=== PATIENT | female | born 1945 | race Caucasian/White ===

== ENCOUNTER 2016-05-11 09:51 | Inpatient (IN) | payer MEDICARE ==
[~2016-05-11] VITALS: Ht 152.4 cm; Wt 50.7 kg
[2016-05-11] MEDS: TIOTROPIUM INHALER/CAPSULE (SPIRIVA) INH SCH (08:00)
[~2016-05-11 09:51] MED LIST: /ADVA50050; /TIOT18INH; ACET-654 PO; ACET65TA; ADVAIR; ALBU17IN INH; ALBU17IN2 INFIL; ALTA5CAP; AMLO10TA; ASPI1TAB PO; ASPI81TA83; ASPI81TAEC PO; AZIT250T3 PO; BUDE0.5S6 INH; CARV3.12 PO; CARV6.25 PO; CLAR1TAB2 PO; CLAR5CHW; CORE6.25; CRES20TA PO; DARBEPOETIN ALFA IV; DEMA20TA6 PO; DIPH25CA PO; DUONSOL INH; Docusate Sod/Senna PO; EPOGEN; FAMO1TAB11 PO; FEBU40TA PO; FLEXERIL; FLON0.054; FLUC10TA PO; FLUT1SPR2; FOLI1TAB; FOLI1TAB2 PO; FURO1TAB15 PO; GABA300C3 PO; GLIP2.5T6 PO; GLYB2.5T6; HYDR25T PO; HYDR50TA7; INSULANT; INSULIN LANTUS; IPRASOL4 IN; KION15SU PO; LEVA250T PO; LEVAMIR SQ; LEVEINJ SC; LORATADINE; LOVA20TA2; METO25TA74 PO; MIDO5TA PO; MIDORINE PO; NASONEX NASAL SPRAY; NEPHTAB PO; NICO21DI4; NYST100024 TOP; NYST10PW TOP; NYST50SS PO; NYST50SS SS; OMEP20CA3 PO; PEPC10TA PO; PEPC1TAB4 PO; PEPC20TA2; PRED10TA PO; PRED20TAB PO; PRED25TA PO; PREDPOW10; PROAMATINE PO; PROTPAK PO; PROV90AE; RENA800T; RENATAB5 PO; RENV2TAB PO; ROCA0.25 PO; SENN8.6T8 PO; SPIR1CAP INH; TAB-TAB PO; THERGRAN; TIOT18INH INH; VICO5TAB; VITA50003 PO; VITAMIN B COMPLE1; XANA0.25; XOPE1.252; XOPENEX; [UNRECOGNIZED DRUG - CODE]; [UNRECOGNIZED DRUG - OTHER]
[2016-05-11] MEDS ORDERED: IPRATROPIUM 0.5MG/ALBUTEROL 2.5MG INH SOL UD 3ML (DUONEB)(J7620) As Ordered ONE ×2 (10:15→16:35)
[2016-05-11 10:27] LABS: ABG BASE EXCESS 4.2 (-2.0-2.0); ABG DEVICE NASAL CANN; ABG HCO3 29.3 MEQ/L (22.0-26.0); ABG PARTIAL PRESSURE CO2 45.5 mmHg (35.0-45.0); ABG PARTIAL PRESSURE O2 82.5 mmHg (75.0-100.0); ABG STANDARD HCO3 28.2 MEQ/L (22.0-26.0); ABG TOTAL CO2 30.6 MEQ/L (23.0-31.0); ABG pH (ARTERIAL) 7.426 UNITS (7.350-7.450)
[2016-05-11] MEDS ORDERED: ALBUTEROL SULFATE 2.5 MG/0.5 ML INH NEB SOLN As Ordered ONE (10:34)
[2016-05-11 10:42] LABS: BASO % 0.7 % (0.0-1.0); EOS % 0.5 % (0.0-3.0); LARGE UNSTAINED CELL # 0.2 K/mm3 (0.0-0.4); LARGE UNSTAINED CELL % 3.7 % (0.0-4.0); LYMPH # 0.6 K/mm3 (1.5-4.5); LYMPH % 13.3 % (24.0-44.0); MEAN CORPUSCULAR HEMOGLOBIN 29.9 pg (27.0-33.0); MEAN CORPUSCULAR HGB CONC 31.5 g/dl (32.0-36.5); MEAN CORPUSCULAR VOLUME 95.1 fl (80.0-96.0); MONO # 0.4 K/mm3 (0.0-0.8); NEUTROPHILS # 3.3 K/mm3 (1.8-7.7); NEUTROPHILS % 72.8 % (36.0-66.0); PLATELET COUNT, AUTOMATED 188 k/mm3 (150-450); RED CELL DISTRIBUTION WIDTH 14.6 % (11.5-14.5); WHITE BLOOD COUNT 4.5 K/mm3 (4.0-10.0)
[2016-05-11 10:50] LABS: CALCIUM LEVEL 9.2 MG/DL (8.8-10.2); CREATININE FOR GFR 1.8 MG/DL (0.55-1.02); GLOMERULAR FILTRATION RATE 29.6 (>39); POTASSIUM SERUM 3.2 MEQ/L (3.5-5.1)
--- NOTE | 2016-05-11 10:55 | REP ---
PORTABLE CHEST: Single AP portable view of the chest is performed and compared to a prior study of 01/23/2016. There is cardiomegaly unchanged. There is calcification and tortuosity of the thoracic aorta with the mediastinal silhouette unchanged. Left single lead pacemaker is again noted unchanged. There is chronic right basilar, parenchymal, and pleural opacity, which is stable. IMPRESSION: Stable cardiomegaly and right basilar opacities. No new infiltrates. Signed by Jesus Johnson MD 05/11/2016 01:13 P
[2016-05-11] MEDS ORDERED: POTASSIUM CHL PWD 20 MEQ PACKET As Ordered ONE (13:57)
[2016-05-11] MEDS ORDERED: DOXY100C PO (14:00)
[2016-05-11] MEDS ORDERED: TORS20TA2 PO (14:00)
--- NOTE | 2016-05-11 14:03 | HPEPDOC ---
Medical History and Physical Date of Admission 05/11/16 History and Physical ATTENDING: Dr. Arzola PCP: Dr Ribeiro Morning Nanny: Dr. Gonzales Kai [place]: Dr. Carter Tick Eradicator: Dr. Gottlieb CC: Shortness of breath HPI: 70 yoF with a past medical history significant for ESRD/HD, COPD, NIDDM, CHF, chronic low blood pressure, who states she has been having shortness of breath for the past [address] Gonzales yesterday who requests that she have a chest x-ray completed. She was subsequently started on doxycycline. She states her shortness of breath persisted and she tried turning up her oxygen at home from 2 L to 3 L with slight improvement in her symptoms. She states last evening her symptoms worsened and she felt persistently short of breath and was sitting in a chair throughout the night. She reports wheezing , coughing productive of yellowish-green sputum, chills. She reports a fever at dialysis on Saturday of 101.4 and today of 100.4. Related to persistent symptoms at dialysis today she was referred to the emergency department for evaluation. She states she has not had any lower extremity edema. Denies any ROSALES, CP, palpitations, abdominal pain, N/V/D or changes in bowel or bladder habits. Upon presentation to the hospital the patient was found to have shortness of breath, thus the hospitalist team was consulted. PMHx: ESRD- hemodialysis via right arm AVF- every Saturday-Dr. Gonzales COPD-O2 dependent 2 L nasal cannula-Dr. Gottlieb NIDDM CHF AICD placement Hyperlipidemia TIA Hypotension TTE DD/EF 60%, moderately severe pulmonary hypertension, mild aortic stenosis, moderately severe to severe mitral insufficiency. 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 One brother [place]. Children: Alive, well Unexpected deaths due to medical reasons: None. ROS: As noted in HPI, otherwise 11pt ROS of systems reviewed and unremarkable. PE: GEN: 70yoF, appears stated age. thin appearing. No acute distress. Alert and oriented x 3. Pleasant, interactive. HEENT: Normocephalic, atraumatic. Pupils are equal, round, and reactive to light. Extraocular movements are intact. No nystagmus appreciated. Sclera are nonicteric. Conjunctiva without injection. Nose midline. Nasal turbinates without bogginess. EACs both patent BL. TMs both visualized and esteban with good cone of light, no bulging or erythema. No facial asymmetry. Dry mucous membranes. Dentures. Pharynx dry. Neck supple, trachea midline. No lymphadenopathy or thyromegaly appreciated. CHEST: Regular rate and rhythm, +S1, +S2 LUNGS: Decreased BS bilaterally. scattered insp/exp wheezes, rales noted at bases B/L, No rhonchi. No accessory muscle use. ABD: Round, soft, non-tender, non-distended. +Bowel sounds throughout. No rebound or guarding. No costovertebral angle tenderness. EXT: Pulses 2+ bilaterally dorsalis pedis and radial. No lower extremity edema appreciated. SKIN: No rashes. NEURO: Alert and oriented x 3. Cranial nerves III-XII are intact. No focal deficits appreciated. CXR: Stable cardiomegaly and right basilar opacities. No new infiltrates. BLOOD CULTURES: pending. A&P: 70 yoF with a past medical history significant for ESRD/HD, COPD, NIDDM, CHF, chronic low blood pressure, who states she has been having shortness of breath for the past [address] Gonzales yesterday who requests that she have a chest x-ray completed. She was subsequently started on doxycycline. She states her shortness of breath persisted and she tried turning up her oxygen at home from 2 L to 3 L with slight improvement in her symptoms. She states last evening her symptoms worsened and she felt persistently short of breath and was sitting in a chair throughout the night. The patient will be admitted to PCU for at least [address] Arzola's service. Patient is discussed with Dr. Triana. 1. Acute respiratory failure/COPD exacerbation. O2, Nebs, IV Vanco- 1 gm IV x 1 now-Pharmacy dosing/IV Solumedrol 60 mg IV Q6. BC/SC/rapid flu pending. 2. ESRD/hemodialysis. Management as per Dr. Gonzales. BNP 3530. Spoke with Dr Gonzales, he will follow Pt, re -attempt HD tomorrow. Hold po diuretic as d/w Dr Gonzales. 3. hypokalemia. S/P po supplement in ED. 4. COPD/O2 dependent. Cont supplemental O2/Nebulizer treatments. Cont outpt meds. 5. CHF-diastolic dysfunction/EF 60%. Cont outpt meds. CIP/Trop x 3. 6. Hypotension. Cont outpt midodrine. 7. VHD- mild aortic stenosis, moderately severe to severe mitral insufficiency TTE 12/29. 8. IDDM. SSI. Hold glipizide. 9. HLD. Cont statin. DVT prophylaxis. The patient is a Full code. Vital Signs 115/53 88 22 93% on 3 L nasal cannula Laboratory Data Labs 24H Laboratory Tests 2 05/11/16 10:08: Anion Gap 10, B-Type Natriuretic Peptide 3530H, White Blood Count 4.5, Red Blood Count 4.11, Hemoglobin 12.3, Hematocrit 39.1, Mean Corpuscular Volume 95.1 , Mean Corpuscular Hemoglobin 29.9, Mean Corpuscular Hemoglobin Concent 31.5L, Red Cell Distribution Width 14.6H, Platelet Count 188, Neutrophils (%) (Auto) 72.8H, Lymphocytes (%) (Auto) 13.3L, Monocytes (%) (Auto) 9.0H, Eosinophils (%) (Auto) 0.5, Basophils (%) (Auto) 0.7, Neutrophils # (Auto) 3.3, Lymphocytes # ( Auto) 0.6L, Monocytes # (Auto) 0.4, Eosinophils # (Auto) 0.0, Basophils # (Auto ) 0.0, Blood Urea Nitrogen 16, Creatinine 1.80H, Sodium Level 135L, Potassium Level 3.2L, Chloride Level 91L, Carbon Dioxide Level 34H, Calcium Level 9.2, Glomerular Filtration Rate 29.6L, Large Unclassified Cells # 0.2, Large Unclassified Cells % 3.7 05/11/16 10:23: Arterial Blood pH 7.426, Arterial Blood Partial Pressure CO2 45.5H, Arterial Blood Partial Pressure O2 82.5, Arterial Blood Total CO2 30.6, Arterial Blood HCO3 29.3H, Arterial Blood Base Excess 4.2H, Arterial Blood Oxygen Saturation 95.5, Blood Gas Bicarbonate Standard 28.2H, Oxygen Delivery Device NASAL ETTA CBC/BMP Laboratory Tests 05/11/16 10:08 Calcium Level 9.2, Red Blood Count 4.11, Mean Corpuscular Volume 95.1, Mean Corpuscular Hemoglobin 29.9, Mean Corpuscular Hemoglobin Concent 31.5 L, Red Cell Distribution Width 14.6 H, Neutrophils (%) (Auto) 72.8 H, Lymphocytes (%) ( Auto) 13.3 L, Monocytes (%) (Auto) 9.0 H, Eosinophils (%) (Auto) 0.5, Basophils (%) (Auto) 0.7, Neutrophils # (Auto) 3.3, Lymphocytes # (Auto) 0.6 L, Monocytes # (Auto) 0.4, Eosinophils # (Auto) 0.0, Basophils # (Auto) 0.0 Home Medications Scheduled (Tiera-Nallely) 1 Tab Tab 1 TAB PO QHS Aspirin (Aspirin EC) 81 Mg Tabec 81 MG PO DAILY Budesonide (Budesonide) 0.5 Mg/2 Ml Neb 0.5 MG INH BID Diphenhydramine HCl (Diphenhydramine HCl) 25 Mg Cap 25 MG PO DAILY Doxycycline Hyclate (Doxycycline Hyclate) 100 Mg Cap 100 MG PO Q12H STARTED 05/10 X 6 DAYS Ergocalciferol (Vitamin D) 50,000 Unit Cap 50,000 UNIT PO MTHLY 1st OF EACH MONTH IN MORNING Febuxostat (Uloric) 40 Mg Tab 40 MG PO DAILY Gabapentin (Gabapentin) 300 Mg Cap 300 MG PO BID Glipizide (Glipizide ER) 2.5 Mg Tab 2.5 MG PO DAILY Loratadine (Claritin) 10 Mg Tab 10 MG PO DAILY Midodrine HCl (Midodrine HCl) 5 Mg Tab 5 MG PO BID Rosuvastatin Calcium (Crestor) 20 Mg Tab 20 MG PO QPM Tiotropium [place] Monohydrate (Spiriva Handihaler) 18 Mcg Cap 18 MCG INH DAILY Torsemide (Torsemide) 20 Mg Tab 40 MG PO Q2D Scheduled PRN Albuterol Sulfate (Ventolin Hfa) 200 Puff/8 Gm Aers 2 PUFF INH Q4H PRN PRN SHORTNESS OF BREATH Albuterol/Ipratropium (Ipratropium [place]/Albut 0.5-2.5 (3) mg/3Ml) 1 Jason Jason 1 JASON IN QIDP PRN PRN RESPIRATORY DISTRESS Hydroxyzine HCl (Hydroxyzine HCl) 25 Mg Tab 25 MG PO BID PRN PRN ANXIETY/ ITCHING Allergies Coded Allergies: Penicillins (Verified Allergy, Intermediate, RASH, 05/11/16) Penicillins Cross Reactors (Verified Allergy, Intermediate, RASH, 05/11/16) Sulfa Drugs (Verified Allergy, Intermediate, RASH, 05/11/16) Sulfa Drugs Cross Reactors (Verified Allergy, Intermediate, RASH, 05/11/16) Ramipril (Verified Allergy, Mild, SWELLING, 07/17/12) Contrast Media (Unverified Allergy, Unknown, 04/16/14) Trina Huerta May 11, 2016 14:03 Contrast Media (Unverified Allergy, Unknown, 04/16/14) Penicillins (Verified Allergy, Unknown, 07/17/12) Penicillins Cross Reactors (Verified Allergy, Unknown, 07/17/12) Sulfa Drugs (Verified Allergy, Unknown, 07/17/12) Sulfa Drugs Cross Reactors (Verified Allergy, Unknown, 07/17/12) Trina Huerta May 11, 2016 14:03
[2016-05-11] MEDS ORDERED: GLUCAGON FOR INJ 1 MG VIAL (J1610) SC PRN (14:15)
[2016-05-11] MEDS ORDERED: GLUCOSE 4 GM CHEW TABLET PO PRN (14:15)
[2016-05-11] MEDS ORDERED: DEXTROSE 50% 50 ML SYRINGE IV PRN (14:15)
[2016-05-11] MEDS ORDERED: hydrOXYzine 25 MG TAB PO PRN (14:45)
[2016-05-11] MEDS ORDERED: VANCOMYCIN HCL 1,000 MG, VIAL MATE ADAPTER 1 EACH in D5W 250 ML IV SCH (15:15)
[2016-05-11] MEDS: MIDODRINE 5 MG TAB PO SCH (16:00)
[2016-05-11] MEDS: IPRATROPIUM 0.5MG/ALBUTEROL 2.5MG INH SOL UD 3ML (DUONEB)(J7620) NEB PRN ×2 (16:39→23:34)
[2016-05-11] MEDS: HumaLOG INSULIN (NovoLOG) PER UNIT SC SCH ×2 (17:30→21:37)
--- NOTE | 2016-05-11 17:42 | EDDOCDS ---
Nurse's Notes [facility] Name: Temitope Shabazz Age: 70 yrs Sex: Female : 1945 Arrival Date: 05/11/2016 Time: 09:51 Bed 14 Private MD: Eduar Gonzales Diagnosis: Fluid overload Presentation: 05/11 09:59 Presenting complaint: Patient states: difficulty breathing for a few days. had cxr srm yesterday and was told it was neg. pt very uncomfortable and restless. tuned her home oxygen up from 2-3 LNC. Adult Sepsis Screening: The patient does not have new or worsening altered mentation. Patient has a respiratory rate of greater than or equal to 22 (1 point). Systolic blood pressure is less than or equal to 100 (1 point). Patient has a qSOFA score of 2. Suicide/Homicide risk assessment- the patient denies having any suicidal and/or homicidal ideations and does not present with any other emotional, behavioral or mental health complaints. Status: Patient is not a business services clerk or dependent. Transition of care: patient was received from dialysis. 09:59 Acuity: CRISTEL Level 2 [facility] 09:59 Method Of Arrival: Wheelchair [facility] Triage Assessment: 10:02 General: Appears distressed, ill, uncomfortable, Behavior is appropriate for age, srm cooperative. Respiratory: Onset: The symptoms/episode began/occurred gradually. Historical: - Allergies: IV Dye; PENICILLINS; Ramipril; Sulfa (Sulfonamide Antibiotics); - Home Meds: 1. budesonide 0.5 mg/2 mL inhalation nbsp 2 mL 2 times per day 2. Claritin 10 mg Oral tab 1 tab once daily 3. Crestor 20 mg Oral tab 1 tab once daily 4. Demadex 20 mg Oral tab 2 tabs every other day LAST DOSE 05/10/16 5. DuoNeb 0.5 mg-3 mg(2.5 mg base)/3 mL Inhl nebu 3 mL 4 times per day 6. gabapentin 300 mg Oral cap twice a day 7. midodrine 5 mg oral tab 3 times per day 8. renavite daily 9. doxycycline hyclate 100 mg Oral cap 1 cap every 12 hours 10. glipizide 2.5 mg Oral tr24 once daily 11. Spiriva with HandiHaler 18 mcg Inhl CpDv 1 cap once daily 12. Vitamin D Oral 52859 unit monthly 13. Uloric 40 mg oral tab 1 tab once daily 14. Atarax Oral 25 mg as needed 15. Oxygen 2 L NC daily - PMHx: CHF; COPD; Diabetes - IDDM: controlled; Heart Murmur; Hypercholesterolemia; Irregular heart rate; Renal Failure with Dialysis; - PSHx: AICD; dailysis fistula right arm; Cholecystectomy; Tubal ligation; Cardiac cath; - Social history: Smoking status: Patient states former smoker of tobacco. No barriers to communication noted, The patient speaks fluent Thai, Speaks appropriately for age. - Family history: Not pertinent. - : The pt / caregiver states he / she is not on anticoagulants. Home medication list is obtained from the patient. - Exposure Risk Screening:: None identified. Screenin:14 Screening information is obtained from the patient. Fall risk: At risk due to age. js13 Assistance ADL's: requires no assistance with activities of daily living. Abuse/DV Screen: The patient / caregiver reports he/she is: not in a situation that causes fear, pain or injury. Nutritional screening: No deficits noted. Advance Directives: There is no active DNR order. home support is adequate. Assessment: 10:14 General: Appears ill, Behavior is appropriate for age, cooperative. Pain: Denies pain. js13 Neurological: Level of Consciousness is awake, alert. Cardiovascular: Rhythm is sinus rhythm Chest pain is denied. Respiratory: Airway is patent Respiratory effort is even, unlabored, Respiratory pattern is tachypnea Breath sounds with rhonchi Breath sounds are diminished Breath sounds with wheezes. Derm: Skin is pink, warm & dry. 10:42 General: DIALYSIS M, W, F. js13 11:24 General: Appears ill, Behavior is appropriate for age, cooperative. Pain: Denies pain. js13 Neurological: Level of Consciousness is awake, alert. Cardiovascular: Rhythm is sinus rhythm Chest pain is denied. Respiratory: Airway is patent Respiratory effort is even, pursed lip, Respiratory pattern is tachypnea Breath sounds with rhonchi Breath sounds are diminished Breath sounds with wheezes. Derm: Skin is pink, warm & dry. 12:19 General: Appears ill, Behavior is appropriate for age, cooperative. Pain: Denies pain. js13 Neurological: Level of Consciousness is awake, alert. Cardiovascular: Rhythm is sinus rhythm Chest pain is denied. Respiratory: Airway is patent Respiratory effort is even, pursed lip, Respiratory pattern is tachypnea. Derm: Skin is pink, warm & dry. 12:22 Adult Sepsis Screening: The patient does not have new or worsening altered mentation. js13 Patient has a respiratory rate of greater than or equal to 22 (1 point). Systolic blood pressure is greater than 100. Patient has a qSOFA score of 0- Negative Sepsis Screen. 13:16 General: Appears ill, Behavior is appropriate for age, cooperative. Pain: Denies pain. js13 Neurological: Level of Consciousness is awake, alert. Cardiovascular: Rhythm is sinus rhythm Chest pain is denied. Respiratory: Airway is patent Respiratory effort is even, pursed lip, Respiratory pattern is tachypnea. Derm: Skin is pink, warm & dry. 14:30 Adult Sepsis Screening: The patient does not have new or worsening altered mentation. js13 Patient has a respiratory rate of greater than or equal to 22 (1 point). Systolic blood pressure is greater than 100. Patient has a qSOFA score of 1- Negative Sepsis Screen. General: Appears ill, Behavior is appropriate for age, cooperative. Pain: Denies pain. Neurological: Level of Consciousness is awake, alert. Respiratory: Airway is patent Respiratory effort is even, pursed lip, Respiratory pattern is tachypnea Breath sounds with rhonchi Breath sounds are diminished. Respiratory: Sputum is thick, brown. Derm: Skin is pink, warm & dry. 15:15 General: Appears ill, Behavior is appropriate for age, cooperative. Pain: Denies pain. js13 Neurological: Level of Consciousness is awake, alert. Cardiovascular: Rhythm is sinus rhythm Chest pain is denied. Respiratory: Airway is patent Respiratory effort is even, Respiratory pattern is tachypnea Breath sounds with rhonchi Breath sounds are diminished. Derm: No deficits noted. Skin is pink, warm & dry. 16:20 Adult Sepsis Screening: The patient does not have new or worsening altered mentation. js13 Patient has a respiratory rate of greater than or equal to 22 (1 point). Systolic blood pressure is greater than 100. Patient has a qSOFA score of 1- Negative Sepsis Screen. General: Appears ill, Behavior is appropriate for age, cooperative. Pain: Denies pain. Neurological: Level of Consciousness is awake, alert. Cardiovascular: Rhythm is sinus rhythm Chest pain is denied. Respiratory: Airway is patent Respiratory effort is even, Respiratory pattern is tachypnea Breath sounds are diminished Breath sounds with wheezes. Derm: No deficits noted. Skin is pink, warm & dry. 17:08 General: Appears comfortable, Behavior is appropriate for age, cooperative. Pain: js13 Denies pain. Neurological: Level of Consciousness is awake, alert. Cardiovascular: Rhythm is sinus rhythm Chest pain is denied. Respiratory: Airway is patent Respiratory effort is even, Respiratory pattern is tachypnea. Derm: Skin is pink, warm & dry. 17:39 General: Appears comfortable, Behavior is appropriate for age, cooperative. Pain: js13 Denies pain. Neurological: Level of Consciousness is awake, alert. Cardiovascular: Rhythm is sinus rhythm Chest pain is denied. Respiratory: Airway is patent Respiratory effort is even, pursed lip, Respiratory pattern is tachypnea. Derm: Skin is pink, warm & dry. Vital Signs: 09:53 Pulse 88; Resp 26 S; Temp 97.8(O); Pulse Ox 97% ; Weight 51.71 kg (R); Height 5 ft. 0 js13 in. (152.40 cm) (R); 10:02 BP 91 / 61; srm 10:16 BP 90 / 60 (auto/); js13 10:16 Pulse 96 MON; Resp 22; Pulse Ox 97% on 3 lpm NC; js13 10:31 BP 91 / 57 (auto/); js13 10:31 Pulse 92 MON; Resp 22; Pulse Ox 98% on 3 lpm NC; js13 10:46 BP 80 / 48 (auto/); js13 10:46 Pulse 88 MON; Resp 24; Pulse Ox 100% on 3 lpm NC; js13 11:33 BP 115 / 53 (auto/); js13 11:33 Pulse 88 MON; Resp 22; Pulse Ox 93% on 3 lpm NC; 13 15:13 BP 94 / 56; Pulse 89; Resp 24; Temp 97.7(O); Pulse Ox 94% on 3 lpm NC; js13 17:38 Pulse 84 MON; Resp 24; Temp 97.8(O); Pulse Ox 96% on 3 lpm NC; 13 09:53 Body Mass Index 22.26 (51.71 kg, 152.40 cm) [facility] Vitals: 09:53 Log In Time: May 11, 2016 at 09:51. RN notified that patient meets Red Flag dd6 criteria. ED Course: 09:52 Patient visited by Juan Irwin PCA. dd6 09:52 Eduar Gonzales is Private Physician. dd6 09:52 Patient moved to Waiting dd6 09:53 [facility]mitt [facility] jo4 09:53 Nela Wen MD is Attending Physician. jo4 09:53 Patient moved to 14 [facility] 10:00 Triage Initiated [facility] 10:02 Patient visited by Cristy Zambrano. nb2 10:02 Placed in gown. Bed in low position. Call light in reach. Side rails up X2. Cardiac nb2 monitor on. Pulse ox on. NIBP on. 10:14 The patient / caregiver is instructed regarding the plan of care and ED course. js13 10:14 Inserted saline lock: 18 gauge in left antecubital area and blood collected. The js13 patient tolerated the procedure well. No procedures done that require assistance. O2 via nasal cannula \T\ 3L/min. 10:17 Patient visited by Elyssa Rubin RN. js13 10:24 Patient visited by Dorie Schmitt DO. jo4 10:24 Patient visited by Dorie Schmitt DO. jo4 10:26 -Arterial Blood Gas Sent. js 10:42 Patient visited by Elyssa Rubin RN. js13 11:05 [facility] Payment Agreement was scanned into [employer] and attached to record. lg 11:25 Patient visited by Elyssa Rubin RN. js13 11:30 Chest, 1 View Returned. EDMS 12:20 Patient visited by Elyssa Rubin RN. js13 12:24 Elyssa Rubin,BATSHEVA is Primary Nurse. js13 13:17 Patient visited by Elyssa Rubin RN. js13 13:20 Ron Triana is Hospitalizing Provider. jo4 13:48 Chest, 1 View Returned. EDMS 16:58 SPUTUM CULTURE AND GRAM STAIN Sent. js13 16:58 INFLUENZA A&B RAPID ANTIGEN Sent. js13 17:09 Patient visited by Elyssa Rubin RN. js13 Administered Medications: 10:26 Drug: Albuterol-Ipratropium 3 ml [ipratropium-albuterol 0.5 mg-3 mg(2.5 mg base)/3 mL js nebulization soln (3 mL)] Route: Inhalation; 10:37 Drug: Albuterol 2.5 mg [albuterol sulfate 2.5 mg/0.5 mL solution for nebulization (0.5 js mL)] Route: Nebulizer; 13:59 Drug: Potassium Chloride 40 mEq [potassium chloride 20 mEq oral packet (2 packets)] js13 Route: PO; RT: 10:26 ABG's drawn from left radial artery allens test done and positive pressure held for 5 js minutes no bleeding noted pressure bandage applied specimen sent pt. tolerated well. Initial Med Neb Given as ordered Patient was instructed and evaluated on procedure. O2 via nasal cannula \T\ 3L/min. Respiratory: Breath sounds are coarse bilaterally. 10:37 Subsequent Med Neb Given as ordered. Respiratory: Breath sounds are coarse bilaterally. js Order Results: Lab Order: -Arterial Blood Gas; SPEC'M 05/11/16 10:23 Test: ABG pH (ARTERIAL); Value: 7.426; Range: 7.350-7.450; Units: UNITS; Status: F Test: ABG PARTIAL PRESSURE CO2; Value: 45.5; Range: 35.0-45.0; Abnormal: Above high normal; Units: mmHg; Status: F Test: ABG PARTIAL PRESSURE O2; Value: 82.5; Range: 75.0-100.0; Units: mmHg; Status: F Test: ABG TOTAL CO2; Value: 30.6; Range: 23.0-31.0; Units: MEQ/L; Status: F Test: ABG HCO3; Value: 29.3; Range: 22.0-26.0; Abnormal: Above high normal; Units: MEQ/L; Status: F Test: ABG BASE EXCESS; Value: 4.2; Range: -2.0-2.0; Abnormal: Above high normal; Status: F Test: ABG STANDARD HCO3; Value: 28.2; Range: 22.0-26.0; Abnormal: Above high normal; Units: MEQ/L; Status: F Test: ABG O2 SATURATION; Value: 95.5; Range: 95.0-99.0; Units: %; Status: F Test: ABG DEVICE; Value: NASAL ETTA; Status: F Lab Order: BNP; SPEC'M 05/11/16 10:08 Test: BRAIN NATRIURETIC PEPTIDE; Value: 3530; Range: <100; Abnormal: Above high normal; Units: PG/ML; Status: F Lab Order: BMP; SPEC'M 05/11/16 10:08 Test: GLUCOSE, FASTING; Value: 115; Range: 83-110; Abnormal: Above high normal; Units: MG/DL; Status: F Test: BLOOD UREA NITROGEN; Value: 16; Range: 7-18; Units: MG/DL; Status: F Test: CREATININE FOR GFR; Value: 1.80; Range: 0.55-1.02; Abnormal: Above high normal; Units: MG/DL; Status: F Test: GLOMERULAR FILTRATION RATE; Value: 29.6; Range: >39; Abnormal: Below low normal; Status: F Test: SODIUM LEVEL; Value: 135; Range: 136-145; Abnormal: Below low normal; Units: MEQ/L; Status: F Test: POTASSIUM SERUM; Value: 3.2; Range: 3.5-5.1; Abnormal: Below low normal; Units: MEQ/L; Status: F Test: CHLORIDE LEVEL; Value: 91; Range: 98-107; Abnormal: Below low normal; Units: MEQ/L; Status: F Test: CARBON DIOXIDE LEVEL; Value: 34; Range: 21-32; Abnormal: Above high normal; Units: MEQ/L; Status: F Test: ANION GAP; Value: 10; Range: 8-16; Units: MEQ/L; Status: F Test: CALCIUM LEVEL; Value: 9.2; Range: 8.8-10.2; Units: MG/DL; Status: F Test Note: ; Units are mL/min/1.73 m2 Chronic Kidney Disease Staging per NKF: Stage I & II GFR >=60 Normal to Mildly Decreased Stage III GFR 30-59 Moderately Decreased Stage IV GFR 15-29 Severely Decreased Stage V GFR <15 Very Little GFR Left ESRD GFR <15 on [facility] Lab Order: CBC with Diff; SPEC'M 05/11/16 10:08 Test: WHITE BLOOD COUNT; Value: 4.5; Range: 4.0-10.0; Units: K/mm3; Status: F Test: RED BLOOD COUNT; Value: 4.11; Range: 4.00-5.40; Units: M/mm3; Status: F Test: HEMOGLOBIN; Value: 12.3; Range: 12.0-16.0; Units: g/dl; Status: F Test: HEMATOCRIT; Value: 39.1; Range: 36.0-47.0; Units: %; Status: F Test: MEAN CORPUSCULAR VOLUME; Value: 95.1; Range: 80.0-96.0; Units: fl; Status: F Test: MEAN CORPUSCULAR HEMOGLOBIN; Value: 29.9; Range: 27.0-33.0; Units: pg; Status: F Test: MEAN CORPUSCULAR HGB CONC; Value: 31.5; Range: 32.0-36.5; Abnormal: Below low normal; Units: g/dl; Status: F Test: RED CELL DISTRIBUTION WIDTH; Value: 14.6; Range: 11.5-14.5; Abnormal: Above high normal; Units: %; Status: F Test: PLATELET COUNT, AUTOMATED; Value: 188; Range: 150-450; Units: k/mm3; Status: F Test: NEUTROPHILS %; Value: 72.8; Range: 36.0-66.0; Abnormal: Above high normal; Units: %; Status: F Test: LYMPH %; Value: 13.3; Range: 24.0-44.0; Abnormal: Below low normal; Units: %; Status: F Test: MONO %; Value: 9.0; Range: 0.0-5.0; Abnormal: Above high normal; Units: %; Status: F Test: EOS %; Value: 0.5; Range: 0.0-3.0; Units: %; Status: F Test: BASO %; Value: 0.7; Range: 0.0-1.0; Units: %; Status: F Test: LARGE UNSTAINED CELL %; Value: 3.7; Range: 0.0-4.0; Units: %; Status: F Test: NEUTROPHILS #; Value: 3.3; Range: 1.8-7.7; Units: K/mm3; Status: F Test: LYMPH #; Value: 0.6; Range: 1.5-4.5; Abnormal: Below low normal; Units: K/mm3; Status: F Test: MONO #; Value: 0.4; Range: 0.0-0.8; Units: K/mm3; Status: F Test: EOS #; Value: 0.0; Range: 0.0-0.50; Units: K/mm3; Status: F Test: BASO #; Value: 0.0; Range: 0.0-0.2; Units: K/mm3; Status: F Test: LARGE UNSTAINED CELL #; Value: 0.2; Range: 0.0-0.4; Units: K/mm3; Status: F Lab Order: CARDIAC MARKER PANEL; SPEC'M 05/11/16 16:25 Test: CPK CREATINE PHOSPHOKINASE; Value: 152; Range: 26-192; Units: U/L; Status: F Test: CK-MB VALUE MASS; Value: 4.2; Range: 0.0-3.6; Abnormal: Above high normal; Units: NG/ML; Status: F Test: MB/CK RELATIVE INDEX; Value: 2.76; Range: < OR =4; Status: F Test: TROPONIN I; Value: 0.06; Range: < 0.10; Abnormal: Delta; Units: NG/ML; Status: F Test Note: ; DIAGNOSIS CRITERIA MMB ng/ml Relative Index (RI) NON-AMI < or = 5 N/A JOH[place]ON [place]ONE > 5 < or = 4 AMI > 5 > 4 Lab Order: INFLUENZA A&B RAPID ANTIGEN; SPEC'M 05/11/16 16:56 Test: INFLUENZA A RAPID SCR by ICA; Value: INFLUENZA A RESULTS NEGATIVE; Status: F Test: INFLUENZA A RAPID SCR by ICA; Value: Comments:; Status: F Test: INFLUENZA B RAPID SCR by ICA; Value: INFLUENZA B RESULTS NEGATIVE; Status: F Test Note: ; The Influenza test is a direct rapid immunoassay for the qualitative detection of Influenza viral antigen. Cell culture (Viral Culture) testing should be considered to confirm NEGATIVE results and to assist in detecting other viruses that can provide similar clinical symptoms. Please contact the lab within 24 hours [phone] if confirmatory testing is desired. Lab Order: CARDIAC MARKER PANEL; SPEC'M 05/11/16 10:08 Test: CPK CREATINE PHOSPHOKINASE; Value: 137; Range: 26-192; Units: U/L; Status: F Test: CK-MB VALUE MASS; Value: 5.0; Range: 0.0-3.6; Abnormal: Above high normal; Units: NG/ML; Status: F Test: MB/CK RELATIVE INDEX; Value: 3.64; Range: < OR =4; Status: F Test: TROPONIN I; Value: 0.08; Range: < 0.10; Units: NG/ML; Status: F Test Note: ; DIAGNOSIS CRITERIA MMB ng/ml Relative Index (RI) NON-AMI < or = 5 N/A JOH[place]ON ZONE > 5 < or = 4 AMI > 5 > 4 Radiology Order: Chest, 1 View Test: Chest, 1 View REASON FOR EXAMINATION: Shortness of Breath; PORTABLE CHEST:; ; Single AP portable view of the chest is performed and compared to a prior study; of 01/23/2016.; ; There is cardiomegaly unchanged. There is calcification and tortuosity of the; thoracic aorta with the mediastinal silhouette unchanged. Left single lead; pacemaker is again noted unchanged. There is chronic right basilar,; parenchymal, and pleural opacity, which is stable.; ; IMPRESSION:; ; Stable cardiomegaly and right basilar opacities. No new infiltrates.; ; ; Signed by; Jesus Johnson MD 05/11/2016 01:13 P; Outcome: 13:30 Decision to Hospitalize by Provider. jo4 15:16 Discharge Assessment: Patient awake, alert and oriented x 3. No cognitive and/or js13 functional deficits noted. Patient verbalized understanding of disposition instructions. patient administered narcotics - no. Condition: stable. No special radiology studies were completed. Admission hand-off: Report Faxed. Property :Personal belongings accompany Pt. 15:45 Admission hand-off: Report Faxed Fax receipt verified by dock clerk. js13 17:41 The following High Risk Discharge criteria are identified: None. Admitted to PCU js13 accompanied by nurse, accompanied by tech, via stretcher, with oxygen, on monitor, with chart. 17:41 Patient left the ED. js13 Signatures: Dispatcher [employer] EDMS Cheryl Cain, BATSHEVA RN Xin Victoria, Camden Braswell lg, Daniell, BARREL CLEANER BARREL CLEANER dd6 Elyssa Rubin,RN RN js13 Dorie Schmitt DO DO jo4 Cristy Zambrano nb2 Corrections: (The following items were deleted from the chart) 14:45 09:53 Pulse 88bpm; Resp 26bpm; Spontaneous; Pulse Ox 97%; 51.71 kg Reported; Height 5 js13 ft. 0 in. Reported; BMI: 22.2; dd6 MTDD
--- NOTE | 2016-05-11 17:42 | EDDOCDS ---
Physician Documentation [facility] Name: Temitope Shabazz Age: 70 yrs Sex: Female : 1945 Arrival Date: 05/11/2016 Time: 09:51 Bed 14 Private MD: Eduar Gonzales Disposition: 05/11 14:21 I have independently interviewed and examined the patient, and I agree with the sd1 investigation, diagnosis and treatment plan as documented by the Resident. Disposition: 05/11/16 13:30 Hospitalization ordered by Ron Triana for Inpatient Admission. Preliminary diagnosis is Fluid overload. - Bed requested for PCU. - Status is Inpatient Admission. js13 - Condition is Stable. - Problem is new. - Symptoms are unchanged. Historical: - Allergies: IV Dye; PENICILLINS; Ramipril; Sulfa (Sulfonamide Antibiotics); - Home Meds: 1. budesonide 0.5 mg/2 mL inhalation nbsp 2 mL 2 times per day 2. Claritin 10 mg Oral tab 1 tab once daily 3. Crestor 20 mg Oral tab 1 tab once daily 4. Demadex 20 mg Oral tab 2 tabs every other day LAST DOSE 05/10/16 5. DuoNeb 0.5 mg-3 mg(2.5 mg base)/3 mL Inhl nebu 3 mL 4 times per day 6. gabapentin 300 mg Oral cap twice a day 7. midodrine 5 mg oral tab 3 times per day 8. renavite daily 9. doxycycline hyclate 100 mg Oral cap 1 cap every 12 hours 10. glipizide 2.5 mg Oral tr24 once daily 11. Spiriva with HandiHaler 18 mcg Inhl CpDv 1 cap once daily 12. Vitamin D Oral 26748 unit monthly 13. Uloric 40 mg oral tab 1 tab once daily 14. Atarax Oral 25 mg as needed 15. Oxygen 2 L NC daily - PMHx: CHF; COPD; Diabetes - IDDM: controlled; Heart Murmur; Hypercholesterolemia; Irregular heart rate; Renal Failure with Dialysis; - PSHx: AICD; dailysis fistula right arm; Cholecystectomy; Tubal ligation; Cardiac cath; - Social history: Smoking status: Patient states former smoker of tobacco. No barriers to communication noted, The patient speaks fluent Greenlandic, Speaks appropriately for age. - Family history: Not pertinent. - : The pt / caregiver states he / she is not on anticoagulants. Home medication list is obtained from the patient. - Exposure Risk Screening:: None identified. Vital Signs: 09:53 Pulse 88; Resp 26 S; Temp 97.8(O); Pulse Ox 97% ; Weight 51.71 kg / 114 lbs (R); Height js13 5 ft. 0 in. (152.40 cm) (R); 10:02 BP 91 / 61; srm 10:16 BP 90 / 60 (auto/); js13 10:16 Pulse 96 MON; Resp 22; Pulse Ox 97% on 3 lpm NC; js13 10:31 BP 91 / 57 (auto/); js13 10:31 Pulse 92 MON; Resp 22; Pulse Ox 98% on 3 lpm NC; js13 10:46 BP 80 / 48 (auto/); js13 10:46 Pulse 88 MON; Resp 24; Pulse Ox 100% on 3 lpm NC; js13 11:33 BP 115 / 53 (auto/); js13 11:33 Pulse 88 MON; Resp 22; Pulse Ox 93% on 3 lpm NC; js13 15:13 BP 94 / 56; Pulse 89; Resp 24; Temp 97.7(O); Pulse Ox 94% on 3 lpm NC; js13 17:38 Pulse 84 MON; Resp 24; Temp 97.8(O); Pulse Ox 96% on 3 lpm NC; js13 09:53 Body Mass Index 22.26 (51.71 kg, 152.40 cm) js13 MDM: 10:12 Albuterol-Ipratropium 3 ml Inhalation once ordered. jo4 10:12 Call Respiratory ordered. jo4 10:12 Call Respiratory complete. jrd 10:14 Chest, 1 View Ordered. EDMS 10:15 -Arterial Blood Gas Ordered. EDMS 10:15 BNP Ordered. EDMS 10:31 -Arterial Blood Gas Reviewed. jo4 10:33 Albuterol 2.5 mg Nebulizer once ordered. jo4 10:33 BMP Ordered. EDMS 10:33 CBC with Diff Ordered. EDMS 10:49 Financial registration complete. lg 10:59 CBC with Diff Reviewed. jo4 10:59 BMP Reviewed. jo4 10:59 BNP Reviewed. jo4 11:05 [facility] Payment Agreement was scanned into [employer] and attached to record. lg 13:36 Potassium Chloride Packet 40 mEq PO once ordered. jo4 13:40 Chest, 1 View Reviewed. jo4 14:04 CONSISTENT CARBOHYDRATES ordered. EDMS 14:09 CARDIAC MARKER PANEL Ordered. EDMS 14:09 CARDIAC MARKER PANEL Ordered. EDMS 14:09 URINALYSIS Ordered. EDMS 14:09 URINE CULTURE Ordered. EDMS 14:09 BLOOD CULTURES Ordered. EDMS 14:09 INFLUENZA A&B RAPID ANTIGEN Ordered. EDMS 14:53 Admission / Observation Status ordered. EDMS 15:14 SPUTUM CULTURE AND GRAM STAIN Ordered. EDMS Administered Medications: 10:26 Drug: Albuterol-Ipratropium 3 ml [ipratropium-albuterol 0.5 mg-3 mg(2.5 mg base)/3 mL js nebulization soln (3 mL)] Route: Inhalation; 10:37 Drug: Albuterol 2.5 mg [albuterol sulfate 2.5 mg/0.5 mL solution for nebulization (0.5 js mL)] Route: Nebulizer; 13:59 Drug: Potassium Chloride 40 mEq [potassium chloride 20 mEq oral packet (2 packets)] js13 Route: PO; Signatures: Dispatcher [employer] EDAK Nela Wen MD MD sd1 Sara Tran, Coordinator Of Placement Unit lbd Cheryl Cain, RN BATSHEVA srm Xin Hussein, Vinny Reg lg Sanju Strickland RN BATSHEVA ml6 Elyssa Rubin RN RN js13 Everette Rivera, LC COUNTY COURT JUDGE d Dorie Schmitt DO DO jo4 Waldemar Martínez, Camden Núñez RN, sa The chart was reviewed and I authenticate all verbal orders and agree with the evaluation and treatment provided.Attachments: 11:05 [facility] Payment Agreement lg MTDD
[2016-05-11 17:53] VITALS: BP 136/52
--- NOTE | 2016-05-11 18:02 | EDDOCDS ---
Nurse's Notes [facility] Name: Temitope Shabazz Age: 70 yrs Sex: Female : 1945 Arrival Date: 05/11/2016 Time: 09:51 Bed 14 Private MD: Eduar Gonzales Diagnosis: Fluid overload Presentation: 05/11 09:59 Presenting complaint: Patient states: difficulty breathing for a few days. had cxr srm yesterday and was told it was neg. pt very uncomfortable and restless. tuned her home oxygen up from 2-3 LNC. Adult Sepsis Screening: The patient does not have new or worsening altered mentation. Patient has a respiratory rate of greater than or equal to 22 (1 point). Systolic blood pressure is less than or equal to 100 (1 point). Patient has a qSOFA score of 2. Suicide/Homicide risk assessment- the patient denies having any suicidal and/or homicidal ideations and does not present with any other emotional, behavioral or mental health complaints. 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 Transition of care: patient was received from dialysis. 09:59 Acuity: CRISTEL Level 2 [facility] 09:59 Method Of Arrival: Wheelchair [facility] Triage Assessment: 10:02 General: Appears distressed, ill, uncomfortable, Behavior is appropriate for age, srm cooperative. Respiratory: Onset: The symptoms/episode began/occurred gradually. Historical: - Allergies: IV Dye; PENICILLINS; Ramipril; Sulfa (Sulfonamide Antibiotics); - Home Meds: 1. budesonide 0.5 mg/2 mL inhalation nbsp 2 mL 2 times per day 2. Claritin 10 mg Oral tab 1 tab once daily 3. Crestor 20 mg Oral tab 1 tab once daily 4. Demadex 20 mg Oral tab 2 tabs every other day LAST DOSE 05/10/16 5. DuoNeb 0.5 mg-3 mg(2.5 mg base)/3 mL Inhl nebu 3 mL 4 times per day 6. gabapentin 300 mg Oral cap twice a day 7. midodrine 5 mg oral tab 3 times per day 8. renavite daily 9. doxycycline hyclate 100 mg Oral cap 1 cap every 12 hours 10. glipizide 2.5 mg Oral tr24 once daily 11. Spiriva with HandiHaler 18 mcg Inhl CpDv 1 cap once daily 12. Vitamin D Oral 76768 unit monthly 13. Uloric 40 mg oral tab 1 tab once daily 14. Atarax Oral 25 mg as needed 15. Oxygen 2 L NC daily - PMHx: CHF; COPD; Diabetes - IDDM: controlled; Heart Murmur; Hypercholesterolemia; Irregular heart rate; Renal Failure with Dialysis; - PSHx: AICD; dailysis fistula right arm; Cholecystectomy; Tubal ligation; Cardiac cath; - Social history: Smoking status: Patient states former smoker of tobacco. No barriers to communication noted, The patient speaks fluent Malay, Speaks appropriately for age. - Family history: Not pertinent. - : The pt / caregiver states he / she is not on anticoagulants. Home medication list is obtained from the patient. - Exposure Risk Screening:: None identified. Screenin:14 Screening information is obtained from the patient. Fall risk: At risk due to age. js13 Assistance ADL's: requires no assistance with activities of daily living. Abuse/DV Screen: The patient / caregiver reports he/she is: not in a situation that causes fear, pain or injury. Nutritional screening: No deficits noted. Advance Directives: There is no active DNR order. home support is adequate. Assessment: 10:14 General: Appears ill, Behavior is appropriate for age, cooperative. Pain: Denies pain. js13 Neurological: Level of Consciousness is awake, alert. Cardiovascular: Rhythm is sinus rhythm Chest pain is denied. Respiratory: Airway is patent Respiratory effort is even, unlabored, Respiratory pattern is tachypnea Breath sounds with rhonchi Breath sounds are diminished Breath sounds with wheezes. Derm: Skin is pink, warm & dry. 10:42 General: DIALYSIS M, W, F. js13 11:24 General: Appears ill, Behavior is appropriate for age, cooperative. Pain: Denies pain. js13 Neurological: Level of Consciousness is awake, alert. Cardiovascular: Rhythm is sinus rhythm Chest pain is denied. Respiratory: Airway is patent Respiratory effort is even, pursed lip, Respiratory pattern is tachypnea Breath sounds with rhonchi Breath sounds are diminished Breath sounds with wheezes. Derm: Skin is pink, warm & dry. 12:19 General: Appears ill, Behavior is appropriate for age, cooperative. Pain: Denies pain. js13 Neurological: Level of Consciousness is awake, alert. Cardiovascular: Rhythm is sinus rhythm Chest pain is denied. Respiratory: Airway is patent Respiratory effort is even, pursed lip, Respiratory pattern is tachypnea. Derm: Skin is pink, warm & dry. 12:22 Adult Sepsis Screening: The patient does not have new or worsening altered mentation. js13 Patient has a respiratory rate of greater than or equal to 22 (1 point). Systolic blood pressure is greater than 100. Patient has a qSOFA score of 0- Negative Sepsis Screen. 13:16 General: Appears ill, Behavior is appropriate for age, cooperative. Pain: Denies pain. js13 Neurological: Level of Consciousness is awake, alert. Cardiovascular: Rhythm is sinus rhythm Chest pain is denied. Respiratory: Airway is patent Respiratory effort is even, pursed lip, Respiratory pattern is tachypnea. Derm: Skin is pink, warm & dry. 14:30 Adult Sepsis Screening: The patient does not have new or worsening altered mentation. js13 Patient has a respiratory rate of greater than or equal to 22 (1 point). Systolic blood pressure is greater than 100. Patient has a qSOFA score of 1- Negative Sepsis Screen. General: Appears ill, Behavior is appropriate for age, cooperative. Pain: Denies pain. Neurological: Level of Consciousness is awake, alert. Respiratory: Airway is patent Respiratory effort is even, pursed lip, Respiratory pattern is tachypnea Breath sounds with rhonchi Breath sounds are diminished. Respiratory: Sputum is thick, brown. Derm: Skin is pink, warm & dry. 15:15 General: Appears ill, Behavior is appropriate for age, cooperative. Pain: Denies pain. js13 Neurological: Level of Consciousness is awake, alert. Cardiovascular: Rhythm is sinus rhythm Chest pain is denied. Respiratory: Airway is patent Respiratory effort is even, Respiratory pattern is tachypnea Breath sounds with rhonchi Breath sounds are diminished. Derm: No deficits noted. Skin is pink, warm & dry. 16:20 Adult Sepsis Screening: The patient does not have new or worsening altered mentation. js13 Patient has a respiratory rate of greater than or equal to 22 (1 point). Systolic blood pressure is greater than 100. Patient has a qSOFA score of 1- Negative Sepsis Screen. General: Appears ill, Behavior is appropriate for age, cooperative. Pain: Denies pain. Neurological: Level of Consciousness is awake, alert. Cardiovascular: Rhythm is sinus rhythm Chest pain is denied. Respiratory: Airway is patent Respiratory effort is even, Respiratory pattern is tachypnea Breath sounds are diminished Breath sounds with wheezes. Derm: No deficits noted. Skin is pink, warm & dry. 17:08 General: Appears comfortable, Behavior is appropriate for age, cooperative. Pain: js13 Denies pain. Neurological: Level of Consciousness is awake, alert. Cardiovascular: Rhythm is sinus rhythm Chest pain is denied. Respiratory: Airway is patent Respiratory effort is even, Respiratory pattern is tachypnea. Derm: Skin is pink, warm & dry. 17:39 General: Appears comfortable, Behavior is appropriate for age, cooperative. Pain: js13 Denies pain. Neurological: Level of Consciousness is awake, alert. Cardiovascular: Rhythm is sinus rhythm Chest pain is denied. Respiratory: Airway is patent Respiratory effort is even, pursed lip, Respiratory pattern is tachypnea. Derm: Skin is pink, warm & dry. Vital Signs: 09:53 Pulse 88; Resp 26 S; Temp 97.8(O); Pulse Ox 97% ; Weight 51.71 kg (R); Height 5 ft. 0 js13 in. (152.40 cm) (R); 10:02 BP 91 / 61; srm 10:16 BP 90 / 60 (auto/); js13 10:16 Pulse 96 MON; Resp 22; Pulse Ox 97% on 3 lpm NC; js13 10:31 BP 91 / 57 (auto/); js13 10:31 Pulse 92 MON; Resp 22; Pulse Ox 98% on 3 lpm NC; js13 10:46 BP 80 / 48 (auto/); js13 10:46 Pulse 88 MON; Resp 24; Pulse Ox 100% on 3 lpm NC; js13 11:33 BP 115 / 53 (auto/); js13 11:33 Pulse 88 MON; Resp 22; Pulse Ox 93% on 3 lpm NC; 13 15:13 BP 94 / 56; Pulse 89; Resp 24; Temp 97.7(O); Pulse Ox 94% on 3 lpm NC; js13 17:38 Pulse 84 MON; Resp 24; Temp 97.8(O); Pulse Ox 96% on 3 lpm NC; 13 09:53 Body Mass Index 22.26 (51.71 kg, 152.40 cm) [facility] Vitals: 09:53 Log In Time: May 11, 2016 at 09:51. RN notified that patient meets Red Flag dd6 criteria. ED Course: 09:52 Patient visited by Juan Irwin PCA. dd6 09:52 Eduar Gonzales is Private Physician. dd6 09:52 Patient moved to Waiting dd6 09:53 [facility] jo4 09:53 Nela Wen MD is Attending Physician. jo4 09:53 Patient moved to 14 [facility] 10:00 Triage Initiated [facility] 10:02 Patient visited by Cristy Zambrano. nb2 10:02 Placed in gown. Bed in low position. Call light in reach. Side rails up X2. Cardiac nb2 monitor on. Pulse ox on. NIBP on. 10:14 The patient / caregiver is instructed regarding the plan of care and ED course. js13 10:14 Inserted saline lock: 18 gauge in left antecubital area and blood collected. The js13 patient tolerated the procedure well. No procedures done that require assistance. O2 via nasal cannula \T\ 3L/min. 10:17 Patient visited by Elyssa Rubin RN. js13 10:24 Patient visited by Dorie Schmitt DO. jo4 10:24 Patient visited by Dorie Schmitt DO. jo4 10:26 -Arterial Blood Gas Sent. js 10:42 Patient visited by Elyssa Rubin RN. js13 11:05 [facility] Payment Agreement was scanned into [facility] and attached to record. lg 11:25 Patient visited by Elyssa Rubin RN. js13 11:30 Chest, 1 View Returned. EDMS 12:20 Patient visited by Elyssa Rubin RN. js13 12:24 Elyssa Rubin,BATSHEVA is Primary Nurse. js13 13:17 Patient visited by Elyssa Rubin RN. js13 13:20 Ron Triana is Hospitalizing Provider. jo4 13:48 Chest, 1 View Returned. EDMS 16:58 SPUTUM CULTURE AND GRAM STAIN Sent. js13 16:58 INFLUENZA A&B RAPID ANTIGEN Sent. js13 17:09 Patient visited by Elyssa Rubin RN. js13 Administered Medications: 10:26 Drug: Albuterol-Ipratropium 3 ml [ipratropium-albuterol 0.5 mg-3 mg(2.5 mg base)/3 mL js nebulization soln (3 mL)] Route: Inhalation; 10:37 Drug: Albuterol 2.5 mg [albuterol sulfate 2.5 mg/0.5 mL solution for nebulization (0.5 js mL)] Route: Nebulizer; 13:59 Drug: Potassium Chloride 40 mEq [potassium chloride 20 mEq oral packet (2 packets)] js13 Route: PO; RT: 10:26 ABG's drawn from left radial artery allens test done and positive pressure held for 5 js minutes no bleeding noted pressure bandage applied specimen sent pt. tolerated well. Initial Med Neb Given as ordered Patient was instructed and evaluated on procedure. O2 via nasal cannula \T\ 3L/min. Respiratory: Breath sounds are coarse bilaterally. 10:37 Subsequent Med Neb Given as ordered. Respiratory: Breath sounds are coarse bilaterally. js Order Results: Lab Order: -Arterial Blood Gas; SPEC'M 05/11/16 10:23 Test: ABG pH (ARTERIAL); Value: 7.426; Range: 7.350-7.450; Units: UNITS; Status: F Test: ABG PARTIAL PRESSURE CO2; Value: 45.5; Range: 35.0-45.0; Abnormal: Above high normal; Units: mmHg; Status: F Test: ABG PARTIAL PRESSURE O2; Value: 82.5; Range: 75.0-100.0; Units: mmHg; Status: F Test: ABG TOTAL CO2; Value: 30.6; Range: 23.0-31.0; Units: MEQ/L; Status: F Test: ABG HCO3; Value: 29.3; Range: 22.0-26.0; Abnormal: Above high normal; Units: MEQ/L; Status: F Test: ABG BASE EXCESS; Value: 4.2; Range: -2.0-2.0; Abnormal: Above high normal; Status: F Test: ABG STANDARD HCO3; Value: 28.2; Range: 22.0-26.0; Abnormal: Above high normal; Units: MEQ/L; Status: F Test: ABG O2 SATURATION; Value: 95.5; Range: 95.0-99.0; Units: %; Status: F Test: ABG DEVICE; Value: NASAL ETTA; Status: F Lab Order: BNP; SPEC'M 05/11/16 10:08 Test: BRAIN NATRIURETIC PEPTIDE; Value: 3530; Range: <100; Abnormal: Above high normal; Units: PG/ML; Status: F Lab Order: BMP; SPEC'M 05/11/16 10:08 Test: GLUCOSE, FASTING; Value: 115; Range: 83-110; Abnormal: Above high normal; Units: MG/DL; Status: F Test: BLOOD UREA NITROGEN; Value: 16; Range: 7-18; Units: MG/DL; Status: F Test: CREATININE FOR GFR; Value: 1.80; Range: 0.55-1.02; Abnormal: Above high normal; Units: MG/DL; Status: F Test: GLOMERULAR FILTRATION RATE; Value: 29.6; Range: >39; Abnormal: Below low normal; Status: F Test: SODIUM LEVEL; Value: 135; Range: 136-145; Abnormal: Below low normal; Units: MEQ/L; Status: F Test: POTASSIUM SERUM; Value: 3.2; Range: 3.5-5.1; Abnormal: Below low normal; Units: MEQ/L; Status: F Test: CHLORIDE LEVEL; Value: 91; Range: 98-107; Abnormal: Below low normal; Units: MEQ/L; Status: F Test: CARBON DIOXIDE LEVEL; Value: 34; Range: 21-32; Abnormal: Above high normal; Units: MEQ/L; Status: F Test: ANION GAP; Value: 10; Range: 8-16; Units: MEQ/L; Status: F Test: CALCIUM LEVEL; Value: 9.2; Range: 8.8-10.2; Units: MG/DL; Status: F Test Note: ; Units are mL/min/1.73 m2 Chronic Kidney Disease Staging per NKF: Stage I & II GFR >=60 Normal to Mildly Decreased Stage III GFR 30-59 Moderately Decreased Stage IV GFR 15-29 Severely Decreased Stage V GFR <15 Very Little GFR Left ESRD GFR <15 on MACHINE PROGRAMMER Lab Order: CBC with Diff; SPEC'M 05/11/16 10:08 Test: WHITE BLOOD COUNT; Value: 4.5; Range: 4.0-10.0; Units: K/mm3; Status: F Test: RED BLOOD COUNT; Value: 4.11; Range: 4.00-5.40; Units: M/mm3; Status: F Test: HEMOGLOBIN; Value: 12.3; Range: 12.0-16.0; Units: g/dl; Status: F Test: HEMATOCRIT; Value: 39.1; Range: 36.0-47.0; Units: %; Status: F Test: MEAN CORPUSCULAR VOLUME; Value: 95.1; Range: 80.0-96.0; Units: fl; Status: F Test: MEAN CORPUSCULAR HEMOGLOBIN; Value: 29.9; Range: 27.0-33.0; Units: pg; Status: F Test: MEAN CORPUSCULAR HGB CONC; Value: 31.5; Range: 32.0-36.5; Abnormal: Below low normal; Units: g/dl; Status: F Test: RED CELL DISTRIBUTION WIDTH; Value: 14.6; Range: 11.5-14.5; Abnormal: Above high normal; Units: %; Status: F Test: PLATELET COUNT, AUTOMATED; Value: 188; Range: 150-450; Units: k/mm3; Status: F Test: NEUTROPHILS %; Value: 72.8; Range: 36.0-66.0; Abnormal: Above high normal; Units: %; Status: F Test: LYMPH %; Value: 13.3; Range: 24.0-44.0; Abnormal: Below low normal; Units: %; Status: F Test: MONO %; Value: 9.0; Range: 0.0-5.0; Abnormal: Above high normal; Units: %; Status: F Test: EOS %; Value: 0.5; Range: 0.0-3.0; Units: %; Status: F Test: BASO %; Value: 0.7; Range: 0.0-1.0; Units: %; Status: F Test: LARGE UNSTAINED CELL %; Value: 3.7; Range: 0.0-4.0; Units: %; Status: F Test: NEUTROPHILS #; Value: 3.3; Range: 1.8-7.7; Units: K/mm3; Status: F Test: LYMPH #; Value: 0.6; Range: 1.5-4.5; Abnormal: Below low normal; Units: K/mm3; Status: F Test: MONO #; Value: 0.4; Range: 0.0-0.8; Units: K/mm3; Status: F Test: EOS #; Value: 0.0; Range: 0.0-0.50; Units: K/mm3; Status: F Test: BASO #; Value: 0.0; Range: 0.0-0.2; Units: K/mm3; Status: F Test: LARGE UNSTAINED CELL #; Value: 0.2; Range: 0.0-0.4; Units: K/mm3; Status: F Lab Order: CARDIAC MARKER PANEL; SPEC'M 05/11/16 16:25 Test: CPK CREATINE PHOSPHOKINASE; Value: 152; Range: 26-192; Units: U/L; Status: F Test: CK-MB VALUE MASS; Value: 4.2; Range: 0.0-3.6; Abnormal: Above high normal; Units: NG/ML; Status: F Test: MB/CK RELATIVE INDEX; Value: 2.76; Range: < OR =4; Status: F Test: TROPONIN I; Value: 0.06; Range: < 0.10; Abnormal: Delta; Units: NG/ML; Status: F Test Note: ; DIAGNOSIS CRITERIA MMB ng/ml Relative Index (RI) NON-AMI < or = 5 N/A JOH[place]ON ZONE > 5 < or = 4 AMI > 5 > 4 Lab Order: INFLUENZA A&B RAPID ANTIGEN; SPEC'M 05/11/16 16:56 Test: INFLUENZA A RAPID SCR by ICA; Value: INFLUENZA A RESULTS NEGATIVE; Status: F Test: INFLUENZA A RAPID SCR by ICA; Value: Comments:; Status: F Test: INFLUENZA B RAPID SCR by ICA; Value: INFLUENZA B RESULTS NEGATIVE; Status: F Test Note: ; The Influenza test is a direct rapid immunoassay for the qualitative detection of Influenza viral antigen. Cell culture (Viral Culture) testing should be considered to confirm NEGATIVE results and to assist in detecting other viruses that can provide similar clinical symptoms. Please contact the lab within 24 hours ([phone] if confirmatory testing is desired. Lab Order: CARDIAC MARKER PANEL; SPEC'M 05/11/16 10:08 Test: CPK CREATINE PHOSPHOKINASE; Value: 137; Range: 26-192; Units: U/L; Status: F Test: CK-MB VALUE MASS; Value: 5.0; Range: 0.0-3.6; Abnormal: Above high normal; Units: NG/ML; Status: F Test: MB/CK RELATIVE INDEX; Value: 3.64; Range: < OR =4; Status: F Test: TROPONIN I; Value: 0.08; Range: < 0.10; Units: NG/ML; Status: F Test Note: ; DIAGNOSIS CRITERIA MMB ng/ml Relative Index (RI) NON-AMI < or = 5 N/A JOH[place]ON ZONE > 5 < or = 4 AMI > 5 > 4 Radiology Order: Chest, 1 View Test: Chest, 1 View REASON FOR EXAMINATION: Shortness of Breath; PORTABLE CHEST:; ; Single AP portable view of the chest is performed and compared to a prior study; of 01/23/2016.; ; There is cardiomegaly unchanged. There is calcification and tortuosity of the; thoracic aorta with the mediastinal silhouette unchanged. Left single lead; pacemaker is again noted unchanged. There is chronic right basilar,; parenchymal, and pleural opacity, which is stable.; ; IMPRESSION:; ; Stable cardiomegaly and right basilar opacities. No new infiltrates.; ; ; Signed by; Jesus Johnson MD 05/11/2016 01:13 P; Outcome: 13:30 Decision to Hospitalize by Provider. jo4 15:16 Discharge Assessment: Patient awake, alert and oriented x 3. No cognitive and/or js13 functional deficits noted. Patient verbalized understanding of disposition instructions. patient administered narcotics - no. Condition: stable. No special radiology studies were completed. Admission hand-off: Report Faxed. Property :Personal belongings accompany Pt. 15:45 Admission hand-off: Report Faxed Fax receipt verified by accounts payable clerk. js13 17:41 The following High Risk Discharge criteria are identified: None. Admitted to PCU js13 accompanied by nurse, accompanied by tech, via stretcher, with oxygen, on monitor, with chart. 17:41 Patient left the ED. 13 18:01 Patient left the ED. kamala Signatures: Dispatcher [employer] Jem Andrews RN RN bcj Michelson, Staci, RN RN srm Ganter, LoriLee, Reg Reg lg Camden Brower Daniell, BEAD WRAPPER BEAD WRAPPER dd6 Elyssa Rubin,RN RN js13 Dorie Schmitt DO DO jo4 Cristy Zambrano nb2 Corrections: (The following items were deleted from the chart) 14:45 09:53 Pulse 88bpm; Resp 26bpm; Spontaneous; Pulse Ox 97%; 51.71 kg Reported; Height 5 js13 ft. 0 in. Reported; BMI: 22.2; dd6 MTDD
--- NOTE | 2016-05-11 18:02 | EDDOCDS ---
Physician Documentation [facility] Name: Temitope Shabazz Age: 70 yrs Sex: Female : 1945 Arrival Date: 05/11/2016 Time: 09:51 Bed 14 Private MD: Eduar Gonzales Disposition: 05/11 14:21 I have independently interviewed and examined the patient, and I agree with the sd1 investigation, diagnosis and treatment plan as documented by the Resident. Disposition: 05/11/16 13:30 Hospitalization ordered by Ron Triana for Inpatient Admission. Preliminary diagnosis is Fluid overload. - Bed requested for PCU. - Status is Inpatient Admission. bcj - Condition is Stable. - Problem is new. - Symptoms are unchanged. Historical: - Allergies: IV Dye; PENICILLINS; Ramipril; Sulfa (Sulfonamide Antibiotics); - Home Meds: 1. budesonide 0.5 mg/2 mL inhalation nbsp 2 mL 2 times per day 2. Claritin 10 mg Oral tab 1 tab once daily 3. Crestor 20 mg Oral tab 1 tab once daily 4. Demadex 20 mg Oral tab 2 tabs every other day LAST DOSE 05/10/16 5. DuoNeb 0.5 mg-3 mg(2.5 mg base)/3 mL Inhl nebu 3 mL 4 times per day 6. gabapentin 300 mg Oral cap twice a day 7. midodrine 5 mg oral tab 3 times per day 8. renavite daily 9. doxycycline hyclate 100 mg Oral cap 1 cap every 12 hours 10. glipizide 2.5 mg Oral tr24 once daily 11. Spiriva with HandiHaler 18 mcg Inhl CpDv 1 cap once daily 12. Vitamin D Oral 37379 unit monthly 13. Uloric 40 mg oral tab 1 tab once daily 14. Atarax Oral 25 mg as needed 15. Oxygen 2 L NC daily - PMHx: CHF; COPD; Diabetes - IDDM: controlled; Heart Murmur; Hypercholesterolemia; Irregular heart rate; Renal Failure with Dialysis; - PSHx: AICD; dailysis fistula right arm; Cholecystectomy; Tubal ligation; Cardiac cath; - Social history: Smoking status: Patient states former smoker of tobacco. No barriers to communication noted, The patient speaks fluent Occitan, Speaks appropriately for age. - Family history: Not pertinent. - : The pt / caregiver states he / she is not on anticoagulants. Home medication list is obtained from the patient. - Exposure Risk Screening:: None identified. Vital Signs: 09:53 Pulse 88; Resp 26 S; Temp 97.8(O); Pulse Ox 97% ; Weight 51.71 kg / 114 lbs (R); Height js13 5 ft. 0 in. (152.40 cm) (R); 10:02 BP 91 / 61; srm 10:16 BP 90 / 60 (auto/); js13 10:16 Pulse 96 MON; Resp 22; Pulse Ox 97% on 3 lpm NC; js13 10:31 BP 91 / 57 (auto/); js13 10:31 Pulse 92 MON; Resp 22; Pulse Ox 98% on 3 lpm NC; js13 10:46 BP 80 / 48 (auto/); js13 10:46 Pulse 88 MON; Resp 24; Pulse Ox 100% on 3 lpm NC; js13 11:33 BP 115 / 53 (auto/); js13 11:33 Pulse 88 MON; Resp 22; Pulse Ox 93% on 3 lpm NC; js13 15:13 BP 94 / 56; Pulse 89; Resp 24; Temp 97.7(O); Pulse Ox 94% on 3 lpm NC; js13 17:38 Pulse 84 MON; Resp 24; Temp 97.8(O); Pulse Ox 96% on 3 lpm NC; js13 09:53 Body Mass Index 22.26 (51.71 kg, 152.40 cm) js13 MDM: 10:12 Albuterol-Ipratropium 3 ml Inhalation once ordered. jo4 10:12 Call Respiratory ordered. jo4 10:12 Call Respiratory complete. jrd 10:14 Chest, 1 View Ordered. EDMS 10:15 -Arterial Blood Gas Ordered. EDMS 10:15 BNP Ordered. EDMS 10:31 -Arterial Blood Gas Reviewed. jo4 10:33 Albuterol 2.5 mg Nebulizer once ordered. jo4 10:33 BMP Ordered. EDMS 10:33 CBC with Diff Ordered. EDMS 10:49 Financial registration complete. lg 10:59 CBC with Diff Reviewed. jo4 10:59 BMP Reviewed. jo4 10:59 BNP Reviewed. jo4 11:05 [facility] Payment Agreement was scanned into [employer] and attached to record. lg 13:36 Potassium Chloride Packet 40 mEq PO once ordered. jo4 13:40 Chest, 1 View Reviewed. jo4 14:04 CONSISTENT CARBOHYDRATES ordered. EDMS 14:09 CARDIAC MARKER PANEL Ordered. EDMS 14:09 CARDIAC MARKER PANEL Ordered. EDMS 14:09 URINALYSIS Ordered. EDMS 14:09 URINE CULTURE Ordered. EDMS 14:09 BLOOD CULTURES Ordered. EDMS 14:09 INFLUENZA A&B RAPID ANTIGEN Ordered. EDMS 14:53 Admission / Observation Status ordered. EDMS 15:14 SPUTUM CULTURE AND GRAM STAIN Ordered. EDMS Administered Medications: 10:26 Drug: Albuterol-Ipratropium 3 ml [ipratropium-albuterol 0.5 mg-3 mg(2.5 mg base)/3 mL js nebulization soln (3 mL)] Route: Inhalation; 10:37 Drug: Albuterol 2.5 mg [albuterol sulfate 2.5 mg/0.5 mL solution for nebulization (0.5 js mL)] Route: Nebulizer; 13:59 Drug: Potassium Chloride 40 mEq [potassium chloride 20 mEq oral packet (2 packets)] js13 Route: PO; Signatures: Dispatcher [employer] EDUT Nela Wen MD MD sd1 Sara Tran, Cardiac Specialist Unit lbd Jem Pollard RN Cheryl Jiang, RN RN Xin Victoria, Reg Reg lg Sanju Strickland, RN BATSHEVA ml6 Elyssa RubinRN BATSHEVA js13 Everette Rivera, LC EARLY CHILDHOOD SPECIALIST jrd Dorie Schmitt DO DO jo4 Waldemar Martínez, RN Camden Núñez sa The chart was reviewed and I authenticate all verbal orders and agree with the evaluation and treatment provided.Attachments: 11:05 [facility] Payment Agreement lg MTDD
[2016-05-11] MEDS: methylPREDNISolone INJ 125 MG/2 ML VIAL (J2930) IV SCH (18:33)
[2016-05-11] MEDS: ASPIRIN 81 MG ENTERIC TAB PO SCH (18:33)
[2016-05-11] MEDS: diphenhydrAMINE 25 MG CAP PO SCH (18:33)
[2016-05-11] MEDS ORDERED: VANCOMYCIN HCL 750 MG, VIAL MATE ADAPTER 1 EACH in D5W 250 ML IV ONE (19:00)
--- NOTE | 2016-05-11 19:34 | PHACANCOPD ---
PHARMACY VANCOMYCIN DOSING Pt Demographics Demographics Patient Age:70 , Weight:70.500 , Gender: female Adjusted Body Weight Date: 05/11/16, Adjusted Body Weight: Kg Events Past 24 Hours Events Past 24 Hours: YES: Pending Diagnostics Vancomycin Vancomycin indication: pneumonia Vancomycin Target Ranges: 15-20 mcg/ml Vancomycin Load Y/N: No Load Dose Date Time Vancomycin Load Dose: Date: Time: Vancomycin Dose Date: 05/11/16. Current Vancomycin Dose: [750 mg IV HD] Intermittent Dosing?: Yes Labs Labs Item Value Date Time White Blood Count 4.5 K/mm3 05/11/16 1008 Creatinine 1.80 MG/DL H 05/11/16 1008 Micro Microbiology 05/11/16 Blood Culture, Received Pending 05/11/16 Influenza Virus Type A Antigen - Final, Complete 05/11/16 Influenza Virus Type B Antigen - Final, Complete 05/11/16 Gram Stain, Received Pending 05/11/16 Sputum Culture, Received Pending Creatinine Clearance Date:05/11/16. Estimated Creatinine Clearance: ~[22.7 ml/min]. Pending Labs Vancomycin random level scheduled 05/12/16 @0600 Assessment and Plan Maintaining Current Dose?: Yes Reason for dose change: No Dose Change Pharmacist Note Pharmacist Note Date: 05/11/16. Pharmacist note: Day #1 on IV vancomycin initiated with a one time 750mg dose, followed by intermittent dosing based on random levels for the treatment of pneumonia - aiming for a goal trough of 15-20 mcg/ml. The patient has ESRD and undergoes HD every Saturday, Saturday, and Saturday. She was previously on doxycycline as an outpatient. WBC is currently WNL, and patient is afebrile. Blood and sputum cultures are pending. Recent CXR showed right basilar opacities with no new infiltrates. PMH is negative for MRSA, but positive for vanco use her at [facility]. A random schedule has been scheduled for 05/12 @ 0600. We will monitor and make dose adjustments as needed. [facility] May 11, 2016 19:34
[2016-05-11] MEDS ORDERED: VANCOMYCIN HCL 500 MG in D5W MINI-BAG PLUS 100 ML IV ONE (20:00)
[2016-05-11] MEDS: IPRATROPIUM 0.5MG/ALBUTEROL 2.5MG INH SOL UD 3ML (DUONEB)(J7620) NEB SCH (20:23)
[2016-05-11 21:28] VITALS: BP 120/58
[2016-05-11] MEDS: ROSUVASTATIN 10 MG TAB (CRESTOR) PO SCH (21:35)
[2016-05-11] MEDS: LORATADINE 10 MG TAB PO SCH (21:36)
[2016-05-11] MEDS: GABAPENTIN 300 MG CAP PO SCH (21:36)
[2016-05-11] MEDS: FEBUXOSTAT 40 MG TABLET (ULORIC) PO SCH (21:36)
[2016-05-11 23:59] VITALS: BP 84/44
[2016-05-12] MEDS ORDERED: NYSTATIN 500,000 U/5 ML SUSP UDC SS SCH (00:30)
[2016-05-12] MEDS: methylPREDNISolone INJ 125 MG/2 ML VIAL (J2930) IV SCH ×4 (00:54→18:22)
[2016-05-12 03:57] VITALS: BP 90/48
[2016-05-12] MEDS: IPRATROPIUM 0.5MG/ALBUTEROL 2.5MG INH SOL UD 3ML (DUONEB)(J7620) NEB SCH ×4 (04:24→20:01)
[2016-05-12 05:53] LABS: BASO % 0.9 % (0.0-1.0); EOS % 0.5 % (0.0-3.0); LARGE UNSTAINED CELL % 1.2 % (0.0-4.0); LYMPH # 0.3 K/mm3 (1.5-4.5); MEAN CORPUSCULAR HEMOGLOBIN 29.6 pg (27.0-33.0); MEAN CORPUSCULAR VOLUME 95.5 fl (80.0-96.0); MONO # 0.1 K/mm3 (0.0-0.8); MONO % 2.8 % (0.0-5.0); NEUTROPHILS # 3.1 K/mm3 (1.8-7.7); NEUTROPHILS % 87.6 % (36.0-66.0); PLATELET COUNT, AUTOMATED 163 k/mm3 (150-450); RED CELL DISTRIBUTION WIDTH 15.7 % (11.5-14.5); WHITE BLOOD COUNT 3.6 K/mm3 (4.0-10.0)
[2016-05-12 06:11] LABS: ALBUMIN 3.6 GM/DL (3.2-5.2); ALBUMIN/GLOBULIN RATIO 0.86 (1.00-1.93); BILIRUBIN,TOTAL 0.6 MG/DL (0.2-1.0); CALCIUM LEVEL 9.1 MG/DL (8.8-10.2); CREATININE FOR GFR 2.9 MG/DL (0.55-1.02); GLOMERULAR FILTRATION RATE 17.1 (>39); POTASSIUM SERUM 4.2 MEQ/L (3.5-5.1); TOTAL PROTEIN 7.8 GM/DL (6.4-8.2); VANCOMYCIN RANDOM 11.8 UG/ML
[2016-05-12 08:00] VITALS: BP 136/57
[2016-05-12] MEDS: NYSTATIN 500,000 U/5 ML SUSP UDC SS SCH ×3 (08:21→20:47)
[2016-05-12] MEDS: FEBUXOSTAT 40 MG TABLET (ULORIC) PO SCH (08:21)
[2016-05-12] MEDS: LORATADINE 10 MG TAB PO SCH (08:21)
[2016-05-12] MEDS: GABAPENTIN 300 MG CAP PO SCH ×2 (08:21→20:47)
[2016-05-12] MEDS: MIDODRINE 5 MG TAB PO SCH ×2 (08:21→16:49)
[2016-05-12] MEDS: diphenhydrAMINE 25 MG CAP PO SCH (08:21)
[2016-05-12] MEDS: ASPIRIN 81 MG ENTERIC TAB PO SCH (08:21)
[2016-05-12] MEDS: HumaLOG INSULIN (NovoLOG) PER UNIT SC SCH ×4 (08:21→21:00)
[2016-05-12] MEDS ORDERED: HEPARIN 1,000 UNITS/ML 10ML VIAL (FOR RADIOLOGY& DIALYSIS ONLY) XX ONE (09:00)
[2016-05-12] MEDS: TIOTROPIUM INHALER/CAPSULE (SPIRIVA) INH SCH (09:06)
[2016-05-12] MEDS ORDERED: FUROSEMIDE 100 MG/10 ML VIAL (J1940) IV ONE (10:45)
[2016-05-12 12:00] VITALS: BP 80/52
--- NOTE | 2016-05-12 12:20 | PHACANCOPD ---
PHARMACY VANCOMYCIN DOSING Pt Demographics Demographics Patient Age:70 , Weight:70.500 , Gender: female Adjusted Body Weight Date: 05/11/16, Adjusted Body Weight: Kg Vancomycin Vancomycin indication: pneumonia Vancomycin Target Ranges: 15-20 mcg/ml Vancomycin Load Y/N: No Load Dose Date Time Vancomycin Load Dose: Date: Time: Vancomycin Dose Date: 05/11/16. Current Vancomycin Dose: [750 mg IV HD] Intermittent Dosing?: Yes Labs Micro Microbiology 05/11/16 Blood Culture, Received Pending 05/11/16 Influenza Virus Type A Antigen - Final, Complete 05/11/16 Influenza Virus Type B Antigen - Final, Complete 05/11/16 Gram Stain - Final, Complete 05/11/16 Sputum Culture - Final, Complete 05/12/16 Urine Culture, Received Pending Creatinine Clearance Date:05/11/16. Estimated Creatinine Clearance: ~[22.7 ml/min]. Pending Labs Vancomycin random level scheduled 05/12/16 @0600 Assessment and Plan Maintaining Current Dose?: No Reason for dose change: Other (RANDOM LEVEL LOW) Pharmacist Note Pharmacist Note 05/12/16: Day #2 IV Vancomycin - 0600 Random level today resulted at 11.8. I will increase vanco from 750mg IV HD to 1g IV HD. Another random level has been scheduled Saturday morning, 05/14/16 @0600. We will continue to monitor and make further dose adjustments/draw random levels as needed. Date: 05/11/16. Pharmacist note: Day #1 on IV vancomycin initiated with a one time 750mg dose, followed by intermittent dosing based on random levels for the treatment of pneumonia - aiming for a goal trough of 15-20 mcg/ml. The patient has ESRD and undergoes HD every Saturday, Saturday, and Saturday. She was previously on doxycycline as an outpatient. WBC is currently WNL, and patient is afebrile. Blood and sputum cultures are pending. Recent CXR showed right basilar opacities with no new infiltrates. PMH is negative for MRSA, but positive for vanco use her at [facility]. A random schedule has been scheduled for 05/12 @ 0600. We will monitor and make dose adjustments as needed. [facility] May 12, 2016 12:20
[2016-05-12] MEDS: ACETAMINOPHEN TAB 650MG DOSE (2X325MG) PO PRN ×2 (12:22→18:56)
--- NOTE | 2016-05-12 14:35 | CR.PDOC ---
[facility] Consultation Consultation DATE OF ADMISSION: 05/11/2016 DATE OF CONSULTATION: 05/12/2016 ATTENDING PHYSICIAN: Dr. Tiera Arzola CONSULTING PHYSICIAN: Dr. Eduar Gonzales REASON FOR CONSULTATION: Management of end-stage renal disease HISTORY OF PRESENT ILLNESS: Ms. Shabazz is a 70 year old female with past medical history significant for end-stage renal disease on hemodialysis, chronic obstructive pulmonary disease, chronic hypoxic respiratory failure, congestive heart failure, zuj-ktiumke-lwenjrdch diabetes, hyperlipidemia, history of TIA and chronic hypotension who presented to the emergency department complaining of progressive shortness of breath for the last 3 days. She reportedly had productive cough with dark yellow sputum, chills and wheezing. She was told to have a chest x-ray done and subsequently started on doxycycline. She had a reported fever during dialysis on Saturday and again yesterday and instructed to come to the emergency department for evaluation given that her symptoms had not significantly improved. She also reported some lightheadedness yesterday, generalized weakness with decreased appetite. She had a chest x-ray done yesterday which revealed stable cardiomegaly and basilar opacities, no new infiltrates. She was admitted into the hospital for COPD exacerbation initiated on Solu-Medrol, DuoNeb breathing treatments and antibiotics. Nephrology consult was requested to assist with management of end- stage renal disease. PAST MEDICAL HISTORY: 1. End-stage renal disease on hemodialysis Saturday, Saturday and Saturday 2. Chronic obstructive pulmonary disease 3. Chronic hypoxic respiratory failure, on 2L O2 4. Congestive heart failure, EF 60% 5. Ymf-pxzurbc-zbolccwbw diabetes 6. Hyperlipidemia 7. History of TIA 8. Chronic hypotension PAST SURGICAL HISTORY: 1. Cholecystectomy 2. Tubal ligation 3. AICD placement 4. Right arm AV fistula HOME MEDICATIONS: Please see below. ALLERGIES: Penicillin, sulfa drugs, ramipril, contrast dye SOCIAL HISTORY: Patient is a former smoker, quit about 4 years ago. Used to smoke less than half a pack per day since she was 23. Occasional alcohol. No illicit drug use. 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 FAMILY HISTORY: No family history of anyone with end-stage renal disease on hemodialysis. Father had history of colon cancer. One brother has history of coronary artery disease. REVIEW OF SYSTEMS: GENERAL: Positive for fever and chills. Positive for generalized weakness and decreased appetite. HEENT: Positive for lightheadedness with ambulation yesterday. No headache or dizziness. No acute changes to vision or hearing. CARDIOVASCULAR: No chest pain or pressure. Positive for shortness of breath with exertion. No orthopnea, paroxysmal nocturnal dyspnea or chronic lower extremity edema. RESPIRATORY: Positive for productive cough with yellow sputum. Positive for shortness of breath. No hemoptysis. GASTROINTESTINAL: No nausea, vomiting, diarrhea or abdominal pain. No hematochezia or melena. GENITOURINARY: No changes in urinary frequency. No dysuria or hematuria. ENDOCRINE: Positive history of diabetes. No thyroid disorder. MUSCULOSKELETAL: No unusual muscle or joint pains. HEMATOLOGIC: No excessive bruising or bleeding. NEUROLOGIC: No syncope. No new paresthesias. History of TIA. PHYSICAL EXAMINATION: Vital Signs Date Time Temp Pulse Resp B/P Pulse Ox O2 Delivery O2 Flow Rate FiO2 05/12/16 12:00 97.8 96 20 80/52 95 Nasal Cannula 3.0 I&O- Last 24 Hours up to 6 AM 05/12/16 06:00 Intake Total 300 ml Output Total 40 ml Balance 260 ml GENERAL: Alert and oriented, in no acute distress. HEENT: Normocephalic, atraumatic. Pupils are round, and reactive to light. Extraocular movements are intact. No scleral icterus. Moist mucosa. NECK: Supple. Jugular veins are elevated. Trachea is midline. No cervical lymphadenopathy. No thyromegaly. HEART: Normal S1, S2. Regular rate and rhythm. Systolic ejection murmur heard along lower left sternal border and apex. LUNGS: Decreased breath sounds bilaterally. She had occasional scattered expiratory wheezing. ABDOMEN: Soft, nontender, nondistended. Bowel sounds are present. No rebound, guarding or rigidity. EXTREMITIES: No cyanosis or lower extremity edema. Positive pedal pulses bilaterally. SKIN: Warm and dry. Good skin turgor. No rashes noted. NEURO: Alert and oriented x 3. Cranial nerves II-XII are grossly intact. No focal deficits. LABORATORY DATA: 05/12/16 05:17 Red Blood Count 3.75 L, Mean Corpuscular Volume 95.5, Mean Corpuscular Hemoglobin 29.6, Mean Corpuscular Hemoglobin Concent 31.0 L, Red Cell Distribution Width 15.7 H, Calcium Level 9.1, Aspartate Amino Transf (AST/SGOT) 34, Alanine Aminotransferase (ALT/SGPT) 35, Total Creatine Kinase 121, Alkaline Phosphatase 200H, Total Bilirubin 0.6, Total Protein 7.8, Albumin 3.6, Albumin/ Globulin Ratio 0.86L, Anion Gap 12, Creatine Kinase MB 5.9H, Creatine Kinase MB Relative Index 4.87H, Glomerular Filtration Rate 17.1L, Random Vancomycin Level 11.8, Troponin I 0.06 MICROBIOLOGY: Influenza negative. Blood cultures and urine culture pending. IMAGING: Chest x-ray done on 05/11 revealed stable cardiomegaly and right basilar opacities. No new infiltrates. ASSESSMENT AND PLAN: 1. Progressive dyspnea, secondary to COPD exacerbation and fluid overload. Patient was dialyzed yesterday but clinically, she still appears to be overloaded. She will receive dialysis again today. She was also given 200mg of Lasix one time to help with urinary output. Monitor input and output. COPD is being managed by primary team and she appears to be on steroids, breathing treatments and antibiotics. 2. End-stage renal disease on hemodialysis Saturday, Saturday and Saturday. Volume status will continue to be corrected with hemodialysis. 3. History of diastolic heart failure, EF 60%. Brain natriuretic peptide was elevated at 3530. Volume status will be reassessed after dialysis. Home dose of torsemide held on admission. 4. Mild hyponatremia, likely secondary to volume overload. 5. Hypokalemia, resolved. Continue to monitor electrolytes. 6. History of chronic hypotension. Patient in on midodrine. Blood pressure stable and will be monitored during dialysis. 7. Diabetes. Glipizide on hold. Insulin sliding scale per protocol. 8. History of gout. Patient takes Uloric at home. 9. Hyperlipidemia. Patient is on Crestor. Thank you for the consultation and allowing us to participate in the care of Ms Shabazz. We will continue to follow along with you. Allergies Coded Allergies: Penicillins (Verified Allergy, Intermediate, RASH, 05/11/16) Penicillins Cross Reactors (Verified Allergy, Intermediate, RASH, 05/11/16) Sulfa Drugs (Verified Allergy, Intermediate, RASH, 05/11/16) Sulfa Drugs Cross Reactors (Verified Allergy, Intermediate, RASH, 05/11/16) Ramipril (Verified Allergy, Mild, SWELLING, 07/17/12) Contrast Media (Unverified Allergy, Unknown, 04/16/14) Home Medications Scheduled (Tiera-Nallely) 1 Tab Tab 1 TAB PO QHS (Reported) Aspirin (Aspirin EC) 81 Mg Tabec 81 MG PO DAILY (Reported) Budesonide (Budesonide) 0.5 Mg/2 Ml Neb 0.5 MG INH BID (Reported) Diphenhydramine HCl (Diphenhydramine HCl) 25 Mg Cap 25 MG PO DAILY (Reported) Doxycycline Hyclate (Doxycycline Hyclate) 100 Mg Cap 100 MG PO Q12H (Reported) STARTED 05/10 X 6 DAYS Ergocalciferol (Vitamin D) 50,000 Unit Cap 50,000 UNIT PO MTHLY (Reported) 1st OF EACH MONTH IN MORNING Febuxostat (Uloric) 40 Mg Tab 40 MG PO DAILY (Reported) Gabapentin (Gabapentin) 300 Mg Cap 300 MG PO BID (Reported) Glipizide (Glipizide ER) 2.5 Mg Tab 2.5 MG PO DAILY (Reported) Loratadine (Claritin) 10 Mg Tab 10 MG PO DAILY (Reported) Midodrine HCl (Midodrine HCl) 5 Mg Tab 5 MG PO BID (Reported) Rosuvastatin Calcium (Crestor) 20 Mg Tab 20 MG PO QPM (Reported) Tiotropium Cicero Monohydrate (Spiriva Handihaler) 18 Mcg Cap 18 MCG INH DAILY (Reported) Torsemide (Torsemide) 20 Mg Tab 40 MG PO Q2D (Reported) Scheduled PRN Albuterol Sulfate (Ventolin Hfa) 200 Puff/8 Gm Aers 2 PUFF INH Q4H PRN PRN SHORTNESS OF BREATH (Reported) Albuterol/Ipratropium (Ipratropium Cicero/Albut 0.5-2.5 (3) mg/3Ml) 1 Jason Jason 1 JASON IN QIDP PRN PRN RESPIRATORY DISTRESS (Reported) Hydroxyzine HCl (Hydroxyzine HCl) 25 Mg Tab 25 MG PO BID PRN PRN ANXIETY/ ITCHING (Reported) GME ATTESTATION GME ATTESTATION My preceptor for this patient encounter was physically present in the building during the encounter and was fully available. As needed, all aspects of the patient interview, examination, medical decision making process, and medical care plan development were reviewed and approved by the preceptor. Preceptor is aware and concurs with the plan as stated in the body of this note and will attest to such by his/her cosignature. FATOUMATA MARIEE DO May 12, 2016 14:35
[2016-05-12 16:00] VITALS: BP 87/52
[2016-05-12] MEDS: CHECK TO SEE IF PATIENT IS RECEIVING DIALYSIS TODAY AND REFER TO THE VANCOMYCIN ORDER XX SCH (16:00)
[2016-05-12] MEDS: VANCOMYCIN HCL 1,000 MG, VIAL MATE ADAPTER 1 EACH in D5W 250 ML IV SCH (16:49)
[2016-05-12 20:00] VITALS: BP 82/70
[2016-05-12] MEDS: ROSUVASTATIN 10 MG TAB (CRESTOR) PO SCH (20:47)
[2016-05-12 23:59] VITALS: BP 92/60
[2016-05-13] MEDS: IPRATROPIUM 0.5MG/ALBUTEROL 2.5MG INH SOL UD 3ML (DUONEB)(J7620) NEB SCH ×4 (01:27→19:54)
[2016-05-13] MEDS: methylPREDNISolone INJ 125 MG/2 ML VIAL (J2930) IV SCH ×4 (01:29→18:24)
[2016-05-13 04:00] VITALS: BP 82/58
[2016-05-13 05:44] LABS: BASO # 0.1 K/mm3 (0.0-0.2); EOS % 0.2 % (0.0-3.0); LARGE UNSTAINED CELL # 0.1 K/mm3 (0.0-0.4); LARGE UNSTAINED CELL % 0.7 % (0.0-4.0); LYMPH # 0.3 K/mm3 (1.5-4.5); LYMPH % 1.8 % (24.0-44.0); MEAN CORPUSCULAR HEMOGLOBIN 29.7 pg (27.0-33.0); MEAN CORPUSCULAR HGB CONC 31.3 g/dl (32.0-36.5); MEAN CORPUSCULAR VOLUME 94.9 fl (80.0-96.0); MONO # 0.3 K/mm3 (0.0-0.8); MONO % 2.4 % (0.0-5.0); NEUTROPHILS # 10.4 K/mm3 (1.8-7.7); PLATELET COUNT, AUTOMATED 182 k/mm3 (150-450); RED CELL DISTRIBUTION WIDTH 15.8 % (11.5-14.5); WHITE BLOOD COUNT 11.1 K/mm3 (4.0-10.0)
[2016-05-13 05:58] LABS: ALBUMIN 3.6 GM/DL (3.2-5.2); ALBUMIN/GLOBULIN RATIO 0.95 (1.00-1.93); BILIRUBIN,TOTAL 0.5 MG/DL (0.2-1.0); CALCIUM LEVEL 8.8 MG/DL (8.8-10.2); CREATININE FOR GFR 4.15 MG/DL (0.55-1.02); GLOMERULAR FILTRATION RATE 11.3 (>39); POTASSIUM SERUM 4.6 MEQ/L (3.5-5.1); TOTAL PROTEIN 7.4 GM/DL (6.4-8.2)
[2016-05-13] MEDS: TIOTROPIUM INHALER/CAPSULE (SPIRIVA) INH SCH (07:19)
[2016-05-13 08:00] VITALS: BP 82/56
[2016-05-13] MEDS: HumaLOG INSULIN (NovoLOG) PER UNIT SC SCH ×4 (08:05→20:34)
[2016-05-13] MEDS: ASPIRIN 81 MG ENTERIC TAB PO SCH (08:05)
[2016-05-13] MEDS: NYSTATIN 500,000 U/5 ML SUSP UDC SS SCH ×3 (08:05→20:33)
[2016-05-13] MEDS: diphenhydrAMINE 25 MG CAP PO SCH (08:05)
[2016-05-13] MEDS: MIDODRINE 5 MG TAB PO SCH ×2 (08:05→16:31)
[2016-05-13] MEDS: LORATADINE 10 MG TAB PO SCH (08:05)
[2016-05-13] MEDS: GABAPENTIN 300 MG CAP PO SCH ×2 (08:05→20:34)
[2016-05-13] MEDS: FEBUXOSTAT 40 MG TABLET (ULORIC) PO SCH (08:05)
[2016-05-13] MEDS ORDERED: guaiFENesin DM *SUGAR FREE* 5ML**DIABETIC TUSSIN DM PO PRN (10:00)
[2016-05-13 12:35] VITALS: BP 80/64
[2016-05-13] MEDS: ONDANSETRON 4MG/2ML VIAL (J2405) IV PRN (15:38)
[2016-05-13 16:00] VITALS: BP 88/62
[2016-05-13] MEDS: CHECK TO SEE IF PATIENT IS RECEIVING DIALYSIS TODAY AND REFER TO THE VANCOMYCIN ORDER XX SCH (16:00)
--- NOTE | 2016-05-13 19:02 | EDDOCDS ---
Physician Documentation [facility] Name: Temitope Shabazz Age: 70 yrs Sex: Female : 1945 Arrival Date: 05/11/2016 Time: 09:51 Bed 14 Private MD: Eduar Gonzales Disposition: 05/11 14:21 I have independently interviewed and examined the patient, and I agree with the sd1 investigation, diagnosis and treatment plan as documented by the Resident. Disposition: 05/11/16 13:30 Hospitalization ordered by Ron Triana for Inpatient Admission. Preliminary diagnosis is Fluid overload. - Bed requested for PCU. - Status is Inpatient Admission. bcj - Condition is Stable. - Problem is new. - Symptoms are unchanged. Historical: - Allergies: IV Dye; PENICILLINS; Ramipril; Sulfa (Sulfonamide Antibiotics); - Home Meds: 1. budesonide 0.5 mg/2 mL inhalation nbsp 2 mL 2 times per day 2. Claritin 10 mg Oral tab 1 tab once daily 3. Crestor 20 mg Oral tab 1 tab once daily 4. Demadex 20 mg Oral tab 2 tabs every other day LAST DOSE 05/10/16 5. DuoNeb 0.5 mg-3 mg(2.5 mg base)/3 mL Inhl nebu 3 mL 4 times per day 6. gabapentin 300 mg Oral cap twice a day 7. midodrine 5 mg oral tab 3 times per day 8. renavite daily 9. doxycycline hyclate 100 mg Oral cap 1 cap every 12 hours 10. glipizide 2.5 mg Oral tr24 once daily 11. Spiriva with HandiHaler 18 mcg Inhl CpDv 1 cap once daily 12. Vitamin D Oral 87700 unit monthly 13. Uloric 40 mg oral tab 1 tab once daily 14. Atarax Oral 25 mg as needed 15. Oxygen 2 L NC daily - PMHx: CHF; COPD; Diabetes - IDDM: controlled; Heart Murmur; Hypercholesterolemia; Irregular heart rate; Renal Failure with Dialysis; - PSHx: AICD; dailysis fistula right arm; Cholecystectomy; Tubal ligation; Cardiac cath; - Social history: Smoking status: Patient states former smoker of tobacco. No barriers to communication noted, The patient speaks fluent Albanian, Speaks appropriately for age. - Family history: Not pertinent. - : The pt / caregiver states he / she is not on anticoagulants. Home medication list is obtained from the patient. - Exposure Risk Screening:: None identified. Vital Signs: 09:53 Pulse 88; Resp 26 S; Temp 97.8(O); Pulse Ox 97% ; Weight 51.71 kg / 114 lbs (R); Height js13 5 ft. 0 in. (152.40 cm) (R); 10:02 BP 91 / 61; srm 10:16 BP 90 / 60 (auto/); js13 10:16 Pulse 96 MON; Resp 22; Pulse Ox 97% on 3 lpm NC; js13 10:31 BP 91 / 57 (auto/); js13 10:31 Pulse 92 MON; Resp 22; Pulse Ox 98% on 3 lpm NC; js13 10:46 BP 80 / 48 (auto/); js13 10:46 Pulse 88 MON; Resp 24; Pulse Ox 100% on 3 lpm NC; js13 11:33 BP 115 / 53 (auto/); js13 11:33 Pulse 88 MON; Resp 22; Pulse Ox 93% on 3 lpm NC; js13 15:13 BP 94 / 56; Pulse 89; Resp 24; Temp 97.7(O); Pulse Ox 94% on 3 lpm NC; js13 17:38 Pulse 84 MON; Resp 24; Temp 97.8(O); Pulse Ox 96% on 3 lpm NC; js13 09:53 Body Mass Index 22.26 (51.71 kg, 152.40 cm) js13 MDM: 10:12 Albuterol-Ipratropium 3 ml Inhalation once ordered. jo4 10:12 Call Respiratory ordered. jo4 10:12 Call Respiratory complete. jrd 10:14 Chest, 1 View Ordered. EDMS 10:15 -Arterial Blood Gas Ordered. EDMS 10:15 BNP Ordered. EDMS 10:31 -Arterial Blood Gas Reviewed. jo4 10:33 Albuterol 2.5 mg Nebulizer once ordered. jo4 10:33 BMP Ordered. EDMS 10:33 CBC with Diff Ordered. EDMS 10:49 Financial registration complete. lg 10:59 CBC with Diff Reviewed. jo4 10:59 BMP Reviewed. jo4 10:59 BNP Reviewed. jo4 11:05 [facility] Payment Agreement was scanned into MED[employer] and attached to record. lg 13:36 Potassium Chloride Packet 40 mEq PO once ordered. jo4 13:40 Chest, 1 View Reviewed. jo4 14:04 CONSISTENT CARBOHYDRATES ordered. EDMS 14:09 CARDIAC MARKER PANEL Ordered. EDMS 14:09 CARDIAC MARKER PANEL Ordered. EDMS 14:09 URINALYSIS Ordered. EDMS 14:09 URINE CULTURE Ordered. EDMS 14:09 BLOOD CULTURES Ordered. EDMS 14:09 INFLUENZA A&B RAPID ANTIGEN Ordered. EDMS 14:53 Admission / Observation Status ordered. EDMS 15:14 SPUTUM CULTURE AND GRAM STAIN Ordered. EDMS 05/12 08:41 T-Sheet-- Draft Copy was scanned into [employer] and attached to record. se Administered Medications: 05/11 10:26 Drug: Albuterol-Ipratropium 3 ml [ipratropium-albuterol 0.5 mg-3 mg(2.5 mg base)/3 mL js nebulization soln (3 mL)] Route: Inhalation; 10:37 Drug: Albuterol 2.5 mg [albuterol sulfate 2.5 mg/0.5 mL solution for nebulization (0.5 js mL)] Route: Nebulizer; 13:59 Drug: Potassium Chloride 40 mEq [potassium chloride 20 mEq oral packet (2 packets)] js13 Route: PO; Signatures: Dispatcher [employer] [facility] Nela Wen MD MD sd1 Sara Tran, Construction Recruiter Unit lbd Jem Pollard RN Cheryl Jiang, RN RN [facility] Xin Hussein, Reg Reg lg Sanju Strickland RN RN ml6 Elyssa RubinRN RN js13 Everette Rivera, LC LD TEACHER Dorie Demarco DO DO Nela Ochoa Waldemar Hastings, RN Camden Núñez sa The chart was reviewed and I authenticate all verbal orders and agree with the evaluation and treatment provided.Attachments: 11:05 [facility] Payment Agreement lg 05/12 08:41 T-Sheet-- Draft Copy [facility] Chart Complete MTDD
--- NOTE | 2016-05-13 19:02 | EDDOCDS ---
Physician Documentation [facility] Name: Temitope Shabazz Age: 70 yrs Sex: Female : 1945 Arrival Date: 05/11/2016 Time: 09:51 Bed 14 Private MD: Eduar Gonzales Disposition: 05/11 14:21 I have independently interviewed and examined the patient, and I agree with the sd1 investigation, diagnosis and treatment plan as documented by the Resident. Disposition: 05/11/16 13:30 Hospitalization ordered by Ron Triana for Inpatient Admission. Preliminary diagnosis is Fluid overload. - Bed requested for PCU. - Status is Inpatient Admission. bcj - Condition is Stable. - Problem is new. - Symptoms are unchanged. Historical: - Allergies: IV Dye; PENICILLINS; Ramipril; Sulfa (Sulfonamide Antibiotics); - Home Meds: 1. budesonide 0.5 mg/2 mL inhalation nbsp 2 mL 2 times per day 2. Claritin 10 mg Oral tab 1 tab once daily 3. Crestor 20 mg Oral tab 1 tab once daily 4. Demadex 20 mg Oral tab 2 tabs every other day LAST DOSE 05/10/16 5. DuoNeb 0.5 mg-3 mg(2.5 mg base)/3 mL Inhl nebu 3 mL 4 times per day 6. gabapentin 300 mg Oral cap twice a day 7. midodrine 5 mg oral tab 3 times per day 8. renavite daily 9. doxycycline hyclate 100 mg Oral cap 1 cap every 12 hours 10. glipizide 2.5 mg Oral tr24 once daily 11. Spiriva with HandiHaler 18 mcg Inhl CpDv 1 cap once daily 12. Vitamin D Oral 83307 unit monthly 13. Uloric 40 mg oral tab 1 tab once daily 14. Atarax Oral 25 mg as needed 15. Oxygen 2 L NC daily - PMHx: CHF; COPD; Diabetes - IDDM: controlled; Heart Murmur; Hypercholesterolemia; Irregular heart rate; Renal Failure with Dialysis; - PSHx: AICD; dailysis fistula right arm; Cholecystectomy; Tubal ligation; Cardiac cath; - Social history: Smoking status: Patient states former smoker of tobacco. No barriers to communication noted, The patient speaks fluent Yi, Speaks appropriately for age. - Family history: Not pertinent. - : The pt / caregiver states he / she is not on anticoagulants. Home medication list is obtained from the patient. - Exposure Risk Screening:: None identified. Vital Signs: 09:53 Pulse 88; Resp 26 S; Temp 97.8(O); Pulse Ox 97% ; Weight 51.71 kg / 114 lbs (R); Height js13 5 ft. 0 in. (152.40 cm) (R); 10:02 BP 91 / 61; srm 10:16 BP 90 / 60 (auto/); js13 10:16 Pulse 96 MON; Resp 22; Pulse Ox 97% on 3 lpm NC; js13 10:31 BP 91 / 57 (auto/); js13 10:31 Pulse 92 MON; Resp 22; Pulse Ox 98% on 3 lpm NC; js13 10:46 BP 80 / 48 (auto/); js13 10:46 Pulse 88 MON; Resp 24; Pulse Ox 100% on 3 lpm NC; js13 11:33 BP 115 / 53 (auto/); js13 11:33 Pulse 88 MON; Resp 22; Pulse Ox 93% on 3 lpm NC; js13 15:13 BP 94 / 56; Pulse 89; Resp 24; Temp 97.7(O); Pulse Ox 94% on 3 lpm NC; js13 17:38 Pulse 84 MON; Resp 24; Temp 97.8(O); Pulse Ox 96% on 3 lpm NC; js13 09:53 Body Mass Index 22.26 (51.71 kg, 152.40 cm) js13 MDM: 10:12 Albuterol-Ipratropium 3 ml Inhalation once ordered. jo4 10:12 Call Respiratory ordered. jo4 10:12 Call Respiratory complete. jrd 10:14 Chest, 1 View Ordered. EDMS 10:15 -Arterial Blood Gas Ordered. EDMS 10:15 BNP Ordered. EDMS 10:31 -Arterial Blood Gas Reviewed. jo4 10:33 Albuterol 2.5 mg Nebulizer once ordered. jo4 10:33 BMP Ordered. EDMS 10:33 CBC with Diff Ordered. EDMS 10:49 Financial registration complete. lg 10:59 CBC with Diff Reviewed. jo4 10:59 BMP Reviewed. jo4 10:59 BNP Reviewed. jo4 11:05 [facility] Payment Agreement was scanned into MED[employer] and attached to record. lg 13:36 Potassium Chloride Packet 40 mEq PO once ordered. jo4 13:40 Chest, 1 View Reviewed. jo4 14:04 CONSISTENT CARBOHYDRATES ordered. EDMS 14:09 CARDIAC MARKER PANEL Ordered. EDMS 14:09 CARDIAC MARKER PANEL Ordered. EDMS 14:09 URINALYSIS Ordered. EDMS 14:09 URINE CULTURE Ordered. EDMS 14:09 BLOOD CULTURES Ordered. EDMS 14:09 INFLUENZA A&B RAPID ANTIGEN Ordered. EDMS 14:53 Admission / Observation Status ordered. EDMS 15:14 SPUTUM CULTURE AND GRAM STAIN Ordered. EDMS 05/12 08:41 T-Sheet-- Draft Copy was scanned into Easy[employer] and attached to record. se Administered Medications: 05/11 10:26 Drug: Albuterol-Ipratropium 3 ml [ipratropium-albuterol 0.5 mg-3 mg(2.5 mg base)/3 mL js nebulization soln (3 mL)] Route: Inhalation; 10:37 Drug: Albuterol 2.5 mg [albuterol sulfate 2.5 mg/0.5 mL solution for nebulization (0.5 js mL)] Route: Nebulizer; 13:59 Drug: Potassium Chloride 40 mEq [potassium chloride 20 mEq oral packet (2 packets)] js13 Route: PO; Signatures: Dispatcher [employer] [facility] Nela Wen MD MD sd1 Sara Tran, Moss Bleacher Unit lbd Jem Pollard RN Cheryl Jiang, RN RN [facility] Xin Hussein, Reg Reg lg Sanju Strickland RN RN ml6 Elyssa RubinRN RN js13 Everette Rivera, LC RD PROJECT MANAGER Dorie Demarco DO DO Nela Ochoa Waldemar Hastings, RN Camden Núñez sa The chart was reviewed and I authenticate all verbal orders and agree with the evaluation and treatment provided.Attachments: 11:05 [facility] Payment Agreement lg 05/12 08:41 T-Sheet-- Draft Copy [facility] Chart Complete MTDD
--- NOTE | 2016-05-13 19:02 | EDDOCDS ---
Nurse's Notes [facility] Name: Temitope Shabazz Age: 70 yrs Sex: Female : 1945 Arrival Date: 05/11/2016 Time: 09:51 Bed 14 Private MD: Eduar Gonzales Diagnosis: Fluid overload Presentation: 05/11 09:59 Presenting complaint: Patient states: difficulty breathing for a few days. had cxr srm yesterday and was told it was neg. pt very uncomfortable and restless. tuned her home oxygen up from 2-3 LNC. Adult Sepsis Screening: The patient does not have new or worsening altered mentation. Patient has a respiratory rate of greater than or equal to 22 (1 point). Systolic blood pressure is less than or equal to 100 (1 point). Patient has a qSOFA score of 2. Suicide/Homicide risk assessment- the patient denies having any suicidal and/or homicidal ideations and does not present with any other emotional, behavioral or mental health complaints. Status: Patient is not a auto service representative or dependent. Transition of care: patient was received from dialysis. 09:59 Acuity: CRISTEL Level 2 [facility] 09:59 Method Of Arrival: Wheelchair [facility] Triage Assessment: 10:02 General: Appears distressed, ill, uncomfortable, Behavior is appropriate for age, srm cooperative. Respiratory: Onset: The symptoms/episode began/occurred gradually. Historical: - Allergies: IV Dye; PENICILLINS; Ramipril; Sulfa (Sulfonamide Antibiotics); - Home Meds: 1. budesonide 0.5 mg/2 mL inhalation nbsp 2 mL 2 times per day 2. Claritin 10 mg Oral tab 1 tab once daily 3. Crestor 20 mg Oral tab 1 tab once daily 4. Demadex 20 mg Oral tab 2 tabs every other day LAST DOSE 05/10/16 5. DuoNeb 0.5 mg-3 mg(2.5 mg base)/3 mL Inhl nebu 3 mL 4 times per day 6. gabapentin 300 mg Oral cap twice a day 7. midodrine 5 mg oral tab 3 times per day 8. renavite daily 9. doxycycline hyclate 100 mg Oral cap 1 cap every 12 hours 10. glipizide 2.5 mg Oral tr24 once daily 11. Spiriva with HandiHaler 18 mcg Inhl CpDv 1 cap once daily 12. Vitamin D Oral 07478 unit monthly 13. Uloric 40 mg oral tab 1 tab once daily 14. Atarax Oral 25 mg as needed 15. Oxygen 2 L NC daily - PMHx: CHF; COPD; Diabetes - IDDM: controlled; Heart Murmur; Hypercholesterolemia; Irregular heart rate; Renal Failure with Dialysis; - PSHx: AICD; dailysis fistula right arm; Cholecystectomy; Tubal ligation; Cardiac cath; - Social history: Smoking status: Patient states former smoker of tobacco. No barriers to communication noted, The patient speaks fluent Spanish, Speaks appropriately for age. - Family history: Not pertinent. - : The pt / caregiver states he / she is not on anticoagulants. Home medication list is obtained from the patient. - Exposure Risk Screening:: None identified. Screenin:14 Screening information is obtained from the patient. Fall risk: At risk due to age. js13 Assistance ADL's: requires no assistance with activities of daily living. Abuse/DV Screen: The patient / caregiver reports he/she is: not in a situation that causes fear, pain or injury. Nutritional screening: No deficits noted. Advance Directives: There is no active DNR order. home support is adequate. Assessment: 10:14 General: Appears ill, Behavior is appropriate for age, cooperative. Pain: Denies pain. js13 Neurological: Level of Consciousness is awake, alert. Cardiovascular: Rhythm is sinus rhythm Chest pain is denied. Respiratory: Airway is patent Respiratory effort is even, unlabored, Respiratory pattern is tachypnea Breath sounds with rhonchi Breath sounds are diminished Breath sounds with wheezes. Derm: Skin is pink, warm & dry. 10:42 General: DIALYSIS M, W, F. js13 11:24 General: Appears ill, Behavior is appropriate for age, cooperative. Pain: Denies pain. js13 Neurological: Level of Consciousness is awake, alert. Cardiovascular: Rhythm is sinus rhythm Chest pain is denied. Respiratory: Airway is patent Respiratory effort is even, pursed lip, Respiratory pattern is tachypnea Breath sounds with rhonchi Breath sounds are diminished Breath sounds with wheezes. Derm: Skin is pink, warm & dry. 12:19 General: Appears ill, Behavior is appropriate for age, cooperative. Pain: Denies pain. js13 Neurological: Level of Consciousness is awake, alert. Cardiovascular: Rhythm is sinus rhythm Chest pain is denied. Respiratory: Airway is patent Respiratory effort is even, pursed lip, Respiratory pattern is tachypnea. Derm: Skin is pink, warm & dry. 12:22 Adult Sepsis Screening: The patient does not have new or worsening altered mentation. js13 Patient has a respiratory rate of greater than or equal to 22 (1 point). Systolic blood pressure is greater than 100. Patient has a qSOFA score of 0- Negative Sepsis Screen. 13:16 General: Appears ill, Behavior is appropriate for age, cooperative. Pain: Denies pain. js13 Neurological: Level of Consciousness is awake, alert. Cardiovascular: Rhythm is sinus rhythm Chest pain is denied. Respiratory: Airway is patent Respiratory effort is even, pursed lip, Respiratory pattern is tachypnea. Derm: Skin is pink, warm & dry. 14:30 Adult Sepsis Screening: The patient does not have new or worsening altered mentation. js13 Patient has a respiratory rate of greater than or equal to 22 (1 point). Systolic blood pressure is greater than 100. Patient has a qSOFA score of 1- Negative Sepsis Screen. General: Appears ill, Behavior is appropriate for age, cooperative. Pain: Denies pain. Neurological: Level of Consciousness is awake, alert. Respiratory: Airway is patent Respiratory effort is even, pursed lip, Respiratory pattern is tachypnea Breath sounds with rhonchi Breath sounds are diminished. Respiratory: Sputum is thick, brown. Derm: Skin is pink, warm & dry. 15:15 General: Appears ill, Behavior is appropriate for age, cooperative. Pain: Denies pain. js13 Neurological: Level of Consciousness is awake, alert. Cardiovascular: Rhythm is sinus rhythm Chest pain is denied. Respiratory: Airway is patent Respiratory effort is even, Respiratory pattern is tachypnea Breath sounds with rhonchi Breath sounds are diminished. Derm: No deficits noted. Skin is pink, warm & dry. 16:20 Adult Sepsis Screening: The patient does not have new or worsening altered mentation. js13 Patient has a respiratory rate of greater than or equal to 22 (1 point). Systolic blood pressure is greater than 100. Patient has a qSOFA score of 1- Negative Sepsis Screen. General: Appears ill, Behavior is appropriate for age, cooperative. Pain: Denies pain. Neurological: Level of Consciousness is awake, alert. Cardiovascular: Rhythm is sinus rhythm Chest pain is denied. Respiratory: Airway is patent Respiratory effort is even, Respiratory pattern is tachypnea Breath sounds are diminished Breath sounds with wheezes. Derm: No deficits noted. Skin is pink, warm & dry. 17:08 General: Appears comfortable, Behavior is appropriate for age, cooperative. Pain: js13 Denies pain. Neurological: Level of Consciousness is awake, alert. Cardiovascular: Rhythm is sinus rhythm Chest pain is denied. Respiratory: Airway is patent Respiratory effort is even, Respiratory pattern is tachypnea. Derm: Skin is pink, warm & dry. 17:39 General: Appears comfortable, Behavior is appropriate for age, cooperative. Pain: js13 Denies pain. Neurological: Level of Consciousness is awake, alert. Cardiovascular: Rhythm is sinus rhythm Chest pain is denied. Respiratory: Airway is patent Respiratory effort is even, pursed lip, Respiratory pattern is tachypnea. Derm: Skin is pink, warm & dry. Vital Signs: 09:53 Pulse 88; Resp 26 S; Temp 97.8(O); Pulse Ox 97% ; Weight 51.71 kg (R); Height 5 ft. 0 js13 in. (152.40 cm) (R); 10:02 BP 91 / 61; srm 10:16 BP 90 / 60 (auto/); js13 10:16 Pulse 96 MON; Resp 22; Pulse Ox 97% on 3 lpm NC; js13 10:31 BP 91 / 57 (auto/); js13 10:31 Pulse 92 MON; Resp 22; Pulse Ox 98% on 3 lpm NC; js13 10:46 BP 80 / 48 (auto/); js13 10:46 Pulse 88 MON; Resp 24; Pulse Ox 100% on 3 lpm NC; js13 11:33 BP 115 / 53 (auto/); js13 11:33 Pulse 88 MON; Resp 22; Pulse Ox 93% on 3 lpm NC; 13 15:13 BP 94 / 56; Pulse 89; Resp 24; Temp 97.7(O); Pulse Ox 94% on 3 lpm NC; js13 17:38 Pulse 84 MON; Resp 24; Temp 97.8(O); Pulse Ox 96% on 3 lpm NC; 13 09:53 Body Mass Index 22.26 (51.71 kg, 152.40 cm) [facility] Vitals: 09:53 Log In Time: May 11, 2016 at 09:51. RN notified that patient meets Red Flag dd6 criteria. ED Course: 09:52 Patient visited by Juan Irwin PCA. dd6 09:52 Eduar Gonzales is Private Physician. dd6 09:52 Patient moved to Waiting dd6 09:53 [facility] jo4 09:53 Nela Wen MD is Attending Physician. jo4 09:53 Patient moved to 14 [facility] 10:00 Triage Initiated srm 10:02 Patient visited by Cristy Zambrano. nb2 10:02 Placed in gown. Bed in low position. Call light in reach. Side rails up X2. Cardiac nb2 monitor on. Pulse ox on. NIBP on. 10:14 The patient / caregiver is instructed regarding the plan of care and ED course. js13 10:14 Inserted saline lock: 18 gauge in left antecubital area and blood collected. The js13 patient tolerated the procedure well. No procedures done that require assistance. O2 via nasal cannula \T\ 3L/min. 10:17 Patient visited by Elyssa Rubin RN. js13 10:24 Patient visited by Dorie Schmitt DO. jo4 10:24 Patient visited by Dorie Schmitt DO. jo4 10:26 -Arterial Blood Gas Sent. js 10:42 Patient visited by Elyssa Rubin RN. js13 11:05 [facility] Payment Agreement was scanned into [employer] and attached to record. lg 11:25 Patient visited by Elyssa Rubin RN. js13 11:30 Chest, 1 View Returned. EDMS 12:20 Patient visited by Elyssa Rubin RN. js13 12:24 Elyssa Rubin,BATSHEVA is Primary Nurse. js13 13:17 Patient visited by Elyssa Rubin RN. js13 13:20 Ron Triana is Hospitalizing Provider. jo4 13:48 Chest, 1 View Returned. EDMS 16:58 SPUTUM CULTURE AND GRAM STAIN Sent. js13 16:58 INFLUENZA A&B RAPID ANTIGEN Sent. js13 17:09 Patient visited by Elyssa Rubin RN. js13 05/12 08:41 T-Sheet-- Draft Copy was scanned into [employer] and attached to record. [facility] Administered Medications: 05/11 10:26 Drug: Albuterol-Ipratropium 3 ml [ipratropium-albuterol 0.5 mg-3 mg(2.5 mg base)/3 mL js nebulization soln (3 mL)] Route: Inhalation; 10:37 Drug: Albuterol 2.5 mg [albuterol sulfate 2.5 mg/0.5 mL solution for nebulization (0.5 js mL)] Route: Nebulizer; 13:59 Drug: Potassium Chloride 40 mEq [potassium chloride 20 mEq oral packet (2 packets)] js13 Route: PO; RT: 10:26 ABG's drawn from left radial artery allens test done and positive pressure held for 5 js minutes no bleeding noted pressure bandage applied specimen sent pt. tolerated well. Initial Med Neb Given as ordered Patient was instructed and evaluated on procedure. O2 via nasal cannula \T\ 3L/min. Respiratory: Breath sounds are coarse bilaterally. 10:37 Subsequent Med Neb Given as ordered. Respiratory: Breath sounds are coarse bilaterally. js Order Results: Lab Order: -Arterial Blood Gas; SPEC'M 05/11/16 10:23 Test: ABG pH (ARTERIAL); Value: 7.426; Range: 7.350-7.450; Units: UNITS; Status: F Test: ABG PARTIAL PRESSURE CO2; Value: 45.5; Range: 35.0-45.0; Abnormal: Above high normal; Units: mmHg; Status: F Test: ABG PARTIAL PRESSURE O2; Value: 82.5; Range: 75.0-100.0; Units: mmHg; Status: F Test: ABG TOTAL CO2; Value: 30.6; Range: 23.0-31.0; Units: MEQ/L; Status: F Test: ABG HCO3; Value: 29.3; Range: 22.0-26.0; Abnormal: Above high normal; Units: MEQ/L; Status: F Test: ABG BASE EXCESS; Value: 4.2; Range: -2.0-2.0; Abnormal: Above high normal; Status: F Test: ABG STANDARD HCO3; Value: 28.2; Range: 22.0-26.0; Abnormal: Above high normal; Units: MEQ/L; Status: F Test: ABG O2 SATURATION; Value: 95.5; Range: 95.0-99.0; Units: %; Status: F Test: ABG DEVICE; Value: NASAL ETTA; Status: F Lab Order: BNP; SPEC05/11/16 10:08 Test: BRAIN NATRIURETIC PEPTIDE; Value: 3530; Range: <100; Abnormal: Above high normal; Units: PG/ML; Status: F Lab Order: BMP; SPEC'05/11/16 10:08 Test: GLUCOSE, FASTING; Value: 115; Range: 83-110; Abnormal: Above high normal; Units: MG/DL; Status: F Test: BLOOD UREA NITROGEN; Value: 16; Range: 7-18; Units: MG/DL; Status: F Test: CREATININE FOR GFR; Value: 1.80; Range: 0.55-1.02; Abnormal: Above high normal; Units: MG/DL; Status: F Test: GLOMERULAR FILTRATION RATE; Value: 29.6; Range: >39; Abnormal: Below low normal; Status: F Test: SODIUM LEVEL; Value: 135; Range: 136-145; Abnormal: Below low normal; Units: MEQ/L; Status: F Test: POTASSIUM SERUM; Value: 3.2; Range: 3.5-5.1; Abnormal: Below low normal; Units: MEQ/L; Status: F Test: CHLORIDE LEVEL; Value: 91; Range: 98-107; Abnormal: Below low normal; Units: MEQ/L; Status: F Test: CARBON DIOXIDE LEVEL; Value: 34; Range: 21-32; Abnormal: Above high normal; Units: MEQ/L; Status: F Test: ANION GAP; Value: 10; Range: 8-16; Units: MEQ/L; Status: F Test: CALCIUM LEVEL; Value: 9.2; Range: 8.8-10.2; Units: MG/DL; Status: F Test Note: ; Units are mL/min/1.73 m2 Chronic Kidney Disease Staging per NKF: Stage I & II GFR >=60 Normal to Mildly Decreased Stage III GFR 30-59 Moderately Decreased Stage IV GFR 15-29 Severely Decreased Stage V GFR <15 Very Little GFR Left ESRD GFR <15 on DIGITAL X RAY SERVICE ENGINEER Lab Order: CBC with Diff; SPEC'05/11/16 10:08 Test: WHITE BLOOD COUNT; Value: 4.5; Range: 4.0-10.0; Units: K/mm3; Status: F Test: RED BLOOD COUNT; Value: 4.11; Range: 4.00-5.40; Units: M/mm3; Status: F Test: HEMOGLOBIN; Value: 12.3; Range: 12.0-16.0; Units: g/dl; Status: F Test: HEMATOCRIT; Value: 39.1; Range: 36.0-47.0; Units: %; Status: F Test: MEAN CORPUSCULAR VOLUME; Value: 95.1; Range: 80.0-96.0; Units: fl; Status: F Test: MEAN CORPUSCULAR HEMOGLOBIN; Value: 29.9; Range: 27.0-33.0; Units: pg; Status: F Test: MEAN CORPUSCULAR HGB CONC; Value: 31.5; Range: 32.0-36.5; Abnormal: Below low normal; Units: g/dl; Status: F Test: RED CELL DISTRIBUTION WIDTH; Value: 14.6; Range: 11.5-14.5; Abnormal: Above high normal; Units: %; Status: F Test: PLATELET COUNT, AUTOMATED; Value: 188; Range: 150-450; Units: k/mm3; Status: F Test: NEUTROPHILS %; Value: 72.8; Range: 36.0-66.0; Abnormal: Above high normal; Units: %; Status: F Test: LYMPH %; Value: 13.3; Range: 24.0-44.0; Abnormal: Below low normal; Units: %; Status: F Test: MONO %; Value: 9.0; Range: 0.0-5.0; Abnormal: Above high normal; Units: %; Status: F Test: EOS %; Value: 0.5; Range: 0.0-3.0; Units: %; Status: F Test: BASO %; Value: 0.7; Range: 0.0-1.0; Units: %; Status: F Test: LARGE UNSTAINED CELL %; Value: 3.7; Range: 0.0-4.0; Units: %; Status: F Test: NEUTROPHILS #; Value: 3.3; Range: 1.8-7.7; Units: K/mm3; Status: F Test: LYMPH #; Value: 0.6; Range: 1.5-4.5; Abnormal: Below low normal; Units: K/mm3; Status: F Test: MONO #; Value: 0.4; Range: 0.0-0.8; Units: K/mm3; Status: F Test: EOS #; Value: 0.0; Range: 0.0-0.50; Units: K/mm3; Status: F Test: BASO #; Value: 0.0; Range: 0.0-0.2; Units: K/mm3; Status: F Test: LARGE UNSTAINED CELL #; Value: 0.2; Range: 0.0-0.4; Units: K/mm3; Status: F Lab Order: CARDIAC MARKER PANEL; SPEC'M 05/11/16 16:25 Test: CPK CREATINE PHOSPHOKINASE; Value: 152; Range: 26-192; Units: U/L; Status: F Test: CK-MB VALUE MASS; Value: 4.2; Range: 0.0-3.6; Abnormal: Above high normal; Units: NG/ML; Status: F Test: MB/CK RELATIVE INDEX; Value: 2.76; Range: < OR =4; Status: F Test: TROPONIN I; Value: 0.06; Range: < 0.10; Abnormal: Delta; Units: NG/ML; Status: F Test Note: ; DIAGNOSIS CRITERIA MMB ng/ml Relative Index (RI) NON-AMI < or = 5 N/A JOH[place]ON ZONE > 5 < or = 4 AMI > 5 > 4 Lab Order: INFLUENZA A&B RAPID ANTIGEN; SPEC'M 05/11/16 16:56 Test: INFLUENZA A RAPID SCR by ICA; Value: INFLUENZA A RESULTS NEGATIVE; Status: F Test: INFLUENZA A RAPID SCR by ICA; Value: Comments:; Status: F Test: INFLUENZA B RAPID SCR by ICA; Value: INFLUENZA B RESULTS NEGATIVE; Status: F Test Note: ; The Influenza test is a direct rapid immunoassay for the qualitative detection of Influenza viral antigen. Cell culture (Viral Culture) testing should be considered to confirm NEGATIVE results and to assist in detecting other viruses that can provide similar clinical symptoms. Please contact the lab within 24 hours ([phone]) if confirmatory testing is desired. Lab Order: CARDIAC MARKER PANEL; SPEC'M 05/11/16 10:08 Test: CPK CREATINE PHOSPHOKINASE; Value: 137; Range: 26-192; Units: U/L; Status: F Test: CK-MB VALUE MASS; Value: 5.0; Range: 0.0-3.6; Abnormal: Above high normal; Units: NG/ML; Status: F Test: MB/CK RELATIVE INDEX; Value: 3.64; Range: < OR =4; Status: F Test: TROPONIN I; Value: 0.08; Range: < 0.10; Units: NG/ML; Status: F Test Note: ; DIAGNOSIS CRITERIA MMB ng/ml Relative Index (RI) NON-AMI < or = 5 N/A JOH[place]ON ZONE > 5 < or = 4 AMI > 5 > 4 Radiology Order: Chest, 1 View Test: Chest, 1 View REASON FOR EXAMINATION: Shortness of Breath; PORTABLE CHEST:; ; Single AP portable view of the chest is performed and compared to a prior study; of 01/23/2016.; ; There is cardiomegaly unchanged. There is calcification and tortuosity of the; thoracic aorta with the mediastinal silhouette unchanged. Left single lead; pacemaker is again noted unchanged. There is chronic right basilar,; parenchymal, and pleural opacity, which is stable.; ; IMPRESSION:; ; Stable cardiomegaly and right basilar opacities. No new infiltrates.; ; ; Signed by; Jesus Johnson MD 05/11/2016 01:13 P; Outcome: 13:30 Decision to Hospitalize by Provider. jo4 15:16 Discharge Assessment: Patient awake, alert and oriented x 3. No cognitive and/or js13 functional deficits noted. Patient verbalized understanding of disposition instructions. patient administered narcotics - no. Condition: stable. No special radiology studies were completed. Admission hand-off: Report Faxed. Property :Personal belongings accompany Pt. 15:45 Admission hand-off: Report Faxed Fax receipt verified by cash management clerk. js13 17:41 The following High Risk Discharge criteria are identified: None. Admitted to PCU js13 accompanied by nurse, accompanied by tech, via stretcher, with oxygen, on monitor, with chart. 17:41 Patient left the ED. js13 18:01 Patient left the ED. [facility] Signatures: Dispatcher [employer] EDMS Jem Pollard, RN RN Cheryl Bauer RN RN srm Jovita, Xin, Reg Reg lg Leonarda,[place] js Juan Irwin, MANAGER PUBLISHING MANAGER PUBLISHING dd6 Elyssa Rubin RN RN js13 Dorie Schmitt, DO jo4 Alyssia, Nela Zambrano, Cristy greenberg2 Corrections: (The following items were deleted from the chart) 14:45 09:53 Pulse 88bpm; Resp 26bpm; Spontaneous; Pulse Ox 97%; 51.71 kg Reported; Height 5 js13 ft. 0 in. Reported; BMI: 22.2; dd6 Chart Complete MTDD
[2016-05-13] MEDS: ROSUVASTATIN 10 MG TAB (CRESTOR) PO SCH (20:33)
[2016-05-13 20:37] VITALS: BP 84/62
[2016-05-13 23:59] VITALS: BP 80/58
[2016-05-14] MEDS: methylPREDNISolone INJ 125 MG/2 ML VIAL (J2930) IV SCH ×3 (01:06→17:09)
[2016-05-14] MEDS: IPRATROPIUM 0.5MG/ALBUTEROL 2.5MG INH SOL UD 3ML (DUONEB)(J7620) NEB SCH ×4 (01:20→20:09)
[2016-05-14 05:38] LABS: ALBUMIN 3.7 GM/DL (3.2-5.2); ALBUMIN/GLOBULIN RATIO 0.97 (1.00-1.93); BILIRUBIN,TOTAL 0.5 MG/DL (0.2-1.0); CALCIUM LEVEL 8.7 MG/DL (8.8-10.2); CREATININE FOR GFR 5.5 MG/DL (0.55-1.02); GLOMERULAR FILTRATION RATE 8.2 (>39); POTASSIUM SERUM 5.1 MEQ/L (3.5-5.1); TOTAL PROTEIN 7.5 GM/DL (6.4-8.2)
[2016-05-14 06:00] VITALS: BP 82/52
[2016-05-14 06:14] LABS: BASO # 0.1 K/mm3 (0.0-0.2); BASO % 0.9 % (0.0-1.0); EOS % 0.1 % (0.0-3.0); LARGE UNSTAINED CELL % 0.3 % (0.0-4.0); LYMPH # 0.2 K/mm3 (1.5-4.5); LYMPH % 1.1 % (24.0-44.0); MEAN CORPUSCULAR HGB CONC 31.4 g/dl (32.0-36.5); MEAN CORPUSCULAR VOLUME 95.5 fl (80.0-96.0); MONO # 0.3 K/mm3 (0.0-0.8); MONO % 1.9 % (0.0-5.0); NEUTROPHILS # 13.5 K/mm3 (1.8-7.7); NEUTROPHILS % 95.7 % (36.0-66.0); PLATELET COUNT, AUTOMATED 220 k/mm3 (150-450); RED CELL DISTRIBUTION WIDTH 15.9 % (11.5-14.5); WHITE BLOOD COUNT 14.1 K/mm3 (4.0-10.0)
[2016-05-14] MEDS: ASPIRIN 81 MG ENTERIC TAB PO SCH (06:42)
[2016-05-14] MEDS: LORATADINE 10 MG TAB PO SCH (06:42)
[2016-05-14] MEDS: FEBUXOSTAT 40 MG TABLET (ULORIC) PO SCH (06:42)
[2016-05-14] MEDS: GABAPENTIN 300 MG CAP PO SCH ×2 (06:42→20:34)
[2016-05-14] MEDS: ONDANSETRON 4MG/2ML VIAL (J2405) IV PRN (06:42)
[2016-05-14] MEDS: NYSTATIN 500,000 U/5 ML SUSP UDC SS SCH ×3 (06:43→20:34)
[2016-05-14] MEDS: MIDODRINE 5 MG TAB PO SCH ×2 (06:43→15:34)
[2016-05-14] MEDS: diphenhydrAMINE 25 MG CAP PO SCH (06:43)
[2016-05-14] MEDS: HumaLOG INSULIN (NovoLOG) PER UNIT SC SCH ×4 (06:58→20:33)
[2016-05-14] MEDS: TIOTROPIUM INHALER/CAPSULE (SPIRIVA) INH SCH (07:15)
[2016-05-14 08:00] VITALS: BP 88/56
--- NOTE | 2016-05-14 08:30 | IPN ---
DATE: 05/12/2016 Patient seen and examined at bedside. Chart has been reviewed. This morning, she states that her breathing is significantly improved from yesterday. No chest pain, pressure or tightness. Denies nausea, vomiting, epigastric pain, abdominal pain. Denies any generalized weakness, lightheadedness, dizziness. No issues on telemetry per nursing. VITAL SIGNS: Temperature 96, pulse 86, respiratory 22, blood pressure 90/48, 92 % on 3 liters nasal cannula. Generally, patient is awake, alert, oriented times three, no use of respiratory accessory muscles. Able to complete full sentences. No jugular venous distention. Lungs: Diminished breath sounds with coarse expiratory wheezing. Air entry equal. Heart: S1, S2. Regular rate and rhythm. Episodes of sinus bradycardia. Abdomen: Soft, nontender, nondistended. Extremities: No pitting edema. LABORATORY DATA: White count 3.6, hemoglobin 11, hematocrit 35, platelets 163. Sodium 133, potassium 4.2, chloride 93, bicarbonate 28, BUN 39, creatinine 2.9, glucose 229. Urine culture is pending. Influenza A and B negative. Blood culture pending. Sputum oropharyngeal contamination. Chest x-ray 05/11/2016: Cardiomegaly, right basilar opacity, no new infiltrates. ASSESSMENT AND PLAN: This is a 70-year-old female with history of end stage renal disease on hemodialysis via right arm AV fistula on Saturday, Saturday, Saturday by Dr. Gonzales, chronic obstructive pulmonary disease (COPD) with chronic hypoxic respiratory failure on 2 liters nasal cannula follows with Dr. Gottlieb, non-insulin dependent type 2 diabetes, congestive heart failure, AICD placement, hyperlipidemia, transient ischemia attack (TIA), hypertension, ejection fraction 60%, moderately severe pulmonary hypertension, moderate stenosis, moderately severe history of mitral insufficiency, tubal ligation, cholecystectomy, presents to the emergency room with worsening shortness of breath, turning up her oxygen from 2 to 3 liters with worsening symptoms. She also reports fever to 101.4 on Saturday and on Saturday 100.4. Patient was found to have acute on chronic respiratory failure with chronic obstructive pulmonary disease (COPD) exacerbation. CURRENT ISSUES: 1. Chronic obstructive pulmonary disease (COPD) exacerbation. Patient is on Solu-Medrol, nebulizer treatments, supplemental oxygen. She is currently on vancomycin renally dosed by pharmacy. 2. End stage renal disease on maintenance hemodialysis. Refer to Dr. Gonzales for fluid management. Patient does have a history of systolic and diastolic congestive heart failure with AICD placement. Refer to Dr. Gonzales for adjustment of diuretics. 3. Non-insulin dependent diabetes. Consistent carbohydrate diet. On insulin sliding scale per protocol. 4. Hyperlipidemia on Crestor. 5. Diabetic peripheral neuropathy on Neurontin 300 twice daily. 6. Chronic hypertension on midodrine. 7. History of coronary artery disease. Continue on aspirin. 8. Deep venous thrombosis (DVT) prophylaxis. Compression stockings. MTDD
--- NOTE | 2016-05-14 08:31 | IPN ---
DATE: 05/12/2016 SUBJECTIVE: Ms. Shabazz is seen during dialysis. She was admitted with shortness of breath and is being treated for chronic obstructive pulmonary disease (COPD) exacerbation. This morning during my evaluation, we felt that the patient also had mild hypervolemia and we decided to perform ultrafiltration in view of weekend schedule and no dialysis available tomorrow. She is being ultra filtrated for two liters of fluid. However, her blood pressure usually runs low and it is now 80/52 mmHg. She tolerated most of her treatment well. However, towards the end, she developed severe leg cramps and had to be taken off dialysis about eight minutes earlier than scheduled. We have removed 1.8 liters of fluid which is enough for her to go until Saturday without dialysis. She will continue with her COPD treatment. PHYSICAL EXAMINATION: VITAL SIGNS: Temperature 97.8 degrees Fahrenheit, heart rate about 100 per minute and respiratory rate 20 per minute. Blood pressure 80/52 mmHg. NECK: Neck veins are not distended sitting upright. RESPIRATORY: Lungs have bilateral rhonchi and diminished breath sounds. CARDIAC: Heart sounds are tachycardiac. EXTREMITIES: Have trace of leg edema. There is no cyanosis or clubbing. ABDOMEN: Soft and nontender. LABORATORY DATA: Today's labs show WBC count 3.6, hemoglobin 11.1 and hematocrit 35.8. Sodium 133 and potassium 4.2. BUN 39 and creatinine 2.90. Glucose is 229. PROBLEMS: 1. Shortness of breath. Mostly due to chronic obstructive pulmonary disease exacerbation and with mild hypervolemia. We have removed about 1.8 liters of fluid with ultrafiltration. Her breathing has improved significantly since admission. 2. End-stage renal disease. The patient is regularly dialyzed on Saturday, Saturday and Saturday schedule. She will be scheduled for next hemodialysis treatment on Saturday. 3. Hyponatremia. Mild hyponatremia is related to end-stage renal disease and hyperglycemia. At present, no specific intervention is indicated and it is likely to resolve by itself. 4. History of congestive heart failure. At present her volume status is reasonably well compensated and we will continue to monitor her closely. We did give her a dose of Lasix 200 mg intravenously this morning and further diuretic can be tried in next 24 hours if indicated; however, I feel that she is not going to require further dialysis or diuretic until Saturday morning.
--- NOTE | 2016-05-14 08:33 | IPN ---
DATE: 05/13/2016 Mrs. Shabazz is seen this morning on her bedside. She has a complaint of persistent cough and her dyspnea also persists. She denies any fever or chills. She underwent ultrafiltration yesterday by hemodialysis and about 1.8 liters of fluid was removed. On physical examination, temperature 98 degrees Fahrenheit, heart rate 82 per minute and respiratory rate 20 per minute. Blood pressure 80/64 mmHg and oxygen saturation 97% on 2 liters oxygen. Head is atraumatic. Ears, nose and eyes are unremarkable. Oral mucosa shows thrush both on the tongue and palate. Neck is supple and without any jugular venous distention (JVD) or thyroid enlargement. Heart sounds are regular. Lungs have moderate bilateral air entry with bilateral rhonchi and mild wheezing. Abdomen is soft and nontender and without any palpable organomegaly. Bowel sounds are normal. Extremities have no cyanosis or clubbing. AV fistula in her arm is patent. She has no peripheral edema. Neurologically, the patient is awake and alert and oriented times three. There is no focal neurological deficit. Skin is dry and without any rash or ulcers. Today's labs show WBC count 12.1, hemoglobin 10.5 and hematocrit 33.5. Sodium 133 and potassium 4.6. BUN 77 and creatinine 4.15. PROBLEMS: 1. Acute respiratory insufficiency superimposed on chronic lung disease. The patient is known to have chronic obstructive pulmonary disease (COPD) and her acute respiratory insufficiency is mostly related to COPD exacerbation. We corrected her volume status with ultrafiltration yesterday even though there was no compelling evidence of volume overload. At present, she will continue with steroids, bronchodilators and antibiotics. 2. Oral thrush. The patient is already receiving Nystatin swish and swallow, which will be continued. 3. End stage renal disease. The patient is regularly dialyzed on Saturday, Saturday and Saturday schedule. She will be dialyzed tomorrow. 4. Chronic congestive heart failure. Her volume status is well-compensated as she underwent ultrafiltration yesterday. At this point, there is no indication for urgent dialysis today. 5. Anemia. Her anemia is mild and stable and does not need any intervention at this point.
--- NOTE | 2016-05-14 08:33 | IPN ---
DATE: 05/13/2016 Patient seen and examined at the bedside. Chart has been reviewed. Patient remains with systolic pressure in the 80s but states that she normally runs 80 systolic without complaints of dizziness, lightheadedness, near syncope. No diaphoresis, chest pain, pressure, tightness, shortness of breath, epigastric pain, nausea or vomiting or abdominal pain. Per nursing, no other acute issues overnight. Temperature 97.7, pulse 61, respiratory rate 20, blood pressure 82/56, 98% 2 liters nasal cannula. Generally, patient is awake, alert, oriented times three, answering questions appropriately. She has no use or respiratory accessory muscles. Lungs are clear to auscultation, no wheezing, rales or rhonchi. Heart: S1, S2. Sinus rhythm. Abdomen: Soft, nontender, nondistended. Positive bowel sounds. Extremities: No cyanosis, clubbing or pitting edema. LABORATORY DATA: CBC, metabolic panel, microbiology, imaging studies have been reviewed. ASSESSMENT AND PLAN: This is a 70-year-old female with history of end stage renal disease on maintenance hemodialysis, Chronic obstructive pulmonary disease (COPD), chronic hypoxic respiratory failure, congestive heart failure (CHF), non-insulin dependent diabetes, transient ischemic attack (TIA), chronic hypotension on midodrine, presented to the emergency room with complaints of increasing shortness of breath for the past 3 days. Chest x-ray was done. Started on doxycycline as outpatient. Reported a fever during hemodialysis and presented to the emergency room and admitted for chronic obstructive pulmonary disease (COPD) exacerbation, and maintenance hemodialysis needs. Influenza A and B are negative. Sputum culture was oropharyngeal contamination. Blood cultures are negative. Urine culture was also negative. Chest x-ray on 05/11/2016 showed cardiomegaly with right basilar opacities without any new infiltrates. During the admission, patient remains hypotensive, blood pressure in the 80s which is baseline for her. She is continued on IV vancomycin as well as Solu-Medrol. Nebulizer treatments, supplemental oxygen with significant improvement. CURRENT ISSUES: 1. Acute chronic obstructive pulmonary disease (COPD) exacerbation. Patient is continued on IV Solu-Medrol, antibiotics, nebulizer treatments, supplemental oxygen. Appears to be improving. 2. End stage renal disease on hemodialysis Saturday, Saturday, Saturday managed by Dr. Gonzales via right arm AV fistula. Defer to Dr. Gonzales for fluid management. 3. Hypotension, chronic, at baseline. No complaints of dizziness, lightheadedness, near syncope, chest pain, pressure, tightness, palpitations. Ambulating well without difficulty. 4. Congestive heart failure (CHF) compensated. 5. Insulin dependent diabetes, insulin sliding scale. Appears to be stable. 6. Transient ischemic attach (TIA), chronic AICD. 7. History of systolic failure, stable. MTDD
[2016-05-14] MEDS ORDERED: HEPARIN 1,000 UNITS/ML 10ML VIAL (FOR RADIOLOGY& DIALYSIS ONLY) XX ONE (10:45)
--- NOTE | 2016-05-14 11:14 | ECHO ---
DATE OF PROCEDURE: 05/13/2016 REFERRING PHYSICIAN: Dr. Tiera Arzola PATIENT LOCATION: Room 3226 REASON FOR ECHOCARDIOGRAM: Hypotension. 2D MEASUREMENTS: IVS: 1.1 cm LV: 5.8 cm LVPW: 1.2 cm LA: 4.3 cm Aorta 3.2 cm IVC: 2.0 cm DOPPLER MEASUREMENTS: Peak velocity across the aortic valve 2.3 - m/s Peak velocity across the LVOT: 1.6 m/s Peak gradient across the aortic valve 21 mmHg Mean gradient across the aortic valve - 12 mmHg Mitral E - 2.2, Mitral A 1.5 with a ratio of 1.3 Peak gradient across the mitral valve 12 mmHg Mean gradient across the mitral valve 5 mmHg Maximum tricuspid valve velocity 2.9 m/s 2D COMMENTS: 1. Mildly enlarge left ventricle with normal left ventricular wall thickness but a depressed global left ventricular systolic function. The anterior right apical septum appeared to be markedly hypokinetic. The estimated global left ventricular systolic ejection fraction is 35 to 40%. 2. Mildly enlarged left atrium. Normal right atrium and right ventricle. 3. The atrial septum appeared to be normal without evidence of defect or shunt. 4. Normal aortic root. 5. No pericardial effusion seen. 6. Mildly calcified aortic valve with mildly restricted leaflet motion. Moderately calcified mitral annulus and the anterior mitral valve leaflet seemed to be moving well. Normal tricuspid valve. The pulmonic valve was not well visualized. The proximal pulmonary artery branches were not visualized. The inferior vena cava was borderline enlarged. Doppler detects mild aortic regurgitation. Moderate to severe mitral regurgitation and moderate tricuspid regurgitation. The calculated pulmonary artery systolic pressure varied between 40 to 50 mmHg. IMPRESSION: 1. Moderate global left ventricular systolic dysfunction with a mildly enlarged left ventricle and visually no wall motion abnormality consistent with probably underlying coronary artery disease. 2. Aortic valve sclerosis with mild aortic regurgitation and probably mild aortic stenosis. 3. Moderate calcified mitral stenosis with moderate to severe mitral regurgitation and a mildly enlarged left atrium. 4. Moderate tricuspid regurgitation with moderate pulmonary hypertension. 5. Not mentioned above, AICD wire artifacts noted in the right chambers.
--- NOTE | 2016-05-14 11:29 | IPNPDOC ---
Date/Time Seen The patient was seen on 05/14/16 at 11:06. Progress Note DATE OF ENCOUNTER: 05/14/2016 SUBJECTIVE: Patient was seen this morning in hemodialysis. She reports that her breathing is better. Robitussin was given to her yesterday and her cough is improved. She did report some dry heaves this morning, but no emesis. She is not currently experiencing any nausea and no diarrhea. No chest pain, palpitations. No fevers or chills. She is currently tolerating hemodialysis well. Blood pressure is stable, as she has chronic hypotension. OBJECTIVE: Vital Signs Date Time Temp Pulse Resp B/P Pulse Ox O2 Delivery O2 Flow Rate FiO2 05/14/16 08:09 Nasal Cannula 2.0 05/14/16 08:00 96.1 80 20 88/56 98 I&O- Last 24 Hours up to 6 AM 05/14/16 06:00 Intake Total 1200 ml Output Total 75 ml Balance 1125 ml GENERAL: Alert and oriented, in no acute distress. HEENT: Normocephalic, atraumatic. Extraocular movements are intact. Moist mucosa. She has oral thrush. NECK: Supple. Jugular veins are elevated. HEART: Normal S1, S2. Regular rate and rhythm. LUNGS: Decreased breath sounds bilaterally. Rhonchi on the right. ABDOMEN: Soft, nontender, nondistended. Bowel sounds are present. EXTREMITIES: No cyanosis or lower extremity edema. Positive pedal pulses bilaterally. SKIN: Warm and dry. Good skin turgor. No rashes noted. NEURO: Alert and oriented x 3. No focal deficits. Moving all extremities. LABORATORY DATA: 05/14/16 04:49 Red Blood Count 3.76 L, Mean Corpuscular Volume 95.5, Mean Corpuscular Hemoglobin 30.0, Mean Corpuscular Hemoglobin Concent 31.4 L, Red Cell Distribution Width 15.9 H, Calcium Level 8.7L, Aspartate Amino Transf (AST/SGOT ) 30, Alanine Aminotransferase (ALT/SGPT) 36, Alkaline Phosphatase 158H, Total Bilirubin 0.5, Total Protein 7.5, Albumin 3.7, Anion Gap 15, Glomerular Filtration Rate 8.2L, Random Vancomycin Level 20.0 MICROBIOLOGY: Influenza negative. Blood cultures show no growth thus far. IMAGING: Chest x-ray done on 05/11 revealed stable cardiomegaly and right basilar opacities. No new infiltrates. ASSESSMENT AND PLAN: 1. End-stage renal disease on hemodialysis Saturday, Saturday and Saturday. She has been dialyzed today. Goal of removing 1 liter. Volume status will continue to be corrected with hemodialysis. 2. COPD exacerbation. Respiratory status is improving. She remains on steroids, breathing treatments and antibiotics. 3. Oral thrush. Patient continues to be on nystatin swish and swallow. 4. Mild hyponatremia. She is being dialyzed. Electrolytes will continue to be monitored. 5. History of diastolic heart failure, EF 60%. Volume status is stable. Home dose of torsemide held on admission. 6. History of chronic hypotension. Patient in on midodrine. Blood pressure stable and will be monitored during dialysis. She usually lives with systolic in the 80s. 7. Mild anemia. Hemoglobin is stable and at goal. No intervention needed at this time. GME ATTESTATION GME ATTESTATION My preceptor for this patient encounter was physically present in the building during the encounter and was fully available. As needed, all aspects of the patient interview, examination, medical decision making process, and medical care plan development were reviewed and approved by the preceptor. Preceptor is aware and concurs with the plan as stated in the body of this note and will attest to such by his/her cosignature. FATOUMATA MARIEE DO May 14, 2016 11:29
--- NOTE | 2016-05-14 12:55 | IPN ---
DATE OF SERVICE: 05/14/2016 The patient is seen and examined at the bedside. Chart has been reviewed. The patient has no complaints. Shortness of breath improve significantly. No wheezing. Some generalized weakness. No chest pain, pressure, tightness, nausea, vomiting, diarrhea, abdominal pain. Temperature 96.1, pulse 80, respiratory rate 20, blood pressure 88/56, 98% on 2 liters nasal cannula. Lungs are clear to auscultation. No wheezing, rales, or rhonchi. Decreased air entry. Prolonged expiration. Heart: S1, S2, sinus rhythm. Abdomen: Soft, nontender, nondistended. Positive bowel sounds. Extremities: No pitting edema, cyanosis, or clubbing. LABORATORY DATA, IMAGING STUDIES, MICROBIOLOGY: Have been reviewed. ASSESSMENT AND PLAN: A 70-year-old female with history of end-stage renal disease on maintenance hemodialysis, chronic hypertension on midodrine, systolic pressure is usually in the 80s, chronic obstructive pulmonary disease (COPD), chronic hypoxic respiratory failure, congestive heart failure (CHF), non-insulin dependent diabetes, transient ischemic attack (TIA), presented to the emergency room with 3-day complaint of shortness of breath for the past 3 days. Chest x-ray was done. Started on doxycycline as outpatient. Fever during hemodialysis. Admitted for the following issues: CURRENT ISSUES: 1. Acute chronic obstructive pulmonary disease exacerbation. The patient is on intravenous (IV) Solu-Medrol, antibiotics, nebulizer treatments, supplemental oxygen. Significantly clinically improved. 2. End-stage renal disease, on hemodialysis via right AV fistula, per Dr. Gonzales for fluid management. 3. Hypotension, chronic, at baseline. No complaints of dizziness. Asymptomatic. On chronic midodrine. 4. Congestive heart failure, compensated. 5. Insulin-dependent diabetes, stable on sliding scale. 6. Transient ischemic attack, stable. 7. History of systolic failure, stable. 8. History of chronic automatic implantable cardioverter-defibrillator (AICD), stable. DISPOSITION: May transfer to medical-surgical.
[2016-05-14 13:16] VITALS: BP 88/52
[2016-05-14] MEDS: VANCOMYCIN HCL 1,000 MG, VIAL MATE ADAPTER 1 EACH in D5W 250 ML IV SCH (14:41)
[2016-05-14] MEDS: CHECK TO SEE IF PATIENT IS RECEIVING DIALYSIS TODAY AND REFER TO THE VANCOMYCIN ORDER XX SCH (15:34)
[2016-05-14 16:00] VITALS: BP 92/54
[2016-05-14] MEDS: ROSUVASTATIN 10 MG TAB (CRESTOR) PO SCH (20:34)
[2016-05-14 21:12] VITALS: BP 137/59
[2016-05-14 23:59] VITALS: BP 139/67
[2016-05-15] MEDS ORDERED: SLF 3 ML SYR IV PRN (01:30)
[2016-05-15] MEDS: IPRATROPIUM 0.5MG/ALBUTEROL 2.5MG INH SOL UD 3ML (DUONEB)(J7620) NEB SCH ×2 (02:20→07:39)
[2016-05-15 05:02] VITALS: BP 121/64
[2016-05-15 05:57] LABS: ALBUMIN 3.4 GM/DL (3.2-5.2); ALBUMIN/GLOBULIN RATIO 0.97 (1.00-1.93); BILIRUBIN,TOTAL 0.5 MG/DL (0.2-1.0); CALCIUM LEVEL 8.5 MG/DL (8.8-10.2); CREATININE FOR GFR 3.95 MG/DL (0.55-1.02); POTASSIUM SERUM 4.9 MEQ/L (3.5-5.1); TOTAL PROTEIN 6.9 GM/DL (6.4-8.2)
[2016-05-15] MEDS ORDERED: SLF 3 ML SYR IV SCH (06:00)
[2016-05-15 06:07] LABS: BASO % 0.1 % (0.0-1.0); LARGE UNSTAINED CELL # 0.1 K/mm3 (0.0-0.4); LARGE UNSTAINED CELL % 0.7 % (0.0-4.0); LYMPH # 0.2 K/mm3 (1.5-4.5); LYMPH % 2.1 % (24.0-44.0); MEAN CORPUSCULAR HEMOGLOBIN 29.7 pg (27.0-33.0); MEAN CORPUSCULAR HGB CONC 30.1 g/dl (32.0-36.5); MEAN CORPUSCULAR VOLUME 98.6 fl (80.0-96.0); MONO # 0.2 K/mm3 (0.0-0.8); MONO % 2.4 % (0.0-5.0); NEUTROPHILS # 9.3 K/mm3 (1.8-7.7); NEUTROPHILS % 94.8 % (36.0-66.0); PLATELET COUNT, AUTOMATED 196 k/mm3 (150-450); RED CELL DISTRIBUTION WIDTH 14.6 % (11.5-14.5); WHITE BLOOD COUNT 9.8 K/mm3 (4.0-10.0)
[2016-05-15] MEDS: methylPREDNISolone INJ 125 MG/2 ML VIAL (J2930) IV SCH (06:18)
[2016-05-15 07:30] VITALS: BP 133/72
[2016-05-15] MEDS: TIOTROPIUM INHALER/CAPSULE (SPIRIVA) INH SCH (07:38)
[2016-05-15] MEDS: GABAPENTIN 300 MG CAP PO SCH (07:42)
[2016-05-15] MEDS: FEBUXOSTAT 40 MG TABLET (ULORIC) PO SCH (07:42)
[2016-05-15] MEDS: LORATADINE 10 MG TAB PO SCH (07:42)
[2016-05-15] MEDS: ASPIRIN 81 MG ENTERIC TAB PO SCH (07:42)
[2016-05-15] MEDS: NYSTATIN 500,000 U/5 ML SUSP UDC SS SCH (07:42)
[2016-05-15] MEDS: diphenhydrAMINE 25 MG CAP PO SCH (07:42)
[2016-05-15] MEDS: MIDODRINE 5 MG TAB PO SCH (07:42)
[2016-05-15] MEDS: HumaLOG INSULIN (NovoLOG) PER UNIT SC SCH ×2 (07:43→11:45)
[2016-05-15] MEDS: ONDANSETRON 4MG/2ML VIAL (J2405) IV PRN (09:22)
[2016-05-15] MEDS ORDERED: PRED20TA PO (10:18)
[2016-05-15] MEDS ORDERED: NYST50SS SS (10:18)
--- NOTE | 2016-05-15 17:57 | DSES ---
DATE OF ADMISSION: 05/11/2016 DATE OF DISCHARGE: 05/15/2016 PRIMARY CARE PROVIDER: Dr. Ribeiro CONSULTANTS: Flight Surveyor, Dr. Eduar Gonzales ADMISSION/DISCHARGE DIAGNOSES: 1. Acute on chronic obstructive pulmonary disease (COPD) exacerbation. 2. End-stage renal disease, on hemodialysis. 3. Hypertension. 4. Chronic systolic congestive heart failure. 5. Insulin-dependent diabetes. 6. Transient ischemic attack. 7. History of automatic implantable cardioverter defibrillator (AICD) placement. HOSPITALIZATION COURSE: The patient is a 70-year-old male, presented to [facility] on 05/11/2016 for acute respiratory distress. Prior to that, previously patient was having outpatient dialysis and the patient was found to have a temperature of 101.4 and the patient was instructed by the dialysis staff to come to [facility] for further evaluation. The patient was admitted to the hospital in exacerbation. The patient was started on IV Solu-Medrol, IV vancomycin and Dr. Gonzales was contacted and the patient had an inpatient hemodialysis ultrafiltration. With fluid removal and COPD treatment, the patient's breathing started to show gradual improvement. Gradually, the patient's medication was switched from intravenous (IV) to oral (p.o.). On 05/15/2016, the patient's respiratory status was close to her baseline and the patient was cleared by physical therapy for discharge. OBJECTIVE: VITAL SIGNS: Temperature is 97, pulse is 77, respirations 22, blood pressure is 133/72, pulse oximetry is 96% with 2 liters nasal cannula. LABORATORY DATA: WBC is 9.8, hemoglobin 10.3, hematocrit 34.3, platelet count is 196. Sodium is 135, potassium 4.9, chloride is 99, carbon dioxide is 26, BUN 55, creatinine is 3.95, GFR is 12, fasting glucose is 206, calcium 8.5, total bilirubin 0.5, AST 25, ALT is 38, alkaline phosphatase is 145. Microbiology: Blood culture is negative after 72 hours. Sputum culture was poor sample. Urine culture is negative. Methicillin-resistant Staphylococcus aureus (MRSA) screening is negative. IMAGING STUDIES: Chest x-ray showed stable cardiomegaly and right basilar opacity. No new infiltrates. DISCHARGE MEDICATIONS: - Nystatin oral suspension 5 mL swish and swallow three times a day for 1 week - prednisone 20 mg on tapering dose - Ventolin two puff inhalation every 4 hours as needed - albuterol/ipratropium inhalation four times a day as needed - aspirin 81 mg by mouth daily - budesonide 0.5 mg inhalation twice a day - diphenhydramine 25 mg by mouth daily - vitamin D 50,000 units by mouth monthly - Uloric 40 mg by mouth daily - gabapentin 300 mg by mouth twice a day - glipizide 2.5 mg by mouth daily - hydroxyzine 25 mg by mouth twice a day as needed for anxiety and itching - Claritin 10 mg by mouth daily - midodrine 5 mg by mouth twice a day - Tiera-Nallely vitamin one tablet by mouth nightly - Crestor 20 mg by mouth nightly - Spiriva 18 mcg inhalation daily - torsemide 40 mg by mouth every 2 days DISCHARGE INSTRUCTIONS: Discontinue line. Discharge home. Activity as tolerated. Diet as tolerated. The patient should followup with her primary care provider within 1 week. DISCHARGE CONDITION: Stable. DISCHARGE TIME: Greater than 30 minutes.
--- NOTE | 2016-05-15 20:57 | IPNPDOC ---
Date/Time Seen The patient was seen on 05/15/16 at 20:47. Progress Note DATE OF ENCOUNTER: 05/15/2016 SUBJECTIVE: Patient was seen this morning at bedside. She reports that her breathing is better and cough is much improved. She had hemodialysis yesterday where 500ml was removed. Blood pressure was low, therefore more fluid could not be removed. Otherwise, she has not acute complaints. No chest pain, palpitations , shortness of breath, nausea, vomiting, abdominal pain, diarrhea. No fevers or chills. OBJECTIVE: Vital Signs Date Time Temp Pulse Resp B/P Pulse Ox O2 Delivery O2 Flow Rate FiO2 05/15/16 07:47 Nasal Cannula 2.0 05/15/16 07:30 97.0 77 22 133/72 96 I&O- Last 24 Hours up to 6 AM 05/15/16 06:00 Intake Total 720 ml Output Total 530 ml Balance 190 ml GENERAL: Alert and oriented, in no acute distress. HEENT: Normocephalic, atraumatic. Extraocular movements are intact. Moist mucosa. Oral thrush improved. NECK: Supple. Jugular veins are not significantly elevated. HEART: Normal S1, S2. Regular rate and rhythm. LUNGS: Decreased breath sounds bilaterally. No rales or rhonchi appreciated. ABDOMEN: Soft, nontender, nondistended. Bowel sounds are present. EXTREMITIES: No cyanosis or lower extremity edema. Positive pedal pulses bilaterally. SKIN: Warm and dry. Good skin turgor. No rashes noted. NEURO: Alert and oriented x 3. No focal deficits. Moving all extremities. LABORATORY DATA: 05/15/16 05:24 ASSESSMENT AND PLAN: 1. End-stage renal disease on hemodialysis Saturday, Saturday and Saturday. Volume status and electrolytes are stable. Next hemodialysis session tomorrow 05/16. 2. COPD exacerbation. Respiratory status is back to baseline. She will be placed on a steroid taper. 3. Oral thrush. Continue nystatin swish and swallow for a few more days. 4. History of diastolic heart failure. Repeat echo revealed an EF of 35-40%. Volume status is stable. 5. History of chronic hypotension. Patient in on midodrine. Blood pressure stable. 6. Mild anemia. Hemoglobin is stable and at goal. No intervention needed at this time. GME ATTESTATION GME ATTESTATION My preceptor for this patient encounter was physically present in the building during the encounter and was fully available. As needed, all aspects of the patient interview, examination, medical decision making process, and medical care plan development were reviewed and approved by the preceptor. Preceptor is aware and concurs with the plan as stated in the body of this note and will attest to such by his/her cosignature. FATOUMATA MARIEE DO May 15, 2016 20:57
== END 2016-05-15 12:21 | disposition home or self-care (01) | DRG 190 ==
LOC: M ED 09:51 → M ED INP 14:51 → M PCU 17:55
PROVIDERS: ADMIT Internal Medicine; ATTEND General Practice
DX: J44.1 Chronic obstructive pulmonary disease with (acute) exacerbation (principal); N18.6 End stage renal disease; J96.11 Chronic respiratory failure with hypoxia; I50.32 Chronic diastolic (congestive) heart failure; E87.1 Hypo-osmolality and hyponatremia; B37.0 Candidal stomatitis; E11.42 Type 2 diabetes mellitus with diabetic polyneuropathy; E78.5 Hyperlipidemia, unspecified; I27.2 Other secondary pulmonary hypertension; I08.0 Rheumatic disorders of both mitral and aortic valves; D64.9 Anemia, unspecified; E11.65 Type 2 diabetes mellitus with hyperglycemia; I95.89 Other hypotension; E87.6 Hypokalemia; M10.9 Gout, unspecified; Z99.81 Dependence on supplemental oxygen; Z95.810 Presence of automatic (implantable) cardiac defibrillator; Z99.2 Dependence on renal dialysis; Z88.0 Allergy status to penicillin; Z86.73 Personal history of transient ischemic attack (TIA), and cerebral infarction without residual deficits; Z87.891 Personal history of nicotine dependence; Z88.2 Allergy status to sulfonamides; Z88.8 Allergy status to other drugs, medicaments and biological substances; Z79.82 Long term (current) use of aspirin; Z79.899 Other long term (current) drug therapy

== ENCOUNTER 2016-06-06 11:19 | Inpatient (IN) | payer MEDICARE ==
[~2016-06-06] VITALS: Ht 157.5 cm; Wt 49.5 kg
[2016-06-06] VITALS (19 sets, daily range): BP systolic 62–137; BP diastolic 39–61
[2016-06-06] MEDS: TIOTROPIUM INHALER/CAPSULE (SPIRIVA) INH SCH (09:00)
[~2016-06-06 11:19] MED LIST changes: +DOXY100C PO; +PRED20TA PO; +TORS20TA2 PO
[2016-06-06] MEDS ORDERED: methylPREDNISolone INJ 125 MG/2 ML VIAL (J2930) As Ordered ONE (11:46)
--- NOTE | 2016-06-06 11:47 | REP ---
Clinical: Shortness of breath. Comparison: 05/11/2016. Findings: Cardiomegaly is appreciated along with bilateral infiltrates and pleural effusions (right greater than left). No pneumothorax. Skeletal structures intact. Impression: Findings suggest pulmonary edema with bibasilar infiltrates and pleural effusions (right greater than left). Differential diagnosis includes multifocal pneumonia. Signed by Eugene Merrill MD 06/06/2016 11:38 A
[2016-06-06] MEDS ORDERED: IPRATROPIUM 0.5MG/ALBUTEROL 2.5MG INH SOL UD 3ML (DUONEB)(J7620) As Ordered ONE (12:00)
[2016-06-06 12:02] LABS: BASO % 0.3 % (0.0-1.0); EOS # 0.1 K/mm3 (0.0-0.50); EOS % 0.7 % (0.0-3.0); LARGE UNSTAINED CELL # 0.3 K/mm3 (0.0-0.4); LARGE UNSTAINED CELL % 3.3 % (0.0-4.0); LYMPH # 0.5 K/mm3 (1.5-4.5); LYMPH % 6.8 % (24.0-44.0); MEAN CORPUSCULAR HEMOGLOBIN 29.7 pg (27.0-33.0); MEAN CORPUSCULAR HGB CONC 30.6 g/dl (32.0-36.5); MEAN CORPUSCULAR VOLUME 96.9 fl (80.0-96.0); MONO # 0.5 K/mm3 (0.0-0.8); MONO % 6.7 % (0.0-5.0); NEUTROPHILS # 6.5 K/mm3 (1.8-7.7); NEUTROPHILS % 82.1 % (36.0-66.0); PLATELET COUNT, AUTOMATED 528 k/mm3 (150-450); RED CELL DISTRIBUTION WIDTH 15.7 % (11.5-14.5); WHITE BLOOD COUNT 7.9 K/mm3 (4.0-10.0)
[2016-06-06 12:22] LABS: CALCIUM LEVEL 9.1 MG/DL (8.8-10.2); CREATININE FOR GFR 2.59 MG/DL (0.55-1.02); GLOMERULAR FILTRATION RATE 19.5 (>39); POTASSIUM SERUM 3.3 MEQ/L (3.5-5.1)
[2016-06-06 12:27] LABS: ABG BASE EXCESS 9.4 (-2.0-2.0); ABG DEVICE NASAL CANN; ABG HCO3 33.9 MEQ/L (22.0-26.0); ABG PARTIAL PRESSURE O2 82.3 mmHg (75.0-100.0); ABG STANDARD HCO3 33.1 MEQ/L (22.0-26.0); ABG TOTAL CO2 35.3 MEQ/L (23.0-31.0); ABG pH (ARTERIAL) 7.485 UNITS (7.350-7.450)
[2016-06-06] MEDS ORDERED: cefTRIAXone SOD 1 GM VIAL (J0696) As Ordered ONE (12:38)
[2016-06-06] MEDS ORDERED: FLON50SP (13:07)
[2016-06-06] MEDS ORDERED: COLA100C PO (13:07)
[2016-06-06] MEDS ORDERED: TAB-TAB PO (13:07)
[2016-06-06] MEDS ORDERED: PEPC1TAB4 PO (13:07)
--- NOTE | 2016-06-06 13:20 | REP ---
Clinical: Chest pain and shortness of breath. Comparison: 10/29/2008. Findings: Large right pleural effusion is appreciated with right lower lobe, left lower lobe, and basilar right upper lobe infiltrates and atelectasis suggesting multifocal pneumonia. However, the patient exhibits descending thoracic aortic aneurysm measuring roughly 5.3 cm maximal diameter with extensive atherosclerotic changes which is inseparable from surrounding areas of consolidation and possible fluid and while less likely, aortic leakage/rupture cannot definitively be excluded. Cardiomegaly and atherosclerotic changes to the coronary arteries is also appreciated. Impression: 1. Large right pleural effusion and multi focal consolidations and atelectasis likely representing multifocal pneumonia. 2. However, descending thoracic aortic aneurysm with atherosclerotic changes is inseparable from the surrounding areas of fluid/consolidation and while less likely, aortic leakage/rupture cannot definitively be excluded. Consider postcontrast CTA of the chest for further investigation if necessary. Signed by Eugene Merrill MD 06/06/2016 01:11 P
[2016-06-06] MEDS ORDERED: ISOVUE-370 76% 100ML VIAL (Q9967) As Ordered ONE (13:34)
[2016-06-06] MEDS ORDERED: VANCOMYCIN 1000 MG/20 ML VIAL (J3370) As Ordered ONE (13:35)
--- NOTE | 2016-06-06 14:21 | REP ---
Clinical: Chest pain rule out dissection. Technique: Contrast enhanced chest CT using CT angiography technique with axial images from the thoracic inlet to the upper abdomen using 100 ml Isovue 370 intravenous contrast material with multiplanar re-formations. Findings: The thoracic aorta demonstrates extensive atherosclerotic calcifications and mural thrombus along with aneurysmal dilatation to the descending thoracic aorta measuring up to approximately 5.5 cm diameter. There is no evidence for dissection or rupture. The pulmonary arteries demonstrate satisfactory enhancement and there is no evidence for pulmonary embolus. Large right pleural effusion along with near complete collapse of the right lower lobe as well as multifocal areas of consolidation/atelectasis and alveolar infiltrates involving the left lower lobe and to a lesser extent the right middle lobe, lingula and right upper lobe. Mediastinum suggests cardiomegaly with atherosclerotic changes of the coronary arteries without pericardial effusion. Reactive adenopathy suggested. Surrounding musculoskeletal structures intact. Impression: 1. Extensive atherosclerotic changes and mural thrombus involving the aorta including aneurysmal dilatation to the descending thoracic aorta. No evidence for dissection or laceration/ rupture. 2. Large right pleural effusion and multi focal atelectasis/consolidations. Presumed reactive adenopathy. Follow-up to resolution recommended Signed by Eugene Merrill MD 06/06/2016 02:12 P
[2016-06-06] MEDS ORDERED: NS 1,000 ML IV SCH (15:15)
[2016-06-06] MEDS ORDERED: GLUCOSE 4 GM CHEW TABLET PO PRN (15:15)
[2016-06-06] MEDS ORDERED: GLUCAGON FOR INJ 1 MG VIAL (J1610) SC PRN (15:15)
[2016-06-06] MEDS ORDERED: DEXTROSE 50% 50 ML SYRINGE IV PRN (15:15)
[2016-06-06] MEDS: MIDODRINE 5 MG TAB PO SCH ×2 (16:00→20:55)
[2016-06-06] MEDS: HumaLOG INSULIN (NovoLOG) PER UNIT SC SCH ×2 (17:30→21:02)
[2016-06-06] MEDS ORDERED: POTASSIUM CHLORIDE 10 MEQ SR TABLET PO ONE (18:00)
--- NOTE | 2016-06-06 18:41 | EDDOCDS ---
Physician Documentation [facility] Name: Temitope Shabazz Age: 70 yrs Sex: Female : 1945 Arrival Date: 06/06/2016 Time: 11:19 Bed Admit Hold Private MD: Evelin Ribeiro Disposition: 06/06/16 14:07 Hospitalization ordered by Aubree Melchor for Inpatient Admission. Preliminary diagnosis is Pneumonia due to other specified bacteria. - Bed requested for M ICU. - Status is Inpatient Admission. dsf - Condition is Stable. - Problem is new. - Symptoms have worsened. Historical: - Allergies: PENICILLINS; Ramipril; Sulfa (Sulfonamide Antibiotics); IV Dye (caused kidney failure); - Home Meds: 1. Atarax 25 mg oral tab 1 tab as needed (Last dose: 06/05/2016 20:00) 2. budesonide 0.5 mg/2 mL inhalation nbsp 2 mL 2 times per day (Last dose: 06/05/2016 20:00) 3. Claritin 10 mg Oral tab 1 tab once daily (Last dose: 06/05/2016 08:00) 4. Crestor 20 mg Oral tab 1 tab nightly (Last dose: 06/05/2016 20:00) 5. Demadex 20 mg Oral tab 2 tabs every other day (Last dose: 06/05/2016 08:00) 6. DuoNeb 0.5 mg-3 mg(2.5 mg base)/3 mL Inhl nebu 3 mL 4 times per day as needed (Last dose: Unknown) 7. gabapentin 300 mg Oral cap 1 cap twice a day (Last dose: 06/05/2016) 8. glipizide 2.5 mg Oral tr24 once daily (Last dose: 06/05/2016) 9. midodrine 5 mg oral tab 1 tabs 3 times per day (Last dose: 06/06/2016 05:00) 10. Oxygen 2 l nc daily 11. renavite 1 tab nightly (Last dose: 06/05/2016 20:00) 12. Spiriva with HandiHaler 18 mcg Inhl CpDv 1 cap once daily (Last dose: 06/05/2016 08:00) 13. Uloric 40 mg oral tab 1 tab once daily (Last dose: 06/05/2016 08:00) 14. Vitamin D Oral 98186 unit monthly (Last dose: 05/16/2016) - PMHx: CHF; COPD; Diabetes - NIDDM: controlled; Heart Murmur; Hypercholesterolemia; Irregular heart rate; Renal Failure with Dialysis; - PSHx: AICD; dailysis fistula right arm; Cholecystectomy; Tubal ligation; Cardiac cath; - Social history: Smoking status: Patient states former smoker of tobacco. No barriers to communication noted, The patient speaks fluent Kiswahili. - Family history: No immediate family members are acutely ill. - : The pt / caregiver states he / she is not on anticoagulants. Home medication list is obtained from the patient, family members. - Exposure Risk Screening:: None identified. Vital Signs: 06/06 11:21 BP 70 / 47; Pulse 98; Resp 20 S; Temp 99.2(T); Pulse Ox 94% on 3 lpm NC; Weight 52.16 gr2 kg / 114.99 lbs; Height 4 ft. 11 in. (149.86 cm) (R); Pain 4/10; 11:38 Resp 36; jc4 11:52 Pulse 92 MON; Pulse Ox 99% ; ja5 11:53 BP 87 / 53 (auto/); ja5 13:03 Resp 28; jc4 13:06 BP 56 / 36 (auto/); ja5 13:06 Pulse 92 MON; Pulse Ox 93% ; ja5 13:07 BP 51 / 36 (auto/); ja5 13:07 Pulse 92 MON; Pulse Ox 93% ; ja5 13:08 BP 53 / 37 (auto/); ja5 13:08 Pulse 90 MON; Pulse Ox 92% ; ja5 13:14 BP 56 / 40 (auto/); ja5 13:14 Pulse 92 MON; Pulse Ox 92% ; ja5 13:19 BP 57 / 40 (auto/); ja5 13:34 BP 65 / 44 (auto/); ja5 13:35 Pulse 90 MON; Pulse Ox 94% ; ja5 13:49 BP 66 / 47 (auto/); ja5 13:51 Pulse 90 MON; Pulse Ox 92% ; ja5 13:53 BP 62 / 40 (auto/); ja5 13:53 Pulse 90 MON; Pulse Ox 92% ; ja5 13:58 BP 65 / 47 (auto/); ja5 13:58 Pulse 90 MON; Pulse Ox 91% ; ja5 14:04 BP 65 / 45 (auto/); jc4 14:04 Pulse 90 MON; Pulse Ox 93% ; jc4 14:09 BP 66 / 43 (auto/); ja5 14:12 Pulse 79 MON; Pulse Ox 92% ; ja5 14:13 BP 66 / 43; Pulse 90; Resp 24; Pulse Ox 97% on 3 lpm NC; jc4 14:15 BP 63 / 47 (auto/); ja5 14:15 Pulse 75 MON; Pulse Ox 97% ; ja5 14:30 BP 73 / 50 (auto/); ja5 14:30 Pulse 71 MON; Pulse Ox 96% ; ja5 14:43 BP 71 / 51 (auto/); hs1 14:43 Pulse 92 MON; Pulse Ox 94% ; hs1 14:45 BP 71 / 52 (auto/); hs1 14:45 Pulse 91 MON; Pulse Ox 92% ; hs1 15:00 BP 70 / 48 (auto/); hs1 15:00 Pulse 89 MON; Pulse Ox 95% ; hs1 15:15 BP 72 / 49 (auto/); hs1 15:15 Pulse 90 MON; Pulse Ox 98% ; hs1 15:30 BP 62 / 45 (auto/); hs1 15:30 Pulse 90 MON; Pulse Ox 96% ; hs1 15:45 BP 64 / 48 (auto/); hs1 15:45 Pulse 92 MON; Resp 24; Pulse Ox 95% ; hs1 16:00 BP 66 / 45 (auto/); hs1 16:00 Pulse 90 MON; Pulse Ox 96% ; hs1 16:15 BP 70 / 38 (auto/); hs1 16:15 Pulse 99 MON; Pulse Ox 95% ; hs1 16:30 BP 86 / 50 (auto/); hs1 16:30 Pulse 91 MON; Pulse Ox 93% ; hs1 16:45 BP 78 / 50 (auto/); hs1 16:45 Pulse 89 MON; Pulse Ox 96% ; hs1 17:00 BP 74 / 50 (auto/); hs1 17:00 Pulse 89 MON; Pulse Ox 96% ; hs1 17:15 BP 76 / 53 (auto/); hs1 17:15 Pulse 97 MON; Pulse Ox 94% ; hs1 17:30 BP 74 / 51 (auto/); hs1 17:30 Pulse 87 MON; Pulse Ox 94% ; hs1 17:45 BP 72 / 51 (auto/); hs1 17:45 Pulse 86 MON; Resp 24; Pulse Ox 95% ; hs1 18:30 BP 86 / 54; Pulse 90; Resp 22; Temp 97.4; Pulse Ox 96% ; Pain 0/10; hs1 11:21 Body Mass Index 23.23 (52.16 kg, 149.86 cm) gr2 MDM: 11:25 -Blood Culture (Adults Only), peripheral from different site, or from device/port/PICC sd1 etc. if present ordered. 11:25 Gas Pit Worker/Pulse Ox/q 15 min VS ordered. sd1 11:25 IV Saline Lock ordered. sd1 11:25 Oxygen at 4L/Min NC or Home dosage ordered. sd1 11:25 Rhythm Strip to chart ordered. sd1 11:26 B-Type Natiuretic Peptide Ordered. EDMS 11:26 Basic Metabolic Profile Ordered. EDMS 11:26 CBC with Diff Ordered. EDMS 11:26 Cardiac Injury Profile Ordered. EDMS 11:26 Troponin Ordered. EDMS 11:26 Lactic Acid (Johnson tube on ice) Ordered. EDMS 11:26 -Blood Culture Ordered. EDMS 11:26 Chest, 1 View Ordered. EDMS 11:27 ECG WITH READING ER PHYS+CARDIAG ordered. EDMS 11:37 Misc Precision Dyer Order ordered. sd1 11:38 BED REQUEST+ADM ordered. EDMS 11:39 Call Respiratory ordered. sd1 11:39 Albuterol-Ipratropium 1 neb Nebulizer every 20 minutes x3 ordered. sd1 11:39 Solu-MEDROL 125 mg IVP once ordered. sd1 11:41 -Arterial Blood Gas Ordered. EDMS 11:44 Call Respiratory complete. jc4 11:56 RESPIRATORY PANEL Ordered. EDMS 11:56 cefTRIAXone 2 grams IVPB once over 30 mins; dilute in 50mL of NS or D5W ordered. sd1 11:56 Misc Precision Dyer Order complete. lbd 11:57 -Blood Culture (Adults Only), peripheral from different site, or from device/port/PICC lbd etc. if present complete. 12:00 BLOOD CULTURES Ordered. EDMS 12:14 CT Chest Without Contrast Ordered. EDMS 12:36 B-Type Natiuretic Peptide Reviewed. sd1 12:36 Basic Metabolic Profile Reviewed. sd1 12:36 CBC with Diff Reviewed. sd1 12:36 Cardiac Injury Profile Reviewed. sd1 12:36 -Arterial Blood Gas Reviewed. sd1 12:36 Troponin Reviewed. sd1 12:36 Lactic Acid (Johnson tube on ice) Reviewed. sd1 12:36 Chest, 1 View Reviewed. sd1 12:45 vancomycin 1 grams IVPB once over 60 mins; dilute in 250mL of NS or D5W ordered. sd1 13:15 NS 0.9% 250 ml IV at bolus once ordered. sd1 13:33 CT ANGIO CHEST Ordered. EDMS 13:45 Financial registration complete. mm15 14:02 NS 0.9% 250 ml IV at bolus once ordered. sd1 14:15 [facility] Payment Agreement was scanned into [employer] and attached to record. mm15 14:20 Admission / Observation Status ordered. EDMS 15:21 CONSISTENT CARBOHYDRATES ordered. EDMS 15:38 NS 0.9% 250 ml IV at bolus once ordered. sd1 Administered Medications: 11:57 Drug: Solu-MEDROL 125 mg [Solu-Medrol 500 mg intravenous solution (125 mg)] Route: IVP; ja5 Site: left antecubital; 12:00 Drug: Albuterol-Ipratropium 1 neb [ipratropium-albuterol 0.5 mg-3 mg(2.5 mg base)/3 mL ac1 nebulization soln (1 neb)] Route: Nebulizer; 12:05 Follow up: bd diminished bilat ac1 12:20 Drug: Albuterol-Ipratropium 1 neb [ipratropium-albuterol 0.5 mg-3 mg(2.5 mg base)/3 mL ac1 nebulization soln (1 neb)] Route: Nebulizer; 12:31 Drug: Albuterol-Ipratropium 1 neb [ipratropium-albuterol 0.5 mg-3 mg(2.5 mg base)/3 mL ac1 nebulization soln (1 neb)] Route: Nebulizer; 12:36 Follow up: bs diminished bilat ac1 13:02 Drug: cefTRIAXone 2 grams [ceftriaxone 1 gram solution for injection] Route: IVPB; ja5 Infused Over: 30 mins; Site: left antecubital; 13:57 Follow up: IV Status: Completed infusion ja5 13:21 Drug: NS 0.9% 250 ml [sodium chloride 0.9 % intravenous solution] Route: IV; Rate: ja5 bolus; Site: left antecubital; 14:13 Follow up: BP 66 / 43; Pulse 90 bpm; Resp 24 bpm; Pulse Ox 97% 3 lpm Nasal Cannula; IV jc4 Status: Completed infusion; IV Intake: 250ml 13:57 Drug: vancomycin 1 grams [vancomycin 1,000 mg intravenous injection] Route: IVPB; ja5 Infused Over: 60 mins; Site: left antecubital; 14:14 Drug: NS 0.9% 250 ml [sodium chloride 0.9 % intravenous solution] Route: IV; Rate: jc4 bolus; Site: left forearm; 15:57 Drug: NS 0.9% 250 ml [sodium chloride 0.9 % injection solution] Route: IV; Rate: bolus; hs1 Site: left antecubital; Signatures: Dispatcher [employer] EDMS Nela Wen MD MD sdSara Agudelo, Jigger Operator Unit lbd Yesenia Davila RN RN hs1 Elyssa Cagle RN RN jc4 Jaky Lopez,RN RN dsf Naseem Lundberg mm15 Donna Lange RN RN sls2 Tamera GoldmanRN RN ja5 Korin Noble RT ac1 The chart was reviewed and I authenticate all verbal orders and agree with the evaluation and treatment provided.Corrections: (The following items were deleted from the chart) 13:33 13:27 CT Chest with contrast+CT ordered. EDMS EDMS 13:34 11:38 Allergies: IV Dye; jc4 ja5 15:21 14:20 2 GRAM SODIUM DIET ordered. EDMS EDMS Attachments: 14:15 [facility] Payment Agreement mm15 [facility]
--- NOTE | 2016-06-06 18:41 | EDDOCDS ---
Nurse's Notes [facility] Name: Temitope Shabazz Age: 70 yrs Sex: Female : 1945 Arrival Date: 06/06/2016 Time: 11:19 Bed Admit Hold Private MD: Evelin Ribeiro Diagnosis: Pneumonia due to other specified bacteria Presentation: 06/06 11:28 Presenting complaint: Daughter states that patient has been short of breath for the jc4 past 3 days, progressively getting worse. States has not been drinking well. Has had increased swelling in feet. Was at dialysis this morning. Suicide/Homicide risk assessment- the patient denies having any suicidal and/or homicidal ideations and does not present with any other emotional, behavioral or mental health complaints. 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 Transition of care: patient was received from a primary care office; [facility]. 11:28 Acuity: CRISTEL Level 2 jc4 11:28 Method Of Arrival: Wheelchair 4 18:22 Adult Sepsis Screening: The patient does not have new or worsening altered mentation. hs1 Patient has a respiratory rate of greater than or equal to 22 (1 point). Systolic blood pressure is less than or equal to 100 (1 point). Patient has a qSOFA score of 2. Patient has cough and/or SOB- Positive Sepsis Screen. Patient made CRISTEL Level 2. Triage Assessment: 11:38 General: Appears ill, Behavior is cooperative. Pain: Pain currently is 8 out of 10 on a jc4 pain scale. The patient is triaged at the bedside. See Assessment in Nurses Notes section of ED record. Respiratory: Onset: The symptoms/episode began/occurred 3 days ago. Historical: - Allergies: PENICILLINS; Ramipril; Sulfa (Sulfonamide Antibiotics); IV Dye (caused kidney failure); - Home Meds: 1. Atarax 25 mg oral tab 1 tab as needed (Last dose: 06/05/2016 20:00) 2. budesonide 0.5 mg/2 mL inhalation nbsp 2 mL 2 times per day (Last dose: 06/05/2016 20:00) 3. Claritin 10 mg Oral tab 1 tab once daily (Last dose: 06/05/2016 08:00) 4. Crestor 20 mg Oral tab 1 tab nightly (Last dose: 06/05/2016 20:00) 5. Demadex 20 mg Oral tab 2 tabs every other day (Last dose: 06/05/2016 08:00) 6. DuoNeb 0.5 mg-3 mg(2.5 mg base)/3 mL Inhl nebu 3 mL 4 times per day as needed (Last dose: Unknown) 7. gabapentin 300 mg Oral cap 1 cap twice a day (Last dose: 06/05/2016) 8. glipizide 2.5 mg Oral tr24 once daily (Last dose: 06/05/2016) 9. midodrine 5 mg oral tab 1 tabs 3 times per day (Last dose: 06/06/2016 05:00) 10. Oxygen 2 l nc daily 11. renavite 1 tab nightly (Last dose: 06/05/2016 20:00) 12. Spiriva with HandiHaler 18 mcg Inhl CpDv 1 cap once daily (Last dose: 06/05/2016 08:00) 13. Uloric 40 mg oral tab 1 tab once daily (Last dose: 06/05/2016 08:00) 14. Vitamin D Oral 22180 unit monthly (Last dose: 05/16/2016) - PMHx: CHF; COPD; Diabetes - NIDDM: controlled; Heart Murmur; Hypercholesterolemia; Irregular heart rate; Renal Failure with Dialysis; - PSHx: AICD; dailysis fistula right arm; Cholecystectomy; Tubal ligation; Cardiac cath; - Social history: Smoking status: Patient states former smoker of tobacco. No barriers to communication noted, The patient speaks fluent Tristanian. - Family history: No immediate family members are acutely ill. - : The pt / caregiver states he / she is not on anticoagulants. Home medication list is obtained from the patient, family members. - Exposure Risk Screening:: None identified. Screenin:40 Screening information is obtained from the patient, family members. Fall risk: At risk jc4 due to gait disturbance, uses walker. The following interventions are performed due to a positive Fall Risk Screen: Fall Risk is added to Special Handling on the patient Summary Screen. A Fall Risk Bracelet was applied to the patient. Side Rails are placed in the up position. A Call Tang is given with instruction to call for help when getting out of bed. Assistance ADL's: Requires assistance with meal preparation, this assistance is provided by family members, housework, assistance is provided by family members, medication administration, assistance is provided by family members. Abuse/DV Screen: The patient / caregiver reports he/she is: not in a situation that causes fear, pain or injury. Nutritional screening: On renal diet. Advance Directives: Currently, there is a health care proxy, Preeti Gilbert, daughter. There is no active DNR order. There is a living will, but a copy is not available at this time. There is no Power of Polishing Wheel Setter. home support is adequate. Assessment: 12:14 General: Appears distressed, Behavior is anxious, cooperative. Neurological: Level of ja5 Consciousness is awake, alert, Oriented to person, place, time. Cardiovascular: Heart tones S1 S2 present Rhythm is sinus rhythm No ectopy. Respiratory: Airway is patent Respiratory effort is even, labored, Respiratory pattern is regular, symmetrical, tachypnea Breath sounds with crackles inspiratory bilaterally. Reports cough that is productive, labored breathing. Derm: Skin is pale. 13:21 General: Patient is laying in stretcher, still tachypneic at 28 bpm occasional pursed ja5 lip breathing noted, O2 sat 94% on 2L O2 NC. SR on hospital monitor. BP was reading hypotensive with SBP in 50s so manual BP was taken at 56/42. Provider was notified and new orders for a fluid bolus was received. Bolus is hanging as well as antibiotic infusion to left AC. Patient position was changed with head as low as patient can tolerate at this time.. 14:40 General:. ja5 14:46 General: Patient is laying supine in stretcher, #2 250ml NS IV bolus and antibiotics ja5 running to left AC. BP is back up to 71/52, O2 sat 91% on 3L O2 NC with even respirations at a rate of 28BPM, she is still requiring much effort to breathe. HR is showing SR on hospital monitor. Bed in low position, call tang in reach, family at bedside.. 15:45 General: Appears patient continuing to lay in stretcher. Family aware of further plan hs1 of care at this time. Susu (daughter) will be stepping out to run a few errands and is reachable by cell phone. Patient continuing to ask for something to drink. Call out to Dr Melchor for further plan of care. . 16:35 General: Appears in no apparent distress, comfortable, Behavior is appropriate for age, hs1 cooperative, patient aware of waiting for ICU bed. Patient given something to drink per order. Patient has no further questions and is much more comfortable now that she has been able to have something to drink. . Respiratory: Airway is patent Respiratory effort is even, unlabored, Respiratory pattern is regular, symmetrical, tachypnea. Derm: Skin is pale. Vital Signs: 11:21 BP 70 / 47; Pulse 98; Resp 20 S; Temp 99.2(T); Pulse Ox 94% on 3 lpm NC; Weight 52.16 gr2 kg; Height 4 ft. 11 in. (149.86 cm) (R); Pain 4/10; 11:38 Resp 36; jc4 11:52 Pulse 92 MON; Pulse Ox 99% ; ja5 11:53 BP 87 / 53 (auto/); ja5 13:03 Resp 28; jc4 13:06 BP 56 / 36 (auto/); ja5 13:06 Pulse 92 MON; Pulse Ox 93% ; ja5 13:07 BP 51 / 36 (auto/); ja5 13:07 Pulse 92 MON; Pulse Ox 93% ; ja5 13:08 BP 53 / 37 (auto/); ja5 13:08 Pulse 90 MON; Pulse Ox 92% ; ja5 13:14 BP 56 / 40 (auto/); ja5 13:14 Pulse 92 MON; Pulse Ox 92% ; ja5 13:19 BP 57 / 40 (auto/); ja5 13:34 BP 65 / 44 (auto/); ja5 13:35 Pulse 90 MON; Pulse Ox 94% ; ja5 13:49 BP 66 / 47 (auto/); ja5 13:51 Pulse 90 MON; Pulse Ox 92% ; ja5 13:53 BP 62 / 40 (auto/); ja5 13:53 Pulse 90 MON; Pulse Ox 92% ; ja5 13:58 BP 65 / 47 (auto/); ja5 13:58 Pulse 90 MON; Pulse Ox 91% ; ja5 14:04 BP 65 / 45 (auto/); jc4 14:04 Pulse 90 MON; Pulse Ox 93% ; jc4 14:09 BP 66 / 43 (auto/); ja5 14:12 Pulse 79 MON; Pulse Ox 92% ; ja5 14:13 BP 66 / 43; Pulse 90; Resp 24; Pulse Ox 97% on 3 lpm NC; jc4 14:15 BP 63 / 47 (auto/); ja5 14:15 Pulse 75 MON; Pulse Ox 97% ; ja5 14:30 BP 73 / 50 (auto/); ja5 14:30 Pulse 71 MON; Pulse Ox 96% ; ja5 14:43 BP 71 / 51 (auto/); hs1 14:43 Pulse 92 MON; Pulse Ox 94% ; hs1 14:45 BP 71 / 52 (auto/); hs1 14:45 Pulse 91 MON; Pulse Ox 92% ; hs1 15:00 BP 70 / 48 (auto/); hs1 15:00 Pulse 89 MON; Pulse Ox 95% ; hs1 15:15 BP 72 / 49 (auto/); hs1 15:15 Pulse 90 MON; Pulse Ox 98% ; hs1 15:30 BP 62 / 45 (auto/); hs1 15:30 Pulse 90 MON; Pulse Ox 96% ; hs1 15:45 BP 64 / 48 (auto/); hs1 15:45 Pulse 92 MON; Resp 24; Pulse Ox 95% ; hs1 16:00 BP 66 / 45 (auto/); hs1 16:00 Pulse 90 MON; Pulse Ox 96% ; hs1 16:15 BP 70 / 38 (auto/); hs1 16:15 Pulse 99 MON; Pulse Ox 95% ; hs1 16:30 BP 86 / 50 (auto/); hs1 16:30 Pulse 91 MON; Pulse Ox 93% ; hs1 16:45 BP 78 / 50 (auto/); hs1 16:45 Pulse 89 MON; Pulse Ox 96% ; hs1 17:00 BP 74 / 50 (auto/); hs1 17:00 Pulse 89 MON; Pulse Ox 96% ; hs1 17:15 BP 76 / 53 (auto/); hs1 17:15 Pulse 97 MON; Pulse Ox 94% ; hs1 17:30 BP 74 / 51 (auto/); hs1 17:30 Pulse 87 MON; Pulse Ox 94% ; hs1 17:45 BP 72 / 51 (auto/); hs1 17:45 Pulse 86 MON; Resp 24; Pulse Ox 95% ; hs1 18:30 BP 86 / 54; Pulse 90; Resp 22; Temp 97.4; Pulse Ox 96% ; Pain 0/10; hs1 11:21 Body Mass Index 23.23 (52.16 kg, 149.86 cm) gr2 Vitals: 11:21 Log In Time: June 06, 2016 at 11:21. gr2 11:21 RN notified that patient meets Red Flag criteria. gr2 ED Course: 11:21 Patient visited by Montse Martin. gr2 11:21 Evelin Ribeiro is Private Physician. gr2 11:21 Patient moved to Waiting gr2 11:24 Elyssa Cagle, BATSHEVA is Primary Nurse. elp 11:24 Tamera Goldman,BATSHEVA is Primary Nurse. elp 11:24 Patient visited by Montse Martin. gr2 11:24 Patient moved to 14 elp 11:30 Triage Initiated jc4 11:33 Nela Wen MD is Attending Physician. sd1 11:33 Patient visited by Nela Wen MD. sd1 11:39 Inserted saline lock: 20 gauge in left antecubital area The patient tolerated the jc4 procedure well. done by Wilder Goldman RN. 11:43 The patient / caregiver is instructed regarding the plan of care and ED course. Cardiac jc4 monitor on. Pulse ox on. NIBP on. 11:50 EKG done. (by ED staff). Reviewed by Nela Wen MD. cmb 12:11 Patient visited by Susie Adams. cmb 12:23 Chest, 1 View Returned. EDMS 12:28 -Arterial Blood Gas Sent. ac1 12:59 Patient visited by Tamera Goldman RN. ja5 13:26 Patient visited by Nela Wen MD. sd1 13:30 Patient visited by Tamera Goldman RN. ja5 13:58 CT Chest Without Contrast Returned. EDMS 14:05 Patient moved to 3 jc4 14:07 Aubree Melchor is Hospitalizing Provider. sd1 14:15 [facility] Payment Agreement was scanned into [employer] and attached to record. mm15 14:48 CT ANGIO CHEST Returned. EDMS 16:20 Patient moved to Admit Hold [facility] 17:06 Yesenia Davila, RN is Primary Nurse. hs1 18:22 No procedures done that require assistance. hs1 Administered Medications: 11:57 Drug: Solu-MEDROL 125 mg [Solu-Medrol 500 mg intravenous solution (125 mg)] Route: IVP; ja5 Site: left antecubital; 12:00 Drug: Albuterol-Ipratropium 1 neb [ipratropium-albuterol 0.5 mg-3 mg(2.5 mg base)/3 mL ac1 nebulization soln (1 neb)] Route: Nebulizer; 12:05 Follow up: bd diminished bilat ac1 12:20 Drug: Albuterol-Ipratropium 1 neb [ipratropium-albuterol 0.5 mg-3 mg(2.5 mg base)/3 mL ac1 nebulization soln (1 neb)] Route: Nebulizer; 12:31 Drug: Albuterol-Ipratropium 1 neb [ipratropium-albuterol 0.5 mg-3 mg(2.5 mg base)/3 mL ac1 nebulization soln (1 neb)] Route: Nebulizer; 12:36 Follow up: bs diminished bilat ac1 13:02 Drug: cefTRIAXone 2 grams [ceftriaxone 1 gram solution for injection] Route: IVPB; ja5 Infused Over: 30 mins; Site: left antecubital; 13:57 Follow up: IV Status: Completed infusion ja5 13:21 Drug: NS 0.9% 250 ml [sodium chloride 0.9 % intravenous solution] Route: IV; Rate: ja5 bolus; Site: left antecubital; 14:13 Follow up: BP 66 / 43; Pulse 90 bpm; Resp 24 bpm; Pulse Ox 97% 3 lpm Nasal Cannula; IV jc4 Status: Completed infusion; IV Intake: 250ml 13:57 Drug: vancomycin 1 grams [vancomycin 1,000 mg intravenous injection] Route: IVPB; ja5 Infused Over: 60 mins; Site: left antecubital; 14:14 Drug: NS 0.9% 250 ml [sodium chloride 0.9 % intravenous solution] Route: IV; Rate: jc4 bolus; Site: left forearm; 15:57 Drug: NS 0.9% 250 ml [sodium chloride 0.9 % injection solution] Route: IV; Rate: bolus; hs1 Site: left antecubital; Intake: 13:57 IV: 50.00ml (NS); Total: 50.00ml. jc4 14:13 IV: 250.00ml; Total: 300.00ml. jc4 RT: 12:00 Initial Med Neb Given as ordered. ac1 12:05 Respiratory: Breath sounds are diminished bilaterally. ac1 12:20 Subsequent Med Neb Given as ordered. ac1 12:21 ABG's drawn from left radial artery allens test done and positive pressure held for 5 ac1 minutes no bleeding noted pressure bandage applied specimen sent pt. tolerated well. 12:25 Respiratory: Breath sounds are diminished bilaterally. ac1 12:30 Subsequent Med Neb Given as ordered. ac1 12:37 Respiratory: Breath sounds are diminished bilaterally. ac1 Order Results: Lab Order: B-Type Natiuretic Peptide; SPEC'M 06/06/16 11:39 Test: BRAIN NATRIURETIC PEPTIDE; Value: > 5000; Range: <100; Abnormal: Above high normal; Units: PG/ML; Status: F Lab Order: Basic Metabolic Profile; SPEC'M 06/06/16 11:39 Test: GLUCOSE, FASTING; Value: 107; Range: 83-110; Units: MG/DL; Status: F Test: BLOOD UREA NITROGEN; Value: 19; Range: 7-18; Abnormal: Above high normal; Units: MG/DL; Status: F Test: CREATININE FOR GFR; Value: 2.59; Range: 0.55-1.02; Abnormal: Above high normal; Units: MG/DL; Status: F Test: GLOMERULAR FILTRATION RATE; Value: 19.5; Range: >39; Abnormal: Below low normal; Status: F Test: SODIUM LEVEL; Value: 137; Range: 136-145; Units: MEQ/L; Status: F Test: POTASSIUM SERUM; Value: 3.3; Range: 3.5-5.1; Abnormal: Below low normal; Units: MEQ/L; Status: F Test: CHLORIDE LEVEL; Value: 92; Range: 98-107; Abnormal: Below low normal; Units: MEQ/L; Status: F Test: CARBON DIOXIDE LEVEL; Value: 35; Range: 21-32; Abnormal: Above high normal; Units: MEQ/L; Status: F Test: ANION GAP; Value: 10; Range: 8-16; Units: MEQ/L; Status: F Test: CALCIUM LEVEL; Value: 9.1; Range: 8.8-10.2; Units: MG/DL; Status: F Test Note: ; Units are mL/min/1.73 m2 Chronic Kidney Disease Staging per NKF: Stage I & II GFR >=60 Normal to Mildly Decreased Stage III GFR 30-59 Moderately Decreased Stage IV GFR 15-29 Severely Decreased Stage V GFR <15 Very Little GFR Left ESRD GFR <15 on BULK PLANT SUPERVISOR Lab Order: CBC with Diff; LISA 06/06/16 11:39 Test: WHITE BLOOD COUNT; Value: 7.9; Range: 4.0-10.0; Units: K/mm3; Status: F Test: RED BLOOD COUNT; Value: 3.38; Range: 4.00-5.40; Abnormal: Below low normal; Units: M/mm3; Status: F Test: HEMOGLOBIN; Value: 10.0; Range: 12.0-16.0; Abnormal: Below low normal; Units: g/dl; Status: F Test: HEMATOCRIT; Value: 32.7; Range: 36.0-47.0; Abnormal: Below low normal; Units: %; Status: F Test: MEAN CORPUSCULAR VOLUME; Value: 96.9; Range: 80.0-96.0; Abnormal: Above high normal; Units: fl; Status: F Test: MEAN CORPUSCULAR HEMOGLOBIN; Value: 29.7; Range: 27.0-33.0; Units: pg; Status: F Test: MEAN CORPUSCULAR HGB CONC; Value: 30.6; Range: 32.0-36.5; Abnormal: Below low normal; Units: g/dl; Status: F Test: RED CELL DISTRIBUTION WIDTH; Value: 15.7; Range: 11.5-14.5; Abnormal: Above high normal; Units: %; Status: F Test: PLATELET COUNT, AUTOMATED; Value: 528; Range: 150-450; Abnormal: Above high normal; Units: k/mm3; Status: F Test: NEUTROPHILS %; Value: 82.1; Range: 36.0-66.0; Abnormal: Above high normal; Units: %; Status: F Test: LYMPH %; Value: 6.8; Range: 24.0-44.0; Abnormal: Below low normal; Units: %; Status: F Test: MONO %; Value: 6.7; Range: 0.0-5.0; Abnormal: Above high normal; Units: %; Status: F Test: EOS %; Value: 0.7; Range: 0.0-3.0; Units: %; Status: F Test: BASO %; Value: 0.3; Range: 0.0-1.0; Units: %; Status: F Test: LARGE UNSTAINED CELL %; Value: 3.3; Range: 0.0-4.0; Units: %; Status: F Test: NEUTROPHILS #; Value: 6.5; Range: 1.8-7.7; Units: K/mm3; Status: F Test: LYMPH #; Value: 0.5; Range: 1.5-4.5; Abnormal: Below low normal; Units: K/mm3; Status: F Test: MONO #; Value: 0.5; Range: 0.0-0.8; Units: K/mm3; Status: F Test: EOS #; Value: 0.1; Range: 0.0-0.50; Units: K/mm3; Status: F Test: BASO #; Value: 0.0; Range: 0.0-0.2; Units: K/mm3; Status: F Test: LARGE UNSTAINED CELL #; Value: 0.3; Range: 0.0-0.4; Units: K/mm3; Status: F Lab Order: Cardiac Injury Profile; [facility] 06/06/16 11:39 Test: CPK CREATINE PHOSPHOKINASE; Value: 33; Range: 26-192; Units: U/L; Status: F Test: CK-MB VALUE MASS; Value: 2.6; Range: 0.0-3.6; Units: NG/ML; Status: F Test: MB/CK RELATIVE INDEX; Value: 7.87; Range: < OR =4; Abnormal: Above high normal; Status: F Test Note: ; DIAGNOSIS CRITERIA MMB ng/ml Relative Index (RI) NON-AMI < or = 5 N/A [place] > 5 < or = 4 AMI > 5 > 4 Lab Order: Troponin; [facility] 06/06/16 11:39 Test: TROPONIN I; Value: 0.07; Range: < 0.10; Units: NG/ML; Status: F Test Note: ; Troponin I Reference Interval for [employer]ens [place] LOCI: 99th Percentile= 0.00-0.045 ng/ml Risk Stratification: <= 0.10 ng/ml Decreased Risk for Adverse Clinical Events. 0.10-1.50 ng/ml Increased Risk for Adverse Clinical Events. Evaluation of additional criterion and/or repeat testing in 2-6 hours is suggested to rule out myocardial damage. >= 1.50 ng/ml Indicative of Myocardial Injury. Lab Order: Lactic Acid (Johnson tube on ice); [facility] 11:[facility] Test: LACTIC ACID SEPSIS PROTOCOL; Value: 1.9; Range: 0.4-2.0; Units: MMOL/L; Status: F Lab Order: -[facility]terial Blood Gas; [facility] 12:10 Test: ABG pH (ARTERIAL); Value: 7.485; Range: 7.350-7.450; Abnormal: Above high normal; Units: UNITS; Status: F Test: ABG PARTIAL PRESSURE CO2; Value: 46.0; Range: 35.0-45.0; Abnormal: Above high normal; Units: mmHg; Status: F Test: ABG PARTIAL PRESSURE O2; Value: 82.3; Range: 75.0-100.0; Units: mmHg; Status: F Test: ABG TOTAL CO2; Value: 35.3; Range: 23.0-31.0; Abnormal: Above high normal; Units: MEQ/L; Status: F Test: ABG HCO3; Value: 33.9; Range: 22.0-26.0; Abnormal: Above high normal; Units: MEQ/L; Status: F Test: ABG BASE EXCESS; Value: 9.4; Range: -2.0-2.0; Abnormal: Above high normal; Status: F Test: ABG STANDARD HCO3; Value: 33.1; Range: 22.0-26.0; Abnormal: Above high normal; Units: MEQ/L; Status: F Test: ABG O2 SATURATION; Value: 96.2; Range: 95.0-99.0; Units: %; Status: F Test: ABG DEVICE; Value: NASAL ETTA; Status: F Lab Order: [facility] PANEL; [facility]12 Test: RESPIRATORY PANEL; Value: RP PANEL RESULT NEGATIVE by PCR; Status: F Test: RESPIRATORY PANEL; Value: Comments:; Status: F Test Note: ; This respiratory PCR panel detects Influenza A H1, H3 and 2009 H1 viruses, Influenza B virus, Respiratory syncytial virus, Human metapneumovirus, Parainfluenza virus 1, 2, 3 and 4, Adenovirus, Rhinovirus/Enterovirus, Coronavirus HKU1, NL63, OC43 and 229E, Bordetella pertussis, Mycoplasma pneumoniae and Chlamydia pneumoniae. Radiology Order: Chest, 1 View Test: Chest, 1 View REASON FOR EXAMINATION: Shortness of Breath; Clinical: Shortness of breath.; ; Comparison: 05/11/2016.; ; Findings:; Cardiomegaly is appreciated along with bilateral infiltrates and pleural; effusions (right greater than left). No pneumothorax. Skeletal structures; intact.; ; Impression:; Findings suggest pulmonary edema with bibasilar infiltrates and pleural effusions; (right greater than left). Differential diagnosis includes multifocal; pneumonia.; ; ; Signed by; Eugene Merrill MD 06/06/2016 11:38 A; Radiology Order: CT Chest Without Contrast Test: CT Chest Without Contrast REASON FOR EXAMINATION: Shortness of Breath; Clinical: Chest pain and shortness of breath.; ; Comparison: 10/29/2008.; ; Findings:; Large right pleural effusion is appreciated with right lower lobe, left lower; lobe, and basilar right upper lobe infiltrates and atelectasis suggesting; multifocal pneumonia. However, the patient exhibits descending thoracic aortic; aneurysm measuring roughly 5.3 cm maximal diameter with extensive atherosclerotic; changes which is inseparable from surrounding areas of consolidation and possible; fluid and while less likely, aortic leakage/rupture cannot definitively be; excluded. Cardiomegaly and atherosclerotic changes to the coronary arteries is; also appreciated.; ; Impression:; 1. Large right pleural effusion and multi focal consolidations and atelectasis; likely representing multifocal pneumonia.; 2. However, descending thoracic aortic aneurysm with atherosclerotic changes is; inseparable from the surrounding areas of fluid/consolidation and while less; likely, aortic leakage/rupture cannot definitively be excluded. Consider; postcontrast CTA of the chest for further investigation if necessary.; ; ; Signed by; Eugene Merrill MD 06/06/2016 01:11 P; Radiology Order: CT ANGIO CHEST Test: CT ANGIO CHEST REASON FOR EXAMINATION: R/O dissection; Clinical: Chest pain rule out dissection.; ; Technique: Contrast enhanced chest CT using CT angiography technique with axial; images from the thoracic inlet to the upper abdomen using 100 ml Isovue 370; intravenous contrast material with multiplanar re-formations.; ; Findings:; The thoracic aorta demonstrates extensive atherosclerotic calcifications and; mural thrombus along with aneurysmal dilatation to the descending thoracic aorta; measuring up to approximately 5.5 cm diameter. There is no evidence for; dissection or rupture. The pulmonary arteries demonstrate satisfactory; enhancement and there is no evidence for pulmonary embolus.; ; Large right pleural effusion along with near complete collapse of the right lower; lobe as well as multifocal areas of consolidation/atelectasis and alveolar; infiltrates involving the left lower lobe and to a lesser extent the right middle; lobe, lingula and right upper lobe. Mediastinum suggests cardiomegaly with; atherosclerotic changes of the coronary arteries without pericardial effusion.; Reactive adenopathy suggested. Surrounding musculoskeletal structures intact.; ; Impression:; ; 1. Extensive atherosclerotic changes and mural thrombus involving the aorta; including aneurysmal dilatation to the descending thoracic aorta. No evidence; for dissection or laceration/ rupture.; 2. Large right pleural effusion and multi focal atelectasis/consolidations.; Presumed reactive adenopathy. Follow-up to resolution recommended; ; ; ; Signed by; Eugene Merrill MD 06/06/2016 02:12 P; Outcome: 14:07 Decision to Hospitalize by Provider. sd1 18:22 The following High Risk Discharge criteria are identified: None. Admitted to ICU hs1 accompanied by nurse, accompanied by tech, via stretcher, with oxygen, on monitor, with chart. Condition: improved critical. CT Study completed. Property :Personal belongings accompany Pt. 18:23 Discharge Assessment: patient administered narcotics - no. hs1 18:41 Patient left the ED. dsf Signatures: Dispatcher [employer] EDMS Nela Wen MD MD sd1 Annie Lorenzo RN RN Korin Ronquillo,RT RT ac1 Yesenia Davila RN RN hs1 Elyssa Cagle RN RN jc4 Fuller, Desiree, RN RN dsf Susie Adams cmMontse Turner gr2 Naseem Lundberg mm15 Hiwot Zee, PARTNER INTEGRATION PLANNER PARTNER INTEGRATION PLANNER elp Jones,Tamera,RN RN ja5 Corrections: (The following items were deleted from the chart) 11:24 11:21 BP 70 / 47; Pulse 98bpm; Resp 20bpm; Spontaneous; Pulse Ox 94% 3 lpm Nasal gr2 Cannula; 52.16 kg; Height 4 ft. 11 in. Reported; BMI: 23.2; Pain 4/10; gr2 12:53 12:25 BP 122 / ???; BS-diminished bilat ac1 jc4 13:34 11:38 Allergies: IV Dye; jc4 ja5 MTDD
[2016-06-06] MEDS ORDERED: SODIUM CHLORIDE 0.9% 1000 ML IV ONE ×2 (20:30→21:30)
--- NOTE | 2016-06-06 20:40 | CR ---
DATE OF CONSULTATION: 06/06/2016 REQUESTING PHYSICIAN: Dr. Quan Cotto CONSULTING PHYSICIAN: Dr. Lopez REASON FOR CONSULTATION: Management of end-stage renal disease. CHIEF COMPLAINT: Patient presented to emergency room with progressive shortness of breath. She was sent to the emergency room (ER) for dialysis center. HISTORY OF PRESENT ILLNESS: Temitope Shabazz is a 70-year-old female with past medical history of end-stage renal disease on hemodialysis every Saturday, Saturday, Saturday, well known to nephrology service from outpatient dialysis center at [facility]. She presented to dialysis center today with progressive shortness of breath. She was having wheezing, difficulty breathing. She got hemodialysis done, and 2 liters of ultrafiltration was done; however, despite the ultrafiltration, her shortness of breath did not improve, so patient was sent to emergency room for further evaluation and treatment. On initial evaluation in the emergency room, including CT scan, showed that she has right-sided large pleural effusion and multifocal consolidations. Patient was given IV vancomycin and ceftriaxone in the emergency room. Nephrology service was called for further management of end-stage renal disease. PAST MEDICAL HISTORY: 1. Diabetes mellitus, type 2. 2. End-stage renal disease, on hemodialysis. 3. Hypercholesterolemia. 4. Hypertension. 5. Anemia secondary to end-stage renal disease. 6. Anxiety disorder. 7. Chronic systolic and diastolic congestive heart failure. 8. Coronary artery disease. 9. Chronic obstructive pulmonary disease (COPD). 10. Hyperparathyroidism. 11. Mitral valve disease. PAST SURGICAL HISTORY: 1. Cardiac catheterization status post arteriovenous (AV) fistula placement. 2. Status post tubal ligation. 3. Status post cholecystectomy. 4. Status post bilateral cataract removal. FAMILY HISTORY: No significant family history of end-stage renal disease requiring hemodialysis. ALLERGIES: Patient is allergic to contract media, PENICILLINs, RAMIPRIL, SULFA DRUGS. CURRENT MEDICATIONS: - normal saline (NS) 70 mL an hour - DuoNeb nebulizations every 2 hours as needed - aspirin 81 mg daily - Pulmicort 0.5 mg twice a day inhalation - Colace 100 mg by mouth daily - Pepcid 20 mg by mouth daily - fluticasone two sprays daily - gabapentin 300 mg by mouth twice a day - insulin sliding scale - midodrine 5 mg by mouth three times a day - potassium chloride 20 mEq by mouth. One dose was given. - rosuvastatin 20 mg by mouth at bedtime - Spiriva inhalation daily SOCIAL HISTORY: Patient is . She lives with her spouse. She is retired. She is a former smoker. She quit smoking in 2012. She denies any alcohol abuse or recreational drug abuse REVIEW OF SYSTEMS: CONSTITUTIONAL: Patient reported severe shortness of breath. EYES: She denies any blurry vision or double vision. History of cataract surgery in the past. ENT: She denies any ear discharge, dysphagia, odynophagia. CARDIOVASCULAR: She denies any chest pain but she reports dyspnea on mild exertion. RESPIRATORY: Patient reports chronic obstructive pulmonary disease (COPD), severe shortness of breath. GASTROINTESTINAL: She denies any nausea, vomiting, pain in abdomen, or constipation. GENITOURINARY: She denies any dysuria, hematuria. She reports history of end-stage renal disease. MUSCULOSKELETAL: She denies any muscle aches and pains. SKIN: No rashes or ulcers. CENTRAL NERVOUS SYSTEM: She denies any history of seizures or stroke. PSYCHIATRIC: Denies any depression or anxiety at this time. ENDOCRINE: She reports history of diabetes and secondary hyperparathyroidism. HEMATOLOGICAL/ONCOLOGIC: She has history anemia secondary to end-stage renal disease. PHYSICAL EXAMINATION: GENERAL: Patient is awake, alert, oriented times three, sitting in the bed in moderate respiratory distress, getting nebulization done. VITAL SIGNS: Temperature is 98 degrees Fahrenheit, blood pressure is 87/53, pulse is 97, respiratory rate of 20, saturating 88% at this time. HEAD AND NECK: Extraocular muscles intact. Pupils equally round and reactive to light. Mucous membranes are moist. Neck is supple. There is mildly elevated jugular venous distention (JVD). CARDIOVASCULAR: S1, S2, regular rate. No murmur, rub, or gallop. RESPIRATORY: Decreased breath sounds at the bases and decreased vocal resonance on the bilateral bases as well. ABDOMEN: Soft. Positive bowel sounds. Nontender. No ascites. No organomegaly. EXTREMITIES: No clubbing or cyanosis. Pulses are 2+. There is very trace edema of the lower extremities. CENTRAL NERVOUS SYSTEM: No focal neurological deficit. Power is 5/5 in all extremities. LABORATORY REVIEW: CBC showed a WBC of 7.9, hemoglobin is 10, platelets are 528. ABG showed pH of 7.48, pCO2 of 46, pO2 of 82, bicarbonate is 33.9, oxygen saturation is 96.2%. BMP showed sodium 137, potassium 3.3, chloride 92, bicarbonate is 35, BUN is 19, creatinine is 2.5. Lactic acid was 1.9. Troponin is 0.07. BNP is more than 5000. Microbiology: Respiratory viral panel is negative. Blood culture is pending. IMAGING: Chest x-ray done today morning showed pulmonary edema with bibasilar infiltrate and pleural effusions, right greater than left. A CT scan of the chest done today morning showed right large pleural effusion and multifocal consolidations and atelectasis, representing multifocal pneumonia. A CT angiogram of the chest was also done, which showed extensive atherosclerotic changes and mural thrombus involving the aorta. Aneurysmal dilatation of the descending thoracic aorta. There was no evidence of dissection or laceration. ASSESSMENT: A 70-year-old female with past medical history of end-stage renal disease, on hemodialysis, admitted this time with respiratory distress secondary to multifocal pneumonia and large right-sided pleural effusion. PLAN: 1. Multifocal pneumonia. Patient was given a dose of vancomycin in the emergency room. She was also given a dose of Rocephin. She is allergic to penicillins. Continue current dose of Rocephin and vancomycin. 2. End-stage renal disease on hemodialysis. Patient was just hemodialyzed this morning. Two-liter ultrafiltration was done because of the hypotension. Large pleural effusion. I would not do further hemodialysis and ultrafiltration today; however, I would evaluate the patient tomorrow morning for any need of ultrafiltration in the setting of shortness of breath or possible fluid overload. 3. Large right-sided pleural effusion. Patient possibly needs a chest tube or interventional radiology (IR)-guided drainage of the right-sided pleural effusion. I see the primary team has already called thoracic surgery on board. Rest of the management is as per thoracic surgery recommendations. 4. Chronic hypotension. Patient's baseline systolic blood pressure is around 80. If patient is running in 60s-70s, she can get a fluid bolus. Otherwise, we can continue the current dose of midodrine that she is on. 5. Chronic obstructive pulmonary disease (COPD). Continue current nebulizations at this time. Continue Pulmicort, Spiriva, and fluticasone sprays at this time. 6. Diabetes mellitus, type 2. Continue insulin sliding scale as per primary team. The plan of care was discussed with the ER physician in the emergency room. Thank you for involving us tin the care of this patient. We shall be happy to follow the patient along with you tomorrow morning. SIVAN
[2016-06-06] MEDS: BUDESONIDE 0.5 MG/2 ML INHALATION SUSPENSION INH SCH (20:44)
[2016-06-06] MEDS: IPRATROPIUM 0.5MG/ALBUTEROL 2.5MG INH SOL UD 3ML (DUONEB)(J7620) NEB SCH (20:44)
--- NOTE | 2016-06-06 20:52 | IPNPDOC ---
Date Seen The patient was seen on 06/06/16. Progress Note SUBJECTIVE: Was called to evaluate patient for hypotension. She reports doing well. Her SBP was 71 when I entered. She was feeling anxious. Talked with daughter, Preeti, over the phone. She was concerned that she has not had a breathing tx since the morning. She was not short of breath at this time. OBJECTIVE PHYSICAL EXAMINATION: VITAL SIGNS: Please see below. GENERAL: NAD, cooperative HEENT: NC/AT, mucus membranes dry CARDIOVASCULAR: RRR, no murmurs. RESPIRATORY: Decreased breath sounds b/l. Some minimal crackles in bases. ASSESSMENT AND PLAN: This is a 70 y/o F with SOB and hypotension We notified resp therapist, pt will have breathing tx. I gave a 250cc IVF bolus for her hypotension. We will monitor her BP closely. Typically, her SBP is in the 80s-90s. If she continues to be hypotensive, I will repeat another 250cc bolus. Pt reports taking hydroxyzine, which I continued for her anxiety. Pt said that she gets thrush with breathing tx. I started her on nystatin SS. GME ATTESTATION My preceptor for this patient encounter was physically present in the building during the encounter and was fully available. As needed, all aspects of the patient interview, examination, medical decision making process, and medical care plan development were reviewed and approved by the preceptor. Preceptor is aware and concurs with the plan as stated in the body of this note and will attest to such by his/her cosignature. VS, I&O, 24H, Fishbone Vital Signs/I&O Vital Signs Date Time Temp Pulse Resp B/P Pulse Ox O2 Delivery O2 Flow Rate FiO2 06/06/16 19:00 96 24 81/51 95 Nasal Cannula 2.0 06/06/16 18:30 96.5 Laboratory Data 24H LABS Laboratory Tests 2 06/06/16 11:39: Anion Gap 10, B-Type Natriuretic Peptide > 5000H, White Blood Count 7.9, Red Blood Count 3.38L, Hemoglobin 10.0L, Hematocrit 32.7L, Mean Corpuscular Volume 96.9H, Mean Corpuscular Hemoglobin 29.7, Mean Corpuscular Hemoglobin Concent 30.6L, Red Cell Distribution Width 15.7H, Platelet Count 528H, Neutrophils (%) ( Auto) 82.1H, Lymphocytes (%) (Auto) 6.8L, Monocytes (%) (Auto) 6.7H, Eosinophils (%) (Auto) 0.7, Basophils (%) (Auto) 0.3, Neutrophils # (Auto) 6.5, Lymphocytes # (Auto) 0.5L, Monocytes # (Auto) 0.5, Eosinophils # (Auto) 0.1, Basophils # (Auto) 0.0, Blood Urea Nitrogen 19H, Creatinine 2.59H, Sodium Level 137, Potassium Level 3.3L, Chloride Level 92L, Carbon Dioxide Level 35H, Calcium Level 9.1, Total Creatine Kinase 33, Creatine Kinase MB 2.6, Creatine Kinase MB Relative Index 7.87H, Glomerular Filtration Rate 19.5L, Lactic Acid ( Sepsis) 1.9, Large Unclassified Cells # 0.3, Large Unclassified Cells % 3.3, Troponin I 0.07 06/06/16 12:10: Arterial Blood pH 7.485H, Arterial Blood Partial Pressure CO2 46.0H, Arterial Blood Partial Pressure O2 82.3, Arterial Blood Total CO2 35.3H, Arterial Blood HCO3 33.9H, Arterial Blood Base Excess 9.4H, Arterial Blood Oxygen Saturation 96.2, Blood Gas Bicarbonate Standard 33.1H, Oxygen Delivery Device NASAL ETTA CBC/BMP Laboratory Tests 06/06/16 11:39 Calcium Level 9.1, Total Creatine Kinase 33, Red Blood Count 3.38 L, Mean Corpuscular Volume 96.9 H, Mean Corpuscular Hemoglobin 29.7, Mean Corpuscular Hemoglobin Concent 30.6 L, Red Cell Distribution Width 15.7 H, Neutrophils (%) ( Auto) 82.1 H, Lymphocytes (%) (Auto) 6.8 L, Monocytes (%) (Auto) 6.7 H, Eosinophils (%) (Auto) 0.7, Basophils (%) (Auto) 0.3, Neutrophils # (Auto) 6.5, Lymphocytes # (Auto) 0.5 L, Monocytes # (Auto) 0.5, Eosinophils # (Auto) 0.1, Basophils # (Auto) 0.0 Microbiology Microbiology 06/06/16 Blood Culture, Received Pending 06/06/16 Blood Culture, Received Pending 06/06/16 Respiratory Virus Panel (PCR) (KEY) - Final, Complete BRIDGET SUTTON DO Jun 06, 2016 20:52 QUINCY RIZVI MD Jun 06, 2016 23:15
[2016-06-06] MEDS: GABAPENTIN 300 MG CAP PO SCH (20:55)
[2016-06-06] MEDS: ASPIRIN 81 MG ENTERIC TAB PO SCH (20:59)
[2016-06-06] MEDS: FLUTICASONE PROP 0.05% NASAL SPRAY 16 GM (FLONASE) SCH (20:59)
[2016-06-06] MEDS: DOCUSATE SODIUM 100 MG CAP PO SCH (20:59)
[2016-06-06] MEDS: FAMOTIDINE 20 MG TAB PO SCH (20:59)
[2016-06-06] MEDS: ROSUVASTATIN 10 MG TAB (CRESTOR) PO SCH (21:07)
--- NOTE | 2016-06-06 21:09 | HPE ---
DATE OF ADMISSION: 06/06/2016 PRIMARY CARE PROVIDER: Evelin Ribeiro at [facility] REASON FOR ADMISSION: Shortness of breath. HISTORY OF PRESENT ILLNESS The patient is a 70-year-old female who presented to the emergency room complaining of shortness of breath for the past 3 days that has been getting progressively worse, as well as increasing swelling in her feet. The patient was dialyzed this morning by Dr. Lopez outpatient. She tolerated dialysis well but was continuing to complain of cough with brown sputum for the past 3 days. Denies any sick contacts. Denies any fevers but positive chills. Denied any chest pain. No other symptoms. The patient was admitted under hospitalist service. She was found to have a low blood pressure in the emergency room, systolic blood pressure in the 50s. The patient stated that normally her systolic blood pressures is in the 80s. However, she was completely asymptomatic with the hypotension and conversing asking for food. Denied any chest pain with that. Denied any dizziness or lightheadedness. She was started on fluids in the emergency room. She was given three 250 mL boluses and then was started on normal saline at a rate of 70 mL an hour times 1 liter. REVIEW OF SYSTEMS 12-point review of systems was obtained, all of which was negative except for those mentioned above. Past medical history is significant for congestive heart failure, chronic obstructive pulmonary disease (COPD) on 2 liters nasal cannula at home all the time, diabetes, non-insulin dependent, heart murmur, hyperlipidemia, renal failure on hemodialysis Saturday, Saturday, Saturday. ALLERGIES: PENICILLIN, reaction rash. RAMIPRIL, reaction severe swelling. SULFA, reaction rash. PAST SURGICAL HISTORY: Significant for AICD, dialysis fistula in the right arm, cholecystectomy and tubal ligation. SOCIAL HISTORY: The patient has a history of smoking, but quit 8 years ago. Denies any alcohol use. Lives at home with her . HOME MEDICATIONS: Include: - albuterol ipratropium four times a day as needed for shortness of breath - diphenhydramine 25 mg by mouth daily - vitamin D 50,000 units daily - Uloric 40 mg daily - glipizide by mouth daily - hydroxyzine 25 mg by mouth daily - Claritin 10 mg by mouth daily - torsemide 20 mg every other day when she is not on dialysis - aspirin 81 mg by mouth daily - Pulmicort 0.5 mg inhaled twice a day - Colace 100 mg by mouth daily - Pepcid 20 mg by mouth daily - fluticasone nasal spray two sprays in each naris daily - Neurontin 300 mg by mouth twice a day - Midodrine 5 mg by mouth three times a day - potassium chloride 20 mEq by mouth one-time dose that she received in the emergency room - Crestor 20 mg by mouth at bedtime - ipratropium one inhaled daily FAMILY HISTORY: Noncontributory. PHYSICAL FINDINGS: Blood pressure is 70/47, pulse 89, respiratory rate 20, temperature 99.2, pulse ox 94% on 3 liters nasal cannula. HEENT: Pupils equal round react to light accommodation. Neck is supple. No jugular venous distention (JVD). LUNGS: Diminished breath sounds bilaterally. CARDIAC: Positive murmur appreciated. Regular rhythm. EXTREMITIES: +2 edema bilaterally. ABDOMEN: Soft, nontender, nondistended. LABORATORY FINDINGS: WBC 7.9, hemoglobin 10, hematocrit 32.7, platelet count 528. Sodium 137, potassium 3.3, chloride 92, BUN 19, creatinine 2.59, lactic acid 1.9, BNP greater than 50,000, troponin 0.07. CT angiogram was done and showed extensive atherosclerotic changes, mural thrombus involving the aorta, including aneurysmal dilatation to the descending thoracic aorta. No evidence of dissection, laceration or rupture. Large pleural effusion. Multifocal atelectasis, consolidation. ASSESSMENT AND PLAN: 1. Left pleural effusion may be secondary to pneumonia. We will continue to monitor. Patient is currently on 2 liters nasal cannula, saturating 95%. We will continue to monitor. If her shortness of breath was to worsen, we will defer to the day team to consult Dr. Pollard consult radiology for thoracentesis. 2. Hypotension. The patient was given three 250 mL boluses in the emergency room, as well as normal saline at a rate of 70 mL an hour times 1 liter. We will discontinue after 1 liter since the patient is a dialysis patient and had dialysis today with 2 liters removed. 3. End-stage renal disease. On dialysis Saturday, Saturday, Saturday. Dr. Lopez is consulted. 4. Pneumonia. The patient received a dose of vancomycin and ceftriaxone in the emergency room. We will continue. 5. Hypokalemia. We will replace and recheck in the morning. 6. History of non-insulin dependent diabetes. We will start the patient on sliding scale while in the hospital with before food and nightly Accu-Cheks. 7. History of hyperlipidemia. Continue the patient's home medication. 8. Deep vein thrombosis (DVT) prophylaxis. Sequential compression device (SCD) while in bed.
[2016-06-06] MEDS: hydrOXYzine 25 MG TAB PO PRN (21:29)
[2016-06-07] VITALS (22 sets, daily range): BP systolic 61–84; BP diastolic 41–61
[2016-06-07] MEDS: NYSTATIN 500,000 U/5 ML SUSP UDC SS SCH ×4 (00:01→17:27)
[2016-06-07] MEDS: IPRATROPIUM 0.5MG/ALBUTEROL 2.5MG INH SOL UD 3ML (DUONEB)(J7620) NEB SCH ×4 (00:55→20:32)
[2016-06-07 05:28] LABS: ALBUMIN 1.9 GM/DL (3.2-5.2); ALBUMIN/GLOBULIN RATIO 0.42 (1.00-1.93); BILIRUBIN,TOTAL 0.5 MG/DL (0.2-1.0); CALCIUM LEVEL 8.2 MG/DL (8.8-10.2); CREATININE FOR GFR 3.45 MG/DL (0.55-1.02); MAGNESIUM LEVEL 1.9 MG/DL (1.8-2.4); TOTAL PROTEIN 6.4 GM/DL (6.4-8.2)
[2016-06-07 05:32] LABS: BASO % 0.2 % (0.0-1.0); EOS % 0.1 % (0.0-3.0); LARGE UNSTAINED CELL # 0.1 K/mm3 (0.0-0.4); LYMPH # 0.4 K/mm3 (1.5-4.5); LYMPH % 4.9 % (24.0-44.0); MEAN CORPUSCULAR HEMOGLOBIN 28.8 pg (27.0-33.0); MEAN CORPUSCULAR HGB CONC 29.4 g/dl (32.0-36.5); MEAN CORPUSCULAR VOLUME 97.9 fl (80.0-96.0); MONO # 0.2 K/mm3 (0.0-0.8); NEUTROPHILS # 7.2 K/mm3 (1.8-7.7); PLATELET COUNT, AUTOMATED 502 k/mm3 (150-450); WHITE BLOOD COUNT 7.9 K/mm3 (4.0-10.0)
[2016-06-07 05:35] LABS: ADD MORPHOLOGY? YES
[2016-06-07 06:55] LABS: ANISOCYTOSIS 1+; HYPOCHROMASIA 2+
--- NOTE | 2016-06-07 07:58 | IPNPDOC ---
Subjective Date Seen The patient was seen on 06/07/16. Subjective Chief Complaint/HPI The patient is a 70-year-old female admitted with a reason for visit of Shortness Of Breath. General: Reports: Fatigue, Malaise, Denies: Chills, Night Sweats, Normal Appetite, Other Symptoms, ROS Unobtainable Constitutional: Reports: Fatigue, Malaise, Weakness, Denies: Chills, Fever, Lethargy, Night Sweats, Other, Weight Loss Eyes: Denies: Conjunctivae inflammation, Eyelid inflammation, Other, Pain, Redness, Vision change ENT: Denies: Dysphagia, Ear Pain, Epistaxis, Head Aches, Other Symptoms, Post Nasal Drip, Sinus Congestion, Sore Throat Skin: Denies: Breakdown, Bruising, Dry, Itching, Jaundice, Lesions, Nail Changes, Other, Rash Pulmonary: Reports: Cough (productive), Dyspnea, Denies: Other Symptoms, Pleuritic Chest Pain Cardiovascular: Denies: Chest Pain, Edema, Lt Headedness, Orthopnea, Other Symptoms, Palpitations, Paroxysmal Noc. Dyspnea Gastrointestinal: Denies: Abdominal Pain, Constipation, Diarrhea, Hematochezia , Melena, Nausea, Other Symptoms, Vomiting Objective Physical Examination General Exam: Positive: Alert, Cooperative, No Acute Distress, Other (elderly, frail, sitting comfortably in chair) Eye Exam: Positive: Conjunctiva & lids normal, EOMI, PERRLA, Negative: Sclera icteric ENT Exam: Positive: Atraumatic Neck Exam: Positive: Supple Chest Exam: Positive: Diminished (Diminished breath sounds on right), Rhonchi ( B/L rhonchi L>>R) Heart Exam: Positive: Murmurs, Rate Normal Telemetry: Positive: No significant arrhythmia Abdomen Exam: Positive: Normal bowel sounds, Soft, Negative: Tenderness Extremity Exam: Negative: Edema Psych Exam: Positive: Oriented x 3 Assessment /Plan Problems (1) Pneumonia Status: Acute Response to Treatment: Progressing Problem Specific Plan: Monitor Clinically, Repeat Labs Problem Text: Vanco and Rocephin day #2. Sputum cultures/gram stain pending. Multifocal consolidations on CTA. (2) Pleural effusion Status: Acute Discussed With: Contract Attorney Problem Specific Plan: Consult Specialist, Monitor Clinically Problem Text: Large right pleural effusion on CTA. Saturating well on baseline 2L supplemental O2. Possible chest tube. Discuss further with CTS. (3) Hypotension Status: Chronic Problem Specific Plan: Monitor Clinically Problem Text: Chronic hypotension. Continue midodrine, fluid boluses as needed. (4) Diabetes Status: Chronic Problem Specific Plan: Repeat Labs (5) Hypercholesteremia Status: Chronic Problem Text: Crestor (6) Anemia Status: Chronic Problem Text: Secondary to ESRD. (7) Anxiety Status: Chronic Problem Text: Atarax (8) CHF (congestive heart failure) Status: Chronic Problem Text: Systolic and diastolic failure. (9) COPD (chronic obstructive pulmonary disease) Status: Chronic Problem Text: Spiriva, pulmicort, duonebs scheduled and prn (10) Hyperparathyroidism Status: Chronic (11) Mitral valve disease Status: Chronic (12) CAD (coronary artery disease) Onset Date: 01/18/2014 Status: Chronic (13) ESRD (end stage renal disease) Onset Date: 01/26/2014 Status: Chronic Problem Specific Plan: Consult Specialist Plan/VTE VTE Prophylaxis Ordered?: Yes (mechanical) Plan Diet: Continue Current Activity: Continue Current Therapy: PT Diagnostics: Repeat Labs in AM, Obtain Cultures Anticipated Discharge: Home, Home With Services VS, I&O, 24H, [facility] Vital Signs/I&O Vital Signs Date Time Temp Pulse Resp B/P Pulse Ox O2 Delivery O2 Flow Rate FiO2 06/07/16 05:00 93 26 84/54 99 Nasal Cannula 2.0 06/06/16 23:51 97.4 I&O- Last 24 Hours up to 6 AM 06/07/16 06:00 Intake Total 2200 ml Output Total 60 ml Balance 2140 ml Laboratory Data 24H LABS Laboratory Tests 2 06/06/16 11:39: Anion Gap 10, B-Type Natriuretic Peptide > 5000H, White Blood Count 7.9, Red Blood Count 3.38L, Hemoglobin 10.0L, Hematocrit 32.7L, Mean Corpuscular Volume 96.9H, Mean Corpuscular Hemoglobin 29.7, Mean Corpuscular Hemoglobin Concent 30.6L, Red Cell Distribution Width 15.7H, Platelet Count 528H, Neutrophils (%) ( Auto) 82.1H, Lymphocytes (%) (Auto) 6.8L, Monocytes (%) (Auto) 6.7H, Eosinophils (%) (Auto) 0.7, Basophils (%) (Auto) 0.3, Neutrophils # (Auto) 6.5, Lymphocytes # (Auto) 0.5L, Monocytes # (Auto) 0.5, Eosinophils # (Auto) 0.1, Basophils # (Auto) 0.0, Blood Urea Nitrogen 19H, Creatinine 2.59H, Sodium Level 137, Potassium Level 3.3L, Chloride Level 92L, Carbon Dioxide Level 35H, Calcium Level 9.1, Total Creatine Kinase 33, Creatine Kinase MB 2.6, Creatine Kinase MB Relative Index 7.87H, Glomerular Filtration Rate 19.5L, Lactic Acid ( Sepsis) 1.9, Large Unclassified Cells # 0.3, Large Unclassified Cells % 3.3, Troponin I 0.07 06/06/16 12:10: Arterial Blood pH 7.485H, Arterial Blood Partial Pressure CO2 46.0H, Arterial Blood Partial Pressure O2 82.3, Arterial Blood Total CO2 35.3H, Arterial Blood HCO3 33.9H, Arterial Blood Base Excess 9.4H, Arterial Blood Oxygen Saturation 96.2, Blood Gas Bicarbonate Standard 33.1H, Oxygen Delivery Device NASAL ETTA 06/06/16 20:37: Bedside Glucose (Misc Panel) 295H 06/07/16 04:58: Anion Gap 12, White Blood Count 7.9, Red Blood Count 2.99L, Hemoglobin 8.6L, Hematocrit 29.3L, Mean Corpuscular Volume 97.9H, Mean Corpuscular Hemoglobin 28.8, Mean Corpuscular Hemoglobin Concent 29.4L, Red Cell Distribution Width 16.0H, Platelet Count 502H, Neutrophils (%) (Auto) 91.0H, Lymphocytes (%) (Auto ) 4.9L, Monocytes (%) (Auto) 3.0, Eosinophils (%) (Auto) 0.1, Basophils (%) ( Auto) 0.2, Neutrophils # (Auto) 7.2, Lymphocytes # (Auto) 0.4L, Monocytes # ( Auto) 0.2, Eosinophils # (Auto) 0.0, Basophils # (Auto) 0.0, Blood Urea Nitrogen 38#H, Creatinine 3.45H, Sodium Level 137, Potassium Level 4.0#, Chloride Level 97L, Carbon Dioxide Level 28, Calcium Level 8.2L, Glomerular Filtration Rate 14.0L, Large Unclassified Cells # 0.1, Large Unclassified Cells % 1.0, Aspartate Amino Transf (AST/SGOT) 23, Alanine Aminotransferase (ALT/SGPT ) 26, Alkaline Phosphatase 160H, Total Bilirubin 0.5, Total Protein 6.4, Albumin 1.9L, Albumin/Globulin Ratio 0.42L, Magnesium Level 1.9 CBC/BMP Laboratory Tests 06/06/16 11:39 Calcium Level 9.1, Total Creatine Kinase 33, Red Blood Count 3.38 L, Mean Corpuscular Volume 96.9 H, Mean Corpuscular Hemoglobin 29.7, Mean Corpuscular Hemoglobin Concent 30.6 L, Red Cell Distribution Width 15.7 H, Neutrophils (%) ( Auto) 82.1 H, Lymphocytes (%) (Auto) 6.8 L, Monocytes (%) (Auto) 6.7 H, Eosinophils (%) (Auto) 0.7, Basophils (%) (Auto) 0.3, Neutrophils # (Auto) 6.5, Lymphocytes # (Auto) 0.5 L, Monocytes # (Auto) 0.5, Eosinophils # (Auto) 0.1, Basophils # (Auto) 0.0 06/07/16 04:58 Calcium Level 8.2 L, Red Blood Count 2.99 L, Mean Corpuscular Volume 97.9 H, Mean Corpuscular Hemoglobin 28.8, Mean Corpuscular Hemoglobin Concent 29.4 L, Red Cell Distribution Width 16.0 H, Neutrophils (%) (Auto) 91.0 H, Lymphocytes ( %) (Auto) 4.9 L, Monocytes (%) (Auto) 3.0, Eosinophils (%) (Auto) 0.1, Basophils (%) (Auto) 0.2, Neutrophils # (Auto) 7.2, Lymphocytes # (Auto) 0.4 L, Monocytes # (Auto) 0.2, Eosinophils # (Auto) 0.0, Basophils # (Auto) 0.0, Aspartate Amino Transf (AST/SGOT) 23, Alanine Aminotransferase (ALT/SGPT) 26, Alkaline Phosphatase 160 H, Total Bilirubin 0.5, Total Protein 6.4, Albumin 1.9 L Microbiology Microbiology 06/06/16 Blood Culture, Received Pending 06/06/16 Blood Culture, Received Pending 06/06/16 Respiratory Virus Panel (PCR) (KEY) - Final, Complete GLADIS ALONSO MD Jun 07, 2016 06:38
[2016-06-07] MEDS: HumaLOG INSULIN (NovoLOG) PER UNIT SC SCH ×4 (08:26→20:43)
[2016-06-07] MEDS: FAMOTIDINE 20 MG TAB PO SCH (08:27)
[2016-06-07] MEDS: ASPIRIN 81 MG ENTERIC TAB PO SCH (08:27)
[2016-06-07] MEDS: MIDODRINE 5 MG TAB PO SCH ×3 (08:27→20:43)
[2016-06-07] MEDS: DOCUSATE SODIUM 100 MG CAP PO SCH (08:27)
[2016-06-07] MEDS: GABAPENTIN 300 MG CAP PO SCH ×2 (08:27→20:43)
[2016-06-07] MEDS: FLUTICASONE PROP 0.05% NASAL SPRAY 16 GM (FLONASE) SCH (08:28)
[2016-06-07] MEDS: BUDESONIDE 0.5 MG/2 ML INHALATION SUSPENSION INH SCH ×2 (08:30→20:32)
[2016-06-07] MEDS: TIOTROPIUM INHALER/CAPSULE (SPIRIVA) INH SCH (08:30)
[2016-06-07] MEDS: MOM 30ML SUSPENSION UDC PO SCH (09:00)
[2016-06-07] MEDS: cefTRIAXone SOD 1 GM in D5W MINI-BAG PLUS 50 ML IV SCH (11:45)
[2016-06-07 13:43] LABS: LDH, BODY FLUID 134 U/L (NOT ESTABLISHED); TOTAL PROTEIN, BODY FLUID 1.7 G/DL (NOT ESTABLISHED)
[2016-06-07] MEDS ORDERED: VANCOMYCIN HCL 750 MG, VIAL MATE ADAPTER 1 EACH in D5W 250 ML IV SCH ×2 (14:00)
--- NOTE | 2016-06-07 14:00 | IPN ---
DATE: 06/07/2016 SUBJECTIVE: Patient was seen and examined at the bedside today in the morning at the intensive care unit (ICU). She is still complaining of some shortness of breath. She reports that she was seen by CT surgery today and the plan is to get a chest tube done on the right side because of large right sided pleural effusion. She is otherwise hemodynamically stable to her baseline. Systolic pressures are in 80s which is where she usually stays. REVIEW OF SYSTEMS: Patient denies any fevers, chills, rigors, headache, nausea, vomiting. She does report some right sided chest pain and she reports persistent shortness of breath. She denies any pain in abdomen, constipation or diarrhea. Rest of review of system is negative. OBJECTIVE: Vital signs: Temperature 97.4 degrees Fahrenheit, blood pressure is 80/41, pulse is 96, respiratory rate of 28, saturation 95% on nasal cannula at 2 liters. Intake and output: Urine output recorded as only 35 mL since overnight. Weight on the bed scale is 55.5 kg. PHYSICAL EXAMINATION: General: Patient is awake, alert, oriented times three, lying in bed in the intensive care unit (ICU) in moderate respiratory distress. Head and neck exam: Extraocular muscles intact. Pupils equally round and reactive to light. Mucous membranes are moist. Neck is supple. There is moderately elevated jugular venous distention (JVD). Cardiovascular: S1, S2. Regular rate. No murmur, rub or gallop. Respiratory: Decreased breath sounds at the bases. Decreased vocal resonance bilaterally in the bases, right more than left. Abdomen: Soft, positive bowel sounds, nontender, no ascites, no organomegaly. Extremities: No clubbing or cyanosis. Pulses are 2+. Very trace edema of the bilateral lower extremities. Central nervous system: No focal neurological deficit. Power is 5/5 in all extremities. LAB REVIEW: CBC showed WBC 7.9, hemoglobin 8.6, platelets are 502. BMP showed sodium 137, potassium is 4, chloride 97, bicarbonate 28, BUN 38, creatinine is 3.4. Calcium is 8.2. Albumin is 1.9. Microbiology: Blood culture preliminary report is negative. Respiratory viral panel is negative so far. Sputum gram stain showed few gram positive cocci in pairs and unchanged. CURRENT MEDICATIONS: Patient is currently on IV vancomycin and Rocephin. I have changed the vancomycin dose to every hemodialysis. There is no other change in the medications today as compared to yesterday. ASSESSMENT: 70-year-old female with past medical history of end stage renal disease on hemodialysis, admitted this time because of respiratory distress secondary to multifocal pneumonia and large right sided pleural effusion. PLAN: 1. Multifocal pneumonia. Patient is currently on vancomycin and Rocephin. She has penicillin allergy. She is tolerating the Rocephin so far. Continue the current antibiotics. Sputum cultures pending. 2. Large right sided pleural effusion. Patient was seen by CT surgery. We appreciate their recommendations and plan is to get a chest Catheter on the right side today. 3. End stage renal disease on hemodialysis. Patient was hemodialyzed today. She is going to get her chest tube today. There is no urgent need of hemodialysis. Patient would be dialyzed tomorrow as per her regular schedule. 4. Chronic hypotension. Blood pressure in 80s is her baseline. Continue current dose of midodrine. No urgent need to give IV fluid hydration to this patient who is baseline hypotensive and asymptomatic. 5. Chronic obstructive pulmonary disease (COPD). Continue nebulizations. Continue Pulmicort, Spiriva and fluticasone spray as per outpatient. 6. Anemia and end stage renal disease. Hemoglobin is 8.6. No urgent need of blood transfusion at this time. However, patient will be given a dose of Aranesp with hemodialysis tomorrow. MTDD
[2016-06-07] MEDS ORDERED: BISACODYL 10 MG SUPP PR PRN (14:15)
[2016-06-07] MEDS ORDERED: NORCO, ANEXSIA 5/325MG TABLET (HYDROcodone/ACETAMINOPHEN) PO PRN (14:15)
[2016-06-07] MEDS ORDERED: PERCOCET 5MG/325MG TAB PO PRN (14:15)
--- NOTE | 2016-06-07 14:35 | REP ---
POST-BIOPSY PA/LATERAL CHEST: 06/07/2016 COMPARISON: Portable chest 06/06/2016, CT chest 06/06/2016. CLINICAL HISTORY: Status post thoracentesis with pleural drain catheter in the right chest. FINDINGS: A single-lead pacer over the left mid chest with lead terminating in the right ventricle, unchanged. There is cardiomegaly with left atrial enlargement. Some mild left ventricular configuration is seen. Much smaller right effusion, but still a moderate-sized right effusion and a small left effusion with basilar atelectasis or infiltrates, right greater than left. There is a pigtail catheter in the posterior sulcus of the right lower lobe now present. There is no pneumothorax. The aorta is tortuous and unchanged. Airway intact. Patchy densities suprahilar region on the left again noted. Bones demineralized with degenerative changes in the spine. IMPRESSION: 1. Pigtail catheter in the deep sulcus of the right base with much smaller right effusion but still mild to moderate size effusion. Small left effusion and bibasilar patchy atelectasis or infiltrates. 2. Cardiomegaly with left atrial and ventricular enlargement and a single-lead pacer unchanged. 3. No pneumothorax. Signed by Eddie Hylton MD 06/07/2016 05:21 P
[2016-06-07] MEDS: CHECK TO SEE IF PATIENT IS RECEIVING DIALYSIS TODAY AND REFER TO THE VANCOMYCIN ORDER XX SCH (14:59)
[2016-06-07 15:05] LABS: RBC PLEURAL FLUID < 10 (<10mm3 cells/uL); TNC PLEURAL FLUID 1188 cells/uL (0-20)
[2016-06-07 15:06] LABS: BF DIFF IF INDICATED? YES (NO)
--- NOTE | 2016-06-07 15:09 | CR ---
DATE OF CONSULTATION: 06/07/2016 The patient is seen at the request of the hospitalist's service and the emergency service for: 1. A dilated thoracic aorta. 2. A pleural effusion with shortness of breath. HISTORY OF PRESENT ILLNESS: The patient was seen in the emergency room yesterday after being transferred from dialysis with hypotension. I was asked to opine on the chest CT with regard to a dilated aneurysmal aorta. The aorta was indeed dilated with intramural thrombus and gummous material, but there was no evidence of dissection to explain her hypotension. She did have a pleural effusion, and I am seeing her essentially today for the pleural effusion and shortness of breath. The patient is a 70-year-old white female, who complains of increased coughing over the last week with production of yellow sputum. She normally has a chronic cough, but it has gotten worse over the past week. Accompanying this chronic cough is increasing shortness of breath over the last week. Her shortness of breath is such that she can no longer move around her house without getting short of breath. She denies fever, chills, or sweats. There has been a 5-pound weight loss over the past couple of months. Her weight does go up and down with dialysis. There has been no chest pain or chest discomfort and no dysphagia, and she does not choke on food when she eats, although she does choke on large potassium pills. She has had orthopnea for the last 3 days and has had to sleep in a recliner. She reports peripheral edema. Yesterday, in the emergency room, she was given a fluid bolus of a normal saline with satisfactory rise in her pressure from the 50s to the 80s. She is asymptomatic with the hypotension. PAST MEDICAL ILLNESSES: 1. End-stage renal disease. 2. Chronic obstructive pulmonary disease (COPD). 3. Congestive heart failure (CHF). 4. Noninsulin-dependent diabetes. 5. Hyperlipidemia. PAST SURGICAL HISTORY: 1. Automatic implantable cardioverter-defibrillator (AICD) placement. 2. Dialysis fistula placement. 3. Along with a cholecystectomy and a tubal ligation in the remote past. ALLERGIES: PENICILLIN with a rash. RAMIPRIL with swelling. SULFA with a rash. MEDICATIONS AT HOME: - albuterol ipratropium four times a day as needed shortness of breath - diphenyl hydromine 25 mg every day - vitamin D 50,000 units every day - Uloric 40 mg every day - glipizide every day - hydroxyzine 25 mg every day - Claritin 10 mg every day - torsemide 20 mg every other day when not on dialysis - aspirin 81 mg every day - Pulmicort 0.5 mg twice a day - Colace 100 mcg every day - Pepcid 20 mg every day - fluconazole nasal spray each naris every day - Neurontin 300 mg twice a day - midodrine 5 mg three times a day - Crestor 20 mg nightly TRAVEL HISTORY: She has traveled to the [facility] to [place] and has also been out west to [place] visiting the [employer]. 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 No asbestos exposure. HABITS: She smoked one pack per day but quit about 10 years ago. Occasionally imbibes alcohol. FAMILY HISTORY: Mother of an unknown carcinoma. Father of prostate cancer. A younger brother with a myocardial infarction at the age of 49. REVIEW OF SYSTEMS: CONSTITUTIONAL: See history of present illness (HPI). NOSE: Has had epistaxis times three in the past few weeks with blood clots. MOUTH: Has dentures. EYES: Without diplopia. Without amarus fugax or prior jaundice. PULMONARY: See HPI. GASTROINTESTINAL (GI): Without nausea, vomiting, or constipation. Has had diarrhea the last few days. Without melena, hematochezia, or abdominal pain, or hematemesis. GENITOURINARY (): Without dysuria or hematuria. Has renal failure. ENDOCRINE: With diabetes. Without thyroid disease. NEUROLOGIC: About 10 years ago, had an episode of dysarthria suddenly, which was thought to be a transient ischemic attack (TIA). That has spontaneously resolved and has never reappeared. PSYCHIATRIC: Without pathological anxieties, depressions, or psychoses. LYMPHATICS: Without lumps and bumps in her neck, axilla, or groin that she has noted. PHYSICAL EXAMINATION: A well-developed, well-nourished chronically ill-looking female, lying comfortably in bed. VITAL SIGNS: Temperature is 97.4, pulse of 98 in a sinus rhythm, respiratory rate of 24 without the use of accessory muscles. She is 97% saturated on 2 liters nasal cannula, and her blood pressure is 74/52, and she is asymptomatic. HEAD: Normocephalic. EYES: Pupils equal, round, and reactive to light. Extraocular motor intact. Sclerae anicteric. NOSE: Without deformity. MOUTH: Shows she is wearing upper and lower dentures. Mucous membranes are pink and moist. Lips and commissures without lesions. There is no thrush. NECK: Is supple. There is no jugular venous distention, no subcutaneous emphysema. Trachea is midline. She has 2+ carotid upstrokes on either side but with loud bruits on the left and a softer one on the right. LUNGS: Show decreased breath sounds in the right lower lobe with partial E-A egophony in the right lower hemithorax. There are also some crackles in the right lower lobe. The left shows normal vesicular sounds. Percussion note is full to the diaphragm on the left and dull at the base on the right. CARDIAC EXAMINATION: Shows a 2/6 holosystolic murmur heard best at the apex. This holosystolic murmur does not radiate to the carotids. I cannot feel her point of maximal impulse (PMI). S1 and S2 are normal. ABDOMEN: Is soft, nontender. Bowel sounds are positive. There is no hepatomegaly, no costovertebral angle (CVA) tenderness. EXTREMITIES: Show no pretibial edema. No calf tenderness. No differential swelling of the upper extremities. SKIN: Is warm, dry, and perfused without cyanosis or mottling, including that of the nail beds and the knees. NEUROLOGICAL: Shows II-XII intact, along with gross motor and gross sensation intact. Gait is not tested. PSYCHIATRIC: Shows her to be awake and alert and oriented times three with appropriate mood and affect and conversational. LYMPHATICS: Show no cervical, supraclavicular, infraclavicular, or axillary lymphadenopathy. INVESTIGATIONS: Her white count is at 7.9 with hemoglobin and hematocrit of 8.6 and 29.3, down from 10.0 and 32.7 yesterday. This is probably secondary to hemodilution. Platelet count is 502, and differential shows 91% neutrophils, 4% lymphocytes, 3% monocytes. There are no immature forms and no toxic granulations. Chemistries this morning show nearly normal electrolytes with a marginally low chloride of 97. BUN and creatinine are 38 and 3.45 after dialysis yesterday. Glucose is 233 with a calcium of 8.2 and a corresponding albumin of 1.9. AST and ALT are normal at 23 and 26, respectively. Blood gases yesterday showed a pH of 7.48, PCO2 of 46, and a pO2 of 82, with a base excess of 9.4. Her chest x-ray yesterday done portably showed opacity in the right lower hemithorax consistent with an effusion. She had cephalization of vessels. There is no pneumothorax. CT angiogram done yesterday confirms the moderate pleural effusion on the right-hand side. There looks to be either a mass or a consolidation in the right lower lobe with surrounding compression. It does look more mass-like to me. She has emphysematous changes. There is also some compression in the left lower lobe with atelectasis. She has an enlarged thoracic aortic measuring 5.7 cm. There is atheromatous material within the aorta, but there is no evidence of a dissection. The aorta is minimally aneurysmal below the renals, measuring 3.2 cm. The arch has the same atheromatous material throughout. Ascending aorta looks to be normal. There is no pericardial effusion. Left and right adrenals look to have a normal configuration. I see no liver lesions. IMPRESSION: 1. Right side pleural effusion, etiology unknown. 2. Possible right lower lobe pneumonia. 3. Possible right lower lobe mass. 4. Thoracic aortic aneurysm. 5. Diabetes. 6. Chronic obstructive pulmonary disease. 7. Renal failure. 8. Hypotension. 9. Chronic anemia. 10. Congestive heart failure. 11. Hyperlipidemia. PLAN AND DISCUSSION: I will address the pleural effusion by having x-ray place a pigtail catheter and put in a Pleur-evac. Will send it for the requisite cytologies, hematologies, cell counts, chemistries, and microbiologies. She does not have any aortic dissection at this point in time. She is not hypertensive, so we do not have to worry about controlling hypertension to treat her aortic aneurysm. As noted before, this is not a dissection. I think that we can follow the right lower lobe mass/infiltrate to see if that will disappear. She has increase in sputum and coughing, and this may very well be an underlying pneumonia. Draining her of this effusion, which I suspect is going to be about 1 liter, should help her with her shortness of breath.
[2016-06-07 15:22] LABS: CC BF DIFF EXAM CYTOCENTRIFUGE
--- NOTE | 2016-06-07 16:45 | REP ---
ULTRASOUND GUIDED RIGHT THORACENTESIS WITH CATHETER PLACEMENT: The procedure was performed under the direct supervision of Dr. Hylton. The risks and benefits of the procedure were explained to the patient and informed consent was obtained. The right pleural effusion was localized using ultrasound guidance. The skin was prepped and draped in a sterile fashion. 1% lidocaine was used as a local anesthetic. Using ultrasound guidance, a #10-Tajik skater APDL catheter was inserted using trocar technique. 1000 mL of redd-colored fluid was withdrawn and sent to the lab. The catheter was affixed to the skin and a sterile dressing was applied. The catheter was connected to a Pleur-evac. The patient tolerated the procedure well and there were no immediate complications. Reviewed by FABBY Galicia 06/07/2016 04:49 PEdited and Signed by Eddie Hylton MD 06/07/2016 05:19 P
[2016-06-07] MEDS: ACETAMINOPHEN TAB 650MG DOSE (2X325MG) PO PRN (16:51)
--- NOTE | 2016-06-07 19:04 | ECGEPIP ---
Stationary ECG Study [facility] - ED Test Date: 2016-06-06 Pat Name: PRESTON CAMPA Department: Room: [place] [address] Gender: F [facility] Nurse: artie : 1945 Requested By: Nela Wen Order Number: [id number] Reading MD: Nela Wen Measurements Intervals [place] Rate: 92 P: MT: 0 QRS: 19 QRSD: 114 T: 53 QT: 473 QTc: 588 Interpretive Statements SUPRAVENTRICULAR RHYTHM LEFT VENTRICULAR HYPERTROPHY AND ST-T CHANGE VS ISCHEMIA DELAYED R PROGRESSION IVCD INCREASED RATE 01/23/16 Electronically Signed On 06-07-2016 19:04:06 EST by Nela Wen
[2016-06-07] MEDS: ROSUVASTATIN 10 MG TAB (CRESTOR) PO SCH (20:43)
[2016-06-07] MEDS: PERCOCET 5MG/325MG TAB PO PRN (20:45)
[2016-06-08] VITALS (20 sets, daily range): BP systolic 53–78; BP diastolic 37–57
[2016-06-08] MEDS: NYSTATIN 500,000 U/5 ML SUSP UDC SS SCH ×4 (00:24→18:16)
[2016-06-08] MEDS: IPRATROPIUM 0.5MG/ALBUTEROL 2.5MG INH SOL UD 3ML (DUONEB)(J7620) NEB SCH ×4 (01:19→19:20)
[2016-06-08 05:34] LABS: ALBUMIN/GLOBULIN RATIO 0.45 (1.00-1.93); BILIRUBIN,TOTAL 0.4 MG/DL (0.2-1.0); CALCIUM LEVEL 8.3 MG/DL (8.8-10.2); CREATININE FOR GFR 4.68 MG/DL (0.55-1.02); GLOMERULAR FILTRATION RATE 9.8 (>39); MAGNESIUM LEVEL 1.9 MG/DL (1.8-2.4); POTASSIUM SERUM 4.3 MEQ/L (3.5-5.1); TOTAL PROTEIN 6.4 GM/DL (6.4-8.2)
[2016-06-08] MEDS: BUDESONIDE 0.5 MG/2 ML INHALATION SUSPENSION INH SCH ×2 (07:18→19:21)
[2016-06-08] MEDS: TIOTROPIUM INHALER/CAPSULE (SPIRIVA) INH SCH (07:18)
[2016-06-08 07:32] LABS: BASO % 0.1 % (0.0-1.0); LARGE UNSTAINED CELL # 0.2 K/mm3 (0.0-0.4); LARGE UNSTAINED CELL % 1.3 % (0.0-4.0); LYMPH # 0.4 K/mm3 (1.5-4.5); LYMPH % 2.4 % (24.0-44.0); MEAN CORPUSCULAR HEMOGLOBIN 29.2 pg (27.0-33.0); MEAN CORPUSCULAR HGB CONC 29.9 g/dl (32.0-36.5); MEAN CORPUSCULAR VOLUME 97.5 fl (80.0-96.0); MONO # 0.6 K/mm3 (0.0-0.8); MONO % 3.8 % (0.0-5.0); NEUTROPHILS # 14.6 K/mm3 (1.8-7.7); NEUTROPHILS % 92.4 % (36.0-66.0); PLATELET COUNT, AUTOMATED 569 k/mm3 (150-450); RED CELL DISTRIBUTION WIDTH 16.1 % (11.5-14.5); WHITE BLOOD COUNT 15.8 K/mm3 (4.0-10.0)
--- NOTE | 2016-06-08 08:01 | REP ---
Clinical: Follow up pleural effusion. Comparison: 06/07/2016. Technique: PA and lateral. Findings: Pigtail catheter at the right base is again identified and pleural effusion appears to be minimally decreased. Bilateral perihilar and lower lobe infiltrates are essentially unchanged. No pneumothorax. Mediastinum and cardiac silhouette stable. Skeletal structures intact. Impression: Minimally decreased right pleural effusion suggested. Bilateral perihilar and lower lobe infiltrates stable. Signed by Eugene Merrill MD 06/08/2016 07:52 A
[2016-06-08] MEDS: HumaLOG INSULIN (NovoLOG) PER UNIT SC SCH ×4 (08:21→21:00)
--- NOTE | 2016-06-08 08:53 | IPNPDOC ---
Subjective Date Seen The patient was seen on 06/08/16. Subjective Chief Complaint/HPI The patient is a 70-year-old female admitted with a reason for visit of Shortness Of Breath. Events since last encounter States he is feeling much better today. Her breathing has significantly improved. General: Denies: Chills, Fatigue, Malaise, Night Sweats, Normal Appetite, Other Symptoms, ROS Unobtainable Constitutional: Denies: Chills, Fatigue, Fever, Lethargy, Malaise, Night Sweats , Other, Weakness, Weight Loss Eyes: Denies: Conjunctivae inflammation, Eyelid inflammation, Other, Pain, Redness, Vision change ENT: Denies: Dysphagia, Ear Pain, Epistaxis, Head Aches, Other Symptoms, Post Nasal Drip, Sinus Congestion, Sore Throat Skin: Denies: Breakdown, Bruising, Dry, Itching, Jaundice, Lesions, Nail Changes, Other, Rash Pulmonary: Denies: Cough, Dyspnea, Other Symptoms, Pleuritic Chest Pain Cardiovascular: Denies: Chest Pain, Edema, Lt Headedness, Orthopnea, Other Symptoms, Palpitations, Paroxysmal Noc. Dyspnea Gastrointestinal: Denies: Abdominal Pain, Constipation, Diarrhea, Hematochezia , Melena, Nausea, Other Symptoms, Vomiting Objective Physical Examination General Exam: Positive: Alert, Cooperative, No Acute Distress, Other (elderly, frail, sitting comfortably in chair) Eye Exam: Positive: Conjunctiva & lids normal, EOMI, PERRLA, Negative: Sclera icteric ENT Exam: Positive: Atraumatic Neck Exam: Positive: Supple Chest Exam: Positive: Rhonchi (B/L rhonchi) Heart Exam: Positive: Murmurs, Rate Normal Telemetry: Positive: No significant arrhythmia Abdomen Exam: Positive: Normal bowel sounds, Soft, Negative: Tenderness Extremity Exam: Negative: Edema Psych Exam: Positive: Oriented x 3 Assessment /Plan Problems (1) Pneumonia Status: Acute Response to Treatment: Progressing Problem Specific Plan: Monitor Clinically, Repeat Labs Problem Text: Vanco and Rocephin day #3. Sputum cultures/gram stain pending. Multifocal consolidations on CTA. (2) Pleural effusion Status: Acute Discussed With: Irrigator Valve Pipe Problem Specific Plan: Consult Specialist, Monitor Clinically Problem Text: Large right pleural effusion on CTA s/p pigtail catheter. Draining serosanguineous fluid. Saturating well on baseline 2L supplemental O2. Discuss further with CTS, assistance appreciated. (3) Hypotension Status: Chronic Problem Specific Plan: Monitor Clinically Problem Text: Chronic hypotension. Continue midodrine 5mg PO TID, fluid boluses as needed, to be used sparingly. This is chronic, and she has been asymptomatic (4) Diabetes Status: Chronic Problem Specific Plan: Repeat Labs (5) Hypercholesteremia Status: Chronic Problem Text: Crestor (6) Anemia Status: Chronic Problem Text: Secondary to ESRD. (7) Anxiety Status: Chronic Problem Text: Atarax (8) CHF (congestive heart failure) Status: Chronic Problem Text: Systolic and diastolic failure. (9) COPD (chronic obstructive pulmonary disease) Status: Chronic Problem Text: Spiriva, pulmicort, duonebs scheduled and prn (10) Hyperparathyroidism Status: Chronic (11) Mitral valve disease Status: Chronic (12) CAD (coronary artery disease) Onset Date: 01/18/2014 Status: Chronic (13) ESRD (end stage renal disease) Onset Date: 01/26/2014 Status: Chronic Problem Specific Plan: Consult Specialist Plan/VTE VTE Prophylaxis Ordered?: Yes (mechanical) Plan Diet: Continue Current Activity: Continue Current Therapy: PT Diagnostics: Repeat Labs in AM, Obtain Cultures Anticipated Discharge: Home, Home With Services VS, I&O, 24H, [facility] Vital Signs/I&O Vital Signs Date Time Temp Pulse Resp B/P Pulse Ox O2 Delivery O2 Flow Rate FiO2 06/08/16 07:19 83 30 06/08/16 05:55 78/52 94 Nasal Cannula 2.0 06/08/16 04:00 97.0 I&O- Last 24 Hours up to 6 AM 06/08/16 06:00 Intake Total 800 ml Output Total 1655 ml Balance -855 ml Laboratory Data 24H LABS Laboratory Tests 2 06/07/16 11:22: Bedside Glucose (Misc Panel) 175H 06/07/16 12:30: Body Fluid Albumin 0.7, Body Fluid Amylase 21, Body Fluid Cholesterol < 50, Body Fluid Glucose 213, Body Fluid Lactate Dehydrogenase 134, Body Fluid Lymphocytes 59, Body Fluid Monocytes/Macrophages 18, Body Fluid Neutrophils 23, Body Fluid Source PLEURAL, Body Fluid Total Protein 1.7, Body Fluid Triglycerides 15, Body Fluid pH 7.683, Pleural Fluid Appearance HAZY, Pleural Fluid Color PALE YELLOW, Pleural Fluid RBC (Auto) < 10, Pleural Fluid Source PLEURAL, Pleural Fluid Total Nucleated Cells 1188H 06/07/16 16:56: Bedside Glucose (Misc Panel) 203H 06/07/16 19:56: Bedside Glucose (Misc Panel) 259H 06/08/16 04:49: Blood Urea Nitrogen 58#H, Creatinine 4.68H, Sodium Level 136, Potassium Level 4.3, Chloride Level 98, Carbon Dioxide Level 26, Calcium Level 8.3L, Aspartate Amino Transf (AST/SGOT) 19, Alanine Aminotransferase (ALT/SGPT) 26, Alkaline Phosphatase 172H, Total Bilirubin 0.4, Total Protein 6.4, Albumin 2.0L, Albumin/ Globulin Ratio 0.45L, Anion Gap 12, Glomerular Filtration Rate 9.8L, Magnesium Level 1.9 06/08/16 07:01: White Blood Count 15.8H, Red Blood Count 3.02L, Hemoglobin 8.8L, Hematocrit 29.5L, Mean Corpuscular Volume 97.5H, Mean Corpuscular Hemoglobin 29.2, Mean Corpuscular Hemoglobin Concent 29.9L, Red Cell Distribution Width 16.1H, Platelet Count 569H, Neutrophils (%) (Auto) 92.4H, Lymphocytes (%) (Auto) 2.4L, Monocytes (%) (Auto) 3.8, Eosinophils (%) (Auto) 0.0, Basophils (%) (Auto) 0.1, Neutrophils # (Auto) 14.6H, Lymphocytes # (Auto) 0.4L, Monocytes # (Auto) 0.6, Eosinophils # (Auto) 0.0, Basophils # (Auto) 0.0, Large Unclassified Cells # 0.2 , Large Unclassified Cells % 1.3 CBC/BMP Laboratory Tests 06/08/16 04:49 Calcium Level 8.3 L, Aspartate Amino Transf (AST/SGOT) 19, Alanine Aminotransferase (ALT/SGPT) 26, Alkaline Phosphatase 172 H, Total Bilirubin 0.4 , Total Protein 6.4, Albumin 2.0 L 06/08/16 07:01 Red Blood Count 3.02 L, Mean Corpuscular Volume 97.5 H, Mean Corpuscular Hemoglobin 29.2, Mean Corpuscular Hemoglobin Concent 29.9 L, Red Cell Distribution Width 16.1 H, Neutrophils (%) (Auto) 92.4 H, Lymphocytes (%) (Auto ) 2.4 L, Monocytes (%) (Auto) 3.8, Eosinophils (%) (Auto) 0.0, Basophils (%) ( Auto) 0.1, Neutrophils # (Auto) 14.6 H, Lymphocytes # (Auto) 0.4 L, Monocytes # (Auto) 0.6, Eosinophils # (Auto) 0.0, Basophils # (Auto) 0.0 Microbiology Microbiology 06/06/16 Blood Culture - Preliminary, Resulted No growth after 24 hours . All specim... 06/06/16 Blood Culture - Preliminary, Resulted No growth after 24 hours . All specim... 06/07/16 Acid Fast Stain, Received Pending 06/07/16 Mycobacterial Culture, Received Pending 06/07/16 Fungal Smear, Received Pending 06/07/16 Fungal Culture, Received Pending 06/07/16 Gram Stain - Final, Resulted 06/07/16 Anaerobic Culture, Resulted Pending 06/07/16 Body Fluid Culture, Received Pending 06/07/16 Gram Stain - Final, Resulted 06/07/16 Sputum Culture, Resulted Pending 06/06/16 Respiratory Virus Panel (PCR) (KEY) - Final, Complete GLADIS ALONSO MD Jun 08, 2016 08:53
[2016-06-08] MEDS ORDERED: DARBEPOETIN 300 MCG/0.6 ML *DIALYSIS* SYRINGE (J0882) IV SCH (09:00)
[2016-06-08] MEDS: MOM 30ML SUSPENSION UDC PO SCH (09:00)
[2016-06-08] MEDS: ASPIRIN 81 MG ENTERIC TAB PO SCH (09:13)
[2016-06-08] MEDS: DOCUSATE SODIUM 100 MG CAP PO SCH (09:13)
[2016-06-08] MEDS: FAMOTIDINE 20 MG TAB PO SCH (09:14)
[2016-06-08] MEDS: MIDODRINE 5 MG TAB PO SCH ×3 (09:14→20:52)
[2016-06-08] MEDS: GABAPENTIN 300 MG CAP PO SCH ×2 (09:14→20:51)
[2016-06-08] MEDS: PANTOPRAZOLE 40MG TAB (PROTONIX) PO SCH (09:14)
[2016-06-08] MEDS: FLUTICASONE PROP 0.05% NASAL SPRAY 16 GM (FLONASE) SCH (09:14)
[2016-06-08 09:34] LABS: PERCENT SATURATION 43.8 % (13.2-37.4)
--- NOTE | 2016-06-08 11:15 | IPN ---
DATE: 06/08/2016 Ms. Shabazz is now 1 day status post pigtail catheter insertion where 1000 mL of redd colored fluid was removed. She tells me today that she feels so much better and the she can actually take a deep breath and get air. She is very happy with the results of the tap. Pain is being well controlled at the chest catheter insertion site. Her vital signs show a T-max of 97.3 with a heart rate that ranges between 82 and 86 in sinus rhythm, respiratory rate of 18 to 22 without the use of accessory muscles who is 99 to 94% saturated on 2 liters nasal cannula, and has blood pressures ranging between 63/46 to 78/52. Her intake and output over the past 24 hours has been recorded at 800 in and 1565 out for a negativity of 765 mL. She weighs 54.6 kg today compared to 55.5 kg yesterday. She has put out a total of 1530 mL in chest tube drainage up until 12 o'clock midnight and 100 mL in the past 11 hours. On physical examination, she has crackles in the right lower hemithorax. Percussion notes are full to the diaphragm. Cardiac exam shows a 2/6 holosystolic murmur at the base. I cannot feel her PMI. S1 and S2 are normal. Abdomen is soft, nontender, bowel sounds are positive. There is no hepatomegaly. No CVA tenderness. Extremities show no pretibial edema. No calf tenderness. No differential swelling of the upper extremities. Skin is warm, dry and perfused without cyanosis or mottling including that of the nail beds and knees. Neck is supple. There is no jugular venous distention. Mouth shows her mucous membranes to be dry but pink. There looks to be some thrush. Lips and commissures are without lesions. Eyes show her pupils to be equal and reactive. Extraocular motor intact. Sclera anicteric. Neuro shows II through XII intact with gross motor and gross sensation intact. Gait is not tested. Psychiatric shows her to be awake and alert, oriented times three with appropriate mood and affect and conversational. Her white count today is however up to 15.8 from 7.9 yesterday. Hemoglobin and hematocrit are 8.8 and 29.5 unchanged from yesterday with a platelet count of 569. Differential shows 92% neutrophils, 2% lymphocytes, 3% monocytes. There are no immature forms. No toxic granulations. Electrolytes are normal with a BUN and creatinine that is up to 58 and 4.68. Glucose is 163 with a calcium 8.3. AST and ALT are still within normal limits at 19 and 26 respectively. Albumin is 2.0 with a corresponding calcium of 8.3. Her pleural fluid has been returned with a pH of 7.68 and LDH of 134 with a corresponding serum LDH of 314 and a glucose of 213. She has 1100 nucleated cells, 23% are neutrophils, 59% are lymphocytes and 18% are monocyte or macrophages. This therefore looks to be transudative, not infective and predominately lymphocytic. Her chest x-ray today shows a sharp costophrenic angle. There looks to be post compression or infiltrative process in the right lower hemithorax. Pigtail catheter is in good place posteriorly and inferiorly. IMPRESSION: 1. Right sided pleural effusion drained. 2. Possible right lower lobe pneumonia. 3. Possible right lower lobe lung mass. 4. Thoracic aortic aneurysm. 5. Diabetes. 6. Chronic obstructive pulmonary disease (COPD). 7. Renal failure. 8. Chronic hypotension. 9. Chronic anemia. 10. Congestive heart failure (CHF). 11. Hyperlipidemia. PLAN AND DISCUSSION: She is no worse for wear with regard to her hypotension. She is awake and alert and looking well. Her pleural fluid definitely looks transudative but lymphocytic. On the CT scan the day before, she definitely had a right lower lobe mass and I could not tell whether this was infiltrate or a mass. We will await cytology on the pleural fluid. With regard to the right lower lobe finding, I would suggest that we follow that over a period of 2 months. If it does not disappear, she will have to have a biopsy. I suspect that her pleural effusion being transudative, however, is secondary to her renal insufficiency with a combination of her congestive heart failure (CHF). This may prove to be problematic if dialysis cannot keep her pleural effusion away. She may need a PleurX catheter.
[2016-06-08] MEDS ORDERED: HEPARIN 1,000 UNITS/ML 10ML VIAL (FOR RADIOLOGY& DIALYSIS ONLY) IV ONE (11:30)
[2016-06-08] MEDS: cefTRIAXone SOD 1 GM in D5W MINI-BAG PLUS 50 ML IV SCH (12:18)
[2016-06-08] MEDS ORDERED: MIDODRINE 5 MG TAB PO SCH (12:45)
--- NOTE | 2016-06-08 13:43 | IPN ---
DATE: 06/08/2016 SUBJECTIVE: Patient was seen and examined at the bedside today in the morning. She feels much better. She got a pigtail catheter in the right pleural cavity yesterday and more than 2 liters of fluid has drained so far. Her shortness of breath is significantly better. Today is the patient's regular day of dialysis. OBJECTIVE: Vital signs: Temperature 97.3 degrees Fahrenheit, blood pressure is 78/52, pulse is 86, respiratory rate of 18, saturating 94% on nasal cannula. Intake and output: Urine output recorded as 35 mL yesterday. Right sided chest tube drainage was 1530 mL yesterday and 100 mL so far today since overnight. Weight on the bed scale is 54.6 kg. PHYSICAL EXAMINATION: GENERAL: Patient is awake, alert, oriented times three, sitting in bed in the intensive care unit (ICU) in no apparent distress. HEAD AND NECK EXAM: Extraocular muscles intact. Pupils equally round and reactive to light. Mucous membranes are moist. Neck is supple. There is mildly elevated jugular venous distention (JVD). CARDIOVASCULAR: S1, S2. Regular rate. No murmur, rub or gallop. RESPIRATORY: Decreased breath sounds at the left base. Slightly increased breath sounds and aeration on the right side with small crepitations on deep inspiration. No rhonchi at this time. ABDOMEN: Soft, positive bowel sounds, nontender, no ascites, no organomegaly. EXTREMITIES: No clubbing or cyanosis. Pulses are 2+. Very trace edema of the bilateral lower extremities. CENTRAL NERVOUS SYSTEM: No focal neurological deficit. Power is 5/5 in all extremities. PSYCHIATRIC: Normal mood and affect. LAB REVIEW: CBC showed WBC 15.8, hemoglobin 8.8, platelets are 569. Pleural fluid with total nucleated cells of 1188, neutrophils 23%, lymphocytes 59%, albumin was 0.7. BMP done today showed sodium 136, potassium is 4.3, chloride 98, bicarbonate 26, BUN 58, creatinine is 4.6. Calcium is 8.3. Ferritin is 3983, albumin is 2. Microbiology: Gram stain of the pleural fluid showed moderate WBCs, no organisms. IMAGING: Chest x-ray done today this morning showed minimally decreased right pleural effusion, bilateral perihilar and lower lobe infiltrates. CURRENT MEDICATIONS: Patient's medications were all reviewed by me. She continues to be on IV ceftriaxone and vancomycin. There is no other change in the medications today as compared to yesterday. ASSESSMENT: 70-year-old female with past medical history of end stage renal disease on hemodialysis, admitted this time because of respiratory distress secondary to multifocal pneumonia and large right sided pleural effusion. PLAN: 1. Multifocal pneumonia. Patient is currently on IV vancomycin and Rocephin. She still has an elevated WBC count. Cultures are negative so far. Continue current dose. Vancomycin dosing will be according to levels. Trough level is pending. We shall try to maintain a level of 15 to 20 for vancomycin. 2. Large right sided pleural effusion. Status post right pleural catheter placement on 06/07/2016. The patient is draining well from the right sided catheter. Her shortness of breath is significantly better. The rest of the management is as per cardiothoracic surgery. 3. End stage renal disease on hemodialysis. Patient's regular dialysis days are Saturday, Saturday and Saturday. He will be dialyze today at the bedside for three hours and we shall not try to remove much fluid because she is already losing a lot of fluid from the right sided chest tube. 4. Chronic hypotension. The patient is asymptomatic. Her systolic blood pressure usually stays in the 80s. Continue midodrine 5 mg by mouth twice a day at this time. If needed, the patient can get an additional dose of 10 mg of midodrine before hemodialysis. 5. Chronic obstructive pulmonary disease (COPD). Continue the current steroid and bronchodilator nebulizations. 6. Anemia and end stage renal disease. The patient's hemoglobin is down to 8.8 now. Her ferritin level is very high, she does not need any IV iron. I have ordered a dose of Aranesp 300 mcg IV to be given with hemodialysis today.
[2016-06-08] MEDS: CHECK TO SEE IF PATIENT IS RECEIVING DIALYSIS TODAY AND REFER TO THE VANCOMYCIN ORDER XX SCH (16:00)
--- NOTE | 2016-06-08 19:41 | EDDOCDS ---
Nurse's Notes [facility] Name: Temitope Shabazz Age: 70 yrs Sex: Female : 1945 Arrival Date: 06/06/2016 Time: 11:19 Bed Admit Hold Private MD: Evelin Ribeiro Diagnosis: Pneumonia due to other specified bacteria Presentation: 06/06 11:28 Presenting complaint: Daughter states that patient has been short of breath for the jc4 past 3 days, progressively getting worse. States has not been drinking well. Has had increased swelling in feet. Was at dialysis this morning. Suicide/Homicide risk assessment- the patient denies having any suicidal and/or homicidal ideations and does not present with any other emotional, behavioral or mental health complaints. Status: Patient is not a financial services manager or dependent. Transition of care: patient was received from a primary care office; [facility]. 11:28 Acuity: CRISTEL Level 2 jc4 11:28 Method Of Arrival: Wheelchair 4 18:22 Adult Sepsis Screening: The patient does not have new or worsening altered mentation. hs1 Patient has a respiratory rate of greater than or equal to 22 (1 point). Systolic blood pressure is less than or equal to 100 (1 point). Patient has a qSOFA score of 2. Patient has cough and/or SOB- Positive Sepsis Screen. Patient made CRISTEL Level 2. Triage Assessment: 11:38 General: Appears ill, Behavior is cooperative. Pain: Pain currently is 8 out of 10 on a jc4 pain scale. The patient is triaged at the bedside. See Assessment in Nurses Notes section of ED record. Respiratory: Onset: The symptoms/episode began/occurred 3 days ago. Historical: - Allergies: PENICILLINS; Ramipril; Sulfa (Sulfonamide Antibiotics); IV Dye (caused kidney failure); - Home Meds: 1. Atarax 25 mg oral tab 1 tab as needed (Last dose: 06/05/2016 20:00) 2. budesonide 0.5 mg/2 mL inhalation nbsp 2 mL 2 times per day (Last dose: 06/05/2016 20:00) 3. Claritin 10 mg Oral tab 1 tab once daily (Last dose: 06/05/2016 08:00) 4. Crestor 20 mg Oral tab 1 tab nightly (Last dose: 06/05/2016 20:00) 5. Demadex 20 mg Oral tab 2 tabs every other day (Last dose: 06/05/2016 08:00) 6. DuoNeb 0.5 mg-3 mg(2.5 mg base)/3 mL Inhl nebu 3 mL 4 times per day as needed (Last dose: Unknown) 7. gabapentin 300 mg Oral cap 1 cap twice a day (Last dose: 06/05/2016) 8. glipizide 2.5 mg Oral tr24 once daily (Last dose: 06/05/2016) 9. midodrine 5 mg oral tab 1 tabs 3 times per day (Last dose: 06/06/2016 05:00) 10. Oxygen 2 l nc daily 11. renavite 1 tab nightly (Last dose: 06/05/2016 20:00) 12. Spiriva with HandiHaler 18 mcg Inhl CpDv 1 cap once daily (Last dose: 06/05/2016 08:00) 13. Uloric 40 mg oral tab 1 tab once daily (Last dose: 06/05/2016 08:00) 14. Vitamin D Oral 04119 unit monthly (Last dose: 05/16/2016) - PMHx: CHF; COPD; Diabetes - NIDDM: controlled; Heart Murmur; Hypercholesterolemia; Irregular heart rate; Renal Failure with Dialysis; - PSHx: AICD; dailysis fistula right arm; Cholecystectomy; Tubal ligation; Cardiac cath; - Social history: Smoking status: Patient states former smoker of tobacco. No barriers to communication noted, The patient speaks fluent Salvadorean. - Family history: No immediate family members are acutely ill. - : The pt / caregiver states he / she is not on anticoagulants. Home medication list is obtained from the patient, family members. - Exposure Risk Screening:: None identified. Screenin:40 Screening information is obtained from the patient, family members. Fall risk: At risk jc4 due to gait disturbance, uses walker. The following interventions are performed due to a positive Fall Risk Screen: Fall Risk is added to Special Handling on the patient Summary Screen. A Fall Risk Bracelet was applied to the patient. Side Rails are placed in the up position. A Call Tang is given with instruction to call for help when getting out of bed. Assistance ADL's: Requires assistance with meal preparation, this assistance is provided by family members, housework, assistance is provided by family members, medication administration, assistance is provided by family members. Abuse/DV Screen: The patient / caregiver reports he/she is: not in a situation that causes fear, pain or injury. Nutritional screening: On renal diet. Advance Directives: Currently, there is a health care proxy, Preeti Gilbert, daughter. There is no active DNR order. There is a living will, but a copy is not available at this time. There is no Power of Cycle Consultant. home support is adequate. Assessment: 12:14 General: Appears distressed, Behavior is anxious, cooperative. Neurological: Level of ja5 Consciousness is awake, alert, Oriented to person, place, time. Cardiovascular: Heart tones S1 S2 present Rhythm is sinus rhythm No ectopy. Respiratory: Airway is patent Respiratory effort is even, labored, Respiratory pattern is regular, symmetrical, tachypnea Breath sounds with crackles inspiratory bilaterally. Reports cough that is productive, labored breathing. Derm: Skin is pale. 13:21 General: Patient is laying in stretcher, still tachypneic at 28 bpm occasional pursed ja5 lip breathing noted, O2 sat 94% on 2L O2 NC. 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 BP was reading hypotensive with SBP in 50s so manual BP was taken at 56/42. Provider was notified and new orders for a fluid bolus was received. Bolus is hanging as well as antibiotic infusion to left AC. Patient position was changed with head as low as patient can tolerate at this time.. 14:40 General:. ja5 14:46 General: Patient is laying supine in stretcher, #2 250ml NS IV bolus and antibiotics ja5 running to left AC. BP is back up to 71/52, O2 sat 91% on 3L O2 NC with even respirations at a rate of 28BPM, she is still requiring much effort to breathe. HR is showing SR on sewage plant attendant. Bed in low position, call tang in reach, family at bedside.. 15:45 General: Appears patient continuing to lay in stretcher. Family aware of further plan hs1 of care at this time. Susu (daughter) will be stepping out to run a few errands and is reachable by cell phone. Patient continuing to ask for something to drink. Call out to Dr Melchor for further plan of care. . 16:35 General: Appears in no apparent distress, comfortable, Behavior is appropriate for age, hs1 cooperative, patient aware of waiting for ICU bed. Patient given something to drink per order. Patient has no further questions and is much more comfortable now that she has been able to have something to drink. . Respiratory: Airway is patent Respiratory effort is even, unlabored, Respiratory pattern is regular, symmetrical, tachypnea. Derm: Skin is pale. Vital Signs: 11:21 BP 70 / 47; Pulse 98; Resp 20 S; Temp 99.2(T); Pulse Ox 94% on 3 lpm NC; Weight 52.16 gr2 kg; Height 4 ft. 11 in. (149.86 cm) (R); Pain 4/10; 11:38 Resp 36; jc4 11:52 Pulse 92 MON; Pulse Ox 99% ; ja5 11:53 BP 87 / 53 (auto/); ja5 13:03 Resp 28; jc4 13:06 BP 56 / 36 (auto/); ja5 13:06 Pulse 92 MON; Pulse Ox 93% ; ja5 13:07 BP 51 / 36 (auto/); ja5 13:07 Pulse 92 MON; Pulse Ox 93% ; ja5 13:08 BP 53 / 37 (auto/); ja5 13:08 Pulse 90 MON; Pulse Ox 92% ; ja5 13:14 BP 56 / 40 (auto/); ja5 13:14 Pulse 92 MON; Pulse Ox 92% ; ja5 13:19 BP 57 / 40 (auto/); ja5 13:34 BP 65 / 44 (auto/); ja5 13:35 Pulse 90 MON; Pulse Ox 94% ; ja5 13:49 BP 66 / 47 (auto/); ja5 13:51 Pulse 90 MON; Pulse Ox 92% ; ja5 13:53 BP 62 / 40 (auto/); ja5 13:53 Pulse 90 MON; Pulse Ox 92% ; ja5 13:58 BP 65 / 47 (auto/); ja5 13:58 Pulse 90 MON; Pulse Ox 91% ; ja5 14:04 BP 65 / 45 (auto/); jc4 14:04 Pulse 90 MON; Pulse Ox 93% ; jc4 14:09 BP 66 / 43 (auto/); ja5 14:12 Pulse 79 MON; Pulse Ox 92% ; ja5 14:13 BP 66 / 43; Pulse 90; Resp 24; Pulse Ox 97% on 3 lpm NC; jc4 14:15 BP 63 / 47 (auto/); ja5 14:15 Pulse 75 MON; Pulse Ox 97% ; ja5 14:30 BP 73 / 50 (auto/); ja5 14:30 Pulse 71 MON; Pulse Ox 96% ; ja5 14:43 BP 71 / 51 (auto/); hs1 14:43 Pulse 92 MON; Pulse Ox 94% ; hs1 14:45 BP 71 / 52 (auto/); hs1 14:45 Pulse 91 MON; Pulse Ox 92% ; hs1 15:00 BP 70 / 48 (auto/); hs1 15:00 Pulse 89 MON; Pulse Ox 95% ; hs1 15:15 BP 72 / 49 (auto/); hs1 15:15 Pulse 90 MON; Pulse Ox 98% ; hs1 15:30 BP 62 / 45 (auto/); hs1 15:30 Pulse 90 MON; Pulse Ox 96% ; hs1 15:45 BP 64 / 48 (auto/); hs1 15:45 Pulse 92 MON; Resp 24; Pulse Ox 95% ; hs1 16:00 BP 66 / 45 (auto/); hs1 16:00 Pulse 90 MON; Pulse Ox 96% ; hs1 16:15 BP 70 / 38 (auto/); hs1 16:15 Pulse 99 MON; Pulse Ox 95% ; hs1 16:30 BP 86 / 50 (auto/); hs1 16:30 Pulse 91 MON; Pulse Ox 93% ; hs1 16:45 BP 78 / 50 (auto/); hs1 16:45 Pulse 89 MON; Pulse Ox 96% ; hs1 17:00 BP 74 / 50 (auto/); hs1 17:00 Pulse 89 MON; Pulse Ox 96% ; hs1 17:15 BP 76 / 53 (auto/); hs1 17:15 Pulse 97 MON; Pulse Ox 94% ; hs1 17:30 BP 74 / 51 (auto/); hs1 17:30 Pulse 87 MON; Pulse Ox 94% ; hs1 17:45 BP 72 / 51 (auto/); hs1 17:45 Pulse 86 MON; Resp 24; Pulse Ox 95% ; hs1 18:30 BP 86 / 54; Pulse 90; Resp 22; Temp 97.4; Pulse Ox 96% ; Pain 0/10; hs1 11:21 Body Mass Index 23.23 (52.16 kg, 149.86 cm) gr2 Vitals: 11:21 Log In Time: June 06, 2016 at 11:21. gr2 11:21 RN notified that patient meets Red Flag criteria. gr2 ED Course: 11:21 Patient visited by Montse Martin. gr2 11:21 Evelin Ribeiro is Private Physician. gr2 11:21 Patient moved to Waiting gr2 11:24 Elyssa Cagle, BATSHEVA is Primary Nurse. elp 11:24 Tamera Goldman,BATSHEVA is Primary Nurse. elp 11:24 Patient visited by Montse Martin. gr2 11:24 Patient moved to 14 elp 11:30 Triage Initiated jc4 11:33 Nela Wen MD is Attending Physician. sd1 11:33 Patient visited by Nela Wen MD. sd1 11:39 Inserted saline lock: 20 gauge in left antecubital area The patient tolerated the jc4 procedure well. done by Wilder Goldman RN. 11:43 The patient / caregiver is instructed regarding the plan of care and ED course. Cardiac jc4 monitor on. Pulse ox on. NIBP on. 11:50 EKG done. (by ED staff). Reviewed by Nela Wen MD. cmb 12:11 Patient visited by Susie Adams. cmb 12:23 Chest, 1 View Returned. EDMS 12:28 -Arterial Blood Gas Sent. ac1 12:59 Patient visited by Tamera Goldman RN. ja5 13:26 Patient visited by Nela Wen MD. sd1 13:30 Patient visited by Tamera Goldman RN. ja5 13:58 CT Chest Without Contrast Returned. EDMS 14:05 Patient moved to 3 jc4 14:07 Aubree Melchor is Hospitalizing Provider. sd1 14:15 [facility] [place] Agreement was scanned into [employer] and attached to record. mm15 14:48 CT ANGIO CHEST Returned. EDMS 16:20 Patient moved to Admit Hold [facility] 17:06 Yesenia Davila, RN is Primary Nurse. hs1 18:22 No procedures done that require assistance. hs1 06/07 20:03 T-Sheet-- Draft Copy was scanned into [employer] and attached to record. klr Administered Medications: 06/06 11:57 Drug: Solu-MEDROL 125 mg [Solu-Medrol 500 mg intravenous solution (125 mg)] Route: IVP; ja5 Site: left antecubital; 12:00 Drug: Albuterol-Ipratropium 1 neb [ipratropium-albuterol 0.5 mg-3 mg(2.5 mg base)/3 mL ac1 nebulization soln (1 neb)] Route: Nebulizer; 12:05 Follow up: bd diminished bilat ac1 12:20 Drug: Albuterol-Ipratropium 1 neb [ipratropium-albuterol 0.5 mg-3 mg(2.5 mg base)/3 mL ac1 nebulization soln (1 neb)] Route: Nebulizer; 12:31 Drug: Albuterol-Ipratropium 1 neb [ipratropium-albuterol 0.5 mg-3 mg(2.5 mg base)/3 mL ac1 nebulization soln (1 neb)] Route: Nebulizer; 12:36 Follow up: bs diminished bilat ac1 13:02 Drug: cefTRIAXone 2 grams [ceftriaxone 1 gram solution for injection] Route: IVPB; ja5 Infused Over: 30 mins; Site: left antecubital; 13:57 Follow up: IV Status: Completed infusion ja5 13:21 Drug: NS 0.9% 250 ml [sodium chloride 0.9 % intravenous solution] Route: IV; Rate: ja5 bolus; Site: left antecubital; 14:13 Follow up: BP 66 / 43; Pulse 90 bpm; Resp 24 bpm; Pulse Ox 97% 3 lpm Nasal Cannula; IV jc4 Status: Completed infusion; IV Intake: 250ml 13:57 Drug: vancomycin 1 grams [vancomycin 1,000 mg intravenous injection] Route: IVPB; ja5 Infused Over: 60 mins; Site: left antecubital; 14:14 Drug: NS 0.9% 250 ml [sodium chloride 0.9 % intravenous solution] Route: IV; Rate: jc4 bolus; Site: left forearm; 15:57 Drug: NS 0.9% 250 ml [sodium chloride 0.9 % injection solution] Route: IV; Rate: bolus; hs1 Site: left antecubital; Intake: 13:57 IV: 50.00ml (NS); Total: 50.00ml. jc4 14:13 IV: 250.00ml; Total: 300.00ml. jc4 RT: 12:00 Initial Med Neb Given as ordered. ac1 12:05 Respiratory: Breath sounds are diminished bilaterally. ac1 12:20 Subsequent Med Neb Given as ordered. ac1 12:21 ABG's drawn from left radial artery allens test done and positive pressure held for 5 ac1 minutes no bleeding noted pressure bandage applied specimen sent pt. tolerated well. 12:25 Respiratory: Breath sounds are diminished bilaterally. ac1 12:30 Subsequent Med Neb Given as ordered. ac1 12:37 Respiratory: Breath sounds are diminished bilaterally. ac1 Order Results: Lab Order: B-Type Natiuretic Peptide; SPEC'M 06/06/16 11:39 Test: BRAIN NATRIURETIC PEPTIDE; Value: > 5000; Range: <100; Abnormal: Above high normal; Units: PG/ML; Status: F Lab Order: Basic Metabolic Profile; SPEC'M 06/06/16 11:39 Test: GLUCOSE, FASTING; Value: 107; Range: 83-110; Units: MG/DL; Status: F Test: BLOOD UREA NITROGEN; Value: 19; Range: 7-18; Abnormal: Above high normal; Units: MG/DL; Status: F Test: CREATININE FOR GFR; Value: 2.59; Range: 0.55-1.02; Abnormal: Above high normal; Units: MG/DL; Status: F Test: GLOMERULAR FILTRATION RATE; Value: 19.5; Range: >39; Abnormal: Below low normal; Status: F Test: SODIUM LEVEL; Value: 137; Range: 136-145; Units: MEQ/L; Status: F Test: POTASSIUM SERUM; Value: 3.3; Range: 3.5-5.1; Abnormal: Below low normal; Units: MEQ/L; Status: F Test: CHLORIDE LEVEL; Value: 92; Range: 98-107; Abnormal: Below low normal; Units: MEQ/L; Status: F Test: CARBON DIOXIDE LEVEL; Value: 35; Range: 21-32; Abnormal: Above high normal; Units: MEQ/L; Status: F Test: ANION GAP; Value: 10; Range: 8-16; Units: MEQ/L; Status: F Test: CALCIUM LEVEL; Value: 9.1; Range: 8.8-10.2; Units: MG/DL; Status: F Test Note: ; Units are mL/min/1.73 m2 Chronic Kidney Disease Staging per NKF: Stage I & II GFR >=60 Normal to Mildly Decreased Stage III GFR 30-59 Moderately Decreased Stage IV GFR 15-29 Severely Decreased Stage V GFR <15 Very Little GFR Left ESRD GFR <15 on SH[employer] Lab Order: CBC with Diff; SPEC'M 06/06/16 11:39 Test: WHITE BLOOD COUNT; Value: 7.9; Range: 4.0-10.0; Units: K/mm3; Status: F Test: RED BLOOD COUNT; Value: 3.38; Range: 4.00-5.40; Abnormal: Below low normal; Units: M/mm3; Status: F Test: HEMOGLOBIN; Value: 10.0; Range: 12.0-16.0; Abnormal: Below low normal; Units: g/dl; Status: F Test: HEMATOCRIT; Value: 32.7; Range: 36.0-47.0; Abnormal: Below low normal; Units: %; Status: F Test: MEAN CORPUSCULAR VOLUME; Value: 96.9; Range: 80.0-96.0; Abnormal: Above high normal; Units: fl; Status: F Test: MEAN CORPUSCULAR HEMOGLOBIN; Value: 29.7; Range: 27.0-33.0; Units: pg; Status: F Test: MEAN CORPUSCULAR HGB CONC; Value: 30.6; Range: 32.0-36.5; Abnormal: Below low normal; Units: g/dl; Status: F Test: RED CELL DISTRIBUTION WIDTH; Value: 15.7; Range: 11.5-14.5; Abnormal: Above high normal; Units: %; Status: F Test: PLATELET COUNT, AUTOMATED; Value: 528; Range: 150-450; Abnormal: Above high normal; Units: k/mm3; Status: F Test: NEUTROPHILS %; Value: 82.1; Range: 36.0-66.0; Abnormal: Above high normal; Units: %; Status: F Test: LYMPH %; Value: 6.8; Range: 24.0-44.0; Abnormal: Below low normal; Units: %; Status: F Test: MONO %; Value: 6.7; Range: 0.0-5.0; Abnormal: Above high normal; Units: %; Status: F Test: EOS %; Value: 0.7; Range: 0.0-3.0; Units: %; Status: F Test: BASO %; Value: 0.3; Range: 0.0-1.0; Units: %; Status: F Test: LARGE UNSTAINED CELL %; Value: 3.3; Range: 0.0-4.0; Units: %; Status: F Test: NEUTROPHILS #; Value: 6.5; Range: 1.8-7.7; Units: K/mm3; Status: F Test: LYMPH #; Value: 0.5; Range: 1.5-4.5; Abnormal: Below low normal; Units: K/mm3; Status: F Test: MONO #; Value: 0.5; Range: 0.0-0.8; Units: K/mm3; Status: F Test: EOS #; Value: 0.1; Range: 0.0-0.50; Units: K/mm3; Status: F Test: BASO #; Value: 0.0; Range: 0.0-0.2; Units: K/mm3; Status: F Test: LARGE UNSTAINED CELL #; Value: 0.3; Range: 0.0-0.4; Units: K/mm3; Status: F Lab Order: Cardiac Injury Profile; [facility] 06/06/16 11:39 Test: CPK CREATINE PHOSPHOKINASE; Value: 33; Range: 26-192; Units: U/L; Status: F Test: CK-MB VALUE MASS; Value: 2.6; Range: 0.0-3.6; Units: NG/ML; Status: F Test: MB/CK RELATIVE INDEX; Value: 7.87; Range: < OR =4; Abnormal: Above high normal; Status: F Test Note: ; DIAGNOSIS CRITERIA MMB ng/ml Relative Index (RI) NON-AMI < or = 5 N/A [place]ONE > 5 < or = 4 AMI > 5 > 4 Lab Order: Troponin; [facility] 06/06/16 11:39 Test: TROPONIN I; Value: 0.07; Range: < 0.10; Units: NG/ML; Status: F Test Note: ; Troponin I Reference Interval for bead Button LOCI: 99th Percentile= 0.00-0.045 ng/ml Risk Stratification: <= 0.10 ng/ml Decreased Risk for Adverse Clinical Events. 0.10-1.50 ng/ml Increased Risk for Adverse Clinical Events. Evaluation of additional criterion and/or repeat testing in 2-6 hours is suggested to rule out myocardial damage. >= 1.50 ng/ml Indicative of Myocardial Injury. Lab Order: Lactic Acid (Johnson tube on ice); [facility] 06/06/16 11:39 Test: LACTIC ACID SEPSIS PROTOCOL; Value: 1.9; Range: 0.4-2.0; Units: MMOL/L; Status: F Lab Order: -Arterial Blood Gas; [facility] 06/06/16 12:10 Test: ABG pH (ARTERIAL); Value: 7.485; Range: 7.350-7.450; Abnormal: Above high normal; Units: UNITS; Status: F Test: ABG PARTIAL PRESSURE CO2; Value: 46.0; Range: 35.0-45.0; Abnormal: Above high normal; Units: mmHg; Status: F Test: ABG PARTIAL PRESSURE O2; Value: 82.3; Range: 75.0-100.0; Units: mmHg; Status: F Test: ABG TOTAL CO2; Value: 35.3; Range: 23.0-31.0; Abnormal: Above high normal; Units: MEQ/L; Status: F Test: ABG HCO3; Value: 33.9; Range: 22.0-26.0; Abnormal: Above high normal; Units: MEQ/L; Status: F Test: ABG BASE EXCESS; Value: 9.4; Range: -2.0-2.0; Abnormal: Above high normal; Status: F Test: ABG STANDARD HCO3; Value: 33.1; Range: 22.0-26.0; Abnormal: Above high normal; Units: MEQ/L; Status: F Test: ABG O2 SATURATION; Value: 96.2; Range: 95.0-99.0; Units: %; Status: F Test: ABG DEVICE; Value: NASAL ETTA; Status: F Lab Order: RESPIRATORY PANEL; [facility] 02/22/17 12:12 Test: RESPIRATORY PANEL; Value: RP PANEL RESULT NEGATIVE by PCR; Status: F Test: RESPIRATORY PANEL; Value: Comments:; Status: F Test Note: ; This respiratory PCR panel detects Influenza A H1, H3 and 2009 H1 viruses, Influenza B virus, Respiratory syncytial virus, Human metapneumovirus, Parainfluenza virus 1, 2, 3 and 4, Adenovirus, Rhinovirus/Enterovirus, Coronavirus HKU1, NL63, OC43 and 229E, Bordetella pertussis, Mycoplasma pneumoniae and Chlamydia pneumoniae. Radiology Order: Chest, 1 View Test: Chest, 1 View REASON FOR EXAMINATION: Shortness of Breath; Clinical: Shortness of breath.; ; Comparison: 05/11/2016.; ; Findings:; Cardiomegaly is appreciated along with bilateral infiltrates and pleural; effusions (right greater than left). No pneumothorax. Skeletal structures; intact.; ; Impression:; Findings suggest pulmonary edema with bibasilar infiltrates and pleural effusions; (right greater than left). Differential diagnosis includes multifocal; pneumonia.; ; ; Signed by; Eugene Merrill MD 06/06/2016 11:38 A; Radiology Order: CT Chest Without Contrast Test: CT Chest Without Contrast REASON FOR EXAMINATION: Shortness of Breath; Clinical: Chest pain and shortness of breath.; ; Comparison: 10/29/2008.; ; Findings:; Large right pleural effusion is appreciated with right lower lobe, left lower; lobe, and basilar right upper lobe infiltrates and atelectasis suggesting; multifocal pneumonia. However, the patient exhibits descending thoracic aortic; aneurysm measuring roughly 5.3 cm maximal diameter with extensive atherosclerotic; changes which is inseparable from surrounding areas of consolidation and possible; fluid and while less likely, aortic leakage/rupture cannot definitively be; excluded. Cardiomegaly and atherosclerotic changes to the coronary arteries is; also appreciated.; ; Impression:; 1. Large right pleural effusion and multi focal consolidations and atelectasis; likely representing multifocal pneumonia.; 2. However, descending thoracic aortic aneurysm with atherosclerotic changes is; inseparable from the surrounding areas of fluid/consolidation and while less; likely, aortic leakage/rupture cannot definitively be excluded. Consider; postcontrast CTA of the chest for further investigation if necessary.; ; ; Signed by; Eugene Merrill MD 06/06/2016 01:11 P; Radiology Order: CT ANGIO CHEST Test: CT ANGIO CHEST REASON FOR EXAMINATION: R/O dissection; Clinical: Chest pain rule out dissection.; ; Technique: Contrast enhanced chest CT using CT angiography technique with axial; images from the thoracic inlet to the upper abdomen using 100 ml Isovue 370; intravenous contrast material with multiplanar re-formations.; ; Findings:; The thoracic aorta demonstrates extensive atherosclerotic calcifications and; mural thrombus along with aneurysmal dilatation to the descending thoracic aorta; measuring up to approximately 5.5 cm diameter. There is no evidence for; dissection or rupture. The pulmonary arteries demonstrate satisfactory; enhancement and there is no evidence for pulmonary embolus.; ; Large right pleural effusion along with near complete collapse of the right lower; lobe as well as multifocal areas of consolidation/atelectasis and alveolar; infiltrates involving the left lower lobe and to a lesser extent the right middle; lobe, lingula and right upper lobe. Mediastinum suggests cardiomegaly with; atherosclerotic changes of the coronary arteries without pericardial effusion.; Reactive adenopathy suggested. Surrounding musculoskeletal structures intact.; ; Impression:; ; 1. Extensive atherosclerotic changes and mural thrombus involving the aorta; including aneurysmal dilatation to the descending thoracic aorta. No evidence; for dissection or laceration/ rupture.; 2. Large right pleural effusion and multi focal atelectasis/consolidations.; Presumed reactive adenopathy. Follow-up to resolution recommended; ; ; ; Signed by; Eugene Merrill MD 06/06/2016 02:12 P; Outcome: 14:07 Decision to Hospitalize by Provider. sd1 18:22 The following High Risk Discharge criteria are identified: None. Admitted to ICU hs1 accompanied by nurse, accompanied by tech, via stretcher, with oxygen, on monitor, with chart. Condition: improved critical. CT Study completed. Property :Personal belongings accompany Pt. 18:23 Discharge Assessment: patient administered narcotics - no. hs1 18:41 Patient left the ED. dsf Signatures: Dispatcher [employer] EDMS Nela Wen MD MD sd1 Annie Lorenzo RN RN Korin Ronquillo,RT RT ac1 Yesenia Davila RN RN hs1 Elyssa Cagle RN RN jc4 Jaky Lopez RN RN dsf Susie Adams Gainslee gr2 Naseem Lundberg mm15 Hiwot Zee, TURBINE INSPECTOR TURBINE INSPECTOR sarahp Adelina Kapoor Jessica, RN RN ja5 Corrections: (The following items were deleted from the chart) 11:24 11:21 BP 70 / 47; Pulse 98bpm; Resp 20bpm; Spontaneous; Pulse Ox 94% 3 lpm Nasal gr2 Cannula; 52.16 kg; Height 4 ft. 11 in. Reported; BMI: 23.2; Pain 4/10; gr2 12:53 12:25 BP 122 / ???; BS-diminished bilat ac1 jc4 13:34 11:38 Allergies: IV Dye; jc4 ja5 Chart Complete MTDD
--- NOTE | 2016-06-08 19:41 | EDDOCDS ---
Physician Documentation [facility] Name: Temitope Shabazz Age: 70 yrs Sex: Female : 1945 Arrival Date: 06/06/2016 Time: 11:19 Bed Admit Hold Private MD: Evelin Ribeiro Disposition: 06/06/16 14:07 Hospitalization ordered by Aubree Melchor for Inpatient Admission. Preliminary diagnosis is Pneumonia due to other specified bacteria. - Bed requested for M ICU. - Status is Inpatient Admission. dsf - Condition is Stable. - Problem is new. - Symptoms have worsened. Historical: - Allergies: PENICILLINS; Ramipril; Sulfa (Sulfonamide Antibiotics); IV Dye (caused kidney failure); - Home Meds: 1. Atarax 25 mg oral tab 1 tab as needed (Last dose: 06/05/2016 20:00) 2. budesonide 0.5 mg/2 mL inhalation nbsp 2 mL 2 times per day (Last dose: 06/05/2016 20:00) 3. Claritin 10 mg Oral tab 1 tab once daily (Last dose: 06/05/2016 08:00) 4. Crestor 20 mg Oral tab 1 tab nightly (Last dose: 06/05/2016 20:00) 5. Demadex 20 mg Oral tab 2 tabs every other day (Last dose: 06/05/2016 08:00) 6. DuoNeb 0.5 mg-3 mg(2.5 mg base)/3 mL Inhl nebu 3 mL 4 times per day as needed (Last dose: Unknown) 7. gabapentin 300 mg Oral cap 1 cap twice a day (Last dose: 06/05/2016) 8. glipizide 2.5 mg Oral tr24 once daily (Last dose: 06/05/2016) 9. midodrine 5 mg oral tab 1 tabs 3 times per day (Last dose: 06/06/2016 05:00) 10. Oxygen 2 l nc daily 11. renavite 1 tab nightly (Last dose: 06/05/2016 20:00) 12. Spiriva with HandiHaler 18 mcg Inhl CpDv 1 cap once daily (Last dose: 06/05/2016 08:00) 13. Uloric 40 mg oral tab 1 tab once daily (Last dose: 06/05/2016 08:00) 14. Vitamin D Oral 20015 unit monthly (Last dose: 05/16/2016) - PMHx: CHF; COPD; Diabetes - NIDDM: controlled; Heart Murmur; Hypercholesterolemia; Irregular heart rate; Renal Failure with Dialysis; - PSHx: AICD; dailysis fistula right arm; Cholecystectomy; Tubal ligation; Cardiac cath; - Social history: Smoking status: Patient states former smoker of tobacco. No barriers to communication noted, The patient speaks fluent Polish. - Family history: No immediate family members are acutely ill. - : The pt / caregiver states he / she is not on anticoagulants. Home medication list is obtained from the patient, family members. - Exposure Risk Screening:: None identified. Vital Signs: 06/06 11:21 BP 70 / 47; Pulse 98; Resp 20 S; Temp 99.2(T); Pulse Ox 94% on 3 lpm NC; Weight 52.16 gr2 kg / 114.99 lbs; Height 4 ft. 11 in. (149.86 cm) (R); Pain 4/10; 11:38 Resp 36; jc4 11:52 Pulse 92 MON; Pulse Ox 99% ; ja5 11:53 BP 87 / 53 (auto/); ja5 13:03 Resp 28; jc4 13:06 BP 56 / 36 (auto/); ja5 13:06 Pulse 92 MON; Pulse Ox 93% ; ja5 13:07 BP 51 / 36 (auto/); ja5 13:07 Pulse 92 MON; Pulse Ox 93% ; ja5 13:08 BP 53 / 37 (auto/); ja5 13:08 Pulse 90 MON; Pulse Ox 92% ; ja5 13:14 BP 56 / 40 (auto/); ja5 13:14 Pulse 92 MON; Pulse Ox 92% ; ja5 13:19 BP 57 / 40 (auto/); ja5 13:34 BP 65 / 44 (auto/); ja5 13:35 Pulse 90 MON; Pulse Ox 94% ; ja5 13:49 BP 66 / 47 (auto/); ja5 13:51 Pulse 90 MON; Pulse Ox 92% ; ja5 13:53 BP 62 / 40 (auto/); ja5 13:53 Pulse 90 MON; Pulse Ox 92% ; ja5 13:58 BP 65 / 47 (auto/); ja5 13:58 Pulse 90 MON; Pulse Ox 91% ; ja5 14:04 BP 65 / 45 (auto/); jc4 14:04 Pulse 90 MON; Pulse Ox 93% ; jc4 14:09 BP 66 / 43 (auto/); ja5 14:12 Pulse 79 MON; Pulse Ox 92% ; ja5 14:13 BP 66 / 43; Pulse 90; Resp 24; Pulse Ox 97% on 3 lpm NC; jc4 14:15 BP 63 / 47 (auto/); ja5 14:15 Pulse 75 MON; Pulse Ox 97% ; ja5 14:30 BP 73 / 50 (auto/); ja5 14:30 Pulse 71 MON; Pulse Ox 96% ; ja5 14:43 BP 71 / 51 (auto/); hs1 14:43 Pulse 92 MON; Pulse Ox 94% ; hs1 14:45 BP 71 / 52 (auto/); hs1 14:45 Pulse 91 MON; Pulse Ox 92% ; hs1 15:00 BP 70 / 48 (auto/); hs1 15:00 Pulse 89 MON; Pulse Ox 95% ; hs1 15:15 BP 72 / 49 (auto/); hs1 15:15 Pulse 90 MON; Pulse Ox 98% ; hs1 15:30 BP 62 / 45 (auto/); hs1 15:30 Pulse 90 MON; Pulse Ox 96% ; hs1 15:45 BP 64 / 48 (auto/); hs1 15:45 Pulse 92 MON; Resp 24; Pulse Ox 95% ; hs1 16:00 BP 66 / 45 (auto/); hs1 16:00 Pulse 90 MON; Pulse Ox 96% ; hs1 16:15 BP 70 / 38 (auto/); hs1 16:15 Pulse 99 MON; Pulse Ox 95% ; hs1 16:30 BP 86 / 50 (auto/); hs1 16:30 Pulse 91 MON; Pulse Ox 93% ; hs1 16:45 BP 78 / 50 (auto/); hs1 16:45 Pulse 89 MON; Pulse Ox 96% ; hs1 17:00 BP 74 / 50 (auto/); hs1 17:00 Pulse 89 MON; Pulse Ox 96% ; hs1 17:15 BP 76 / 53 (auto/); hs1 17:15 Pulse 97 MON; Pulse Ox 94% ; hs1 17:30 BP 74 / 51 (auto/); hs1 17:30 Pulse 87 MON; Pulse Ox 94% ; hs1 17:45 BP 72 / 51 (auto/); hs1 17:45 Pulse 86 MON; Resp 24; Pulse Ox 95% ; hs1 18:30 BP 86 / 54; Pulse 90; Resp 22; Temp 97.4; Pulse Ox 96% ; Pain 0/10; hs1 11:21 Body Mass Index 23.23 (52.16 kg, 149.86 cm) gr2 MDM: 11:25 -Blood Culture (Adults Only), peripheral from different site, or from device/port/PICC sd1 etc. if present ordered. 11:25 Commercial Shrimping Captain/Pulse Ox/q 15 min VS ordered. sd1 11:25 IV Saline Lock ordered. sd1 11:25 Oxygen at 4L/Min NC or Home dosage ordered. sd1 11:25 Rhythm Strip to chart ordered. sd1 11:26 B-Type Natiuretic Peptide Ordered. EDMS 11:26 Basic Metabolic Profile Ordered. EDMS 11:26 CBC with Diff Ordered. EDMS 11:26 Cardiac Injury Profile Ordered. EDMS 11:26 Troponin Ordered. EDMS 11:26 Lactic Acid (Johnson tube on ice) Ordered. EDMS 11:26 -Blood Culture Ordered. EDMS 11:26 Chest, 1 View Ordered. EDMS 11:27 ECG WITH READING ER PHYS+CARDIAG ordered. EDMS 11:37 Misc Aircraft Cleaner Order ordered. sd1 11:38 BED REQUEST+ADM ordered. EDMS 11:39 Call Respiratory ordered. sd1 11:39 Albuterol-Ipratropium 1 neb Nebulizer every 20 minutes x3 ordered. sd1 11:39 Solu-MEDROL 125 mg IVP once ordered. sd1 11:41 -Arterial Blood Gas Ordered. EDMS 11:44 Call Respiratory complete. jc4 11:56 RESPIRATORY PANEL Ordered. EDMS 11:56 cefTRIAXone 2 grams IVPB once over 30 mins; dilute in 50mL of NS or D5W ordered. sd1 11:56 Misc Aircraft Cleaner Order complete. lbd 11:57 -Blood Culture (Adults Only), peripheral from different site, or from device/port/PICC lbd etc. if present complete. 12:00 BLOOD CULTURES Ordered. EDMS 12:14 CT Chest Without Contrast Ordered. EDMS 12:36 B-Type Natiuretic Peptide Reviewed. sd1 12:36 Basic Metabolic Profile Reviewed. sd1 12:36 CBC with Diff Reviewed. sd1 12:36 Cardiac Injury Profile Reviewed. sd1 12:36 -Arterial Blood Gas Reviewed. sd1 12:36 Troponin Reviewed. sd1 12:36 Lactic Acid (Johnson tube on ice) Reviewed. sd1 12:36 Chest, 1 View Reviewed. sd1 12:45 vancomycin 1 grams IVPB once over 60 mins; dilute in 250mL of NS or D5W ordered. sd1 13:15 NS 0.9% 250 ml IV at bolus once ordered. sd1 13:33 CT ANGIO CHEST Ordered. EDMS 13:45 Financial registration complete. mm15 14:02 NS 0.9% 250 ml IV at bolus once ordered. sd1 14:15 [facility] Payment Agreement was scanned into Tour Desk and attached to record. mm15 14:20 Admission / Observation Status ordered. EDMS 15:21 CONSISTENT CARBOHYDRATES ordered. EDMS 15:38 NS 0.9% 250 ml IV at bolus once ordered. sd1 06/07 20:03 T-Sheet-- Draft Copy was scanned into Tour Desk and attached to record. klr Administered Medications: 06/06 11:57 Drug: Solu-MEDROL 125 mg [Solu-Medrol 500 mg intravenous solution (125 mg)] Route: IVP; ja5 Site: left antecubital; 12:00 Drug: Albuterol-Ipratropium 1 neb [ipratropium-albuterol 0.5 mg-3 mg(2.5 mg base)/3 mL ac1 nebulization soln (1 neb)] Route: Nebulizer; 12:05 Follow up: bd diminished bilat ac1 12:20 Drug: Albuterol-Ipratropium 1 neb [ipratropium-albuterol 0.5 mg-3 mg(2.5 mg base)/3 mL ac1 nebulization soln (1 neb)] Route: Nebulizer; 12:31 Drug: Albuterol-Ipratropium 1 neb [ipratropium-albuterol 0.5 mg-3 mg(2.5 mg base)/3 mL ac1 nebulization soln (1 neb)] Route: Nebulizer; 12:36 Follow up: bs diminished bilat ac1 13:02 Drug: cefTRIAXone 2 grams [ceftriaxone 1 gram solution for injection] Route: IVPB; ja5 Infused Over: 30 mins; Site: left antecubital; 13:57 Follow up: IV Status: Completed infusion ja5 13:21 Drug: NS 0.9% 250 ml [sodium chloride 0.9 % intravenous solution] Route: IV; Rate: ja5 bolus; Site: left antecubital; 14:13 Follow up: BP 66 / 43; Pulse 90 bpm; Resp 24 bpm; Pulse Ox 97% 3 lpm Nasal Cannula; IV jc4 Status: Completed infusion; IV Intake: 250ml 13:57 Drug: vancomycin 1 grams [vancomycin 1,000 mg intravenous injection] Route: IVPB; ja5 Infused Over: 60 mins; Site: left antecubital; 14:14 Drug: NS 0.9% 250 ml [sodium chloride 0.9 % intravenous solution] Route: IV; Rate: jc4 bolus; Site: left forearm; 15:57 Drug: NS 0.9% 250 ml [sodium chloride 0.9 % injection solution] Route: IV; Rate: bolus; hs1 Site: left antecubital; Signatures: Dispatcher [employer] EDNela Suarez MD MD sd1 Sara Tran, Lead Business Analyst Unit lbd Yesenia Davila RN RN hs1 Elyssa Cagle RN RN jc4 Jaky Lopez RN RN f Naseem Lnudberg mm15 Donna Lange RN RN sls2 Adelina Kapoor JessicaRN RN ja5 Korin Noble RT ac1 The chart was reviewed and I authenticate all verbal orders and agree with the evaluation and treatment provided.Corrections: (The following items were deleted from the chart) 13:33 13:27 CT Chest with contrast+CT ordered. EDMS EDMS 13:34 11:38 Allergies: IV Dye; jc4 ja5 15:21 14:20 2 GRAM SODIUM DIET ordered. EDMS EDMS Attachments: 14:15 [facility] Payment Agreement mm15 06/07 20:03 T-Sheet-- Draft Copy klr Chart Complete MTDD
[2016-06-08] MEDS: ROSUVASTATIN 10 MG TAB (CRESTOR) PO SCH (20:51)
[2016-06-08] MEDS ORDERED: SODIUM CHLORIDE 0.9% 1000 ML IV PRN (21:00)
[2016-06-08] MEDS: PERCOCET 5MG/325MG TAB PO PRN (22:27)
[2016-06-09] VITALS (15 sets, daily range): BP systolic 57–129; BP diastolic 40–82
[2016-06-09] MEDS: NYSTATIN 500,000 U/5 ML SUSP UDC SS SCH ×5 (00:51→18:27)
[2016-06-09] MEDS: IPRATROPIUM 0.5MG/ALBUTEROL 2.5MG INH SOL UD 3ML (DUONEB)(J7620) NEB SCH ×4 (01:15→19:45)
[2016-06-09 04:49] LABS: ALBUMIN/GLOBULIN RATIO 0.45 (1.00-1.93); BILIRUBIN,TOTAL 0.4 MG/DL (0.2-1.0); CALCIUM LEVEL 7.9 MG/DL (8.8-10.2); CREATININE FOR GFR 2.88 MG/DL (0.55-1.02); GLOMERULAR FILTRATION RATE 17.2 (>39); MAGNESIUM LEVEL 1.7 MG/DL (1.8-2.4); POTASSIUM SERUM 4.3 MEQ/L (3.5-5.1); TOTAL PROTEIN 6.4 GM/DL (6.4-8.2)
[2016-06-09 05:11] LABS: MEAN CORPUSCULAR HEMOGLOBIN 28.8 pg (27.0-33.0); MEAN CORPUSCULAR HGB CONC 29.6 g/dl (32.0-36.5); MEAN CORPUSCULAR VOLUME 97.3 fl (80.0-96.0); PLATELET COUNT, AUTOMATED 502 k/mm3 (150-450); RED CELL DISTRIBUTION WIDTH 16.3 % (11.5-14.5)
[2016-06-09] MEDS: ONDANSETRON 4MG/2ML VIAL (J2405) IV PRN (05:11)
[2016-06-09] MEDS ORDERED: MAG SULF 1GM/100ML (MAG RUN) 1 GM in APPROPRIATE DILUENT 1 EA IV ONE (06:15)
[2016-06-09 06:33] LABS: ANISOCYTOSIS 1+; HYPOCHROMASIA 2+
[2016-06-09] MEDS: BUDESONIDE 0.5 MG/2 ML INHALATION SUSPENSION INH SCH ×2 (07:15→19:45)
[2016-06-09] MEDS: TIOTROPIUM INHALER/CAPSULE (SPIRIVA) INH SCH (07:15)
[2016-06-09] MEDS: HumaLOG INSULIN (NovoLOG) PER UNIT SC SCH ×4 (08:07→20:38)
--- NOTE | 2016-06-09 08:15 | IPNPDOC ---
Subjective Date Seen The patient was seen on 06/09/16. Subjective Chief Complaint/HPI The patient is a 70-year-old female admitted with a reason for visit of Shortness Of Breath. Events since last encounter Overnight events significant for episodes of dizziness, nausea. Patient hypotensive. Fluid boluses administered. General: Denies: Chills, Fatigue, Malaise, Night Sweats, Normal Appetite, Other Symptoms, ROS Unobtainable Constitutional: Denies: Chills, Fatigue, Fever, Lethargy, Malaise, Night Sweats , Other, Weakness, Weight Loss Eyes: Denies: Conjunctivae inflammation, Eyelid inflammation, Other, Pain, Redness, Vision change ENT: Denies: Dysphagia, Ear Pain, Epistaxis, Head Aches, Other Symptoms, Post Nasal Drip, Sinus Congestion, Sore Throat Skin: Denies: Breakdown, Bruising, Dry, Itching, Jaundice, Lesions, Nail Changes, Other, Rash Pulmonary: Reports: Cough, Denies: Dyspnea, Other Symptoms, Pleuritic Chest Pain Cardiovascular: Denies: Chest Pain, Edema, Lt Headedness, Orthopnea, Other Symptoms, Palpitations, Paroxysmal Noc. Dyspnea Gastrointestinal: Reports: Nausea, Denies: Abdominal Pain, Constipation, Diarrhea, Hematochezia, Melena, Other Symptoms, Vomiting Genitourinary: Denies: Dysuria, Frequency, Hematuria, Incontinence, Other Symptoms, Retention Neurological: Reports: Other Symptoms (dizzy) Objective Physical Examination General Exam: Positive: Alert, Cooperative, No Acute Distress, Other (elderly, frail, sitting comfortably in chair) Eye Exam: Positive: Conjunctiva & lids normal, EOMI, PERRLA, Negative: Sclera icteric ENT Exam: Positive: Atraumatic Neck Exam: Positive: Supple Chest Exam: Positive: Other (Good air movement R>L. Junky lung sounds - crackles R>L) Heart Exam: Positive: Murmurs, Rate Normal Telemetry: Positive: No significant arrhythmia Abdomen Exam: Positive: Normal bowel sounds, Soft, Negative: Tenderness Extremity Exam: Negative: Edema Psych Exam: Positive: Oriented x 3 Assessment /Plan Problems (1) Pneumonia Status: Acute Response to Treatment: Progressing Problem Specific Plan: Monitor Clinically, Repeat Labs Problem Text: Gweno and Sage day #4. Sputum cultures/gram stain final report pending. Yeast noted. Leukocytosis improved. Multifocal consolidations on CTA. (2) Pleural effusion Status: Acute Response to Treatment: Improving Discussed With: Paint Prepper Problem Specific Plan: Consult Specialist, Monitor Clinically Problem Text: Large right pleural effusion on CTA s/p pigtail catheter. Draining serosanguineous fluid. Pleural fluid profile consistent with transudative process, however lymphocytes noted. Cytology pending. Saturating well on baseline 2L supplemental O2. Discuss further with CTS, assistance appreciated. (3) Hypotension Status: Chronic Problem Specific Plan: Monitor Clinically Problem Text: Chronic hypotension. Worsened last night. Will discuss further with nephrology, perhaps increase midodrine. Currently 5mg PO TID. For now continue midodrine, fluid boluses as needed. (4) Diabetes Status: Chronic Problem Specific Plan: Repeat Labs (5) Hypercholesteremia Status: Chronic Problem Text: Crestor (6) Anemia Status: Chronic Problem Text: Secondary to ESRD. Received aranesp with dialysis yesterday. Continue to follow H/H. (7) Anxiety Status: Chronic Problem Text: Atarax (8) CHF (congestive heart failure) Status: Chronic Problem Text: Systolic and diastolic failure. (9) COPD (chronic obstructive pulmonary disease) Status: Chronic Problem Text: Spiriva, pulmicort, duonebs scheduled and prn. No exacerbations, no steroids at this time. (10) Hyperparathyroidism Status: Chronic (11) Mitral valve disease Status: Chronic (12) CAD (coronary artery disease) Onset Date: 01/18/2014 Status: Chronic (13) ESRD (end stage renal disease) Onset Date: 01/26/2014 Status: Chronic Problem Specific Plan: Consult Specialist Plan/VTE VTE Prophylaxis Ordered?: Yes (mechanical) Plan Diet: Continue Current Activity: Continue Current Therapy: PT Diagnostics: Repeat Labs in AM, Obtain Cultures Anticipated Discharge: Home, Home With Services VS, I&O, 24H, [facility] Vital Signs/I&O Vital Signs Date Time Temp Pulse Resp B/P Pulse Ox O2 Delivery O2 Flow Rate FiO2 06/09/16 06:00 82 73/51 90 Nasal Cannula 2.0 06/09/16 04:00 97.8 20 I&O- Last 24 Hours up to 6 AM 06/09/16 06:00 Intake Total 1470 ml Output Total 945 ml Balance 525 ml Laboratory Data 24H LABS Laboratory Tests 2 06/08/16 11:51: Bedside Glucose (Misc Panel) 148H 2/24/17 17:41: Bedside Glucose (Misc Panel) 269H 06/08/16 20:40: Bedside Glucose (Misc Panel) 148H 06/09/16 04:15: Blood Urea Nitrogen 28#H, Creatinine 2.88H, Sodium Level 136, Potassium Level 4.3, Chloride Level 97L, Carbon Dioxide Level 29, Calcium Level 7.9L, Aspartate Amino Transf (AST/SGOT) 20, Alanine Aminotransferase (ALT/SGPT) 32, Alkaline Phosphatase 184H, Total Bilirubin 0.4, Total Protein 6.4, Albumin 2.0L, Albumin/ Globulin Ratio 0.45L, Anion Gap 10, Anisocytosis 1+, Basophilic Stippling 1+, White Blood Count 12.0H, Red Blood Count 3.03L, Hemoglobin 8.7L, Hematocrit 29.5L, Mean Corpuscular Volume 97.3H, Mean Corpuscular Hemoglobin 28.8, Mean Corpuscular Hemoglobin Concent 29.6L, Red Cell Distribution Width 16.3H, Platelet Count 502H, Neutrophils (%) (Auto) , Lymphocytes (%) (Auto) , Monocytes (%) (Auto) , Eosinophils (%) (Auto) , Basophils (%) (Auto) , Neutrophils # (Auto) , Lymphocytes # (Auto) , Monocytes # (Auto) , Eosinophils # (Auto) , Basophils # (Auto) , Glomerular Filtration Rate 17.2L, Hypochromasia 2+, Large Unclassified Cells # , Large Unclassified Cells % , Lymphocytes ( Manual) 8L, Magnesium Level 1.7L, Monocytes (Manual) 11H, Neutrophils 81H, Platelet Estimate INCREASED CBC/BMP Laboratory Tests 06/09/16 04:15 Calcium Level 7.9 L, Aspartate Amino Transf (AST/SGOT) 20, Alanine Aminotransferase (ALT/SGPT) 32, Alkaline Phosphatase 184 H, Total Bilirubin 0.4 , Total Protein 6.4, Albumin 2.0 L, Red Blood Count 3.03 L, Mean Corpuscular Volume 97.3 H, Mean Corpuscular Hemoglobin 28.8, Mean Corpuscular Hemoglobin Concent 29.6 L, Red Cell Distribution Width 16.3 H, Neutrophils (%) (Auto) , Lymphocytes (%) (Auto) , Monocytes (%) (Auto) , Eosinophils (%) (Auto) , Basophils (%) (Auto) , Neutrophils # (Auto) , Lymphocytes # (Auto) , Monocytes # (Auto) , Eosinophils # (Auto) , Basophils # (Auto) Microbiology Microbiology 06/06/16 Blood Culture - Preliminary, Resulted No Growth after 48 hours. All Specime... 06/06/16 Blood Culture - Preliminary, Resulted No Growth after 48 hours. All Specime... 06/07/16 Acid Fast Stain, Received Pending 06/07/16 Mycobacterial Culture, Received Pending 06/07/16 Fungal Smear, Received Pending 06/07/16 Fungal Culture, Received Pending 06/07/16 Gram Stain - Final, Complete 06/07/16 Anaerobic Culture - Final, Complete 06/07/16 Body Fluid Culture - Final, Complete 06/07/16 Gram Stain - Final, Complete 06/07/16 Sputum Culture - Final, Complete Yeast Like Organism 06/06/16 Respiratory Virus Panel (PCR) (KEY) - Final, Complete GLADIS ALONSO MD Jun 09, 2016 08:15
--- NOTE | 2016-06-09 08:41 | REP ---
Clinical: Follow up pleural effusion. Technique: PA and lateral. Comparison: 06/08/2016. Findings: Diffuse bilateral pleuroparenchymal changes including right pleural effusion and right suprahilar mass lesion are unchanged from prior examination. Pigtail catheter is again identified in the right lung base. Mediastinum and cardiac silhouette are stable. The skeletal structures are grossly intact. Impression: Diffuse bilateral pleuroparenchymal changes including small right pleural effusion similar to prior examination. Signed by Eugene Merrill MD 06/09/2016 08:32 A
[2016-06-09] MEDS: ASPIRIN 81 MG ENTERIC TAB PO SCH (09:31)
[2016-06-09] MEDS: PANTOPRAZOLE 40MG TAB (PROTONIX) PO SCH (09:31)
[2016-06-09] MEDS: FLUTICASONE PROP 0.05% NASAL SPRAY 16 GM (FLONASE) SCH (09:31)
[2016-06-09] MEDS: MOM 30ML SUSPENSION UDC PO SCH (09:31)
[2016-06-09] MEDS: DOCUSATE SODIUM 100 MG CAP PO SCH (09:31)
[2016-06-09] MEDS: FAMOTIDINE 20 MG TAB PO SCH (09:31)
[2016-06-09] MEDS: MIDODRINE 5 MG TAB PO SCH ×3 (09:31→20:24)
[2016-06-09] MEDS: GABAPENTIN 300 MG CAP PO SCH ×2 (09:31→20:24)
--- NOTE | 2016-06-09 11:41 | REP ---
Clinical: Status post thoracentesis to evaluate for possible malignancy. Comparison: 06/06/2016. Findings: A 3 cm lobular mass / consolidation is appreciated in the right posterior upper lobe (images 29 - 39) scattered, predominantly bilateral lower lobe as well as right middle lobe and lingular infiltrates are identified with suspected mediastinal and hilar adenopathy. A pigtail catheter is identified at the right base without significant residual pleural effusion although subtle pleural reaction cannot be excluded. Heart/pericardium and thoracic aorta are unchanged in appearance with cardiomegaly, extensive atherosclerotic changes to the coronary arteries and thoracic aorta along with descending aortic aneurysm. No pericardial effusion. Impression: 1. A 3 cm lobulated soft tissue mass / consolidation in the posterior segment right upper lobe. 2. Diffuse bilateral multifocal infiltrates. Pigtail catheter at the right base with possible small residual pleural reaction and no significant pleural fluid. 3. Chronic stable cardiomegaly and aneurysmal dilatation to the descending thoracic aorta with associated atherosclerotic disease. Signed by Eugene Merrill MD 06/09/2016 11:32 A
[2016-06-09] MEDS: cefTRIAXone SOD 1 GM in D5W MINI-BAG PLUS 50 ML IV SCH (11:56)
[2016-06-09] MEDS ORDERED: SODIUM CHLORIDE 0.9% 1000 ML IV ONE (12:15)
--- NOTE | 2016-06-09 14:37 | IPN ---
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 She had vertigo with dizziness and nausea. She did not vomit. At the time, her blood pressure was 64/49 and 72/48. Usually she is not symptomatic with her hypotension. Her vital signs show a maximum temperature (t-max) of 98.0 with a heart rate that ranges between 82 and 84 in sinus rhythm, respiratory rate of 20 to 28 without the use of accessory muscles who is 98 to 95% saturated on 2 liters nasal cannula. Blood pressures ranging between 64/41 to 75/51. Her intake and output over the past 24 hours has been recorded as 1470 in and 950 out for a positivity of 500 mL. She has put out 450 mL from the chest catheter. There is no air leak. In the last 10 hours, she has put out 55 mL. Her weight today is 55.6 kg compared to 54.6 kg yesterday. PHYSICAL EXAMINATION: LUNGS: Her lungs show coarse and fine crackles during inspiration in the right lower hemithorax. She also has some fine crackles in the left lower hemithorax during inspiration. These do not clear with coughing. Percussion notes are full to the diaphragm. CARDIAC: Cardiac exam shows a holosystolic murmur at the apex. I cannot feel her PMI. S1 and S2 are normal. ABDOMEN : Soft, nontender, bowel sounds are positive. There is no hepatomegaly. No costovertebral angle tenderness. EXTREMITIES: Show no pretibial edema. No calf tenderness. No differential swelling of the upper extremities. SKIN: Warm, dry and perfused without cyanosis or mottling, including that of the nail beds and knees. NECK: Supple. There is no jugular venous distention. No subcutaneous emphysema. Trachea is midline. HEENT: Mouth shows her mucous membranes to be dry but pink. Lips and commissures are without lesions. There is severe thrush. Eyes show her pupils to be equal and reactive. Extraocular motor intact. Sclera anicteric. NEUROLOGIC: Shows II through XII intact with gross motor and gross sensation intact. Gait is not tested. PSYCHIATRIC: Shows her to be awake and alert, oriented times three with appropriate mood and affect and conversational. Her white count is 12.0, down from 15.8 yesterday. Hemoglobin and hematocrit are 8.7 and 29.5, unchanged from yesterday with a platelet count of 502. Differential shows 81% neutrophils, 8% lymphocytes, 11% monocytes. There are no immature forms. No toxic granulations. Her electrolytes are normal with a BUN and creatinine of 28 and 2.88. She underwent hemodialysis yesterday. Glucose is 132 with a calcium of 7.9 and a corresponding albumin of 2.0. Her chest x-ray today shows the right pleural collection drained. Costophrenic angle is however slightly blunted on the right side. She looks to have an infiltrative process and/or atelectatic process in the right lower hemithorax. The left lower hemithorax looks as thought she has a diffuse haze. Lateral film shows infiltrative process posteriorly. I cannot tell if that is referable to the right or left side. Drain is in position inferiorly and posteriorly. IMPRESSION: 1. Right sided pleural effusion drained, transudative. 2. Possible right lower lobe pneumonia. 3. Possible right lower lobe lung mass. 4. Thoracic aortic aneurysm. 5. Diabetes. 6. Chronic obstructive pulmonary disease (COPD). 7. Renal failure. 8. Chronic hypotension. 9. Chronic anemia. 10. Congestive heart failure (CHF). 11. Hyperlipidemia. PLAN AND DISCUSSION: I am not exactly sure what that right lower lobe lesion represents. I am going to obtain another CT scan now that she is drained and her lung is expanded. She is allergic to contrast media, so we will have to do it without contrast. She has put out way too much for me to remove the chest catheter. The cytology did not show any malignant cells with mixed and chronic inflammatory cells.
--- NOTE | 2016-06-09 15:13 | IPN ---
DATE: 06/09/2016 Mrs. Shabazz is seen this morning on her bedside in the intensive care unit. She is sitting in the chair at the time of my visit. She reports that she had hemodialysis yesterday and felt well all day. Through the night, she could not sleep very well. 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 Since then, she has not felt well. She did not eat anything so far. Her dyspnea is improved, and she remains on 2 liters of oxygen. She has no fever or chills. PHYSICAL EXAMINATION: Temperature 98.6 degrees Fahrenheit, heart rate 86 per minute and respiratory rate 20 per minute. Blood pressure 60/49 mmHg and oxygen saturation 96% on 2 liters oxygen. Head is atraumatic. Neck veins are flat. Oral mucosa is dry and without any thrush or ulcers. Pupils are equal and reactive to light and sclera is anicteric. Ears and nose are unremarkable. Lungs have moderate air entry with scattered bilateral rhonchi. Heart sounds are regular. Abdomen: Soft and nontender and without a palpable organomegaly. Bowel sounds are normal. Extremities: Have trace of ankle edema. There is no cyanosis or clubbing. Skin is dry and without any rash or ulcers. Neurologically, she is awake, alert and oriented times three. Today's labs show WBC count 12.0, hemoglobin 8.7 and hematocrit 29.5. Sodium 136 and potassium 4.3. BUN 28 and creatinine 2.88. Calcium level is 7.9 and magnesium 1.7. PROBLEMS: 1. End-stage renal disease. The patient is regularly dialyzed on Saturday, Saturday and Saturday schedule. She did have dialysis yesterday and her next dialysis will be scheduled for June 11. At present, her electrolytes are within normal range and volume status is well compensated. 2. Shortness of breath. Mostly related to her chronic lung disease and superimposed multifocal infiltrates. She is being treated with intravenous antibiotics including vancomycin and ceftriaxone. 3. Hypotension. This is a chronic issue and may be worse because of her hemodialysis yesterday. Her midodrine dose has already been increased to 5 mg three times a day, which is appropriate for her body size. We will give her a trial of a small bolus of normal saline at 300 mL and see if that helps with her symptoms and her blood pressure. If fluid bolus does not help, then we will avoid any further fluid due to risk of hypervolemia. 4. Chronic obstructive pulmonary disease and chronic hypoxemia. The patient remains on her chronic therapy with nebulizers and is also receiving steroids. 5. Anemia. Her anemia is chronic and related to end-stage renal disease. The patient is being given Aranesp during dialysis once a week. There is no significant change in her anemia over last 3 days.
[2016-06-09] MEDS: CHECK TO SEE IF PATIENT IS RECEIVING DIALYSIS TODAY AND REFER TO THE VANCOMYCIN ORDER XX SCH (15:55)
--- NOTE | 2016-06-09 19:55 | EDDOCDS ---
Physician Documentation [facility] Name: Temitope Shabazz Age: 70 yrs Sex: Female : 1945 Arrival Date: 06/06/2016 Time: 11:19 Bed Admit Hold Private MD: Evelin Ribeiro Disposition: 06/06/16 14:07 Hospitalization ordered by Aubree Melchor for Inpatient Admission. Preliminary diagnosis is Pneumonia due to other specified bacteria. - Bed requested for M ICU. - Status is Inpatient Admission. dsf - Condition is Stable. - Problem is new. - Symptoms have worsened. Historical: - Allergies: PENICILLINS; Ramipril; Sulfa (Sulfonamide Antibiotics); IV Dye (caused kidney failure); - Home Meds: 1. Atarax 25 mg oral tab 1 tab as needed (Last dose: 06/05/2016 20:00) 2. budesonide 0.5 mg/2 mL inhalation nbsp 2 mL 2 times per day (Last dose: 06/05/2016 20:00) 3. Claritin 10 mg Oral tab 1 tab once daily (Last dose: 06/05/2016 08:00) 4. Crestor 20 mg Oral tab 1 tab nightly (Last dose: 06/05/2016 20:00) 5. Demadex 20 mg Oral tab 2 tabs every other day (Last dose: 06/05/2016 08:00) 6. DuoNeb 0.5 mg-3 mg(2.5 mg base)/3 mL Inhl nebu 3 mL 4 times per day as needed (Last dose: Unknown) 7. gabapentin 300 mg Oral cap 1 cap twice a day (Last dose: 06/05/2016) 8. glipizide 2.5 mg Oral tr24 once daily (Last dose: 06/05/2016) 9. midodrine 5 mg oral tab 1 tabs 3 times per day (Last dose: 06/06/2016 05:00) 10. Oxygen 2 l nc daily 11. renavite 1 tab nightly (Last dose: 06/05/2016 20:00) 12. Spiriva with HandiHaler 18 mcg Inhl CpDv 1 cap once daily (Last dose: 06/05/2016 08:00) 13. Uloric 40 mg oral tab 1 tab once daily (Last dose: 06/05/2016 08:00) 14. Vitamin D Oral 96089 unit monthly (Last dose: 05/16/2016) - PMHx: CHF; COPD; Diabetes - NIDDM: controlled; Heart Murmur; Hypercholesterolemia; Irregular heart rate; Renal Failure with Dialysis; - PSHx: AICD; dailysis fistula right arm; Cholecystectomy; Tubal ligation; Cardiac cath; - Social history: Smoking status: Patient states former smoker of tobacco. No barriers to communication noted, The patient speaks fluent Mongolian. - Family history: No immediate family members are acutely ill. - : The pt / caregiver states he / she is not on anticoagulants. Home medication list is obtained from the patient, family members. - Exposure Risk Screening:: None identified. Vital Signs: 06/06 11:21 BP 70 / 47; Pulse 98; Resp 20 S; Temp 99.2(T); Pulse Ox 94% on 3 lpm NC; Weight 52.16 gr2 kg / 114.99 lbs; Height 4 ft. 11 in. (149.86 cm) (R); Pain 4/10; 11:38 Resp 36; jc4 11:52 Pulse 92 MON; Pulse Ox 99% ; ja5 11:53 BP 87 / 53 (auto/); ja5 13:03 Resp 28; jc4 13:06 BP 56 / 36 (auto/); ja5 13:06 Pulse 92 MON; Pulse Ox 93% ; ja5 13:07 BP 51 / 36 (auto/); ja5 13:07 Pulse 92 MON; Pulse Ox 93% ; ja5 13:08 BP 53 / 37 (auto/); ja5 13:08 Pulse 90 MON; Pulse Ox 92% ; ja5 13:14 BP 56 / 40 (auto/); ja5 13:14 Pulse 92 MON; Pulse Ox 92% ; ja5 13:19 BP 57 / 40 (auto/); ja5 13:34 BP 65 / 44 (auto/); ja5 13:35 Pulse 90 MON; Pulse Ox 94% ; ja5 13:49 BP 66 / 47 (auto/); ja5 13:51 Pulse 90 MON; Pulse Ox 92% ; ja5 13:53 BP 62 / 40 (auto/); ja5 13:53 Pulse 90 MON; Pulse Ox 92% ; ja5 13:58 BP 65 / 47 (auto/); ja5 13:58 Pulse 90 MON; Pulse Ox 91% ; ja5 14:04 BP 65 / 45 (auto/); jc4 14:04 Pulse 90 MON; Pulse Ox 93% ; jc4 14:09 BP 66 / 43 (auto/); ja5 14:12 Pulse 79 MON; Pulse Ox 92% ; ja5 14:13 BP 66 / 43; Pulse 90; Resp 24; Pulse Ox 97% on 3 lpm NC; jc4 14:15 BP 63 / 47 (auto/); ja5 14:15 Pulse 75 MON; Pulse Ox 97% ; ja5 14:30 BP 73 / 50 (auto/); ja5 14:30 Pulse 71 MON; Pulse Ox 96% ; ja5 14:43 BP 71 / 51 (auto/); hs1 14:43 Pulse 92 MON; Pulse Ox 94% ; hs1 14:45 BP 71 / 52 (auto/); hs1 14:45 Pulse 91 MON; Pulse Ox 92% ; hs1 15:00 BP 70 / 48 (auto/); hs1 15:00 Pulse 89 MON; Pulse Ox 95% ; hs1 15:15 BP 72 / 49 (auto/); hs1 15:15 Pulse 90 MON; Pulse Ox 98% ; hs1 15:30 BP 62 / 45 (auto/); hs1 15:30 Pulse 90 MON; Pulse Ox 96% ; hs1 15:45 BP 64 / 48 (auto/); hs1 15:45 Pulse 92 MON; Resp 24; Pulse Ox 95% ; hs1 16:00 BP 66 / 45 (auto/); hs1 16:00 Pulse 90 MON; Pulse Ox 96% ; hs1 16:15 BP 70 / 38 (auto/); hs1 16:15 Pulse 99 MON; Pulse Ox 95% ; hs1 16:30 BP 86 / 50 (auto/); hs1 16:30 Pulse 91 MON; Pulse Ox 93% ; hs1 16:45 BP 78 / 50 (auto/); hs1 16:45 Pulse 89 MON; Pulse Ox 96% ; hs1 17:00 BP 74 / 50 (auto/); hs1 17:00 Pulse 89 MON; Pulse Ox 96% ; hs1 17:15 BP 76 / 53 (auto/); hs1 17:15 Pulse 97 MON; Pulse Ox 94% ; hs1 17:30 BP 74 / 51 (auto/); hs1 17:30 Pulse 87 MON; Pulse Ox 94% ; hs1 17:45 BP 72 / 51 (auto/); hs1 17:45 Pulse 86 MON; Resp 24; Pulse Ox 95% ; hs1 18:30 BP 86 / 54; Pulse 90; Resp 22; Temp 97.4; Pulse Ox 96% ; Pain 0/10; hs1 11:21 Body Mass Index 23.23 (52.16 kg, 149.86 cm) gr2 MDM: 11:25 -Blood Culture (Adults Only), peripheral from different site, or from device/port/PICC sd1 etc. if present ordered. 11:25 Brick Setter/Pulse Ox/q 15 min VS ordered. sd1 11:25 IV Saline Lock ordered. sd1 11:25 Oxygen at 4L/Min NC or Home dosage ordered. sd1 11:25 Rhythm Strip to chart ordered. sd1 11:26 B-Type Natiuretic Peptide Ordered. EDMS 11:26 Basic Metabolic Profile Ordered. EDMS 11:26 CBC with Diff Ordered. EDMS 11:26 Cardiac Injury Profile Ordered. EDMS 11:26 Troponin Ordered. EDMS 11:26 Lactic Acid (Johnson tube on ice) Ordered. EDMS 11:26 -Blood Culture Ordered. EDMS 11:26 Chest, 1 View Ordered. EDMS 11:27 ECG WITH READING ER PHYS+CARDIAG ordered. EDMS 11:37 Misc Smt Machine Operator Order ordered. sd1 11:38 BED REQUEST+ADM ordered. EDMS 11:39 Call Respiratory ordered. sd1 11:39 Albuterol-Ipratropium 1 neb Nebulizer every 20 minutes x3 ordered. sd1 11:39 Solu-MEDROL 125 mg IVP once ordered. sd1 11:41 -Arterial Blood Gas Ordered. EDMS 11:44 Call Respiratory complete. jc4 11:56 RESPIRATORY PANEL Ordered. EDMS 11:56 cefTRIAXone 2 grams IVPB once over 30 mins; dilute in 50mL of NS or D5W ordered. sd1 11:56 Misc Smt Machine Operator Order complete. lbd 11:57 -Blood Culture (Adults Only), peripheral from different site, or from device/port/PICC lbd etc. if present complete. 12:00 BLOOD CULTURES Ordered. EDMS 12:14 CT Chest Without Contrast Ordered. EDMS 12:36 B-Type Natiuretic Peptide Reviewed. sd1 12:36 Basic Metabolic Profile Reviewed. sd1 12:36 CBC with Diff Reviewed. sd1 12:36 Cardiac Injury Profile Reviewed. sd1 12:36 -Arterial Blood Gas Reviewed. sd1 12:36 Troponin Reviewed. sd1 12:36 Lactic Acid (Johnson tube on ice) Reviewed. sd1 12:36 Chest, 1 View Reviewed. sd1 12:45 vancomycin 1 grams IVPB once over 60 mins; dilute in 250mL of NS or D5W ordered. sd1 13:15 NS 0.9% 250 ml IV at bolus once ordered. sd1 13:33 CT ANGIO CHEST Ordered. EDMS 13:45 Financial registration complete. mm15 14:02 NS 0.9% 250 ml IV at bolus once ordered. sd1 14:15 [facility] Payment Agreement was scanned into [employer] and attached to record. mm15 14:20 Admission / Observation Status ordered. EDMS 15:21 CONSISTENT CARBOHYDRATES ordered. EDMS 15:38 NS 0.9% 250 ml IV at bolus once ordered. sd1 06/07 20:03 T-Sheet-- Draft Copy was scanned into [employer] and attached to record. klr Administered Medications: 06/06 11:57 Drug: Solu-MEDROL 125 mg [Solu-Medrol 500 mg intravenous solution (125 mg)] Route: IVP; ja5 Site: left antecubital; 12:00 Drug: Albuterol-Ipratropium 1 neb [ipratropium-albuterol 0.5 mg-3 mg(2.5 mg base)/3 mL ac1 nebulization soln (1 neb)] Route: Nebulizer; 12:05 Follow up: bd diminished bilat ac1 12:20 Drug: Albuterol-Ipratropium 1 neb [ipratropium-albuterol 0.5 mg-3 mg(2.5 mg base)/3 mL ac1 nebulization soln (1 neb)] Route: Nebulizer; 12:31 Drug: Albuterol-Ipratropium 1 neb [ipratropium-albuterol 0.5 mg-3 mg(2.5 mg base)/3 mL ac1 nebulization soln (1 neb)] Route: Nebulizer; 12:36 Follow up: bs diminished bilat ac1 13:02 Drug: cefTRIAXone 2 grams [ceftriaxone 1 gram solution for injection] Route: IVPB; ja5 Infused Over: 30 mins; Site: left antecubital; 13:57 Follow up: IV Status: Completed infusion ja5 13:21 Drug: NS 0.9% 250 ml [sodium chloride 0.9 % intravenous solution] Route: IV; Rate: ja5 bolus; Site: left antecubital; 14:13 Follow up: BP 66 / 43; Pulse 90 bpm; Resp 24 bpm; Pulse Ox 97% 3 lpm Nasal Cannula; IV jc4 Status: Completed infusion; IV Intake: 250ml 13:57 Drug: vancomycin 1 grams [vancomycin 1,000 mg intravenous injection] Route: IVPB; ja5 Infused Over: 60 mins; Site: left antecubital; 14:14 Drug: NS 0.9% 250 ml [sodium chloride 0.9 % intravenous solution] Route: IV; Rate: jc4 bolus; Site: left forearm; 15:57 Drug: NS 0.9% 250 ml [sodium chloride 0.9 % injection solution] Route: IV; Rate: bolus; hs1 Site: left antecubital; Signatures: Dispatcher [employer] EDNela Suarez MD MD sd1 Sara Tran, [facility] lbd Yesenia Davila RN RN hs1 Elyssa Cagle RN RN jc4 Jaky Lopez RN RN f Naseem Lundberg mm15 Donna Lange RN RN sls2 Adelina Kapoor JessicaRN RN ja5 Korin Noble RT ac1 The chart was reviewed and I authenticate all verbal orders and agree with the evaluation and treatment provided.Corrections: (The following items were deleted from the chart) 13:33 13:27 CT Chest with contrast+CT ordered. EDMS EDMS 13:34 11:38 Allergies: IV Dye; jc4 ja5 15:21 14:20 2 GRAM SODIUM DIET ordered. EDMS EDMS Attachments: 14:15 [facility] Payment Agreement [id number] 06/07 20:03 T-Sheet-- Draft Copy klr Chart Complete MTDD
--- NOTE | 2016-06-09 19:56 | EDDOCDS ---
Nurse's Notes [facility] Name: Temitope Shabazz Age: 70 yrs Sex: Female : 1945 Arrival Date: 06/06/2016 Time: 11:19 Bed Admit Hold Private MD: Evelin Ribeiro Diagnosis: Pneumonia due to other specified bacteria Presentation: 06/06 11:28 Presenting complaint: Daughter states that patient has been short of breath for the jc4 past 3 days, progressively getting worse. States has not been drinking well. Has had increased swelling in feet. Was at dialysis this morning. Suicide/Homicide risk assessment- the patient denies having any suicidal and/or homicidal ideations and does not present with any other emotional, behavioral or mental health complaints. 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 Transition of care: patient was received from a primary care office; [facility]. 11:28 Acuity: CRISTEL Level 2 jc4 11:28 Method Of Arrival: Wheelchair 4 18:22 Adult Sepsis Screening: The patient does not have new or worsening altered mentation. hs1 Patient has a respiratory rate of greater than or equal to 22 (1 point). Systolic blood pressure is less than or equal to 100 (1 point). Patient has a qSOFA score of 2. Patient has cough and/or SOB- Positive Sepsis Screen. Patient made CRISTEL Level 2. Triage Assessment: 11:38 General: Appears ill, Behavior is cooperative. Pain: Pain currently is 8 out of 10 on a jc4 pain scale. The patient is triaged at the bedside. See Assessment in Nurses Notes section of ED record. Respiratory: Onset: The symptoms/episode began/occurred 3 days ago. Historical: - Allergies: PENICILLINS; Ramipril; Sulfa (Sulfonamide Antibiotics); IV Dye (caused kidney failure); - Home Meds: 1. Atarax 25 mg oral tab 1 tab as needed (Last dose: 06/05/2016 20:00) 2. budesonide 0.5 mg/2 mL inhalation nbsp 2 mL 2 times per day (Last dose: 06/05/2016 20:00) 3. Claritin 10 mg Oral tab 1 tab once daily (Last dose: 06/05/2016 08:00) 4. Crestor 20 mg Oral tab 1 tab nightly (Last dose: 06/05/2016 20:00) 5. Demadex 20 mg Oral tab 2 tabs every other day (Last dose: 06/05/2016 08:00) 6. DuoNeb 0.5 mg-3 mg(2.5 mg base)/3 mL Inhl nebu 3 mL 4 times per day as needed (Last dose: Unknown) 7. gabapentin 300 mg Oral cap 1 cap twice a day (Last dose: 06/05/2016) 8. glipizide 2.5 mg Oral tr24 once daily (Last dose: 06/05/2016) 9. midodrine 5 mg oral tab 1 tabs 3 times per day (Last dose: 06/06/2016 05:00) 10. Oxygen 2 l nc daily 11. renavite 1 tab nightly (Last dose: 06/05/2016 20:00) 12. Spiriva with HandiHaler 18 mcg Inhl CpDv 1 cap once daily (Last dose: 06/05/2016 08:00) 13. Uloric 40 mg oral tab 1 tab once daily (Last dose: 06/05/2016 08:00) 14. Vitamin D Oral 07549 unit monthly (Last dose: 05/16/2016) - PMHx: CHF; COPD; Diabetes - NIDDM: controlled; Heart Murmur; Hypercholesterolemia; Irregular heart rate; Renal Failure with Dialysis; - PSHx: AICD; dailysis fistula right arm; Cholecystectomy; Tubal ligation; Cardiac cath; - Social history: Smoking status: Patient states former smoker of tobacco. No barriers to communication noted, The patient speaks fluent Swazi. - Family history: No immediate family members are acutely ill. - : The pt / caregiver states he / she is not on anticoagulants. Home medication list is obtained from the patient, family members. - Exposure Risk Screening:: None identified. Screenin:40 Screening information is obtained from the patient, family members. Fall risk: At risk jc4 due to gait disturbance, uses walker. The following interventions are performed due to a positive Fall Risk Screen: Fall Risk is added to Special Handling on the patient Summary Screen. A Fall Risk Bracelet was applied to the patient. Side Rails are placed in the up position. A Call Tang is given with instruction to call for help when getting out of bed. Assistance ADL's: Requires assistance with meal preparation, this assistance is provided by family members, housework, assistance is provided by family members, medication administration, assistance is provided by family members. Abuse/DV Screen: The patient / caregiver reports he/she is: not in a situation that causes fear, pain or injury. Nutritional screening: On renal diet. Advance Directives: Currently, there is a health care proxy, Preeti Gilbert, daughter. There is no active DNR order. There is a living will, but a copy is not available at this time. There is no Power of Registered Account Administrator. home support is adequate. Assessment: 12:14 General: Appears distressed, Behavior is anxious, cooperative. Neurological: Level of ja5 Consciousness is awake, alert, Oriented to person, place, time. Cardiovascular: Heart tones S1 S2 present Rhythm is sinus rhythm No ectopy. Respiratory: Airway is patent Respiratory effort is even, labored, Respiratory pattern is regular, symmetrical, tachypnea Breath sounds with crackles inspiratory bilaterally. Reports cough that is productive, labored breathing. Derm: Skin is pale. 13:21 General: Patient is laying in stretcher, still tachypneic at 28 bpm occasional pursed ja5 lip breathing noted, O2 sat 94% on 2L O2 NC. SR on cardiac rehabilitation program director. BP was reading hypotensive with SBP in 50s so manual BP was taken at 56/42. Provider was notified and new orders for a fluid bolus was received. Bolus is hanging as well as antibiotic infusion to left AC. Patient position was changed with head as low as patient can tolerate at this time.. 14:40 General:. ja5 14:46 General: Patient is laying supine in stretcher, #2 250ml NS IV bolus and antibiotics ja5 running to left AC. BP is back up to 71/52, O2 sat 91% on 3L O2 NC with even respirations at a rate of 28BPM, she is still requiring much effort to breathe. HR is showing SR on cardiac rehabilitation program director. Bed in low position, call tang in reach, family at bedside.. 15:45 General: Appears patient continuing to lay in stretcher. Family aware of further plan hs1 of care at this time. Susu (daughter) will be stepping out to run a few errands and is reachable by cell phone. Patient continuing to ask for something to drink. Call out to Dr Meclhor for further plan of care. . 16:35 General: Appears in no apparent distress, comfortable, Behavior is appropriate for age, hs1 cooperative, patient aware of waiting for ICU bed. Patient given something to drink per order. Patient has no further questions and is much more comfortable now that she has been able to have something to drink. . Respiratory: Airway is patent Respiratory effort is even, unlabored, Respiratory pattern is regular, symmetrical, tachypnea. Derm: Skin is pale. Vital Signs: 11:21 BP 70 / 47; Pulse 98; Resp 20 S; Temp 99.2(T); Pulse Ox 94% on 3 lpm NC; Weight 52.16 gr2 kg; Height 4 ft. 11 in. (149.86 cm) (R); Pain 4/10; 11:38 Resp 36; jc4 11:52 Pulse 92 MON; Pulse Ox 99% ; ja5 11:53 BP 87 / 53 (auto/); ja5 13:03 Resp 28; jc4 13:06 BP 56 / 36 (auto/); ja5 13:06 Pulse 92 MON; Pulse Ox 93% ; ja5 13:07 BP 51 / 36 (auto/); ja5 13:07 Pulse 92 MON; Pulse Ox 93% ; ja5 13:08 BP 53 / 37 (auto/); ja5 13:08 Pulse 90 MON; Pulse Ox 92% ; ja5 13:14 BP 56 / 40 (auto/); ja5 13:14 Pulse 92 MON; Pulse Ox 92% ; ja5 13:19 BP 57 / 40 (auto/); ja5 13:34 BP 65 / 44 (auto/); ja5 13:35 Pulse 90 MON; Pulse Ox 94% ; ja5 13:49 BP 66 / 47 (auto/); ja5 13:51 Pulse 90 MON; Pulse Ox 92% ; ja5 13:53 BP 62 / 40 (auto/); ja5 13:53 Pulse 90 MON; Pulse Ox 92% ; ja5 13:58 BP 65 / 47 (auto/); ja5 13:58 Pulse 90 MON; Pulse Ox 91% ; ja5 14:04 BP 65 / 45 (auto/); jc4 14:04 Pulse 90 MON; Pulse Ox 93% ; jc4 14:09 BP 66 / 43 (auto/); ja5 14:12 Pulse 79 MON; Pulse Ox 92% ; ja5 14:13 BP 66 / 43; Pulse 90; Resp 24; Pulse Ox 97% on 3 lpm NC; jc4 14:15 BP 63 / 47 (auto/); ja5 14:15 Pulse 75 MON; Pulse Ox 97% ; ja5 14:30 BP 73 / 50 (auto/); ja5 14:30 Pulse 71 MON; Pulse Ox 96% ; ja5 14:43 BP 71 / 51 (auto/); hs1 14:43 Pulse 92 MON; Pulse Ox 94% ; hs1 14:45 BP 71 / 52 (auto/); hs1 14:45 Pulse 91 MON; Pulse Ox 92% ; hs1 15:00 BP 70 / 48 (auto/); hs1 15:00 Pulse 89 MON; Pulse Ox 95% ; hs1 15:15 BP 72 / 49 (auto/); hs1 15:15 Pulse 90 MON; Pulse Ox 98% ; hs1 15:30 BP 62 / 45 (auto/); hs1 15:30 Pulse 90 MON; Pulse Ox 96% ; hs1 15:45 BP 64 / 48 (auto/); hs1 15:45 Pulse 92 MON; Resp 24; Pulse Ox 95% ; hs1 16:00 BP 66 / 45 (auto/); hs1 16:00 Pulse 90 MON; Pulse Ox 96% ; hs1 16:15 BP 70 / 38 (auto/); hs1 16:15 Pulse 99 MON; Pulse Ox 95% ; hs1 16:30 BP 86 / 50 (auto/); hs1 16:30 Pulse 91 MON; Pulse Ox 93% ; hs1 16:45 BP 78 / 50 (auto/); hs1 16:45 Pulse 89 MON; Pulse Ox 96% ; hs1 17:00 BP 74 / 50 (auto/); hs1 17:00 Pulse 89 MON; Pulse Ox 96% ; hs1 17:15 BP 76 / 53 (auto/); hs1 17:15 Pulse 97 MON; Pulse Ox 94% ; hs1 17:30 BP 74 / 51 (auto/); hs1 17:30 Pulse 87 MON; Pulse Ox 94% ; hs1 17:45 BP 72 / 51 (auto/); hs1 17:45 Pulse 86 MON; Resp 24; Pulse Ox 95% ; hs1 18:30 BP 86 / 54; Pulse 90; Resp 22; Temp 97.4; Pulse Ox 96% ; Pain 0/10; hs1 11:21 Body Mass Index 23.23 (52.16 kg, 149.86 cm) gr2 Vitals: 11:21 Log In Time: June 06, 2016 at 11:21. gr2 11:21 RN notified that patient meets Red Flag criteria. gr2 ED Course: 11:21 Patient visited by Montse Martin. gr2 11:21 Evelin Ribeiro is Private Physician. gr2 11:21 Patient moved to Waiting gr2 11:24 Elyssa Cagle, BATSHEVA is Primary Nurse. elp 11:24 Tamera Goldman,BATSHEVA is Primary Nurse. elp 11:24 Patient visited by Montse Martin. gr2 11:24 Patient moved to 14 elp 11:30 Triage Initiated jc4 11:33 Nela Wen MD is Attending Physician. sd1 11:33 Patient visited by Nela Wen MD. sd1 11:39 Inserted saline lock: 20 gauge in left antecubital area The patient tolerated the jc4 procedure well. done by Wilder Goldman RN. 11:43 The patient / caregiver is instructed regarding the plan of care and ED course. Cardiac jc4 monitor on. Pulse ox on. NIBP on. 11:50 EKG done. (by ED staff). Reviewed by Nela Wen MD. cmb 12:11 Patient visited by Susie Adams. cmb 12:23 Chest, 1 View Returned. EDMS 12:28 -Arterial Blood Gas Sent. ac1 12:59 Patient visited by Tamera Goldman RN. ja5 13:26 Patient visited by Nela Wen MD. sd1 13:30 Patient visited by Tamera Goldman RN. ja5 13:58 CT Chest Without Contrast Returned. EDMS 14:05 Patient moved to 3 jc4 14:07 Aubree Melchor is Hospitalizing Provider. sd1 14:15 [facility] Payment Agreement was scanned into [employer] and attached to record. mm15 14:48 CT ANGIO CHEST Returned. EDMS 16:20 Patient moved to Admit Hold [facility] 17:06 Yesenia Davila, RN is Primary Nurse. hs1 18:22 No procedures done that require assistance. hs1 06/07 20:03 T-Sheet-- Draft Copy was scanned into [employer] and attached to record. klr Administered Medications: 06/06 11:57 Drug: Solu-MEDROL 125 mg [Solu-Medrol 500 mg intravenous solution (125 mg)] Route: IVP; ja5 Site: left antecubital; 12:00 Drug: Albuterol-Ipratropium 1 neb [ipratropium-albuterol 0.5 mg-3 mg(2.5 mg base)/3 mL ac1 nebulization soln (1 neb)] Route: Nebulizer; 12:05 Follow up: bd diminished bilat ac1 12:20 Drug: Albuterol-Ipratropium 1 neb [ipratropium-albuterol 0.5 mg-3 mg(2.5 mg base)/3 mL ac1 nebulization soln (1 neb)] Route: Nebulizer; 12:31 Drug: Albuterol-Ipratropium 1 neb [ipratropium-albuterol 0.5 mg-3 mg(2.5 mg base)/3 mL ac1 nebulization soln (1 neb)] Route: Nebulizer; 12:36 Follow up: bs diminished bilat ac1 13:02 Drug: cefTRIAXone 2 grams [ceftriaxone 1 gram solution for injection] Route: IVPB; ja5 Infused Over: 30 mins; Site: left antecubital; 13:57 Follow up: IV Status: Completed infusion ja5 13:21 Drug: NS 0.9% 250 ml [sodium chloride 0.9 % intravenous solution] Route: IV; Rate: ja5 bolus; Site: left antecubital; 14:13 Follow up: BP 66 / 43; Pulse 90 bpm; Resp 24 bpm; Pulse Ox 97% 3 lpm Nasal Cannula; IV jc4 Status: Completed infusion; IV Intake: 250ml 13:57 Drug: vancomycin 1 grams [vancomycin 1,000 mg intravenous injection] Route: IVPB; ja5 Infused Over: 60 mins; Site: left antecubital; 14:14 Drug: NS 0.9% 250 ml [sodium chloride 0.9 % intravenous solution] Route: IV; Rate: jc4 bolus; Site: left forearm; 15:57 Drug: NS 0.9% 250 ml [sodium chloride 0.9 % injection solution] Route: IV; Rate: bolus; hs1 Site: left antecubital; Intake: 13:57 IV: 50.00ml (NS); Total: 50.00ml. jc4 14:13 IV: 250.00ml; Total: 300.00ml. jc4 RT: 12:00 Initial Med Neb Given as ordered. ac1 12:05 Respiratory: Breath sounds are diminished bilaterally. ac1 12:20 Subsequent Med Neb Given as ordered. ac1 12:21 ABG's drawn from left radial artery allens test done and positive pressure held for 5 ac1 minutes no bleeding noted pressure bandage applied specimen sent pt. tolerated well. 12:25 Respiratory: Breath sounds are diminished bilaterally. ac1 12:30 Subsequent Med Neb Given as ordered. ac1 12:37 Respiratory: Breath sounds are diminished bilaterally. ac1 Order Results: Lab Order: B-Type Natiuretic Peptide; SPEC'M 06/06/16 11:39 Test: BRAIN NATRIURETIC PEPTIDE; Value: > 5000; Range: <100; Abnormal: Above high normal; Units: PG/ML; Status: F Lab Order: Basic Metabolic Profile; SPEC'M 06/06/16 11:39 Test: GLUCOSE, FASTING; Value: 107; Range: 83-110; Units: MG/DL; Status: F Test: BLOOD UREA NITROGEN; Value: 19; Range: 7-18; Abnormal: Above high normal; Units: MG/DL; Status: F Test: CREATININE FOR GFR; Value: 2.59; Range: 0.55-1.02; Abnormal: Above high normal; Units: MG/DL; Status: F Test: GLOMERULAR FILTRATION RATE; Value: 19.5; Range: >39; Abnormal: Below low normal; Status: F Test: SODIUM LEVEL; Value: 137; Range: 136-145; Units: MEQ/L; Status: F Test: POTASSIUM SERUM; Value: 3.3; Range: 3.5-5.1; Abnormal: Below low normal; Units: MEQ/L; Status: F Test: CHLORIDE LEVEL; Value: 92; Range: 98-107; Abnormal: Below low normal; Units: MEQ/L; Status: F Test: CARBON DIOXIDE LEVEL; Value: 35; Range: 21-32; Abnormal: Above high normal; Units: MEQ/L; Status: F Test: ANION GAP; Value: 10; Range: 8-16; Units: MEQ/L; Status: F Test: CALCIUM LEVEL; Value: 9.1; Range: 8.8-10.2; Units: MG/DL; Status: F Test Note: ; Units are mL/min/1.73 m2 Chronic Kidney Disease Staging per NKF: Stage I & II GFR >=60 Normal to Mildly Decreased Stage III GFR 30-59 Moderately Decreased Stage IV GFR 15-29 Severely Decreased Stage V GFR <15 Very Little GFR Left ESRD GFR <15 on PHYSICAL BIOCHEMIST Lab Order: CBC with Diff; SPEC'M 06/06/16 11:39 Test: WHITE BLOOD COUNT; Value: 7.9; Range: 4.0-10.0; Units: K/mm3; Status: F Test: RED BLOOD COUNT; Value: 3.38; Range: 4.00-5.40; Abnormal: Below low normal; Units: M/mm3; Status: F Test: HEMOGLOBIN; Value: 10.0; Range: 12.0-16.0; Abnormal: Below low normal; Units: g/dl; Status: F Test: HEMATOCRIT; Value: 32.7; Range: 36.0-47.0; Abnormal: Below low normal; Units: %; Status: F Test: MEAN CORPUSCULAR VOLUME; Value: 96.9; Range: 80.0-96.0; Abnormal: Above high normal; Units: fl; Status: F Test: MEAN CORPUSCULAR HEMOGLOBIN; Value: 29.7; Range: 27.0-33.0; Units: pg; Status: F Test: MEAN CORPUSCULAR HGB CONC; Value: 30.6; Range: 32.0-36.5; Abnormal: Below low normal; Units: g/dl; Status: F Test: RED CELL DISTRIBUTION WIDTH; Value: 15.7; Range: 11.5-14.5; Abnormal: Above high normal; Units: %; Status: F Test: PLATELET COUNT, AUTOMATED; Value: 528; Range: 150-450; Abnormal: Above high normal; Units: k/mm3; Status: F Test: NEUTROPHILS %; Value: 82.1; Range: 36.0-66.0; Abnormal: Above high normal; Units: %; Status: F Test: LYMPH %; Value: 6.8; Range: 24.0-44.0; Abnormal: Below low normal; Units: %; Status: F Test: MONO %; Value: 6.7; Range: 0.0-5.0; Abnormal: Above high normal; Units: %; Status: F Test: EOS %; Value: 0.7; Range: 0.0-3.0; Units: %; Status: F Test: BASO %; Value: 0.3; Range: 0.0-1.0; Units: %; Status: F Test: LARGE UNSTAINED CELL %; Value: 3.3; Range: 0.0-4.0; Units: %; Status: F Test: NEUTROPHILS #; Value: 6.5; Range: 1.8-7.7; Units: K/mm3; Status: F Test: LYMPH #; Value: 0.5; Range: 1.5-4.5; Abnormal: Below low normal; Units: K/mm3; Status: F Test: MONO #; Value: 0.5; Range: 0.0-0.8; Units: K/mm3; Status: F Test: EOS #; Value: 0.1; Range: 0.0-0.50; Units: K/mm3; Status: F Test: BASO #; Value: 0.0; Range: 0.0-0.2; Units: K/mm3; Status: F Test: LARGE UNSTAINED CELL #; Value: 0.3; Range: 0.0-0.4; Units: K/mm3; Status: F Lab Order: Cardiac Injury Profile; [facility] 06/06/16 11:39 Test: CPK CREATINE PHOSPHOKINASE; Value: 33; Range: 26-192; Units: U/L; Status: F Test: CK-MB VALUE MASS; Value: 2.6; Range: 0.0-3.6; Units: NG/ML; Status: F Test: MB/CK RELATIVE INDEX; Value: 7.87; Range: < OR =4; Abnormal: Above high normal; Status: F Test Note: ; DIAGNOSIS CRITERIA MMB ng/ml Relative Index (RI) NON-AMI < or = 5 N/A [place] > 5 < or = 4 AMI > 5 > 4 Lab Order: Troponin; [facility] 06/06/16 11:39 Test: TROPONIN I; Value: 0.07; Range: < 0.10; Units: NG/ML; Status: F Test Note: ; Troponin I Reference Interval for [employer] LOCI: 99th Percentile= 0.00-0.045 ng/ml Risk Stratification: <= 0.10 ng/ml Decreased Risk for Adverse Clinical Events. 0.10-1.50 ng/ml Increased Risk for Adverse Clinical Events. Evaluation of additional criterion and/or repeat testing in 2-6 hours is suggested to rule out myocardial damage. >= 1.50 ng/ml Indicative of Myocardial Injury. Lab Order: Lactic Acid (Johnson tube on ice); [facility] 06/06/16 11:39 Test: LACTIC ACID SEPSIS PROTOCOL; Value: 1.9; Range: 0.4-2.0; Units: MMOL/L; Status: F Lab Order: -Arterial Blood Gas; [facility] 06/06/16 12:10 Test: ABG pH (ARTERIAL); Value: 7.485; Range: 7.350-7.450; Abnormal: Above high normal; Units: UNITS; Status: F Test: ABG PARTIAL PRESSURE CO2; Value: 46.0; Range: 35.0-45.0; Abnormal: Above high normal; Units: mmHg; Status: F Test: ABG PARTIAL PRESSURE O2; Value: 82.3; Range: 75.0-100.0; Units: mmHg; Status: F Test: ABG TOTAL CO2; Value: 35.3; Range: 23.0-31.0; Abnormal: Above high normal; Units: MEQ/L; Status: F Test: ABG HCO3; Value: 33.9; Range: 22.0-26.0; Abnormal: Above high normal; Units: MEQ/L; Status: F Test: ABG BASE EXCESS; Value: 9.4; Range: -2.0-2.0; Abnormal: Above high normal; Status: F Test: ABG STANDARD HCO3; Value: 33.1; Range: 22.0-26.0; Abnormal: Above high normal; Units: MEQ/L; Status: F Test: ABG O2 SATURATION; Value: 96.2; Range: 95.0-99.0; Units: %; Status: F Test: ABG DEVICE; Value: NASAL ETTA; Status: F Lab Order: RESPIRATORY PANEL; [facility] 02/22/17 12:12 Test: RESPIRATORY PANEL; Value: RP PANEL RESULT NEGATIVE by PCR; Status: F Test: RESPIRATORY PANEL; Value: Comments:; Status: F Test Note: ; This respiratory PCR panel detects Influenza A H1, H3 and 2009 H1 viruses, Influenza B virus, Respiratory syncytial virus, Human metapneumovirus, Parainfluenza virus 1, 2, 3 and 4, Adenovirus, Rhinovirus/Enterovirus, Coronavirus HKU1, NL63, OC43 and 229E, Bordetella pertussis, Mycoplasma pneumoniae and Chlamydia pneumoniae. Radiology Order: Chest, 1 View Test: Chest, 1 View REASON FOR EXAMINATION: Shortness of Breath; Clinical: Shortness of breath.; ; Comparison: 05/11/2016.; ; Findings:; Cardiomegaly is appreciated along with bilateral infiltrates and pleural; effusions (right greater than left). No pneumothorax. Skeletal structures; intact.; ; Impression:; Findings suggest pulmonary edema with bibasilar infiltrates and pleural effusions; (right greater than left). Differential diagnosis includes multifocal; pneumonia.; ; ; Signed by; Eugene Merrill MD 06/06/2016 11:38 A; Radiology Order: CT Chest Without Contrast Test: CT Chest Without Contrast REASON FOR EXAMINATION: Shortness of Breath; Clinical: Chest pain and shortness of breath.; ; Comparison: 10/29/2008.; ; Findings:; Large right pleural effusion is appreciated with right lower lobe, left lower; lobe, and basilar right upper lobe infiltrates and atelectasis suggesting; multifocal pneumonia. However, the patient exhibits descending thoracic aortic; aneurysm measuring roughly 5.3 cm maximal diameter with extensive atherosclerotic; changes which is inseparable from surrounding areas of consolidation and possible; fluid and while less likely, aortic leakage/rupture cannot definitively be; excluded. Cardiomegaly and atherosclerotic changes to the coronary arteries is; also appreciated.; ; Impression:; 1. Large right pleural effusion and multi focal consolidations and atelectasis; likely representing multifocal pneumonia.; 2. However, descending thoracic aortic aneurysm with atherosclerotic changes is; inseparable from the surrounding areas of fluid/consolidation and while less; likely, aortic leakage/rupture cannot definitively be excluded. Consider; postcontrast CTA of the chest for further investigation if necessary.; ; ; Signed by; Eugene Merrill MD 06/06/2016 01:11 P; Radiology Order: CT ANGIO CHEST Test: CT ANGIO CHEST REASON FOR EXAMINATION: R/O dissection; Clinical: Chest pain rule out dissection.; ; Technique: Contrast enhanced chest CT using CT angiography technique with axial; images from the thoracic inlet to the upper abdomen using 100 ml Isovue 370; intravenous contrast material with multiplanar re-formations.; ; Findings:; The thoracic aorta demonstrates extensive atherosclerotic calcifications and; mural thrombus along with aneurysmal dilatation to the descending thoracic aorta; measuring up to approximately 5.5 cm diameter. There is no evidence for; dissection or rupture. The pulmonary arteries demonstrate satisfactory; enhancement and there is no evidence for pulmonary embolus.; ; Large right pleural effusion along with near complete collapse of the right lower; lobe as well as multifocal areas of consolidation/atelectasis and alveolar; infiltrates involving the left lower lobe and to a lesser extent the right middle; lobe, lingula and right upper lobe. Mediastinum suggests cardiomegaly with; atherosclerotic changes of the coronary arteries without pericardial effusion.; Reactive adenopathy suggested. Surrounding musculoskeletal structures intact.; ; Impression:; ; 1. Extensive atherosclerotic changes and mural thrombus involving the aorta; including aneurysmal dilatation to the descending thoracic aorta. No evidence; for dissection or laceration/ rupture.; 2. Large right pleural effusion and multi focal atelectasis/consolidations.; Presumed reactive adenopathy. Follow-up to resolution recommended; ; ; ; Signed by; Eugene Merirll MD 06/06/2016 02:12 P; Outcome: 14:07 Decision to Hospitalize by Provider. sd1 18:22 The following High Risk Discharge criteria are identified: None. Admitted to ICU hs1 accompanied by nurse, accompanied by tech, via stretcher, with oxygen, on monitor, with chart. Condition: improved critical. CT Study completed. Property :Personal belongings accompany Pt. 18:23 Discharge Assessment: patient administered narcotics - no. hs1 18:41 Patient left the ED. dsf Signatures: Dispatcher [employer] EDMS Nela Wen MD MD sd1 Annie Lorenzo RN RN Korin Ronquillo,RT RT ac1 Yesenia Davila RN RN hs1 Elyssa Cagle RN RN jc4 Jaky Lopez RN RN dsf Susie Adams Gainslee gr2 Naseem Lundberg mm15 Hiwot Zee, AIRLINE OPERATIONS AGENT AIRLINE OPERATIONS AGENT sarhap Adelina Kapoor Jessica, RN RN ja5 Corrections: (The following items were deleted from the chart) 11:24 11:21 BP 70 / 47; Pulse 98bpm; Resp 20bpm; Spontaneous; Pulse Ox 94% 3 lpm Nasal gr2 Cannula; 52.16 kg; Height 4 ft. 11 in. Reported; BMI: 23.2; Pain 4/10; gr2 12:53 12:25 BP 122 / ???; BS-diminished bilat ac1 jc4 13:34 11:38 Allergies: IV Dye; jc4 ja5 Chart Complete MTDD
[2016-06-09] MEDS: ROSUVASTATIN 10 MG TAB (CRESTOR) PO SCH (20:24)
[2016-06-10] VITALS (15 sets, daily range): BP systolic 65–171; BP diastolic 40–88
[2016-06-10] MEDS: IPRATROPIUM 0.5MG/ALBUTEROL 2.5MG INH SOL UD 3ML (DUONEB)(J7620) NEB SCH ×4 (01:49→19:38)
[2016-06-10 05:01] LABS: ALBUMIN 1.9 GM/DL (3.2-5.2); ALBUMIN/GLOBULIN RATIO 0.43 (1.00-1.93); BILIRUBIN,TOTAL 0.4 MG/DL (0.2-1.0); CALCIUM LEVEL 7.5 MG/DL (8.8-10.2); CREATININE FOR GFR 3.82 MG/DL (0.55-1.02); GLOMERULAR FILTRATION RATE 12.4 (>39); MAGNESIUM LEVEL 2.2 MG/DL (1.8-2.4); POTASSIUM SERUM 4.5 MEQ/L (3.5-5.1); TOTAL PROTEIN 6.3 GM/DL (6.4-8.2)
[2016-06-10 05:06] LABS: DIFF SLIDE NUMBER 30; MEAN CORPUSCULAR HGB CONC 28.5 g/dl (32.0-36.5); PLATELET COUNT, AUTOMATED 380 k/mm3 (150-450); RED CELL DISTRIBUTION WIDTH 16.5 % (11.5-14.5); WHITE BLOOD COUNT 11.9 K/mm3 (4.0-10.0)
[2016-06-10 05:20] LABS: MEAN CORPUSCULAR VOLUME 105.1 fl (80.0-96.0)
[2016-06-10 06:04] LABS: BANDS 3 % (< 11); CORRECTED WHITE BLOOD COUNT 11.3 K/mm3; EOSINOPHILS 1 % (0-5); NUCLEATED RED BLOOD CELL 5 % (0-0)
[2016-06-10 06:05] LABS: POLYCHROMASIA 1+
[2016-06-10 06:07] LABS: ANISOCYTOSIS 1+; HYPOCHROMASIA 1+
[2016-06-10] MEDS: NYSTATIN 500,000 U/5 ML SUSP UDC SS SCH ×5 (06:30→23:36)
--- NOTE | 2016-06-10 07:07 | IPNPDOC ---
Subjective Date Seen The patient was seen on 06/10/16. Subjective Chief Complaint/HPI The patient is a 70-year-old female admitted with a reason for visit of Shortness Of Breath. General: Reports: Fatigue, Denies: Chills, Malaise, Night Sweats, Normal Appetite, Other Symptoms, ROS Unobtainable Constitutional: Reports: Fatigue, Weakness, Denies: Chills, Fever, Lethargy, Malaise, Night Sweats, Other, Weight Loss Eyes: Denies: Conjunctivae inflammation, Eyelid inflammation, Other, Pain, Redness, Vision change ENT: Denies: Dysphagia, Ear Pain, Epistaxis, Head Aches, Other Symptoms, Post Nasal Drip, Sinus Congestion, Sore Throat Skin: Denies: Breakdown, Bruising, Dry, Itching, Jaundice, Lesions, Nail Changes, Other, Rash Pulmonary: Reports: Cough, Dyspnea, Denies: Other Symptoms, Pleuritic Chest Pain Cardiovascular: Denies: Chest Pain, Edema, Lt Headedness, Orthopnea, Other Symptoms, Palpitations, Paroxysmal Noc. Dyspnea Gastrointestinal: Denies: Abdominal Pain, Constipation, Diarrhea, Hematochezia , Melena, Nausea, Other Symptoms, Vomiting Objective Physical Examination General Exam: Positive: Alert, Cooperative, Mild Distress Eye Exam: Positive: Conjunctiva & lids normal, EOMI, PERRLA, Negative: Sclera icteric ENT Exam: Positive: Atraumatic Neck Exam: Positive: Supple Chest Exam: Positive: Diminished (diminished breath sounds L>R), Other ( crackles R>L), Rhonchi (B/L rhonchi) Heart Exam: Positive: Murmurs, Rate Normal Telemetry: Positive: No significant arrhythmia Abdomen Exam: Positive: Normal bowel sounds, Soft, Negative: Tenderness Extremity Exam: Negative: Edema Psych Exam: Positive: Oriented x 3 Assessment /Plan Problems (1) Pneumonia Status: Acute Response to Treatment: Progressing Problem Specific Plan: Monitor Clinically, Repeat Labs Problem Text: Dwayne and Sage day #4. Sputum cultures/gram stain pending. Multifocal consolidations on CTA. Feels short of breath this morning. Lethargic. ABG pending. 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 Draining straw colored fluid. Pathology unremarkable. Fluid analysis indicated transudative process. CT chest - mass? Discuss further with CTS, assistance appreciated. (3) Hypotension Status: Chronic Problem Specific Plan: Monitor Clinically Problem Text: Chronic hypotension. Continue midodrine 5mg PO TID, timings have been adjusted. Fluid boluses as needed, to be used sparingly. Some sporadic improvements. Continue to monitor. Reports of higher blood pressure readings in lower extremities. Will follow up to check cuff size and accuracy of readings. (4) Diabetes Status: Chronic Problem Specific Plan: Repeat Labs (5) Hypercholesteremia Status: Chronic Problem Text: Crestor (6) Anemia Status: Chronic Problem Text: Secondary to ESRD. (7) Anxiety Status: Chronic Problem Text: Atarax (8) CHF (congestive heart failure) Status: Acute Problem Text: Systolic and diastolic failure. (9) COPD (chronic obstructive pulmonary disease) Status: Chronic Problem Text: Spiriva, pulmicort, duonebs scheduled and prn (10) Hyperparathyroidism Status: Chronic (11) Mitral valve disease Status: Chronic (12) CAD (coronary artery disease) Onset Date: 01/18/2014 Status: Chronic (13) ESRD (end stage renal disease) Onset Date: 01/26/2014 Status: Chronic Problem Specific Plan: Consult Specialist Plan/VTE VTE Prophylaxis Ordered?: Yes (mechanical) Plan Diet: Continue Current Activity: Continue Current Therapy: PT Diagnostics: Repeat Labs in AM, Obtain Cultures Anticipated Discharge: Home, Home With Services VS, I&O, 24H, [facility] Vital Signs/I&O Vital Signs Date Time Temp Pulse Resp B/P Pulse Ox O2 Delivery O2 Flow Rate FiO2 06/10/16 06:05 66/48 Nasal Cannula 2.0 06/10/16 06:00 75 92 06/10/16 04:00 98.1 24 I&O- Last 24 Hours up to 6 AM 06/10/16 06:00 Intake Total 910 ml Output Total 255 ml Balance 655 ml Laboratory Data 24H LABS Laboratory Tests 2 06/09/16 11:27: Bedside Glucose (Misc Panel) 131H 06/09/16 18:09: Bedside Glucose (Misc Panel) 155H 06/09/16 20:17: Bedside Glucose (Misc Panel) 424H 06/10/16 01:07: Bedside Glucose (Misc Panel) 51L 06/10/16 01:35: Bedside Glucose (Misc Panel) 71L 06/10/16 02:15: Bedside Glucose (Misc Panel) 129H 06/10/16 04:26: Bedside Glucose (Misc Panel) 87 06/10/16 04:29: Blood Urea Nitrogen 38H, Creatinine 3.82H, Sodium Level 134L, Potassium Level 4.5, Chloride Level 97L, Carbon Dioxide Level 27, Calcium Level 7.5L, Aspartate Amino Transf (AST/SGOT) 29, Alanine Aminotransferase (ALT/SGPT) 25, Alkaline Phosphatase 171H, Total Bilirubin 0.4, Total Protein 6.3L, Albumin 1.9L, Albumin /Globulin Ratio 0.43L, Anion Gap 10, Anisocytosis 1+, Band Neutrophils 3, White Blood Count 11.9H, Corrected White Blood Count 11.3, Red Blood Count 3.21L, Hemoglobin 9.6L, Hematocrit 33.8L, Mean Corpuscular Volume 105.1#H, Mean Corpuscular Hemoglobin 30.0, Mean Corpuscular Hemoglobin Concent 28.5L, Red Cell Distribution Width 16.5H, Platelet Count 380, Eosinophils (Manual) 1, Glomerular Filtration Rate 12.4L, Hypochromasia 1+, Lymphocytes (Manual) 2L, Magnesium Level 2.2, Metamyelocytes 1H, Monocytes (Manual) 6, Myelocytes 2H, Neutrophils 85H, Nucleated Red Blood Cells 5H, Platelet Estimate NORMAL, Polychromasia 1+ 06/10/16 06:20: Bedside Glucose (Misc Panel) 108 CBC/BMP Laboratory Tests 06/10/16 04:29 Calcium Level 7.5 L, Aspartate Amino Transf (AST/SGOT) 29, Alanine Aminotransferase (ALT/SGPT) 25, Alkaline Phosphatase 171 H, Total Bilirubin 0.4 , Total Protein 6.3 L, Albumin 1.9 L, Corrected White Blood Count 11.3, Red Blood Count 3.21 L, Mean Corpuscular Volume 105.1 #H, Mean Corpuscular Hemoglobin 30.0, Mean Corpuscular Hemoglobin Concent 28.5 L, Red Cell Distribution Width 16.5 H Microbiology Microbiology 06/06/16 Blood Culture - Preliminary, Resulted No Growth after 72 hours. All specime... 06/06/16 Blood Culture - Preliminary, Resulted No Growth after 72 hours. All specime... 06/07/16 Acid Fast Stain, Received Pending 06/07/16 Mycobacterial Culture, Received Pending 06/07/16 Fungal Smear, Received Pending 06/07/16 Fungal Culture, Received Pending 06/07/16 Gram Stain - Final, Complete 06/07/16 Anaerobic Culture - Final, Complete 06/07/16 Body Fluid Culture - Final, Complete 06/07/16 Gram Stain - Final, Complete 06/07/16 Sputum Culture - Final, Complete Yeast Like Organism 06/06/16 Respiratory Virus Panel (PCR) (KEY) - Final, Complete GLADIS ALONSO MD Jun 10, 2016 07:07
[2016-06-10] MEDS: HumaLOG INSULIN (NovoLOG) PER UNIT SC SCH ×4 (07:12→20:54)
--- NOTE | 2016-06-10 07:44 | REP ---
Clinical: Follow up pleural effusion. Technique: PA and lateral. Comparison: 06/09/2016. Findings: Mediastinum and cardiac silhouette are stable. Pigtail catheter in the right lung base is again noted. Bilateral infiltrates and small residual right pleural effusion/reaction with minimally increased fluid in the minor fissure is appreciated. No pneumothorax. Underlying chronic interstitial changes noted. Skeletal structures stable. Impression: Bilateral infiltrates similar to prior examination. Small residual right pleural effusion with minimally increased fluid in the minor fissure noted. Signed by Eugene Merrill MD 06/10/2016 07:36 A
[2016-06-10] MEDS: TIOTROPIUM INHALER/CAPSULE (SPIRIVA) INH SCH (07:56)
[2016-06-10] MEDS: BUDESONIDE 0.5 MG/2 ML INHALATION SUSPENSION INH SCH ×2 (07:56→19:37)
[2016-06-10] MEDS: ASPIRIN 81 MG ENTERIC TAB PO SCH (08:45)
[2016-06-10] MEDS: DOCUSATE SODIUM 100 MG CAP PO SCH (08:45)
[2016-06-10] MEDS: MIDODRINE 5 MG TAB PO SCH ×3 (08:45→18:20)
[2016-06-10] MEDS: PANTOPRAZOLE 40MG TAB (PROTONIX) PO SCH (08:46)
[2016-06-10] MEDS: MOM 30ML SUSPENSION UDC PO SCH (08:46)
[2016-06-10] MEDS: FAMOTIDINE 20 MG TAB PO SCH (08:46)
[2016-06-10] MEDS: GABAPENTIN 300 MG CAP PO SCH ×2 (08:46→20:55)
[2016-06-10] MEDS: FLUTICASONE PROP 0.05% NASAL SPRAY 16 GM (FLONASE) SCH (08:47)
[2016-06-10 08:57] LABS: ABG BASE EXCESS 1.4 (-2.0-2.0); ABG HCO3 26.9 MEQ/L (22.0-26.0); ABG PARTIAL PRESSURE CO2 46.5 mmHg (35.0-45.0); ABG PARTIAL PRESSURE O2 57.9 mmHg (75.0-100.0); ABG STANDARD HCO3 25.6 MEQ/L (22.0-26.0); ABG TOTAL CO2 28.3 MEQ/L (23.0-31.0)
[2016-06-10] MEDS: cefTRIAXone SOD 1 GM in D5W MINI-BAG PLUS 50 ML IV SCH (12:15)
--- NOTE | 2016-06-10 12:15 | IPN ---
DATE: 06/10/2016 Ms. Shabazz had what sounds to be a hypoglycemic event early this morning around 4:00 where she became sweaty and disoriented. It was aborted with by mouth intake. The nurses have made the observation that her blood pressure is greater in her lower extremities than they are in her upper extremities. In fact, blood pressure in the lower extremities approaches normal. She is breathing well although she does have a cough. VITAL SIGNS: Show a T-max of 98.4 with a heart rate that ranges between 78 and 75 in a sinus rhythm, a respiratory rate of 20 to 24 without the use of accessory muscles who is 99 to 92% saturated on 3 liters nasal cannula and whose blood pressure is ranging between 65/48 to 131/61. The 131/61 is taken in the lower extremity. Her intake and output over the past 24 hours has been recorded as 600 in and 340 out for a positivity of 260 mL. She has put out 200 mL from the chest catheter. This is compared to yesterday where she put out 450 mL. She has only put out 10 mL in the last 10 hours. Hopefully we will be able to remove the catheter tomorrow. Her weight is 55.1 kg compared to 55.6 yesterday. PHYSICAL EXAMINATION: On physical examination she has coarse rhonchi and crackles on both sides but a lot more on the right than the left. Percussion note is full to the diaphragm. Cardiac exam shows a holosystolic murmur at the apex. 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 I cannot feel her point of maximal impulse (PMI). S1 and S2 are normal. Abdomen is soft and nontender. Bowel sounds are positive. There is no hepatomegaly. No costovertebral angle (CVA) tenderness. Extremities show trace to 1+ pretibial edema. No calf tenderness. No differential swelling of the upper extremities. Skin is warm, dry and perfused without cyanosis or mottling including that of the nail beds and the knees. Neck is supple. There is no jugular venous distention. No subcutaneous emphysema. Trachea is midline. Mouth shows her mucous membranes to be pink and moist. Lips and commissures without lesions. No thrush. Eyes show her pupils to be equal, reactive. Extraocular muscles intact. Sclera anicteric. Neuro shows II through XII intact. Gross motor and gross sensation intact. Gait is not tested, but she did walk half way to x-ray today. Psychiatric shows her to be awake, alert and oriented times three with appropriate mood, affect and conversational. Her white count today is 11.9, essentially unchanged from yesterday at 12.0. Hemoglobin and hematocrit are 9.6 and 33.8. She has not had any blood transfusions. Yesterday's hemoglobin and hematocrit was 8.7 and 29.5. Platelet count is 380. Differential shows 85% neutrophils, 3% bands, 2% lymphocytes, 6% monocytes. There are no immature forms, no toxic granulations. Her chemistry shows essentially normal electrolytes with a BUN and creatinine of 38 and 3.82. Calcium is 7.5, with a albumin of 1.9. Glucose this morning fasting was 72. Earlier this morning it was 51. Her chest x-ray today shows the lung fully expanded to the chest wall. There is a right lower lobe infiltrative process. There looks to be some fluid in the fissure. It looks a little bit worse today than it did yesterday with regard to the right lower lobe infiltrate. Costophrenic angles are sharp and the drainage chest catheter is in good position. Yesterday, I ordered a CT scan after the drainage. It definitely shows a mass in the right upper lobe which spiculated and measures approximately 3 cm. She has multiple emphysematous changes. In addition to the mass in the right upper lobe she has patchy infiltrates in the right lower lobe and some in the left lower lobe. The thoracic aneurysm is unchanged and measures 4.6 cm. The adrenals look intact without masses. Likewise her liver is without masses. IMPRESSION: 1. Right pleural effusion, transudative. 2. Right lower lobe pneumonia. 3. Right upper lobe lung mass. 4. Thoracic aortic aneurysm measuring 3.5 cm. 5. Diabetes. 6. Chronic obstructive pulmonary disease (COPD). 7. Renal failure. 8. Chronic hypotension. 9. Chronic anemia. 10. Congestive heart failure (CHF). 11. Hyperlipidemia. PLAN AND DISCUSSION: She definitely has a right upper lobe mass. I suspect this is going to be malignant given her smoking history. I will have her undergo a needle biopsy tomorrow. She should be fairly well protected as she has a chest tube catheter in. It is notable that her blood pressures are normal in her lower extremities than her left upper extremity. Blood pressures are not taken on the right secondary to her fistula. She may very well have subclavian stenosis considering the extent of her thoracic aortic vascular disease. As the studies are done without contrast, I really cannot tell if she has subclavian stenosis, although I do see some plaquing in the subclavian artery just after its take-off from the thoracic aorta. On the coronal reconstructions there is a large amount of plaque just at the base of the left subclavian vein. This may very well be giving rise to her stenosis and therefore decreased blood pressures in the left arm.
--- NOTE | 2016-06-10 13:00 | IPN ---
DATE: 06/10/2016 Mrs. Shabazz is seen this morning on her bedside. She reports an episode of hypoglycemia last evening. She is feeling better today. She denies any nausea or vomiting. Her dyspnea is essentially unchanged. She continues to drain from her right pleural catheter. She has no fever or chills at this point. PHYSICAL EXAMINATION: She is awake and alert and without any acute distress. She is using oxygen via nasal cannula. Temperature is 97.6 degrees Fahrenheit, heart rate 90 per minute and respiratory rate 20 per minute. Blood pressure earlier 66/48; however, most recent one is written 127/59 mmHg. Oxygen saturation is 96%. Head is atraumatic. Ears, nose and throat are unremarkable. Neck is supple and without jugular venous distention (JVD) or thyroid enlargement. Lungs have bilateral rhonchi. Heart sounds are regular. Chest tube in right chest is present. Abdomen is soft and nontender and without palpable organomegaly. Extremities have no cyanosis or clubbing. Skin has no rash or ulcers. Neurologically, she is awake, alert and oriented times three. Today's labs show WBC count 11.9, hemoglobin 9.6 and hematocrit 33.8. Platelets are 380. Sodium 134 and potassium 4.5. BUN 38 and creatinine 3.82. Glucose 72 and calcium 7.5. PROBLEMS: 1. End-stage renal disease. The patient will be dialyzed again on Saturday as her regular dialysis days are Saturday, Saturday and Saturday. Volume status is reasonable at this point, and there is no indication for urgent hemodialysis today. 2. Hyponatremia. This is mild and likely to improve with hemodialysis tomorrow. No intervention is indicated today. 3. Pneumonia. The patient remains on IV antibiotics including vancomycin and ceftriaxone. She is currently afebrile, and her symptoms are improving. 4. Chronic hypoxemia. She has end-stage lung disease and has been on bronchodilators and oxygen supplementation which will be continued. 5. Hypotension. She does have chronic hypotension and has been on midodrine. Her blood pressure seems to be abnormally high today. We will have to monitor closely and hold her midodrine if her blood pressure remains above 120 mmHg. 6. Anemia. The patient receives Aranesp 300 mcg once a week which will be continued. DISPOSITION: From renal standpoint, the patient can be transferred out of intensive care unit (ICU) into progressive care unit (PCU).
[2016-06-10] MEDS: CHECK TO SEE IF PATIENT IS RECEIVING DIALYSIS TODAY AND REFER TO THE VANCOMYCIN ORDER XX SCH (15:49)
[2016-06-10] MEDS: ROSUVASTATIN 10 MG TAB (CRESTOR) PO SCH (20:55)
[2016-06-10] MEDS: ACETAMINOPHEN TAB 650MG DOSE (2X325MG) PO PRN (23:36)
[2016-06-11] VITALS (21 sets, daily range): BP systolic 78–173; BP diastolic 47–75
[2016-06-11] MEDS ORDERED: ACETAMINOPHEN 500 MG TAB PO ONE (00:45)
[2016-06-11] MEDS: IPRATROPIUM 0.5MG/ALBUTEROL 2.5MG INH SOL UD 3ML (DUONEB)(J7620) NEB SCH ×4 (01:13→19:22)
[2016-06-11] MEDS: ONDANSETRON 4MG/2ML VIAL (J2405) IV PRN (02:55)
[2016-06-11 04:44] LABS: DIFF SLIDE NUMBER 25; MEAN CORPUSCULAR HEMOGLOBIN 29.6 pg (27.0-33.0); MEAN CORPUSCULAR HGB CONC 29.5 g/dl (32.0-36.5); PLATELET COUNT, AUTOMATED 435 k/mm3 (150-450); WHITE BLOOD COUNT 18.2 K/mm3 (4.0-10.0)
[2016-06-11 04:49] LABS: MEAN CORPUSCULAR VOLUME 100.1 fl (80.0-96.0)
[2016-06-11 05:07] LABS: ALBUMIN/GLOBULIN RATIO 0.49 (1.00-1.93); BILIRUBIN,TOTAL 0.4 MG/DL (0.2-1.0); CALCIUM LEVEL 7.5 MG/DL (8.8-10.2); CREATININE FOR GFR 4.99 MG/DL (0.55-1.02); GLOMERULAR FILTRATION RATE 9.1 (>39); MAGNESIUM LEVEL 2.2 MG/DL (1.8-2.4); TOTAL PROTEIN 6.1 GM/DL (6.4-8.2); VANCOMYCIN RANDOM 22.1 UG/ML
[2016-06-11 05:15] LABS: BANDS 1 % (< 11); EOSINOPHILS 2 % (0-5); NUCLEATED RED BLOOD CELL 1 % (0-0)
[2016-06-11 05:16] LABS: ANISOCYTOSIS 1+; HYPOCHROMASIA 2+; POLYCHROMASIA 1+
[2016-06-11 05:21] LABS: POTASSIUM SERUM 5.4 MEQ/L (3.5-5.1)
[2016-06-11] MEDS: NYSTATIN 500,000 U/5 ML SUSP UDC SS SCH ×4 (05:32→23:36)
[2016-06-11] MEDS: HumaLOG INSULIN (NovoLOG) PER UNIT SC SCH ×4 (07:28→21:00)
[2016-06-11] MEDS: PANTOPRAZOLE 40MG TAB (PROTONIX) PO SCH (07:52)
[2016-06-11] MEDS: GABAPENTIN 300 MG CAP PO SCH ×2 (07:52→21:18)
[2016-06-11] MEDS: FAMOTIDINE 20 MG TAB PO SCH (07:52)
[2016-06-11] MEDS: ASPIRIN 81 MG ENTERIC TAB PO SCH (07:52)
[2016-06-11] MEDS: MOM 30ML SUSPENSION UDC PO SCH (07:52)
[2016-06-11] MEDS: MIDODRINE 5 MG TAB PO SCH ×3 (07:52→17:04)
[2016-06-11] MEDS: DOCUSATE SODIUM 100 MG CAP PO SCH (07:52)
[2016-06-11] MEDS: FLUTICASONE PROP 0.05% NASAL SPRAY 16 GM (FLONASE) SCH (07:57)
[2016-06-11] MEDS: BUDESONIDE 0.5 MG/2 ML INHALATION SUSPENSION INH SCH ×2 (08:37→19:22)
[2016-06-11] MEDS: IPRATROPIUM 0.5MG/ALBUTEROL 2.5MG INH SOL UD 3ML (DUONEB)(J7620) NEB PRN (08:38)
[2016-06-11] MEDS: TIOTROPIUM INHALER/CAPSULE (SPIRIVA) INH SCH (08:38)
--- NOTE | 2016-06-11 08:52 | REP ---
TWO VIEW CHEST: Two views of the chest are performed and compared to prior study of 06/09/2016 and 06/10/2016. The amount of pleural fluid in the minor fissure has diminished. Bilateral infiltrative opacities are essentially stable as is blunting of the right costophrenic angle. There is a pigtail catheter in the right lower hemithorax unchanged. There is no pneumothorax. The cardiomediastinal silhouette is unchanged. There is a single lead pacemaker. IMPRESSION: Essentially stable exam although there is decreased fluid in the minor fissure. Signed by Jesus Johnsno MD 06/11/2016 04:54 P
--- NOTE | 2016-06-11 10:28 | IPNPDOC ---
Subjective Date Seen The patient was seen on 06/11/16. Subjective Chief Complaint/HPI The patient is a 70-year-old female admitted with a reason for visit of Shortness Of Breath. Events since last encounter Some fevers last night. Worsening lethargy and malaise this morning. General: Reports: Fatigue, Malaise, Denies: Chills, Night Sweats, Normal Appetite, Other Symptoms, ROS Unobtainable Constitutional: Reports: Fatigue, Malaise, Weakness, Denies: Chills, Fever, Lethargy, Night Sweats, Other, Weight Loss Eyes: Denies: Conjunctivae inflammation, Eyelid inflammation, Other, Pain, Redness, Vision change ENT: Denies: Dysphagia, Ear Pain, Epistaxis, Head Aches, Other Symptoms, Post Nasal Drip, Sinus Congestion, Sore Throat Skin: Denies: Breakdown, Bruising, Dry, Itching, Jaundice, Lesions, Nail Changes, Other, Rash Pulmonary: Reports: Dyspnea, Denies: Cough, Other Symptoms, Pleuritic Chest Pain Cardiovascular: Denies: Chest Pain, Edema, Lt Headedness, Orthopnea, Other Symptoms, Palpitations, Paroxysmal Noc. Dyspnea Gastrointestinal: Denies: Abdominal Pain, Constipation, Diarrhea, Hematochezia , Melena, Nausea, Other Symptoms, Vomiting Genitourinary: Denies: Dysuria, Frequency, Hematuria, Incontinence, Other Symptoms, Retention Objective Physical Examination General Exam: Positive: Alert, Cooperative, Mild Distress Eye Exam: Positive: Conjunctiva & lids normal, EOMI, PERRLA, Negative: Sclera icteric ENT Exam: Positive: Atraumatic Neck Exam: Positive: Supple Chest Exam: Positive: Diminished (diminished breath sounds left), Other ( crackles R>L) Heart Exam: Positive: Murmurs, Rate Normal Telemetry: Positive: No significant arrhythmia Abdomen Exam: Positive: Normal bowel sounds, Soft, Negative: Tenderness Extremity Exam: Negative: Edema Psych Exam: Positive: Oriented x 3 Assessment /Plan Problems (1) Pneumonia Status: Acute Response to Treatment: Progressing Problem Specific Plan: Monitor Clinically, Repeat Labs Problem Text: Gweno and Sage day #5. Sputum cultures/gram stain significant for yeast. Multifocal consolidations on CTA. Still feels short of breath this morning. Lethargic. Some fevers last night, WBC increased. However she still is on moderately broad spectrum anti-microbial coverage, if continues to worsen will broaden spectrum. Repeat cultures obtained. (2) Pleural effusion Status: Acute Problem Specific Plan: Consult Specialist, Monitor Clinically Problem Text: Large right pleural effusion on CTA s/p pigtail catheter. Draining straw colored fluid. Pathology unremarkable. Fluid analysis indicated transudative process. CT chest - mass - plan for biopsy today. High suspicion for malignancy given smoking history. (3) Hypotension Status: Chronic Problem Specific Plan: Monitor Clinically Problem Text: Lower extremity pressures noted to be significantly higher than her LUE. Given her lack of symptoms with very low pressures measured from her upper extremity, tend to believe her lower extremity being more appropriate. Concern for possible subclavian occlusion as etiology for blood pressures discrepancy. (4) Diabetes Status: Chronic Problem Specific Plan: Repeat Labs (5) Hypercholesteremia Status: Chronic Problem Text: Crestor (6) Anemia Status: Chronic Problem Text: Secondary to ESRD. (7) Anxiety Status: Chronic Problem Text: Atarax (8) CHF (congestive heart failure) Status: Acute Problem Text: Systolic and diastolic failure. (9) COPD (chronic obstructive pulmonary disease) Status: Chronic Problem Text: Spiriva, pulmicort, duonebs scheduled and prn (10) Hyperparathyroidism Status: Chronic (11) Mitral valve disease Status: Chronic (12) CAD (coronary artery disease) Onset Date: 01/18/2014 Status: Chronic (13) ESRD (end stage renal disease) Onset Date: 01/26/2014 Status: Chronic Problem Specific Plan: Consult Specialist Plan/VTE VTE Prophylaxis Ordered?: Yes (mechanical) Plan Diet: Continue Current Activity: Continue Current Therapy: PT Diagnostics: Repeat Labs in AM, Obtain Cultures Anticipated Discharge: Home, Home With Services VS, I&O, 24H, [facility] Vital Signs/I&O Vital Signs Date Time Temp Pulse Resp B/P Pulse Ox O2 Delivery O2 Flow Rate FiO2 06/11/16 08:00 Nasal Cannula 2.0 06/11/16 07:34 96.3 80 24 78/47 95 I&O- Last 24 Hours up to 6 AM 06/11/16 06:00 Intake Total 1130 ml Output Total 335 ml Balance 795 ml Laboratory Data 24H LABS Laboratory Tests 2 06/10/16 12:00: Bedside Glucose (Misc Panel) 162H 06/10/16 17:05: Bedside Glucose (Misc Panel) 155H 06/10/16 20:49: Bedside Glucose (Misc Panel) 207H 06/11/16 04:21: Blood Urea Nitrogen 48H, Creatinine 4.99H, Sodium Level 132L, Potassium Level 5.4H, Chloride Level 94L, Carbon Dioxide Level 25, Calcium Level 7.5L, Aspartate Amino Transf (AST/SGOT) 63H, Alanine Aminotransferase (ALT/SGPT) 29, Alkaline Phosphatase 178H, Total Bilirubin 0.4, Total Protein 6.1L, Albumin 2.0L , Albumin/Globulin Ratio 0.49L, Anion Gap 13, Anisocytosis 1+, Band Neutrophils 1, Eosinophils (Manual) 2, Glomerular Filtration Rate 9.1L, Hypochromasia 2+, Lymphocytes (Manual) 7L, Macrocytosis 1+, Magnesium Level 2.2, Metamyelocytes 2H , Monocytes (Manual) 2, Myelocytes 3H, Neutrophils 83H, Nucleated Red Blood Cells 1H, Platelet Estimate NORMAL, Polychromasia 1+, Random Vancomycin Level 22.1 CBC/BMP Laboratory Tests 06/11/16 04:21 Calcium Level 7.5 L, Aspartate Amino Transf (AST/SGOT) 63 H, Alanine Aminotransferase (ALT/SGPT) 29, Alkaline Phosphatase 178 H, Total Bilirubin 0.4 , Total Protein 6.1 L, Albumin 2.0 L, Red Blood Count 3.34 L, Mean Corpuscular Volume 100.1 #H, Mean Corpuscular Hemoglobin 29.6, Mean Corpuscular Hemoglobin Concent 29.5 L, Red Cell Distribution Width 17.0 H Microbiology Microbiology 06/11/16 Blood Culture, Received Pending 06/11/16 Blood Culture, Received Pending 06/06/16 Blood Culture - Preliminary, Resulted No Growth after 72 hours. All specime... 06/06/16 Blood Culture - Preliminary, Resulted No Growth after 72 hours. All specime... 06/07/16 Acid Fast Stain, Received Pending 06/07/16 Mycobacterial Culture, Received Pending 06/07/16 Fungal Smear, Received Pending 06/07/16 Fungal Culture, Received Pending 06/07/16 Gram Stain - Final, Complete 06/07/16 Anaerobic Culture - Final, Complete 06/07/16 Body Fluid Culture - Final, Complete 06/07/16 Gram Stain - Final, Complete 06/07/16 Sputum Culture - Final, Complete Yeast Like Organism 06/06/16 Respiratory Virus Panel (PCR) (KEY) - Final, Complete GLADIS ALONSO MD Jun 11, 2016 10:27 GLADIS ALONSO MD Jun 11, 2016 10:27
[2016-06-11] MEDS ORDERED: VANCOMYCIN HCL 500 MG in D5W MINI-BAG PLUS 100 ML IV SCH (11:15)
[2016-06-11] MEDS ORDERED: LIDOCAINE 1% MDV 20ML VIAL As Ordered ONE (12:12)
--- NOTE | 2016-06-11 12:56 | IPN ---
DATE: 06/11/2016 Mrs. Shabazz is seen this morning. She continues to have shortness of breath. She has a right-sided chest tube which is draining clear fluid. She has cough but denies any hemoptysis. She has no nausea or vomiting. On physical exam, temperature 96.3 degrees Fahrenheit, heart rate 82 per minute and respiratory rate 24 per minute. Her blood pressure is being checked in the leg during dialysis and it is in the 150s over 70s. Oxygen saturation is 95% on 2 liters oxygen. Head is atraumatic. Oral mucosa is dry and without any thrush or ulcers. Ears, nose and throat are unremarkable. Neck veins are mildly distended. Lungs have bilateral rhonchi and diminished breath sounds on right base. Abdomen soft and nontender. Heart sounds are regular. Extremities have no cyanosis or clubbing. Right forearm AV fistula is functioning well. She does have peripheral edema on her lower extremities which is at least 2+. Neurologically, she is awake, alert and oriented times three. Today's labs show WBC count 18.2, hemoglobin 9.9 and hematocrit 33.5. Platelets 435. Sodium 132 and potassium 5.4. BUN 48 and creatinine 4.99. PROBLEMS: 1. Persistent hypoxemia and dyspnea. She does have end-stage lung disease and now she has somewhat decompensated volume status. Her right pleural effusion has been drained and she continues to have a chest tube which is draining. We will try to remove about 2.5 liters fluid today with hemodialysis. 2. End-stage renal disease. The patient is being dialyzed today which is her regular day. She will complete her 3-hour dialysis treatment today. 3. Hyperkalemia, mild and related to end-stage renal disease. This will be corrected with hemodialysis as the patient is being dialyzed with 2.0 mEq potassium bath. 4. Anemia. Her anemia is stable and we will continue to monitor closely. I will hold off on Aranesp due to worsening hypervolemia. 5. Pneumonia. The patient is currently being treated with IV Vancomycin and ceftriaxone which will be continued. 6. Hypotension. Her blood pressure has improved as her midodrine dose has been increased to 5 mg three times a day. She is also hypervolemic and we are going to try to correct her volume status. Her blood pressure will need to be monitored closely during and after dialysis. MTDD
[2016-06-11] MEDS: cefTRIAXone SOD 1 GM in D5W MINI-BAG PLUS 50 ML IV SCH ×2 (14:10→16:32)
[2016-06-11] MEDS: CHECK TO SEE IF PATIENT IS RECEIVING DIALYSIS TODAY AND REFER TO THE VANCOMYCIN ORDER XX SCH (16:33)
[2016-06-11] MEDS: PERCOCET 5MG/325MG TAB PO PRN (16:34)
--- NOTE | 2016-06-11 17:55 | REP ---
CT GUIDED RIGHT UPPER LOBE LUNG BIOPSY: The procedure was performed under the direct supervision of Dr. Platt. The risks and benefits of the procedure were explained to the patient and informed consent was obtained. The patient was placed on the table however, her oxygen saturations were only approximately 93-94 and would drop to 88 when she spoke. The patient was quite dyspneic. Dr. Pollard was consulted and it was decided that biopsy should be postponed. The patient was then returned to ICU. Reviewed by FABBY Galicia 06/12/2016 05:25 PEdited and Signed by Harry Platt MD 06/13/2016 02:44 P
[2016-06-11] MEDS ORDERED: CEFDINIR 300 MG CAP (OMNICEF) PO ONE (18:00)
[2016-06-11 19:26] LABS: ABG BASE EXCESS 2.8 (-2.0-2.0); ABG HCO3 28.1 MEQ/L (22.0-26.0); ABG PARTIAL PRESSURE CO2 46.9 mmHg (35.0-45.0); ABG PARTIAL PRESSURE O2 67.7 mmHg (75.0-100.0); ABG STANDARD HCO3 26.9 MEQ/L (22.0-26.0); ABG TOTAL CO2 29.6 MEQ/L (23.0-31.0); ABG pH (ARTERIAL) 7.396 UNITS (7.350-7.450)
--- NOTE | 2016-06-11 19:58 | IPN ---
DATE: 06/11/2016 Ms. Shabazz did not have a very good day today. I am making rounds in the late evening around 7:00 p.m. She was scheduled to go for a needle biopsy of the right upper lobe mass. X-ray called me and informed me that she was very short of breath and was not tolerating the positioning needed for the needle biopsy. I therefore asked them to abandon it and send her back to the intensive care unit (ICU). When I come to see her, she is sleeping very soundly. I have woken her up and she is still groggy. Significant event that has happened over the last 24 hours is that she spiked a temperature to 102.1. She is now 98.7. Her heart rate is ranging between 91 and 89 in a sinus rhythm with a respiratory of 28 to 19 without the use of accessory muscles, who is 91 to 92% saturated at rest on 2 liters nasal cannula. Her blood pressure in her lower extremities is ranging between 134/73 to 141/66. Her intake and output over the past 24 hours has been recorded as 1200 in and 200 out for a positivity of 920 mL. Everything has come via her chest tube catheter, which has put out 280 mL. Today, she went to dialysis and 2500 mL was taken off. Her weight today is 56.5 kg prior to dialysis compared to 55.1 kg yesterday. PHYSICAL EXAMINATION: LUNGS: Both lung saucedo are very tight with lots of expiratory wheezing, which I have not detected to this degree before. Percussion notes are full to the diaphragm. CARDIAC: Cardiac exam shows a holosystolic murmur at the apex with a continuous bruit in the right subclavian artery and right carotid artery, referable to her AV fistula in her right arm. I cannot feel her PMI. S1 and S2 are normal. ABDOMEN : Soft, nontender, bowel sounds are positive but hypoactive. There is no hepatomegaly. No costovertebral angle tenderness. EXTREMITIES: 2+ pretibial edema. No calf tenderness. No differential swelling of the upper extremities. SKIN: Warm, dry and perfused without cyanosis or mottling, including that of the nail beds and knees. NECK: Supple. There is no jugular venous distention. There is no subcutaneous emphysema. Trachea is midline. HEENT: Mouth shows her mucous membranes to be dry but pink. Lips and commissures are without lesions. There is no thrush. The thrush has resolved since mid week. Eyes show her pupils to be equal and reactive. Extraocular motor intact. Sclera anicteric. NEUROLOGIC: Shows II through XII intact with gross motor and gross sensation intact. Gait is not tested. PSYCHIATRIC: Shows her to be groggy, somewhat somnolent. Her white count has spiked to 18.2 with a hemoglobin and hematocrit of 9.9 and 33.5. Platelet count of 435. Differential shows 83% neutrophils, 1% bands, 71% lymphocytes, 2% monocytes with 2 metamyelocytes, 2 myelocytes. No toxic granulations reported. Chemistries show a sodium of 132 with a potassium of 5.4. This is prior to dialysis today. BUN and creatinine were 48 and 4.99 prior to dialysis with a glucose of 124 and a calcium of 7.5 with a corresponding albumin of 2.0. Random vancomycin yesterday was 22.1. Her chest x-ray today shows a right and left lower lobe infiltrate. The left lower lobe infiltrate looks worse today. We saw that infiltrative pattern and consolidative pattern on the chest CT yesterday, and I think that her fever may be coming from the left lower lobe. Sputum is only growing yeast-like organism, which I suspect is secondary to her very severe thrush. There is no other growth in the pleural fluid. IMPRESSION: 1. Right pleural effusion drained, transudative. 2. Right lower lobe pneumonia. 3. Probably left lower lobe pneumonia now. 4. Right upper lobe lung mass. 5. Thoracic aortic aneurysm measuring 3.5 cm. 6. Diabetes. 7. Chronic obstructive pulmonary disease (COPD). 8. Renal failure. 9. Chronic hypotension in the upper extremities and normotension in the lower extremities. 10. Probably subclavian stenosis on the left. 11. Chronic anemia. 12. Congestive heart failure (CHF). 13. Hyperlipidemia. PLAN AND DISCUSSION: She does look very good this evening and I have asked for the nursing staff to ask for her already ordered nebulizer treatments. I will obtain a blood gas on her. She has lost her IV and it seems as though it cannot be placed and some type of central access is going to be attempted tomorrow under imaging guidance. She is therefore not on any IV antibiotics. I am very concerned about her fever last night and her spike in her white count, along with the appearance of the chest x-ray today and the CT scan yesterday. We will have to stabilize her prior to undertaking the needle biopsy, as that is the least of her problems at this point in time.
[2016-06-11] MEDS ORDERED: AMIODARONE HCL 150 MG in APPROPRIATE DILUENT 1 EA IV STA (20:38)
[2016-06-11] MEDS ORDERED: AMIODARONE HCL 150 MG/100 ML PREMIXED BAG (NEXTERONE) As Ordered ONE (20:39)
--- NOTE | 2016-06-11 20:52 | IPNPDOC ---
Date Seen The patient was seen on 06/11/16. Progress Note SUBJECTIVE: Was in the ICU when I was called over to evaluate her for V-tach. Dr. Carter was in the dictation room and came over to evaluated her also. She had a brief moment of LOC. Dr. Carter started compressions and she immediately converted to NSR. Dr. Pollard was notified on what happened. Currently patient is responsive. Dr. Carter started a line on her R hand. ASSESSMENT and PLAN: Will review electrolytes when available. Dr. Carter has been consulted for management. Pt was started on amiodarone per cardiology. Dr. Carter investigated ICD and adjusted settings. Will review consultation when available. VS, I&O, 24H, Fishbone Vital Signs/I&O Vital Signs Date Time Temp Pulse Resp B/P Pulse Ox O2 Delivery O2 Flow Rate FiO2 06/11/16 17:15 19 94 Nasal Cannula 2.0 06/11/16 16:00 98.7 91 134/73 I&O- Last 24 Hours up to 6 AM 06/11/16 06:00 Intake Total 1130 ml Output Total 335 ml Balance 795 ml Laboratory Data 24H LABS Laboratory Tests 2 06/10/16 20:49: Bedside Glucose (Misc Panel) 207H 06/11/16 04:21: Blood Urea Nitrogen 48H, Creatinine 4.99H, Sodium Level 132L, Potassium Level 5.4H, Chloride Level 94L, Carbon Dioxide Level 25, Calcium Level 7.5L, Aspartate Amino Transf (AST/SGOT) 63H, Alanine Aminotransferase (ALT/SGPT) 29, Alkaline Phosphatase 178H, Total Bilirubin 0.4, Total Protein 6.1L, Albumin 2.0L , Albumin/Globulin Ratio 0.49L, Anion Gap 13, Anisocytosis 1+, Band Neutrophils 1, Eosinophils (Manual) 2, Glomerular Filtration Rate 9.1L, Hypochromasia 2+, Lymphocytes (Manual) 7L, Macrocytosis 1+, Magnesium Level 2.2, Metamyelocytes 2H , Monocytes (Manual) 2, Myelocytes 3H, Neutrophils 83H, Nucleated Red Blood Cells 1H, Platelet Estimate NORMAL, Polychromasia 1+, Random Vancomycin Level 22.1 06/11/16 14:00: Bedside Glucose (Misc Panel) 136H 06/11/16 16:59: Bedside Glucose (Misc Panel) 220H 06/11/16 19:20: Arterial Blood pH 7.396, Arterial Blood Partial Pressure CO2 46.9H, Arterial Blood Partial Pressure O2 67.7L, Arterial Blood Total CO2 29.6, Arterial Blood HCO3 28.1H, Arterial Blood Base Excess 2.8H, Arterial Blood Oxygen Saturation 92.5L, Blood Gas Bicarbonate Standard 26.9H CBC/BMP Laboratory Tests 06/11/16 04:21 Calcium Level 7.5 L, Aspartate Amino Transf (AST/SGOT) 63 H, Alanine Aminotransferase (ALT/SGPT) 29, Alkaline Phosphatase 178 H, Total Bilirubin 0.4 , Total Protein 6.1 L, Albumin 2.0 L, Red Blood Count 3.34 L, Mean Corpuscular Volume 100.1 #H, Mean Corpuscular Hemoglobin 29.6, Mean Corpuscular Hemoglobin Concent 29.5 L, Red Cell Distribution Width 17.0 H Microbiology Microbiology 06/11/16 Blood Culture, Received Pending 06/11/16 Blood Culture, Received Pending 06/06/16 Blood Culture - Final, Complete NO GROWTH AFTER 5 DAYS 06/06/16 Blood Culture - Final, Complete NO GROWTH AFTER 5 DAYS 06/07/16 Acid Fast Stain, Received Pending 06/07/16 Mycobacterial Culture, Received Pending 06/07/16 Fungal Smear, Received Pending 06/07/16 Fungal Culture, Received Pending 06/07/16 Gram Stain - Final, Complete 06/07/16 Anaerobic Culture - Final, Complete 06/07/16 Body Fluid Culture - Final, Complete 06/07/16 Gram Stain - Final, Complete 06/07/16 Sputum Culture - Final, Complete Yeast Like Organism 06/06/16 Respiratory Virus Panel (PCR) (KEY) - Final, Complete BRIDGET SUTTON DO Jun 11, 2016 20:52 QUINCY RIZVI MD Jun 19, 2016 06:33 06/07/16 Sputum Culture - Final, Complete Yeast Like Organism 06/06/16 Respiratory Virus Panel (PCR) (KEY) - Final, Complete BRIDGET SUTTON DO Jun 11, 2016 20:52
[2016-06-11] MEDS: ROSUVASTATIN 10 MG TAB (CRESTOR) PO SCH (21:18)
[2016-06-11 21:41] LABS: ALBUMIN 1.7 GM/DL (3.2-5.2); ALBUMIN/GLOBULIN RATIO 0.46 (1.00-1.93); BILIRUBIN,TOTAL 0.4 MG/DL (0.2-1.0); CALCIUM LEVEL 7.6 MG/DL (8.8-10.2); CREATININE FOR GFR 3.12 MG/DL (0.55-1.02); GLOMERULAR FILTRATION RATE 15.7 (>39); MAGNESIUM LEVEL 2.2 MG/DL (1.8-2.4); POTASSIUM SERUM 3.9 MEQ/L (3.5-5.1); TOTAL PROTEIN 5.4 GM/DL (6.4-8.2)
[2016-06-12] VITALS (13 sets, daily range): BP systolic 107–167; BP diastolic 51–90; O2SAT 96
[2016-06-12] MEDS: IPRATROPIUM 0.5MG/ALBUTEROL 2.5MG INH SOL UD 3ML (DUONEB)(J7620) NEB SCH ×4 (01:04→19:26)
[2016-06-12 05:36] LABS: ALBUMIN 1.8 GM/DL (3.2-5.2); ALBUMIN/GLOBULIN RATIO 0.46 (1.00-1.93); BILIRUBIN,TOTAL 0.4 MG/DL (0.2-1.0); CALCIUM LEVEL 7.7 MG/DL (8.8-10.2); CREATININE FOR GFR 3.51 MG/DL (0.55-1.02); GLOMERULAR FILTRATION RATE 13.7 (>39); MAGNESIUM LEVEL 2.1 MG/DL (1.8-2.4); POTASSIUM SERUM 4.6 MEQ/L (3.5-5.1); TOTAL PROTEIN 5.7 GM/DL (6.4-8.2)
[2016-06-12] MEDS: NYSTATIN 500,000 U/5 ML SUSP UDC SS SCH ×3 (05:52→16:57)
[2016-06-12 06:27] LABS: BASO # 0.1 K/mm3 (0.0-0.2); BASO % 0.7 % (0.0-1.0); EOS # 0.1 K/mm3 (0.0-0.50); EOS % 0.9 % (0.0-3.0); LARGE UNSTAINED CELL # 0.2 K/mm3 (0.0-0.4); LARGE UNSTAINED CELL % 1.4 % (0.0-4.0); LYMPH # 0.9 K/mm3 (1.5-4.5); LYMPH % 5.7 % (24.0-44.0); MEAN CORPUSCULAR HEMOGLOBIN 30.4 pg (27.0-33.0); MEAN CORPUSCULAR HGB CONC 30.4 g/dl (32.0-36.5); MONO # 0.9 K/mm3 (0.0-0.8); MONO % 6.4 % (0.0-5.0); NEUTROPHILS # 11.3 K/mm3 (1.8-7.7); NEUTROPHILS % 84.9 % (36.0-66.0); PLATELET COUNT, AUTOMATED 343 k/mm3 (150-450); RED CELL DISTRIBUTION WIDTH 18.3 % (11.5-14.5); WHITE BLOOD COUNT 13.4 K/mm3 (4.0-10.0)
--- NOTE | 2016-06-12 06:41 | CR ---
DATE OF CONSULTATION: 06/11/2016 CARDIOLOGY CONSULTATION: REFERRING PHYSICIAN: Dr. Quan Cotto. CHIEF COMPLAINT: Sustained ventricular tachycardia. HISTORY: This 70-year-old mother of five grown children, retired resident of [place], is known to my cardiology practice since December 2008. She has a history of hypertensive and valvular heart disease complicated by congestive heart failure (systolic and diastolic) and underwent single chamber implantable cardioverter defibrillator implant December 22, 2008 for primary prevention. Cardiac catheterization January 2008 showed global left ventricular hypokinesis, LVEF 30%, 30% proximal LAD and 60% circumflex coronary artery (nonischemic cardiomyopathy). Other significant medical problems have included insulin-dependent diabetes mellitus and generalized vascular disease with occlusion of both internal carotid arteries, left subclavian steal syndrome, as well as renal artery stenosis and mild descending thoracic aortic aneurysm with moderate thrombus. Has had dialysis dependent chronic renal failure since January 2008 and advanced smoking induced chronic bronchitis. Has been in and out of hospital with a congested state believed to be triggered by noncompliance with modest salt and fluid intake restriction. Was last seen in my office November 02, 2015 and reported being limited by shortness of breath but denied chest pain, palpitations, syncope or ICD discharge. Her blood pressure is known to be low on her left arm because of left subclavian steal syndrome. Has an AV fistula in her right arm, heart rate was 64 beats per minute and regular, respiratory rate 18 per minute. Weight was 144 pounds, height 60 inches, BMI 25. Neck veins were 3 cm above the sternal angle, had air entry over both lung saucedo with prolonged expiration and less than 1 [address] edema half way up both lower legs. EKG shows sinus rhythm at 62 beats per minute with left atrial conduction disturbance, poor R-wave progression and incomplete left bundle branch block with ST and T-wave abnormalities. Since that time she has been admitted to hospital April and May 2016 having missed scheduled appointments that were at these times. Last ICD check January 02, 2016 showed good intracardiac electrograms and pacing threshold. The patient has never used the tachycardia features of her device. Battery voltage at that time was estimated to 2.4 years longevity. Echocardiogram January 13, 2016 showed borderline concentric left ventricle hypertrophy with septal wall motion abnormality attributed to right ventricular pressure overload, estimated LVEF of 60% (still impaired considering the observed mitral regurgitation; a normal left ventricle with this mitral regurgitation should have an ejection fraction of 65 - 75%). This was significantly improved from 2009. At least mild to moderately dilated left atrium with Doppler evidence of impaired LV diastolic function and markedly elevated mean left atrial pressure. Right heart chamber sizes were at least mildly dilated with moderately severe pulmonary hypertension (RVSP of 68 mmHg). Her inferior vena cava was upper limits of normal with reduced respiratory collapse in keeping with an elevated central venous pressure. There was moderate aortic valvular sclerosis with very mild stenosis and mild insufficiency. There was moderately severe mitral annular calcification with moderately severe to severe mitral regurgitation. The tricuspid valve appeared to be normal but there was severe tricuspid insufficiency. June 06, 2016 she presented to [facility] Emergency Room with increasing shortness of breath and worsening dependent edema. She had been dialyzed earlier the same day and tolerated the dialysis well but continued to have a cough that was productive. On her admission she was found to have low left arm blood pressures (physicians not familiar with the fact that she had left subclavian steal syndrome) and was given 750 mL of fluid and started on normal saline at 70 mL an hour despite a BNP level greater than 5000 and chest x-ray that was read as worsening pulmonary edema with bilateral pleural effusions. A chest CT angiogram was performed in light of her asymmetrical blood pressures and chest pain June 06, 2016 and this showed extensive atherosclerotic calcifications. No evidence of dissection or rupture but an aneurysmal dilatation of the descending thoracic aorta measuring 5.5 cm with some mural thrombus. There was no evidence of pulmonary embolism. There was a large right pleural effusion with near complete collapse of the right lower lobe. There were also findings consistent with alveolar infiltrates both lower lobes with cardiomegaly but no pericardial effusion. Because of persistent left arm low blood pressures she was started on midodrine oral vasopressor therapy June 06, 2016. It was not until June 09 that femoral and calf blood pressures were measured finally and showed considerably higher readings than on her left upper arm. Despite this she is continued on midodrine three times a day. Thoracic surgery was consulted June 07, 2016 and a pigtail catheter was placed in the right pleural space. Despite clinical, radiographic and laboratory evidence of congestive heart failure. She has not been placed on a restricted fluid intake and her body weight has actually increased by 4-1/4 kilograms from June 06 to this morning. This evening she had been complaining of shortness of breath and was given a bronchodilator therapy - DuoNeb. Heart rate had been 90 beats per minute and regular, blood pressure 140-135/70 with respiratory rate 28 per minute and O2 saturation 93% on 2 liters by nasal prongs. She was afebrile. At approximately 08:25 p.m. she developed sustained monomorphic ventricular tachycardia at 176 bpm with associated syncope. An arrest code was called and I presented to find the patient supine on her bed with back shoe worker again documenting monomorphic ventricular tachycardia. Her eyes were rolled back in her head and she was not responsive. I immediately began chest compressions and within literally seconds her sustained ventricular tachycardia terminated and she regained sinus rhythm. Because of frequent isolated ectopic activity the patient was given amiodarone 150 mg IV over 10 minutes with good effect. Her blood pressure was 128/70 at this time with heart rate in the 80s and O2 saturation on supplemental oxygen by nasal prongs was 94% on 2 meters per minute. CORONARY RISK FACTORS: Advanced age. Longstanding insulin-dependent diabetes mellitus. Chronic hypertension. Longstanding hypercholesterolemia. Former heavy smoker at least one pack per day since 1969 apparently quitting June 2012. History of chronic vascular disease and family history of premature coronary heart disease. OTHER PAST MEDICAL/SURGICAL HISTORY: Five normal vaginal deliveries. Tubal ligation 1978. Left breast lumpectomy 1984. Bilateral carpal tunnel releases . Cholecystectomy January 2011. Chronic renal insufficiency on hemodialysis January 2008 for at least several years with some improvement in renal function with resumed dialysis right forearm graft dating back to 2008. Bilateral cataract extraction 2014. SYSTEMS REVIEW: Has had a reduced appetite but claims to eat what she wants when she wants not restricting salt and fluid intake. Denies any recent fever, chills. Wears corrective lenses for reading. No hearing problems. Chronic cough intermittently productive of clear whitish sputum. No hemoptysis. Denies abdominal pain but does have a history of gastroesophageal reflux and intermittent diarrhea but no dysphagia or GI bleeding. Has very little urine. History of arthralgia but no myalgia. Itchy, dry skin. History of anxiety and depression. History of anemia and bleeding/ bruising tendency. History of environmental allergies. All other systems review is negative. MEDICATIONS: Home medications had included midodrine 5 mg three times a day for soft blood pressure (left subclavian steal syndrome as mentioned above). Calf pressures here have been perfectly normal. Despite these low left arm readings. Previously was on metoprolol succinate 25 mg daily and aspirin 81 mg daily. MEDICATIONS CURRENTLY INCLUDE: - midodrine 5 mg three times a day which I have discontinued - vancomycin 750 mg IV per pharmacy dosing - Protonix 40 mg daily - Tylenol as needed - Percocet as needed - Zofran as needed - Dulcolax suppository as needed - ceftriaxone 1 gram IV daily - nystatin 5 mL swish and swallow every six hours - Pulmicort 0.5 mg inhaler twice a day - DuoNeb inhaler / nebulizer therapy every 6 hours - aspirin 81 mg daily - Pepcid 20 mg daily - Spiriva inhaler once daily - Flonase one spray each nostril daily - Colace 100 mg twice a day - Humalog insulin sliding scale before meals and bedtime - Neurontin 300 mg twice a day - Crestor 20 mg nightly - Atarax 25 mg twice a day as needed for pruritus ALLERGIES: CONTRAST MEDIA. PENICILLINS. RAMIPRIL. SULFA DRUGS. PHYSICAL EXAMINATION: VITAL SIGNS: Heart rate 80 bpm and regular with occasional isolated PVCs. Blood pressure 130/70 supine, respiratory rate 20 per minute, O2 saturation 92% on supplemental oxygen by nasal prongs at 2 liters. Weight 124.5 pounds, height 62 inches, BMI 22.8. Appears dyspneic uncomfortable lying, even with one or two pillows. EYES: Normal appearing conjunctiva and lids. No pallor or icterus. No petechiae. No xanthelasma. ENT/MOUTH: Upper dentures. Few lower teeth. Normal oral moisture. No central cyanosis. NECK: Trachea midline. Thyroid not enlarged. Jugular veins were elevated approximately 5 cm above the sternal angle. RESPIRATORY: Increased anteroposterior chest diameter with well-healed ICD incision left subclavian region. Reduced chest excursion. Has dressing over the right chest tube site. Diminished air entry both bases with inspiratory crepitations/rales at least one-half up posteriorly and lower aspects of the upper lobes anteriorly. Obvious prolongation of expiration with end-expiratory wheeze. CARDIOVASCULAR: Apical impulse somewhat difficult palpate. Heart sounds were somewhat distant. Unable to make out S2 splitting. No obvious gallop audible. Has a holosystolic murmur grade 2-3 out of 6 at the apex. No diastolic murmur. Previously known occluded internal carotid arteries. Bruits at the base of her neck. Abdominal aorta was not palpable. Has good pedal pulses. Less than 1 mm pitting edema up both lower legs. No varicose veins. EXTREMITIES: No clubbing, peripheral cyanosis or splinter hemorrhages. GI: Soft, nontender abdomen with no hepatosplenomegaly. Normal bowel sounds. Rectal examination not indicated. MUSCULOSKELETAL: Proximal muscle weakness but normal tone. No obvious joint deformities. SKIN: No rashes or pallor. Ecchymosis over phlebotomy sites. NEURO/PSYCH: Currently appears quite lethargic but is oriented and appears intermittently to be confused and rambling. No abnormal movements. INVESTIGATIONS: PA and left lateral chest x-ray taken earlier today shows fairly gross cardiomegaly with CT ratio of 16: 28.7. Unfolded thoracic aorta with some calcification aortic arch. Pulmonary venous and interstitial edema. Chest tube right lower chest with bilateral pleural effusions. Single chamber ICD pulse generator left subclavian region with shocking lead terminating in the RV apex. EKGs: Study June 06, 2016 showed sinus rhythm at 93 bpm. Left atrial conduction disturbance. Prominent precordial voltage consistent with left ventricle hypertrophy. Incomplete left bundle branch block pattern with slow precordial R-wave progression and diffuse ST/T-wave abnormalities that interestingly appeared less than January 23, 2016. EKG tonight shows sinus rhythm at 79 bpm with slightly more prominent repolarization abnormalities than June 06, 2016. LABORATORY DATA: Hemoglobin today measured 9.9 with white blood cell count up to 18.2 thousand, normal platelet count. MCV was elevated at 100 with MCHC decreased at 29.5. Arterial blood gas at 07:20 p.m. prior to her ventricular arrhythmia on supplemental oxygen by nasal prongs at 2 liters showed a pH of 7.39, pCO2 47, pO2 68. Chemistry immediately following her arrhythmia showed electrolyte balance with potassium 3.9 down from 5.4 earlier today prior to dialysis, magnesium level was normal at 2.2. Albumin is low as 1.7 with serum calcium 7.9. BUN this evening was 22, creatinine 3.1 following her dialysis. Random glucose 112. Troponin I level tonight was essentially normal at 0.09. Blood cultures from admission have all been negative after five days. Sputum culture shows only yeast like organism. Pleural fluid pathology reported only scattered mesothelial cells, no malignant cells. Pleural fluid was most in keeping with a transudate. Pleural cultures are negative to present. Complete ICD interrogation was performed: [employer] - Current +VR, model number 1211 - 36Q implanted December 22, 2008. Good intracardiac electrograms pacing threshold 2.0 V/0.5 ms. Lead impedance was stable at 400 ohms, battery longevity 2.4-3 years. Her ICD did not discharge with the observed arrhythmia because of program settings for a monitoring zone with VT of 162-200 therapy was to be given for heart rate of 200 or faster only. This was reprogrammed for a ventricular tachycardia zone of 162 beats or faster with initial anti tachycardia pacing followed by low energy cardioversion of 5 joules followed by 15 and then max output. IMPRESSION/PLAN: 1. Monomorphic ventricular tachycardia: Obviously related to her advanced heart disease and decompensated state. Possibly triggered by bronchodilator administration. Her ICD was working appropriately for the program settings at the time. As mentioned above these have been adjusted. Was given a single dose of amiodarone IV immediately following her arrhythmia because of frequent isolated PVCs which have settled down. Chemistry as mentioned above. We will plan on obtaining followup EKGs and cardiac enzymes to rule out an acute coronary event, though she denies chest pain. 2. Heart failure (systolic and diastolic/acute on chronic): Frustratingly this patient has given up on dietary measures and admits to be drinking what she wishes and eating what she wishes. I have placed her on a modest salt and fluid intake restriction. She is receiving dialysis three times a week per nephrology, but as mentioned above has actually gained 4 kg of fluid during her hospitalization. Her congested state is clearly related to her underlying hypertensive and valvular heart disease aggravated by her hemodialysis dependent end-stage renal insufficiency and dietary noncompliance. Frustratingly has been given oral vasoconstrictive therapy for "pseudo hypotension" low left arm blood pressure readings likely related to left subclavian steal syndrome. Lower extremity calf blood pressures have been absolutely normal. I have discontinued her midodrine. The patient has known moderately severe to severe mitral regurgitation which only become worse with this therapy. Aortic insufficiency similarly is not expected to improve with this therapy. 3. Abnormal EKG: As mentioned above has been free of chest discomfort. It is hard to imagine she does not have coronary disease given the diffuse nature of her vascular disease. Currently remains on protective low-dose aspirin and Crestor statin therapy. Withdrawing her midodrine is expected to reduce her risk of myocardial ischemia. Followup cardiac enzymes and EKGs have been requested as mentioned above. 4. Hypertensive heart disease (benign with heart failure): Current blood pressure would be considered adequately controlled off midodrine therapy. Blood pressure should be recorded from her calf only. At this point we have not elected to initiate any beta ofelia or JOANN inhibitor therapies given her need for dialysis. We may reconsider this. 5. Mitral and aortic valve disorder (nonrheumatic)/insufficiency: As mentioned above has echocardiographic evidence of marginal calcific aortic stenosis and mild aortic insufficiency with moderately severe to severe mitral insufficiency. No symptoms or signs of endocarditis. As mentioned, serial blood cultures and pleural fluid cultures are negative. Remains on combination of vancomycin and ceftriaxone. Given this patient's known left ventricular dysfunction, advanced valvular disease, fairly severe pulmonary hypertension and BNP level of greater than 5000, her anticipated prognosis is extremely poor. I am not sure she understands this. For the time being remains a FULL CODE. I am hoping to readdress this tomorrow when she may be perhaps less confused. Thank you for allowing me to assist in the care of your patient. cc: Quan Cotto MD
[2016-06-12] MEDS: HumaLOG INSULIN (NovoLOG) PER UNIT SC SCH ×4 (07:30→21:00)
[2016-06-12] MEDS: FAMOTIDINE 20 MG TAB PO SCH (08:46)
[2016-06-12] MEDS: MOM 30ML SUSPENSION UDC PO SCH (08:46)
[2016-06-12] MEDS: ACETAMINOPHEN TAB 650MG DOSE (2X325MG) PO PRN ×2 (08:47→16:10)
[2016-06-12] MEDS: DOCUSATE SODIUM 100 MG CAP PO SCH (08:47)
[2016-06-12] MEDS: FLUTICASONE PROP 0.05% NASAL SPRAY 16 GM (FLONASE) SCH (08:47)
[2016-06-12] MEDS: ASPIRIN 81 MG ENTERIC TAB PO SCH (08:47)
[2016-06-12] MEDS: PANTOPRAZOLE 40MG TAB (PROTONIX) PO SCH (08:47)
[2016-06-12] MEDS: GABAPENTIN 300 MG CAP PO SCH ×2 (08:47→21:21)
[2016-06-12] MEDS: TIOTROPIUM INHALER/CAPSULE (SPIRIVA) INH SCH (08:50)
[2016-06-12] MEDS: HEPARIN SOD (PORCINE) 5000 UNITS/ML VIAL SQ SCH ×2 (09:00→21:21)
[2016-06-12] MEDS: BUDESONIDE 0.5 MG/2 ML INHALATION SUSPENSION INH SCH ×2 (09:00→19:26)
[2016-06-12 09:22] LABS: ABG BASE EXCESS 2.2 (-2.0-2.0); ABG HCO3 28.1 MEQ/L (22.0-26.0); ABG PARTIAL PRESSURE CO2 50.6 mmHg (35.0-45.0); ABG PARTIAL PRESSURE O2 72.8 mmHg (75.0-100.0); ABG STANDARD HCO3 26.4 MEQ/L (22.0-26.0); ABG TOTAL CO2 29.7 MEQ/L (23.0-31.0); ABG pH (ARTERIAL) 7.363 UNITS (7.350-7.450)
--- NOTE | 2016-06-12 10:19 | IPN ---
CARDIOLOGY PROGRESS NOTE DATE OF SERVICE: 06/12/2016 SUBJECTIVE: The patient is requesting fluids despite appearing obviously dyspneic at rest. Does not appear to understand the fluid is the cause of her dyspnea at this time. Has remained free of chest discomfort or palpitations. No apparent dizziness but remains weak. OBJECTIVE: Bright and alert but somewhat cantankerous elderly lady of medium body build, slightly increased anteroposterior chest configuration. Dyspneic as described. Heart rate 96 beats per minute and regular, blood pressure 150/70 from her calf. Respiratory rate 28, oxygen (O2) saturation 91% on 3 liters by nasal prongs. Has a low-grade temperature. Weight today is 1 kg down from yesterday but still 3 kg up from her admission. No obvious pallor. No central cyanosis. Normal oral moisture. Trachea midline. Neck veins appear to be elevated at 5-6 cm above her sternal angle. Continues to have bibasilar dullness with coarse inspiratory rales 1/[address] both lower lobes posteriorly. Heart sounds unchanged. Still has pitting edema of at least 1-2 mm 3[address] up both lower legs and plus/minus over her sacrum. ELECTROCARDIOGRAM (EKG) MONITOR: This has shown primarily sinus rhythm with occasional isolated PVCs but no recurrent ventricular tachycardia. EKG today showed sinus rhythm with left atrial conduction disturbance, left ventricle hypertrophy, and persistent ST/T wave abnormalities that did not appear to be changed from yesterday evening. LABORATORY DATA: Blood work today showed a hemoglobin of 10.2. White blood cell count was down from 18 yesterday morning to 13 today. Normal platelet count. Her electrolytes today were in balance. BUN 25, creatinine 3.5, glucose 109, serum albumin was only 1.8, magnesium 2.1, calcium 7.7. Troponin I level today remains essentially normal at 0.08 despite her event yesterday. IMPRESSION/PLAN: 1. Heart failure (systolic and diastolic/acute on chronic): Remains obviously symptomatically and objectively congested. Frustratingly, wishes to drink more, though I have tried to explain to her she needs to follow a fluid intake restriction to prevent worsening of her congested state. I have spoken with Dr. Gonzales, nephrology, this morning to try and arrange for additional ultrafiltration today prior to possible home peripherally inserted central catheter (PICC) line insertion for venous access. 2. Monomorphic ventricular tachycardia/implantable cardioverter-defibrillator (ICD) in situ: Gratifyingly, has been free of further malignant ventricular arrhythmia. Chemistry is in balance as mentioned. I am convinced that her risk of recurrent arrhythmia will decrease with relief of her congested state. Remains on a monitor at this time. As mentioned, we have adjusted her cardioverter defibrillator pulse generator settings to recognize ventricular arrhythmia that she experienced yesterday. It was clearly associated with near syncope/syncope, mandating a more prompt intervention than we had originally programmed her device for. 3. Abnormal electrocardiogram: Remains free of symptomatic myocardial ischemia, despite her congested state. Followup EKG and cardiac enzymes failed to show evidence of an acute coronary syndrome. Remains on low-dose aspirin and Crestor. Once her congested state is relieved, we will consider possibly reintroducing at least low-dose selective beta-ofelia therapy. 4. Hypertensive heart disease (benign with heart failure): Off her midodrine therapy. Actually, somewhat high this morning, measured from her calf. I have written an order to have her blood pressure measured from her calf only. Our plan will be to try and initiate at least low-dose selective beta-ofelia or low-dose angiotensin-converting enzyme (JOANN) inhibition, perhaps later this admission. 5. Mitral and aortic valve disorder (nonrheumatic)/mild aortic stenosis and insufficiency/moderately severe to severe mitral insufficiency: Auscultatory findings were unchanged from yesterday. Remains free of any obvious symptoms or signs of endocarditis. Had a low-grade temperature yesterday despite blood cultures all negative as described. White blood cell count is down today from yesterday. Remains on combination parenteral antibiotic therapy per her primary service and nephrology. I will continue to follow her with you and appreciate the opportunity to participate in her care. Best regards.
--- NOTE | 2016-06-12 10:31 | REP ---
CHEST, TWO VIEWS: Two views of the chest are performed and compared to prior studies, most recently of which is 06/11/2016. Bilateral infiltrative opacities are unchanged as is blunting of the right costophrenic angle. There is an adjacent pigtail catheter inferiorly on the right. Cardiomediastinal silhouette is unchanged. Left single lead pacemaker is noted. IMPRESSION: Stable exam. Signed by Jesus Johnson MD 06/12/2016 04:52 P
--- NOTE | 2016-06-12 11:41 | ECGEPIP ---
Stationary ECG Study [facility] Test Date: 2016-06-11 Pat Name: PRESTON CAMPA Department: Room: [place] [address] Gender: F Software Test Analyst: NISHANT : 1945 Requested By: BRIDGET Blackburn Order Number: [id number] Reading MD: Enrique Ritter Measurements Intervals [place] Rate: 79 P: 44 [place]: 138 QRS: 15 QRSD: 115 T: 120 QT: 398 QTc: 458 Interpretive Statements SINUS RHYTHM MODERATE INTRAVENTRICULAR CONDUCTION DELAY Lateral T wave abnormality not seen on tracing from 06-06-16 Electronically Signed On 06-12-2016 11:41:10 EST by Enrique Ritter
--- NOTE | 2016-06-12 12:36 | IPN ---
DATE: 06/12/2016 Mrs. Shabazz is seen this morning on he bedside. She had an episode of ventricular tachycardia last evening and required intravenous amiodarone after some chest compressions. This morning she is more short of breath with volume overload. I received a call from Dr. Carter and urgent dialysis has been arranged. The patient was dialyzed yesterday and 2.5 liters of fluid was removed; however, she became hypoxic again later in the evening. This morning, she is awake and alert and talking without any problems. On physical exam, temperature is 100.8 degrees Fahrenheit, heart rate 101 per minute and respiratory rate 24 per minute. Blood pressure in the leg is 143/70 mmHg and oxygen saturation is 94% on 3 liters oxygen. Neck veins are moderately distended. Head is atraumatic. Ears, nose and throat are unremarkable. Heart sounds are irregular in rhythm. Lungs have bilateral rhonchi with diminished breath sounds at bases. She has a chest tube in her right chest. Abdomen is soft and nontender. Bowel sounds are normal. Extremities have no cyanosis or clubbing. Peripheral edema on lower extremities is noted. Today's labs show WBC count 13.4, hemoglobin 10.2 and hematocrit 33.4. Platelets 343. Her chemistry showed a sodium level 135 and potassium 4.6. BUN 25 and creatinine 3.51. PROBLEMS: 1. Hypoxemia with hypervolemia. The patient is being dialyzed for ultrafiltration today. We are trying to remove about 3 liters of fluid. So far , she is tolerating it well. We will continue the dialysis for 3 hours. 2. End-stage renal disease. The patient had her regular hemodialysis yesterday and we will schedule her next regular hemodialysis again for tomorrow morning. 3. Ventricular tachycardia. Etiology remains uncertain. Her electrolytes were reasonable yesterday and again today. Will continue to monitor her in intensive care unit. 4. Pulmonary nodules and pleural effusion. The patient is scheduled for a possible lung biopsy later today. I hope that she will be able to tolerate it better once her volume status is corrected. MTDD
[2016-06-12] MEDS ORDERED: SODIUM BICARBONATE 8.4% INJ 50MEQ 50 ML VIAL As Ordered ONE (13:56)
[2016-06-12] MEDS: cefTRIAXone SOD 1 GM in D5W MINI-BAG PLUS 50 ML IV SCH (15:14)
--- NOTE | 2016-06-12 15:31 | REPKIM ---
CLINICAL HISTORY: ESRD, CHF, left pacer, lung mass, pneumonia and other medical comorbidities. Patient needs central venous access for intermediate- term IV meds. PROCEDURE PERFORMED: Right IJ Non-tunneled Concepcion Central Venous Catheter Placement INTERVENTIONALIST: Michael Moody MD MEDICATIONS: Local Lidocaine 2% EBL: 1 mL DEVICE USED: 7F Double Lumen Concepcion Catheter Lot#[id number] FLUORO TIME: 0.5 minutes CONSENT: The risks, benefits and alternatives to the procedure were explained to the patient and informed written consent was obtained. PROCEDURE/FINDINGS: The patient was brought to the interventional radiology suite and placed in the supine position. Time out procedure was performed. The right neck was prepped and draped in a usual sterile fashion. Real time ultrasound was used and permanent image stored. Using ultrasound guidance the right IJ vein was punctured, after infiltration of the skin and deep tissues with local anesthetic. The guidewire was advanced and positioned in the inferior vena cava. Using this access, a double lumen 7-Malaysian Concepcion catheter was inserted. Post procedure chest radiograph showed the tip of the catheter at the cavoatrial junction. The catheter was secured at the skin exit site with 2-0 suture. Each port of the catheter was flushed with saline then locked with heparin (concentration 10 units/cc). A sterile dressing was then applied. The patient tolerated the procedure well with no immediate complications. This procedure was performed using ultrasound and fluoroscopy. Dr. Moody was present. IMPRESSION: 1. Ultrasound of the neck demonstrates patent right IJ vein and compressible. 2. Successful right IJ Concepcion catheter placement as discussed above. The catheter is ready for immediate use. cc: Quan Cotto MD [facility]
[2016-06-12] MEDS: VANCOMYCIN HCL 750 MG, VIAL MATE ADAPTER 1 EACH in D5W 250 ML IV SCH (15:35)
[2016-06-12] MEDS: CHECK TO SEE IF PATIENT IS RECEIVING DIALYSIS TODAY AND REFER TO THE VANCOMYCIN ORDER XX SCH (15:36)
--- NOTE | 2016-06-12 16:42 | IPNPDOC ---
Subjective Date Seen The patient was seen on 06/12/16. Subjective Chief Complaint/HPI The patient is a 70-year-old female admitted with a reason for visit of Shortness Of Breath. Events since last encounter VT overnight, given amiodarone, AICD adjusted, cardiology consulted at bedside. dypnea this am, emergent HD for fluid overload. Denied cp, n/v. General: Reports: Fatigue, Malaise, Denies: Chills, Night Sweats Constitutional: Reports: Weakness, Denies: Chills, Fever Eyes: Denies: Pain ENT: Denies: Head Aches Skin: Denies: Lesions, Rash Pulmonary: Reports: Cough, Dyspnea Cardiovascular: Reports: Palpitations, Denies: Chest Pain Gastrointestinal: Denies: Abdominal Pain, Nausea, Vomiting Musculoskeletal: Denies: Back Pain, Neck Pain Neurological: Denies: Weakness Objective Physical Examination General Exam: Positive: Alert, Cooperative, Mild Distress Eye Exam: Positive: Conjunctiva & lids normal, EOMI, PERRLA, Negative: Sclera icteric ENT Exam: Positive: Atraumatic Neck Exam: Positive: Supple Chest Exam: Positive: Diminished (diminished breath sounds left), Other ( crackles R>L) Heart Exam: Positive: Murmurs, Rate Normal Telemetry: Positive: Other Telemetry: (vt overnight) Abdomen Exam: Positive: Normal bowel sounds, Soft, Negative: Tenderness Extremity Exam: Positive: Edema Psych Exam: Positive: Oriented x 3 Assessment /Plan Problems (1) Pneumonia Status: Acute Response to Treatment: Progressing Problem Specific Plan: Monitor Clinically, Repeat Labs Problem Text: Vanco and Rocephin day #7. Sputum cultures/gram stain significant for yeast. Multifocal consolidations on CTA. Still feels short of breath this morning. Lethargic. However she still is on broad spectrum anti-microbial coverage. Repeat cultures obtained. f/u CRP (2) Pleural effusion Status: Acute Discussed With: Vacuum Technician Problem Specific Plan: Consult Specialist, Monitor Clinically Problem Text: Large right pleural effusion on CTA s/p pigtail catheter. Dr Eason consulted, pigtail management as per Dr Pollard Draining straw colored fluid. Pathology unremarkable. Fluid analysis indicated transudative process. CT chest - mass - plan for biopsy once respiration improved High suspicion for malignancy given smoking history. (3) Hypotension Status: Chronic Problem Specific Plan: Monitor Clinically Problem Text: Lower extremity pressures noted to be significantly higher than her LUE. subclavian steal h/o Given her lack of symptoms with very low pressures measured from her upper extremity, tend to believe her lower extremity being more appropriate. f/u LE pressure midodrine d/ by cardiology (4) Diabetes Status: Chronic Problem Specific Plan: Repeat Labs Problem Text: insulin as per protocol f/u fs (5) Hypercholesteremia Status: Chronic Problem Text: Crestor (6) Anemia Status: Chronic Problem Text: Secondary to ESRD. (7) Anxiety Status: Chronic Problem Text: Atarax (8) CHF (congestive heart failure) Status: Chronic Problem Text: acute Systolic and diastolic failure. cardiology consulted HD emergent (9) COPD (chronic obstructive pulmonary disease) Status: Chronic Problem Text: Spiriva, pulmicort, duonebs scheduled and prn (10) Hyperparathyroidism Status: Chronic Problem Text: c/w current med (11) Mitral valve disease Status: Chronic (12) CAD (coronary artery disease) Onset Date: 01/18/2014 Status: Chronic (13) ESRD (end stage renal disease) Onset Date: 01/26/2014 Status: Chronic Problem Specific Plan: Consult Specialist Problem Text: f/u renal rec HD (14) Lung mass Status: Acute Problem Text: f/u Dr Pollard's rec, biopsy once O2 improves (15) Ventricular tachycardia Status: Acute Problem Text: episode 06/12 tele given amiodarone, f/u cardio rec as per Dr Carter 05/17 acute CHF EF 35% AICD adjusted emergent HD Plan/VTE VTE Prophylaxis Ordered?: Yes (heparin Sq and mechanical) Plan Diet: Continue Current Activity: Continue Current Therapy: PT Diagnostics: Repeat Labs in AM, Obtain Cultures Anticipated Discharge: Home, Home With Services Disposition clinical improvement, PT, lung biposy, poor prognosis given multiple comorbidities, Full code VS, I&O, 24H, Fishbone Vital Signs/I&O Vital Signs Date Time Temp Pulse Resp B/P Pulse Ox O2 Delivery O2 Flow Rate FiO2 06/12/16 16:00 Nasal Cannula 3.0 06/12/16 12:00 97.3 79 20 156/67 95 I&O- Last 24 Hours up to 6 AM 06/12/16 06:00 Intake Total 870 ml Output Total 2649 ml Balance -1779 ml Laboratory Data 24H LABS Laboratory Tests 2 06/11/16 16:59: Bedside Glucose (Misc Panel) 220H 06/11/16 19:20: Arterial Blood pH 7.396, Arterial Blood Partial Pressure CO2 46.9H, Arterial Blood Partial Pressure O2 67.7L, Arterial Blood Total CO2 29.6, Arterial Blood HCO3 28.1H, Arterial Blood Base Excess 2.8H, Arterial Blood Oxygen Saturation 92.5L, Blood Gas Bicarbonate Standard 26.9H 06/11/16 20:48: Bedside Glucose (Misc Panel) 102 06/11/16 21:07: Blood Urea Nitrogen 22#H, Creatinine 3.12H, Sodium Level 136, Potassium Level 3.9#, Chloride Level 96L, Carbon Dioxide Level 31, Calcium Level 7.6L, Aspartate Amino Transf (AST/SGOT) 119H, Alanine Aminotransferase (ALT/SGPT) 50, Alkaline Phosphatase 162H, Total Bilirubin 0.4, Total Protein 5.4L, Albumin 1.7L , Albumin/Globulin Ratio 0.46L, Anion Gap 9, Glomerular Filtration Rate 15.7L, Magnesium Level 2.2, Troponin I 0.09 06/12/16 05:09: Blood Urea Nitrogen 25H, Creatinine 3.51H, Sodium Level 135L, Potassium Level 4.6, Chloride Level 97L, Carbon Dioxide Level 28, Calcium Level 7.7L, Aspartate Amino Transf (AST/SGOT) 119H, Alanine Aminotransferase (ALT/SGPT) 57, Alkaline Phosphatase 176H, Total Bilirubin 0.4, Total Protein 5.7L, Albumin 1.8L, Albumin /Globulin Ratio 0.46L, Anion Gap 10, Glomerular Filtration Rate 13.7L, Magnesium Level 2.1, Troponin I 0.08 06/12/16 06:01: White Blood Count 13.4H, Red Blood Count 3.34L, Hemoglobin 10.2L, Hematocrit 33.4L, Mean Corpuscular Volume 100.0H, Mean Corpuscular Hemoglobin 30.4, Mean Corpuscular Hemoglobin Concent 30.4L, Red Cell Distribution Width 18.3H, Platelet Count 343, Neutrophils (%) (Auto) 84.9H, Lymphocytes (%) (Auto) 5.7L, Monocytes (%) (Auto) 6.4H, Eosinophils (%) (Auto) 0.9, Basophils (%) (Auto) 0.7 , Neutrophils # (Auto) 11.3H, Lymphocytes # (Auto) 0.9L, Monocytes # (Auto) 0.9H , Eosinophils # (Auto) 0.1, Basophils # (Auto) 0.1, Large Unclassified Cells # 0.2, Large Unclassified Cells % 1.4 06/12/16 09:10: Arterial Blood pH 7.363, Arterial Blood Partial Pressure CO2 50.6H, Arterial Blood Partial Pressure O2 72.8L, Arterial Blood Total CO2 29.7, Arterial Blood HCO3 28.1H, Arterial Blood Base Excess 2.2H, Arterial Blood Oxygen Saturation 93.8L, Blood Gas Bicarbonate Standard 26.4H 06/12/16 12:01: Bedside Glucose (Misc Panel) 134H CBC/BMP Laboratory Tests 06/11/16 21:07 Calcium Level 7.6 L, Aspartate Amino Transf (AST/SGOT) 119 H, Alanine Aminotransferase (ALT/SGPT) 50, Alkaline Phosphatase 162 H, Total Bilirubin 0.4 , Total Protein 5.4 L, Albumin 1.7 L 06/12/16 05:09 Calcium Level 7.7 L, Aspartate Amino Transf (AST/SGOT) 119 H, Alanine Aminotransferase (ALT/SGPT) 57, Alkaline Phosphatase 176 H, Total Bilirubin 0.4 , Total Protein 5.7 L, Albumin 1.8 L 06/12/16 06:01 Red Blood Count 3.34 L, Mean Corpuscular Volume 100.0 H, Mean Corpuscular Hemoglobin 30.4, Mean Corpuscular Hemoglobin Concent 30.4 L, Red Cell Distribution Width 18.3 H, Neutrophils (%) (Auto) 84.9 H, Lymphocytes (%) (Auto ) 5.7 L, Monocytes (%) (Auto) 6.4 H, Eosinophils (%) (Auto) 0.9, Basophils (%) ( Auto) 0.7, Neutrophils # (Auto) 11.3 H, Lymphocytes # (Auto) 0.9 L, Monocytes # (Auto) 0.9 H, Eosinophils # (Auto) 0.1, Basophils # (Auto) 0.1 Microbiology Microbiology 06/11/16 Blood Culture - Preliminary, Resulted No growth after 24 hours . All specim... 06/11/16 Blood Culture - Preliminary, Resulted No growth after 24 hours . All specim... 06/06/16 Blood Culture - Final, Complete NO GROWTH AFTER 5 DAYS 06/06/16 Blood Culture - Final, Complete NO GROWTH AFTER 5 DAYS 06/07/16 Acid Fast Stain, Received Pending 06/07/16 Mycobacterial Culture, Received Pending 06/07/16 Fungal Smear, Received Pending 06/07/16 Fungal Culture, Received Pending 06/07/16 Gram Stain - Final, Complete 06/07/16 Anaerobic Culture - Final, Complete 06/07/16 Body Fluid Culture - Final, Complete 06/07/16 Gram Stain - Final, Complete 06/07/16 Sputum Culture - Final, Complete Yeast Like Organism 06/06/16 Respiratory Virus Panel (PCR) (KEY) - Final, Complete DELIA FELIX MD Jun 12, 2016 16:42
[2016-06-12] MEDS: SODIUM CHLORIDE 0.9% INJ 10 ML SYR IV PRN (16:56)
--- NOTE | 2016-06-12 19:33 | IPN ---
DATE: 06/12/2016 Ms. Shabazz looks a lot better today than she did yesterday after I left the hospital. In fact she had an episode of ventricular tachycardia which was attended by Dr. Carter. She has now gone down for her Rose catheter for intravenous (IV) access. We have held off on her upper lobe lesion biopsy until we get her better. VITAL SIGNS: Show a maximum temperature (T-max) of 100.8 with a heart rate that ranges between 91 and 101 in a sinus rhythm, a respiratory rate of 20 to 25 without the use of accessory muscles who is 91 to 95% saturated on 3 liters nasal cannula and whose blood pressure is ranging between 143/70 to 153/70. Her intake and output over the past 24 hours has been recorded as 780 in and 2624 out for a negativity of 1844 mL. She underwent dialysis yesterday for 2500 mL and today ultrafiltration for another 2500 mL. She weighs 55.5 kg compared to 56.5 yesterday. PHYSICAL EXAMINATION: LUNGS: Her lungs today show inspiratory and expiratory crackles but I do not hear the tight wheezing that I heard yesterday. Percussion note is full to the diaphragm. CARDIAC: Exam without murmurs, clicks, gallops, or rubs. I cannot feel her PMI. S1 and S2 are normal. ABDOMEN : Soft, nontender, bowel sounds are positive. There is no hepatomegaly. No costovertebral angle (CVA) tenderness. EXTREMITIES: 2+ pretibial edema. No calf tenderness. No differential swelling of the upper extremities. SKIN: Warm, dry and perfused without cyanosis or mottling, including that of the nail beds and knees. NECK: Supple. There is no jugular venous distention. There is no subcutaneous emphysema. Trachea is midline. HEENT: Mouth shows her mucous membranes to be dry but pink. Lips and commissures are without lesions. There is no thrush. Eyes show her pupils to be equal and reactive. Extraocular motor intact. Sclera anicteric. NEUROLOGIC: Shows II through XII intact with gross motor and gross sensation intact. Gait is not tested. PSYCHIATRIC: Shows her to be awake, alert and oriented times three with appropriate mood, affect and conversational. Her white count today is down to 13.4 with a hemoglobin and hematocrit of 10.1 and 33.4, unchanged from yesterday with a platelet count of 343 and stable. Differential shows 84% neutrophils, 5% lymphocytes, 6% monocytes. There are no immature forms or toxic granulations today. Her electrolytes show a sodium of 135 with a potassium of 4.6. BUN and creatinine are 25 and 35.1 respectively before dialysis. Calcium 7.1 with an albumin of 1.8. She remains on vancomycin as her antibiotic along with ceftriaxone. Yesterday she was also given amiodarone for her ventricular tachycardia. That has been since discontinued. Her chest tube catheter has put out 74 mL over 24 hours. Her chest x-ray today shows the lung fully expanded to the chest wall. She still has the right lower lobe infiltrate. A lateral film also shows the right lower lobe infiltrate. There is blunting of the right costophrenic angle. IMPRESSION: 1. Right pleural effusion, transudative. 2. Right lower lobe pneumonia. 3. Probable left lower lobe pneumonia. 4. Right upper lobe mass. 5. Thoracic aortic aneurysm measuring 3.5 cm. 6. Diabetes. 7. Chronic obstructive pulmonary disease (COPD). 8. Renal failure. 9. Chronic hypotension in the upper extremities and normotension in the lower extremities. 10. Probably left subclavian stenosis. 11. Chronic anemia. 12. Congestive heart failure (CHF). 13. Hyperlipidemia. 14. Ventricular tachycardia secondary to CHF. PLAN AND DISCUSSION: I will discontinue her chest tube catheter today as it is draining very little. We need to get her a little bit better and conditioned before sending her back for her lung biopsy. Right now the mass is the least of her problems acutely. I will continue to intermittently follow along.
[2016-06-12] MEDS: ROSUVASTATIN 10 MG TAB (CRESTOR) PO SCH (21:21)
--- NOTE | 2016-06-12 22:16 | ECGEPIP ---
Stationary ECG Study [facility] Test Date: 2016-06-12 Pat Name: PRESTON CAMPA Department: Room: [place] [address] Gender: F Donor Center Technician: : 1945 Requested By: Camden Carter Order Number: [id number] Reading MD: Enrique Ritter Measurements Intervals [place] Rate: 95 P: 56 VT: 151 QRS: 8 QRSD: 108 T: 120 QT: 351 QTc: 441 Interpretive Statements SINUS RHYTHM INTRAVENTRICULAR CONDUCTION DELAY Left ventricular hypertrophy and ST-T wave changes No significant change when compared to prior tracing of 06-11-16 Electronically Signed On 06-12-2016 22:16:29 EST by Enrique Ritter
[2016-06-13] VITALS (14 sets, daily range): BP systolic 118–150; BP diastolic 56–77; O2SAT 95–99
[2016-06-13] MEDS: NYSTATIN 500,000 U/5 ML SUSP UDC SS SCH ×4 (00:23→17:56)
[2016-06-13] MEDS: IPRATROPIUM 0.5MG/ALBUTEROL 2.5MG INH SOL UD 3ML (DUONEB)(J7620) NEB SCH ×4 (01:36→19:45)
[2016-06-13] MEDS: SODIUM CHLORIDE 0.9% INJ 10 ML SYR IV PRN (06:24)
[2016-06-13 06:49] LABS: MEAN CORPUSCULAR HEMOGLOBIN 29.5 pg (27.0-33.0); MEAN CORPUSCULAR HGB CONC 29.4 g/dl (32.0-36.5); MEAN CORPUSCULAR VOLUME 100.3 fl (80.0-96.0); RED CELL DISTRIBUTION WIDTH 18.1 % (11.5-14.5); WHITE BLOOD COUNT 11.9 K/mm3 (4.0-10.0)
[2016-06-13 06:58] LABS: ALBUMIN 1.8 GM/DL (3.2-5.2); ALBUMIN/GLOBULIN RATIO 0.45 (1.00-1.93); BILIRUBIN,TOTAL 0.5 MG/DL (0.2-1.0); CALCIUM LEVEL 7.7 MG/DL (8.8-10.2); CREATININE FOR GFR 4.55 MG/DL (0.55-1.02); GLOMERULAR FILTRATION RATE 10.2 (>39); MAGNESIUM LEVEL 2.6 MG/DL (1.8-2.4); POTASSIUM SERUM 4.2 MEQ/L (3.5-5.1); TOTAL PROTEIN 5.8 GM/DL (6.4-8.2)
[2016-06-13] MEDS: HEPARIN SOD (PORCINE) 5000 UNITS/ML VIAL SQ SCH ×2 (08:17→21:17)
[2016-06-13] MEDS: MOM 30ML SUSPENSION UDC PO SCH (08:17)
[2016-06-13] MEDS: FAMOTIDINE 20 MG TAB PO SCH (08:18)
[2016-06-13] MEDS: GABAPENTIN 300 MG CAP PO SCH ×2 (08:18→21:17)
[2016-06-13] MEDS: PANTOPRAZOLE 40MG TAB (PROTONIX) PO SCH (08:18)
[2016-06-13] MEDS: ASPIRIN 81 MG ENTERIC TAB PO SCH (08:18)
[2016-06-13] MEDS: HumaLOG INSULIN (NovoLOG) PER UNIT SC SCH ×4 (08:18→21:00)
[2016-06-13] MEDS: DOCUSATE SODIUM 100 MG CAP PO SCH (08:18)
[2016-06-13] MEDS: FLUTICASONE PROP 0.05% NASAL SPRAY 16 GM (FLONASE) SCH (08:18)
[2016-06-13] MEDS: BUDESONIDE 0.5 MG/2 ML INHALATION SUSPENSION INH SCH ×2 (08:19→19:45)
[2016-06-13] MEDS: TIOTROPIUM INHALER/CAPSULE (SPIRIVA) INH SCH (08:19)
--- NOTE | 2016-06-13 09:36 | REP ---
TWO-VIEW CHEST: Two views of the chest are performed. COMPARISON: 06/12/2016 Bilateral infiltrates appear essentially stable. There is removal of the right inferior pigtail drainage catheter. There is blunting of the costophrenic angles unchanged. The cardiomediastinal silhouette is unchanged. There is placement of a right central venous catheter with the tip in the right atrium. There is no pneumothorax. IMPRESSION: Removal of right-sided pigtail drainage catheter. Placement of right central venous catheter. Otherwise, no change. Signed by Jesus Johnson MD 06/13/2016 05:17 P
--- NOTE | 2016-06-13 12:28 | IPN ---
DATE: 06/13/2016 Ms. Shabazz looks pretty good this morning. However, her wheezing is back and I noted yesterday that just after dialysis, when I saw her, her wheezing was gone. She is going for dialysis again today and I suspect that she is in need of more fluid removal. She is awake and alert and complains of lower sternal pain from her cardiac compressions a few days ago. Her vital signs show a T-max of 100.8 yesterday morning. Since then, she has been afebrile. Heart rate ranges between 88 and 85 and in sinus rhythm. Respiratory rate of 22 to 24 without the use of accessory muscles, who is 98 to 97% saturated on 3 liters nasal cannula. Blood pressures ranging between 138/63 to 144/65. Her intake and output over the past 24 hours is recorded as 1040 in and 2785 out for a negativity of 1700 mL. 2500 mL was taken off yesterday in dialysis. Weight today is 52.9 kg compared to 55.5 kg yesterday. On physical examination, her lungs show bilateral wheezing during all of expiration. Percussion notes are full to the diaphragm. Definitely she has inspiratory crackles on either side. Cardiac exam is without murmurs, clicks, gallops or rubs. I cannot feel her point of maximum impulse (PMI). S1 and S2 are normal. Abdomen is soft and nontender. Bowel sounds are positive. There is no hepatomegaly. No CVA tenderness. Extremities show no pretibial edema with no calf tenderness. No differential swelling of the upper extremities. Skin is warm, dry and perfused without cyanosis or mottling including that of the nail beds and knees. Neck is supple. There is no jugular venous distention. No subcutaneous emphysema. Trachea is midline. Mouth shows her mucous membranes to be pink and moist. Lips and commissures are without lesions. Thrush has now resolved. Eyes show her pupils to be equal and reactive. Extraocular movements intact. Sclerae nonicteric. Neurologic shows II-XII intact along with gross motor and gross sensation intact. Gait is not tested. Psychiatric showed her to be awake, alert and oriented times three with appropriate and affect and conversational. Her white count today is down to 11.9 with a hemoglobin and hematocrit of 9.3 and 31.6 with a platelet count of 266. Chemistries today show nearly normal electrolytes with a BUN and creatinine of 34 and 4.55. Calcium is 7.7 with an albumin of 1.8. She is now placed on cefepime and vancomycin. The Rocephin has been discontinued. Microbiology shows no growth aerobically or anaerobically from the pleural fluid. No other cultures are positive except for yeast-like organism in her sputum, which is noted secondary to her thrush as it was fairly severe earlier on in hospitalization. Her chest x-ray shows the lungs inflated to the chest wall. There is a little bit of fluid that is starting to accumulate in the costophrenic angle on the right side. She has the same right lower lobe infiltrate, which I suspect is more fluid than pneumonia. She has the same on the left side. Her central line catheter has been placed and is in good position. There is no pneumothorax. IMPRESSION: 1. Right Pleural effusion transudative. 2. Right lower lobe pneumonia. 3. Probable left lower lobe pneumonia. 4. Right upper lobe lung mass. 5. Thoracic aortic aneurysm measuring 3.5 cm. 6. Diabetes. 7. COPD. 8. Renal failure requiring dialysis. 9. Chronic hypotension in the upper extremities. 10. Probable left subclavian stenosis. 11. Chronic anemia. 12. Congestive heart failure. 13. Hyperlipidemia. 14. Ventricular tachycardia secondary to congestive heart failure. PLAN/DISCUSSION: I was going to sign off on her case, however, she still has the outstanding right upper lobe lung mass. We will undertake a needle biopsy hopefully tomorrow as she is doing much better. I do suspect this is going to be malignant. I also suspect she is not going to be a surgical candidate secondary to her medical comorbidities and lung function. Nonetheless, she might be a candidate for SBRT.
[2016-06-13] MEDS ORDERED: CEFEPIME HCL 1 GM in D5W MINI-BAG PLUS 50 ML IV ONE (16:00)
[2016-06-13] MEDS: CHECK TO SEE IF PATIENT IS RECEIVING DIALYSIS TODAY AND REFER TO THE VANCOMYCIN ORDER XX SCH (16:00)
[2016-06-13] MEDS: VANCOMYCIN HCL 750 MG, VIAL MATE ADAPTER 1 EACH in D5W 250 ML IV SCH (17:06)
--- NOTE | 2016-06-13 18:08 | IPN ---
DATE: 06/13/2016 Mrs. Shabazz is seen in intensive care unit on her bedside. She underwent ultrafiltration yesterday with hemodialysis, and 3 liters fluid was removed. Her respiratory status has improved significantly. Her chest tube has been removed. She reports that she did not sleep well last night, but otherwise her symptoms have improved. She remains somewhat anxious this morning. PHYSICAL EXAMINATION: Temperature 98.9 degrees Fahrenheit, heart rate 96 per minute, respiratory rate 28 per minute, blood pressure 142/65 mm of mercury, and oxygen saturation 93% on 3 liters oxygen. Head is atraumatic. Oral mucosa is mildly dry. There is no thrush or ulcers. Pupils are equal and reactive to light, and sclerae are anicteric. Ears, nose, and throat are unremarkable. Neck veins are mildly distended. Lungs have moderate air entry and few basilar rales. Slightly diminished breath sounds at right base. Heart sounds are regular with systolic murmur grade 1/6. Abdomen soft and nontender and without a palpable organomegaly. Extremities have significantly improved edema and no cyanosis or clubbing. Neurologically she is awake, alert, and oriented times three. She has no focal neurological deficit. Today's labs show WBC count 11.9, hemoglobin 9.3, hematocrit 31.6. Sodium 134, potassium 4.2, BUN 34, and creatinine 4.55. Calcium level 7.7 and magnesium 2.6. A C-reactive protein is 12.5. PROBLEMS: 1. End-stage renal disease. The patient is being dialyzed today. We will plan to dialyze her for 3 hours today and try to remove another 2 liters of fluid. 2. Hypoxemia. She did have some volume overload and improved significantly with hemodialysis on Saturday and ultrafiltration yesterday. The patient is being dialyzed today again, and 2 liters fluid is being removed. 3. Pneumonia and pleural effusion. Chest tube has been removed after drainage of right pleural effusion. Pneumonia is being treated with antibiotics, and symptoms are improved significantly. 4. Anemia. Her anemia is slightly worse, and it is related to her ongoing infection with pneumonia. We will give her a dose of Aranesp with hemodialysis and continue to monitor her complete blood count (CBC). She receives 300 mcg Aranesp once a week. 5. Recent history of ventricular tachycardia. The patient is being monitored in intensive care unit. Her electrolytes have been within normal range. Will try to maintain her volume status as good as possible.
[2016-06-13] MEDS: ISOSORBIDE DIN (ISORDIL) 10 MG TAB PO SCH (18:13)
[2016-06-13] MEDS: **hydrALAZINE** 10 MG TAB PO SCH (18:14)
--- NOTE | 2016-06-13 18:19 | IPNPDOC ---
Subjective Date Seen The patient was seen on 06/13/16. Subjective Chief Complaint/HPI The patient is a 70-year-old female admitted with a reason for visit of Shortness Of Breath. Events since last encounter no acute events overnight. respiration improved. denied cp/abd pain. General: Denies: Chills, Fatigue Constitutional: Reports: Weakness, Denies: Chills, Fever ENT: Denies: Ear Pain, Head Aches Skin: Denies: Lesions, Rash Pulmonary: Reports: Cough, Dyspnea Cardiovascular: Denies: Chest Pain, Palpitations Gastrointestinal: Denies: Abdominal Pain, Nausea, Vomiting Neurological: Denies: Numbness, Weakness Objective Physical Examination General Exam: Positive: Alert, Cooperative, Mild Distress Eye Exam: Positive: Conjunctiva & lids normal, EOMI, PERRLA, Negative: Sclera icteric ENT Exam: Positive: Atraumatic Neck Exam: Positive: Supple Chest Exam: Positive: Diminished (diminished breath sounds left), Other ( crackles R>L) Heart Exam: Positive: Murmurs, Rate Normal Telemetry: Positive: Other Telemetry: (vt overnight) Abdomen Exam: Positive: Normal bowel sounds, Soft, Negative: Tenderness Extremity Exam: Positive: Edema Psych Exam: Positive: Oriented x 3 Assessment /Plan Problems (1) Pneumonia Status: Acute Response to Treatment: Progressing Problem Specific Plan: Monitor Clinically, Repeat Labs Problem Text: Vanco and rocephin changed to cefepime 06/13 day #8 of IV antibiotics Sputum cultures/gram stain significant for yeast. Multifocal consolidations on CTA. con't to report sob However she still is on broad spectrum anti-microbial coverage. Repeat cultures obtained. f/u CRP consider ID consult tomorrow am (2) Pleural effusion Status: Acute Discussed With: [employer] Problem Specific Plan: Consult Specialist, Monitor Clinically Problem Text: Large right pleural effusion on CTA s/p pigtail catheter. Dr Eason consulted, pigtail removed Pathology unremarkable. Fluid analysis indicated transudative process. CT chest - mass - plan for biopsy am High suspicion for malignancy given smoking history. (3) Hypotension Status: Chronic Problem Specific Plan: Monitor Clinically Problem Text: Lower extremity pressures noted to be significantly higher than her LUE. subclavian steal h/o Given her lack of symptoms with very low pressures measured from her upper extremity, tend to believe her lower extremity being more appropriate. f/u LE pressure midodrine d/ by cardiology (4) Diabetes Status: Chronic Problem Specific Plan: Repeat Labs Problem Text: insulin as per protocol f/u fs (5) Hypercholesteremia Status: Chronic Problem Text: Crestor (6) Anemia Status: Chronic Problem Text: Secondary to ESRD. (7) Anxiety Status: Chronic Problem Text: Atarax (8) CHF (congestive heart failure) Status: Acute Problem Text: acute Systolic and diastolic failure. cardiology consulted HD daily weight fluid restrict 1.5L, I and O Isordil and hydralazine (9) COPD (chronic obstructive pulmonary disease) Status: Chronic Problem Text: Spiriva, pulmicort, duonebs scheduled and prn (10) Hyperparathyroidism Status: Chronic Problem Text: c/w current med (11) Mitral valve disease Status: Chronic (12) CAD (coronary artery disease) Onset Date: 01/18/2014 Status: Chronic Problem Text: c/w current med f/u bp, Isordil and hydralazine added by cardiology statin, asa (13) ESRD (end stage renal disease) Onset Date: 01/26/2014 Status: Chronic Problem Specific Plan: Consult Specialist Problem Text: f/u renal rec HD (14) Lung mass Status: Acute Problem Text: f/u Dr Pollard's rec, biopsy tomorrow (15) Ventricular tachycardia Status: Acute Problem Text: episode 06/12 tele given amiodarone x1, f/u cardio rec as per Dr Carter 05/17 acute CHF EF 35% AICD adjusted emergent HD 06/12 optimize chf as above Plan/VTE VTE Prophylaxis Ordered?: Yes (heparin Sq and mechanical) Plan Diet: Continue Current Activity: Continue Current Therapy: PT Diagnostics: Repeat Labs in AM, Obtain Cultures Anticipated Discharge: Home, Home With Services Disposition Lung mass biopsy, PT, ID consult am, clinical improvement, Full code, poor overall prognosis VS, I&O, 24H, Fishbone Vital Signs/I&O Vital Signs Date Time Temp Pulse Resp B/P Pulse Ox O2 Delivery O2 Flow Rate FiO2 06/13/16 18:00 90 22 127/56 92 Nasal Cannula 3.0 06/13/16 16:00 97.7 I&O- Last 24 Hours up to 6 AM 06/13/16 05:59 Intake Total 800 ml Output Total 2785 ml Balance -1985 ml Laboratory Data 24H LABS Laboratory Tests 2 06/12/16 21:12: Bedside Glucose (Misc Panel) 188H 06/13/16 06:21: Blood Urea Nitrogen 34H, Creatinine 4.55H, Sodium Level 134L, Potassium Level 4.2, Chloride Level 95L, Carbon Dioxide Level 29, Calcium Level 7.7L, Aspartate Amino Transf (AST/SGOT) 62H, Alanine Aminotransferase (ALT/SGPT) 44, Alkaline Phosphatase 162H, Total Bilirubin 0.5, Total Protein 5.8L, Albumin 1.8L, Albumin /Globulin Ratio 0.45L, Anion Gap 10, C-Reactive Protein, Quantitative 12.50H, Glomerular Filtration Rate 10.2L, Magnesium Level 2.6H 06/13/16 11:37: Bedside Glucose (Misc Panel) 289H 06/13/16 16:58: Bedside Glucose (Misc Panel) 107 CBC/BMP Laboratory Tests 06/13/16 06:21 Calcium Level 7.7 L, Aspartate Amino Transf (AST/SGOT) 62 H, Alanine Aminotransferase (ALT/SGPT) 44, Alkaline Phosphatase 162 H, Total Bilirubin 0.5 , Total Protein 5.8 L, Albumin 1.8 L, Red Blood Count 3.16 L, Mean Corpuscular Volume 100.3 H, Mean Corpuscular Hemoglobin 29.5, Mean Corpuscular Hemoglobin Concent 29.4 L, Red Cell Distribution Width 18.1 H Microbiology Microbiology 06/11/16 Blood Culture - Preliminary, Resulted No Growth after 48 hours. All Specime... 06/11/16 Blood Culture - Preliminary, Resulted No Growth after 48 hours. All Specime... 06/06/16 Blood Culture - Final, Complete NO GROWTH AFTER 5 DAYS 06/06/16 Blood Culture - Final, Complete NO GROWTH AFTER 5 DAYS 06/07/16 Acid Fast Stain - Final, Resulted 06/07/16 Mycobacterial Culture, Resulted Pending 06/07/16 Fungal Smear - Final, Resulted 06/07/16 Fungal Culture, Resulted Pending 06/07/16 Gram Stain - Final, Complete 06/07/16 Anaerobic Culture - Final, Complete 06/07/16 Body Fluid Culture - Preliminary, Resulted 06/07/16 Gram Stain - Final, Complete 06/07/16 Sputum Culture - Final, Complete Yeast Like Organism 06/06/16 Respiratory Virus Panel (PCR) (KEY) - Final, Complete HE,DELIA MD Jun 13, 2016 18:19
--- NOTE | 2016-06-13 18:25 | IPN ---
DATE: 06/13/2016 CARDIOLOGY PROGRESS NOTE SUBJECTIVE: Patient appears considerably less dyspneic today, actually lying flat. Remains quite weak but free of chest discomfort or palpitations. OBJECTIVE: Somewhat lethargic, elderly lady, medium body build, lying comfortably. Heart rate 90 beats per minute (BPM) and regular, blood pressure measured on her calf 150/77, respiratory rate 22 per minute, oxygen saturation 92% on supplemental oxygen by nasal prongs at 3 liters. Afebrile. Weight today is down 2.5 kg from yesterday with her dialysis. No obvious pallor or central cyanosis. Normal oral moisture. Trachea midline. Neck veins remain approximately 6 cm above the sternal angle. Continues to have coarse inspiratory rales one-half of the way up both lower lobes posteriorly. Pitting edema has improved but is still present. 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 Has a single 7-beat run of nonsustained ventricular tachycardia yesterday. LABORATORY DATA: Hemoglobin today down slightly from yesterday at 9.3. White blood cell count is down from yesterday at 11.9. Normal platelet count. Her electrolytes are in balance. BUN 34, creatinine 4.6, fasting glucose was 138. Albumin 1.8. C-reactive protein remains elevated at 12.5. Liver function studies are slightly improved from yesterday, suspect related to relief of some hepatic congestion. Chest x-ray today appeared to show improved air entry in the upper lobes but still has fairly impressive bilateral infiltrates. Currently has a right central venous catheter in position. No pneumothorax. IMPRESSION/PLAN: 1. Heart failure (systolic and diastolic/acute on chronic): Has been making some progress with her dialysis fluid removal. With her increased blood pressure, I intend to introduce at least low-dose vasodilator combination isosorbide dinitrate and hydralazine. Continue with dialysis per Dr. Gonzales, nephrology. 2. 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 Chemistry as mentioned. I am convinced with further relief of her congested state, her risk of arrhythmia will decrease. 3. Abnormal EKG: Continues free of any chest discomfort. As mentioned above, I had plan to introduce at least a low-dose oral nitrate along with her aspirin and Crestor. If she tolerates vasodilator therapy, I will subsequently introduce low-dose selective beta ofelia. 4. Hypertensive heart disease (benign with heart failure): Off her midodrine and with reduction in her fluid status her systolic blood pressure has actually increased in keeping with improvement in her left ventricular performance. Today, because of her blood pressure findings, we will start her on combination oral isosorbide dinitrate and hydralazine. I intend to escalate the dose of these agents gradually over the course of the next few days. 5. Mitral and aortic valve disorder (nonrheumatic)/mild aortic stenosis/moderately severe to severe mitral insufficiency: Auscultatory findings today are unchanged. Has remained free of fever. Does have leukocytosis, but this has improved. Significantly elevated C-reactive protein, yet all blood cultures remain negative. Additional antibiotic therapy has been added today. I would recommend consideration of an infectious disease consultation here, as I suspect her dyspnea and radiographic findings are a combination of her known advanced pulmonary problems aggravated by congestive heart failure, not pneumonia. I will continue to follow her with you and appreciate the opportunity to participate in her care.
[2016-06-13] MEDS: ROSUVASTATIN 10 MG TAB (CRESTOR) PO SCH (21:17)
[2016-06-14] VITALS (14 sets, daily range): BP systolic 111–182; BP diastolic 55–87; O2SAT 93–95
[2016-06-14] MEDS: ACETAMINOPHEN TAB 650MG DOSE (2X325MG) PO PRN (00:17)
[2016-06-14] MEDS: NYSTATIN 500,000 U/5 ML SUSP UDC SS SCH ×4 (00:17→17:50)
[2016-06-14] MEDS: IPRATROPIUM 0.5MG/ALBUTEROL 2.5MG INH SOL UD 3ML (DUONEB)(J7620) NEB SCH ×4 (01:47→20:44)
[2016-06-14 05:26] LABS: ALBUMIN 1.8 GM/DL (3.2-5.2); ALBUMIN/GLOBULIN RATIO 0.58 (1.00-1.93); BILIRUBIN,TOTAL 0.5 MG/DL (0.2-1.0); CALCIUM LEVEL 7.4 MG/DL (8.8-10.2); CREATININE FOR GFR 2.94 MG/DL (0.55-1.02); GLOMERULAR FILTRATION RATE 16.8 (>39); MAGNESIUM LEVEL 2.1 MG/DL (1.8-2.4); POTASSIUM SERUM 3.9 MEQ/L (3.5-5.1); TOTAL PROTEIN 4.9 GM/DL (6.4-8.2)
[2016-06-14 05:27] LABS: MEAN CORPUSCULAR HEMOGLOBIN 30.1 pg (27.0-33.0); MEAN CORPUSCULAR VOLUME 100.3 fl (80.0-96.0); RED CELL DISTRIBUTION WIDTH 18.7 % (11.5-14.5); WHITE BLOOD COUNT 8.7 K/mm3 (4.0-10.0)
[2016-06-14] MEDS: **hydrALAZINE** 10 MG TAB PO SCH ×2 (06:24→11:10)
[2016-06-14] MEDS: ISOSORBIDE DIN (ISORDIL) 10 MG TAB PO SCH ×2 (06:24→11:09)
[2016-06-14] MEDS: HumaLOG INSULIN (NovoLOG) PER UNIT SC SCH ×4 (07:08→21:00)
[2016-06-14] MEDS: TIOTROPIUM INHALER/CAPSULE (SPIRIVA) INH SCH (07:34)
[2016-06-14] MEDS: BUDESONIDE 0.5 MG/2 ML INHALATION SUSPENSION INH SCH ×2 (07:34→23:45)
[2016-06-14] MEDS: DOCUSATE SODIUM 100 MG CAP PO SCH (08:27)
[2016-06-14] MEDS: MOM 30ML SUSPENSION UDC PO SCH (08:27)
[2016-06-14] MEDS: HEPARIN SOD (PORCINE) 5000 UNITS/ML VIAL SQ SCH ×2 (08:28→21:18)
[2016-06-14] MEDS: FAMOTIDINE 20 MG TAB PO SCH (08:59)
[2016-06-14] MEDS: PANTOPRAZOLE 40MG TAB (PROTONIX) PO SCH (09:00)
--- NOTE | 2016-06-14 09:16 | REP ---
TWO-VIEW CHEST: Two views of the chest are performed and compared to a prior study of 06/13/2016. The cardiomediastinal silhouette is unchanged. Bilateral infiltrates also appear unchanged as well as right pleural fluid. Right central venous catheter is again noted. There is a left pacemaker. IMPRESSION: Stable exam. Signed by Jesus Johnson MD 06/14/2016 03:51 P
[2016-06-14] MEDS: FLUTICASONE PROP 0.05% NASAL SPRAY 16 GM (FLONASE) SCH (09:30)
[2016-06-14] MEDS: GABAPENTIN 300 MG CAP PO SCH ×2 (09:30→21:18)
[2016-06-14] MEDS: ASPIRIN 81 MG ENTERIC TAB PO SCH (09:30)
--- NOTE | 2016-06-14 10:55 | PHACANCOPD ---
PHARMACY VANCOMYCIN DOSING Pt Demographics Demographics Patient Age:70 , Weight:53.000 , Gender: female Adjusted Body Weight Date: 06/14/16, Adjusted Body Weight: Kg Vancomycin Vancomycin indication: pneumonia Vancomycin Target Ranges: 15-20 mcg/ml Vancomycin Load Y/N: No Load Dose Date Time Vancomycin Load Dose: Date: Time: Vancomycin Dose Date: 06/14/16. Current Vancomycin Dose: Intermittent Dosing?: Yes Labs Micro Microbiology 06/11/16 Blood Culture - Preliminary, Resulted No Growth after 72 hours. All specime... 06/11/16 Blood Culture - Preliminary, Resulted No Growth after 72 hours. All specime... 06/06/16 Blood Culture - Final, Complete NO GROWTH AFTER 5 DAYS 06/06/16 Blood Culture - Final, Complete NO GROWTH AFTER 5 DAYS 06/07/16 Acid Fast Stain - Final, Resulted 06/07/16 Mycobacterial Culture, Resulted Pending 06/07/16 Fungal Smear - Final, Resulted 06/07/16 Fungal Culture, Resulted Pending 06/07/16 Gram Stain - Final, Complete 06/07/16 Anaerobic Culture - Final, Complete 06/07/16 Body Fluid Culture - Preliminary, Resulted 06/07/16 Gram Stain - Final, Complete 06/07/16 Sputum Culture - Final, Complete Yeast Like Organism 06/06/16 Respiratory Virus Panel (PCR) (KEY) - Final, Complete Creatinine Clearance Date:06/14/16. Creatinine Clearance: . Assessment and Plan Maintaining Current Dose?: Yes Reason for dose change: No Dose Change Pharmacist Note Pharmacist Note Date: 06/14/16. Pharmacist note: A random level has been scheduled tomorrow, @0500, to be drawn with morning labs prior to her scheduled dialysis session. We will continue to monitor and make adjustments as needed. [facility] Jun 14, 2016 10:55
[2016-06-14] MEDS ORDERED: LIDOCAINE 1% MDV 20ML VIAL As Ordered ONE (11:37)
--- NOTE | 2016-06-14 13:18 | IPN ---
DATE: 06/14/2016 Mrs. Shabazz is seen this morning on her bedside. She is sitting in the chair at the time of visit. She underwent hemodialysis yesterday afternoon which she tolerated well. She reports that her dyspnea is better and she has no nausea or vomiting. She is scheduled for CT-guided lung biopsy later today. On physical exam, temperature 96.2 degrees Fahrenheit, heart rate 82 per minute and respiratory rate 24 per minute. Blood pressure 141/64 mmHg and oxygen saturation 92% on 2 liters oxygen. Head is atraumatic. Oral mucosa is somewhat dry. Ears, nose and throat are unremarkable. Pupils equal and reactive to light and sclera is anicteric. Neck is supple and without any jugular venous distention (JVD) or thyroid enlargement. Heart sounds are regular and lungs have moderate air entry with minimal expiratory wheezing. Abdomen is soft and nontender and bowel sounds are normal. There is no palpable organomegaly. Extremities have no cyanosis or clubbing. Skin has no rash or ulcers. Neurologically, she is awake, alert and oriented times three. Today's labs show WBC count 8.7, hemoglobin 8.8 and hematocrit 29.4. Platelets 219. Sodium 137 and potassium 3.9. BUN is 14 and creatinine 2.94. C-reactive protein is 8.78. PROBLEMS: 1. End-stage renal disease. The patient underwent hemodialysis yesterday afternoon. Her next dialysis will be scheduled for tomorrow morning. Volume status is now well compensated and electrolytes are within normal range. 2. Hypoxemia. This is chronic and related to her chronic lung disease. She is also being worked up for possible lung malignancy and is going to have a biopsy later today. She is currently being treated for pneumonia. 3. Anemia. Her anemia is slightly worse. We will give her Aranesp with her next hemodialysis tomorrow. Her CBC will also be checked tomorrow morning. 4. Hypertension. Her blood pressure is now being checked in the leg. In her upper extremity, blood pressure has been low. She has required hydralazine for better blood pressure control. Her midodrine has already been stopped.
--- NOTE | 2016-06-14 13:35 | REP ---
Chest x-ray: Inspiratory PA view. History: Patient status post CT guided needle biopsy right upper lobe lesion. Comparison radiographs are from June 14, 2016. CT findings: There is no evidence of pneumothorax. There is blunting of the pleural angles bilaterally right more so than left consistent with small bilateral pleural effusions. A right sided [id number] catheter is seen. A pacemaker is noted via the left side. Oxygen delivery tubing is seen. Mild cardiomegaly is again noted. The aorta is tortuous. Impression: No evidence of pneumothorax or other complication identified. Signed by Harry Platt MD 06/14/2016 03:24 P
[2016-06-14] MEDS: CHECK TO SEE IF PATIENT IS RECEIVING DIALYSIS TODAY AND REFER TO THE VANCOMYCIN ORDER XX SCH (15:13)
--- NOTE | 2016-06-14 15:57 | REP ---
CT GUIDED RIGHT UPPER LOBE LUNG BIOPSY: The procedure was performed under the direct supervision of Dr. Platt. The patient has a history of a 3 cm lobulated soft-tissue mass in the right upper lobe seen on a previous CAT scan dated 06/09/2016. The risks and benefits of the procedure were explained to the patient and informed consent was obtained. The right upper lobe lung mass was localized using CT guidance. The skin was prepped and draped in a sterile fashion. 1% Xylocaine was used as a local anesthetic. Using CT guidance a 19/20-gauge coaxial needle biopsy system was inserted and then advanced into the mass. 5 core biopsy samples were obtained and sent to the lab. The patient tolerated the procedure well and there were no immediate complications. Reviewed by FABBY Galicia 06/14/2016 04:14 PEdited and Signed by Harry Platt MD 06/14/2016 05:03 P
[2016-06-14] MEDS ORDERED: CEFEPIME HCL 0.5 GM in D5W 50 ML IV SCH (16:00)
[2016-06-14] MEDS: ISOSORBIDE DIN. (ISORDIL) 30 MG TAB PO SCH (16:50)
[2016-06-14] MEDS: **hydrALAZINE HCL** 25 MG TAB PO SCH (16:50)
--- NOTE | 2016-06-14 18:11 | IPN ---
DATE: 06/14/2016 CARDIOLOGY PROGRESS NOTE SUBJECTIVE: The patient feels quite comfortable at this point, lying virtually flat in bed. Continues to be free of any chest discomfort or palpitations. Breathing is considerably improved with her dialysis. OBJECTIVE: Bright, pleasant elderly lady of medium body build. Heart rate 86 beats per minute regular, blood pressure 139/76, respiratory rate 18 per minute, O2 saturation of 100% on supplemental oxygen by nasal prongs three liters. Remains afebrile. Her weight today is unchanged from yesterday not having received dialysis today. Normal oral moisture. Trachea midline. Jugular veins appeared to be approximately 5 cm above the sternal angle. Has catheter in her right subclavian vein. Increased anteroposterior chest diameter with bibasilar inspiratory rales, but considerably less and improved air entry from even yesterday. Still has sacral and lower extremity pitting of the posterior aspect of her legs. 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 PA AND LEFT LATERAL CHEST X-RAY: Study performed earlier this morning appears to be perhaps marginally less congested than the day before. LABORATORY DATA: Frustratingly hemoglobin down to 8.8 today with normal white blood cell count and platelet count. Electrolytes are currently normal. BUN 14, creatinine 2.9 this morning. Albumin still only 1.8. SGOT has improved with relief of congestion. IMPRESSION/PLAN: 1. Heart failure (systolic and diastolic/acute on chronic): Obvious clinical improvement with her dialysis/ultrafiltration. Her blood pressure is tolerating the low dose of combination isosorbide dinitrate and hydralazine. We will plan on increasing the dosages of these agents today. Further dialysis/ultra filtration per Dr. Gonzales, nephrology. 2. 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 Chemistry as mentioned. 3. Abnormal electrocardiogram (EKG): No followup study today. Remains free of discomfort to suggest myocardial ischemia. 4. Hypertensive heart disease (benign with heart failure): With relief of her fluid by ultrafiltration, her systolic pressure as mentioned has actually increased. I believe she will tolerate our planned increase in vasodilator therapy. 5. Mitral and aortic valve disorder (nonrheumatic): No new auscultatory findings today. Leukocytosis has resolved. C-reactive protein has decreased. Understand Dr. Gardner, infectious disease, will be seeing her today. I will continue to monitor with you and adjust vasodilator therapy. When she is compensated, I may well consider the introduction of at least low-dose selective beta-ofelia.
--- NOTE | 2016-06-14 20:20 | IPNPDOC ---
Subjective Date Seen The patient was seen on 06/14/16. Subjective Chief Complaint/HPI The patient is a 70-year-old female admitted with a reason for visit of Shortness Of Breath. Events since last encounter no acute events overnight. reported hungry given NPO for procedure. SOB improved , Denied cp/abd pain/c/v/f/c. hypertensive Objective Physical Examination General Exam: Positive: Alert, Cooperative, Mild Distress Eye Exam: Positive: Conjunctiva & lids normal, EOMI, PERRLA, Negative: Sclera icteric ENT Exam: Positive: Atraumatic Neck Exam: Positive: Supple Chest Exam: Positive: Diminished (diminished breath sounds left), Other ( crackles R>L) Heart Exam: Positive: Murmurs, Rate Normal Telemetry: Positive: Other Telemetry: (vt overnight) Abdomen Exam: Positive: Normal bowel sounds, Soft, Negative: Tenderness Extremity Exam: Positive: Edema Psych Exam: Positive: Oriented x 3 Assessment /Plan Problems (1) Pneumonia Status: Acute Response to Treatment: Progressing Problem Specific Plan: Monitor Clinically, Repeat Labs Problem Text: Vanco and rocephin changed to cefepime 06/13 day #8 of IV antibiotics Sputum cultures/gram stain significant for yeast. Multifocal consolidations on CTA. con't to report sob However she still is on broad spectrum anti-microbial coverage. Repeat cultures obtained. f/u CRP ID consulted (2) Pleural effusion Status: Acute Discussed With: Industrial Maintenance Electrician Problem Specific Plan: Consult Specialist, Monitor Clinically Problem Text: Large right pleural effusion on CTA s/p pigtail catheter. Dr Eason consulted, pigtail removed Pathology unremarkable. Fluid analysis indicated transudative process. CT chest - mass - biopsy 06/14, f/u path High suspicion for malignancy given smoking history. (3) Hypotension Status: Chronic Problem Specific Plan: Monitor Clinically Problem Text: Lower extremity pressures noted to be significantly higher than her LUE. subclavian steal h/o Given her lack of symptoms with very low pressures measured from her upper extremity, tend to believe her lower extremity being more appropriate, patient HTN on LE. f/u LE pressure midodrine d/ by cardiology (4) Diabetes Status: Chronic Problem Specific Plan: Repeat Labs Problem Text: insulin as per protocol f/u fs (5) Hypercholesteremia Status: Chronic Problem Text: Crestor (6) Anemia Status: Chronic Problem Text: Secondary to ESRD. (7) Anxiety Status: Chronic Problem Text: Atarax (8) CHF (congestive heart failure) Status: Acute Problem Text: acute Systolic and diastolic failure. cardiology consulted HD daily weight fluid restrict 1.5L, I and O Isordil and hydralazine dose increase by cardio (9) COPD (chronic obstructive pulmonary disease) Status: Chronic Problem Text: Spiriva, pulmicort, duonebs scheduled and prn (10) Hyperparathyroidism Status: Chronic Problem Text: c/w current med (11) Mitral valve disease Status: Chronic (12) CAD (coronary artery disease) Onset Date: 01/18/2014 Status: Chronic Problem Text: c/w current med f/u bp, Isordil and hydralazine added by cardiology statin, asa (13) ESRD (end stage renal disease) Onset Date: 01/26/2014 Status: Chronic Problem Specific Plan: Consult Specialist Problem Text: f/u renal rec HD (14) Lung mass Status: Acute Problem Text: f/u Dr Pollard's rec, biopsy tomorrow (15) Ventricular tachycardia Status: Acute Problem Text: episode 06/12 tele given amiodarone x1, f/u cardio rec as per Dr Carter 05/17 acute CHF EF 35% AICD adjusted emergent HD 06/12 optimize chf as above (16) HTN (hypertension) Status: Chronic Problem Text: LE BP elevated, isosordil, hydralazine increased f/u monitor Plan/VTE VTE Prophylaxis Ordered?: Yes (heparin Sq and mechanical) Plan Diet: Continue Current Activity: Continue Current Therapy: PT Diagnostics: Repeat Labs in AM, Obtain Cultures Anticipated Discharge: Home, Home With Services Disposition PT, ID recs, path, clinical improvement VS, I&O, 24H, Fishbone Vital Signs/I&O Vital Signs Date Time Temp Pulse Resp B/P Pulse Ox O2 Delivery O2 Flow Rate FiO2 06/14/16 18:00 87 24 119/55 98 Nasal Cannula 3.0 06/14/16 13:00 96.3 I&O- Last 24 Hours up to 6 AM 06/14/16 06:00 Intake Total 1200 ml Output Total 2500 ml Balance -1300 ml Laboratory Data 24H LABS Laboratory Tests 2 06/13/16 21:14: Bedside Glucose (Misc Panel) 190H 06/14/16 04:45: Blood Urea Nitrogen 14#, Creatinine 2.94H, Sodium Level 137, Potassium Level 3.9 , Chloride Level 99, Carbon Dioxide Level 32, Calcium Level 7.4L, Aspartate Amino Transf (AST/SGOT) 42H, Alanine Aminotransferase (ALT/SGPT) 37, Alkaline Phosphatase 177H, Total Bilirubin 0.5, Total Protein 4.9L, Albumin 1.8L, Albumin /Globulin Ratio 0.58L, Anion Gap 6L, C-Reactive Protein, Quantitative 8.78H, Glomerular Filtration Rate 16.8L, Magnesium Level 2.1 06/14/16 16:37: Bedside Glucose (Misc Panel) 217H CBC/BMP Laboratory Tests 06/14/16 04:45 Calcium Level 7.4 L, Aspartate Amino Transf (AST/SGOT) 42 H, Alanine Aminotransferase (ALT/SGPT) 37, Alkaline Phosphatase 177 H, Total Bilirubin 0.5 , Total Protein 4.9 L, Albumin 1.8 L, Red Blood Count 2.94 L, Mean Corpuscular Volume 100.3 H, Mean Corpuscular Hemoglobin 30.1, Mean Corpuscular Hemoglobin Concent 30.0 L, Red Cell Distribution Width 18.7 H Microbiology Microbiology 06/11/16 Blood Culture - Preliminary, Resulted No Growth after 72 hours. All specime... 06/11/16 Blood Culture - Preliminary, Resulted No Growth after 72 hours. All specime... 06/06/16 Blood Culture - Final, Complete NO GROWTH AFTER 5 DAYS 06/06/16 Blood Culture - Final, Complete NO GROWTH AFTER 5 DAYS 06/07/16 Acid Fast Stain - Final, Resulted 06/07/16 Mycobacterial Culture, Resulted Pending 06/07/16 Fungal Smear - Final, Resulted 06/07/16 Fungal Culture, Resulted Pending 06/07/16 Gram Stain - Final, Complete 06/07/16 Anaerobic Culture - Final, Complete 06/07/16 Body Fluid Culture - Preliminary, Resulted 06/07/16 Gram Stain - Final, Complete 06/07/16 Sputum Culture - Final, Complete Yeast Like Organism 06/06/16 Respiratory Virus Panel (PCR) (KEY) - Final, Complete DELIA FELIX MD Jun 14, 2016 20:20
[2016-06-14] MEDS: ROSUVASTATIN 10 MG TAB (CRESTOR) PO SCH (21:18)
[2016-06-15] VITALS (12 sets, daily range): BP systolic 124–182; BP diastolic 58–85; O2SAT 96
[2016-06-15] MEDS: IPRATROPIUM 0.5MG/ALBUTEROL 2.5MG INH SOL UD 3ML (DUONEB)(J7620) NEB SCH ×4 (01:24→20:11)
[2016-06-15 05:33] LABS: MEAN CORPUSCULAR HEMOGLOBIN 29.1 pg (27.0-33.0); MEAN CORPUSCULAR HGB CONC 28.4 g/dl (32.0-36.5); MEAN CORPUSCULAR VOLUME 102.5 fl (80.0-96.0); RED CELL DISTRIBUTION WIDTH 19.1 % (11.5-14.5); WHITE BLOOD COUNT 9.1 K/mm3 (4.0-10.0)
[2016-06-15 05:51] LABS: ALBUMIN 1.8 GM/DL (3.2-5.2); ALBUMIN/GLOBULIN RATIO 0.58 (1.00-1.93); BILIRUBIN,TOTAL 0.3 MG/DL (0.2-1.0); CALCIUM LEVEL 7.1 MG/DL (8.8-10.2); CREATININE FOR GFR 4.25 MG/DL (0.55-1.02); MAGNESIUM LEVEL 2.1 MG/DL (1.8-2.4); POTASSIUM SERUM 4.1 MEQ/L (3.5-5.1); TOTAL PROTEIN 4.9 GM/DL (6.4-8.2)
[2016-06-15] MEDS: **hydrALAZINE HCL** 25 MG TAB PO SCH ×3 (06:04→17:35)
[2016-06-15] MEDS: NYSTATIN 500,000 U/5 ML SUSP UDC SS SCH ×4 (06:05→17:35)
[2016-06-15] MEDS: ISOSORBIDE DIN. (ISORDIL) 30 MG TAB PO SCH ×3 (06:05→17:34)
[2016-06-15] MEDS: TIOTROPIUM INHALER/CAPSULE (SPIRIVA) INH SCH (08:08)
[2016-06-15] MEDS: BUDESONIDE 0.5 MG/2 ML INHALATION SUSPENSION INH SCH ×2 (08:08→20:11)
[2016-06-15] MEDS: FAMOTIDINE 20 MG TAB PO SCH (08:33)
[2016-06-15] MEDS: HumaLOG INSULIN (NovoLOG) PER UNIT SC SCH ×4 (08:33→20:06)
[2016-06-15] MEDS: GABAPENTIN 300 MG CAP PO SCH ×2 (08:33→20:31)
[2016-06-15] MEDS: PANTOPRAZOLE 40MG TAB (PROTONIX) PO SCH (08:33)
[2016-06-15] MEDS: DOCUSATE SODIUM 100 MG CAP PO SCH (08:33)
[2016-06-15] MEDS: FLUTICASONE PROP 0.05% NASAL SPRAY 16 GM (FLONASE) SCH (08:34)
[2016-06-15] MEDS: ASPIRIN 81 MG ENTERIC TAB PO SCH (08:34)
[2016-06-15] MEDS: HEPARIN SOD (PORCINE) 5000 UNITS/ML VIAL SQ SCH ×2 (08:34→20:31)
[2016-06-15] MEDS: MOM 30ML SUSPENSION UDC PO SCH (08:38)
[2016-06-15] MEDS ORDERED: HEPARIN 1,000 UNITS/ML 10ML VIAL (FOR RADIOLOGY& DIALYSIS ONLY) IV ONE ×2 (10:45)
--- NOTE | 2016-06-15 10:48 | REP ---
TWO-VIEW CHEST: Two views of the chest are performed and compared to a prior study of 06/14/2016. Bilateral infiltrates are unchanged. Right pleural fluid is unchanged. The cardiomediastinal silhouette is unchanged. Right central venous catheter and left pacemaker are again noted. IMPRESSION: Stable exam. Signed by Jesus Johnson MD 06/15/2016 08:30 P
[2016-06-15] MEDS: ACETAMINOPHEN TAB 650MG DOSE (2X325MG) PO PRN ×2 (10:51→21:43)
--- NOTE | 2016-06-15 13:21 | CR ---
DATE OF CONSULTATION: 06/14/2016 REASON FOR CONSULTATION: I was asked to consult by the hospitalist for evaluation of multifocal pneumonia. HISTORY OF PRESENT ILLNESS: Mrs. Shabazz is a 70-year-old female with a history of end-stage renal disease on hemodialysis, who has been transferred from dialysis with hypotension. She had a workup including a chest x-ray for pneumonia and a chest CT, which also shows a dilated aneurysm. The patient was seen in consultation by Dr. Pollard. She states that she had been coughing for at least one week prior to admission with yellowish, brownish phlegm. Normally, she has a chronic cough but it has gotten worse. She is on antibiotic, according to the daughter it is very frequently. Most recently, she had been on doxycycline 100 mg twice a day, and the daughter thinks that she was still on antibiotic when she arrived to the hospital. She is chronically short of breath and is on oxygen 2 liters nasal cannula at baseline. She had mild weight loss of 5 pounds over the last couple months. She denies any chest pain or chest discomfort. No dysphagia, difficulty swallowing. She had increasing orthopnea over the last 3 days, having to sleep in a recliner. She has some lower extremity edema. She was seen in consultation with Dr. Carter, who is her rolfer, who felt that her symptoms were more related to congestive heart failure. She has been on IV antibiotics since admission, initially ceftriaxone and vancomycin. On 06/11, the patient had a fever of 102.1. White count of 18,000 and her vancomycin was continued. Cefepime was started. Blood cultures, two sets, were negative then. PAST MEDICAL HISTORY: Significant for: 1. End stage renal disease. 2. Chronic obstructive pulmonary disease (COPD). 3. Congestive heart failure (CHF). 4. Tdu-pfwlolo-nysxdwvds diabetes. 5. Hyperlipidemia. PAST SURGICAL HISTORY: Defibrillator placement, dialysis fistula left arm, cholecystectomy, tubal ligation. ALLERGIES: PENICILLIN, RAMIPRIL, SULFA causing rash. TRAVEL HISTORY: She traveled to [place] and [place] visiting the [place]. FAMILY HISTORY: Mother of unknown cancer. Father of prostate cancer. MEDICATIONS: - hydralazine 25 mg by mouth three times a day - Isordil 30 mg by mouth three times a day - cefepime 25 mg every 24 - vancomycin 750 mg IV with hemodialysis - Percocet 5/325 one tablet by mouth every four hours as needed - milk of magnesia 30 mL by mouth daily as needed - Nystatin powder - budesonide 0.5 mg inhaled twice a day - Crestor 10 mg by mouth at night - insulin sliding scale LABORATORY DATA White count is 8.7, down from 18.2 on 06/11/2016, hemoglobin 8.8, hematocrit 29.4, MCV 100.3, platelets 219. Sodium 137, potassium 3.9, chloride 99, bicarbonate 32, BUN 14, creatinine 2.94, glucose 131, calcium 7.4, magnesium 2.1, bilirubin 0.5, AST 42, ALT 37, alkaline phosphatase 177, C-reactive protein is 8.70, down from 12.5. Total protein 4.9, albumin 1.8. Urinalysis had 3 white cells, 8 red cells. Vancomycin level on 06/11/2016 was 22, hepatitis B and C antibodies done in 2013 before hemodialysis were negative. RADIOLOGY: The patient on admission had a chest x-ray, which showed a very large pleural effusion and therefore she went to interventional radiology on 06/07/2016 and 1000 mL of redd colored fluid was drawn, pH was 7.6. She did not have any complications. She tolerated the procedure well. The fluid was sent for culture and was negative. She also had a recent biopsy of the lung to rule out malignancy. There is a right upper lobe mass, which measures 3 cm. It is spiculated and lobulated., somewhat concerning to Dr. Matthews. PHYSICAL EXAMINATION: Temperature is 97.5, pulse 90, respirations 26, blood pressure 114/57, oxygen saturation 93% on 2 liters nasal cannula. HEART: Normal S1, S2 with a systolic ejection murmur 2/6. LUNGS: Diminished air entry bilaterally. Few inspiratory crackles and expiratory crackles, wheezes on expiration. Diminished air entry. She has 2 liters oxygen. ABDOMEN: Soft, nontender. No hepatosplenomegaly. EXTREMITIES: No clubbing, cyanosis or edema. There are multiple scars from a tractor injury when she was in her 50s. Oropharynx is dry mucosa but clear. Pupils equal and reactive, anicteric. IMPRESSION: This is an elderly female admitted with multiple medical problems, including acute on chronic congestive heart failure (CHF) and has been followed by cardiology and being diuresed. Has had chronic recurrent bronchitis. The patient's family states that she is very frequently on oral antibiotics at home and prior to admission the patient was on doxycycline. Her cultures have remained negative except for yeast-like organisms. She had a thoracentesis of empyema. Suggestive of congestive heart failure (CHF). On the , she developed a fever or 102 along with white count of 18,000, which was concerning for an infectious process and therefore her antibiotics was switched from ceftriaxone to cefepime for healthcare associated pneumonia, and the patient has done well since then. Her only concern is that she is not able to expectorate sputum. PLAN: Continue on current management, although I would suggest discontinuing IV vancomycin at this point. She has been on it since the , which would be a total 10 days tomorrow and that would be sufficient. She could probably be switched to some oral antibiotics soon. She had a lung biopsy done to rule out malignancy. I would also recommend using hypertonic saline to help with expectoration. We will also order a urine for Legionella antigen, as the patient is at risk for Legionnaire's disease with chronic kidney disease.
--- NOTE | 2016-06-15 17:12 | IPNPDOC ---
Subjective Date Seen The patient was seen on 06/15/16. Subjective Chief Complaint/HPI The patient is a 70-year-old female admitted with a reason for visit of Shortness Of Breath. Events since last encounter no acute events, reported improved respiration. Denied cp/abd pain/n/v/diarreha Objective Physical Examination General Exam: Positive: Alert, Cooperative, Mild Distress Eye Exam: Positive: Conjunctiva & lids normal, EOMI, PERRLA, Negative: Sclera icteric ENT Exam: Positive: Atraumatic Neck Exam: Positive: Supple Chest Exam: Positive: Diminished (diminished breath sounds left), Other ( crackles R>L) Heart Exam: Positive: Murmurs, Rate Normal Telemetry: Positive: Other Telemetry: (vt overnight) Abdomen Exam: Positive: Normal bowel sounds, Soft, Negative: Tenderness Extremity Exam: Positive: Edema Psych Exam: Positive: Oriented x 3 Assessment /Plan Problems (1) Pneumonia Status: Acute Response to Treatment: Progressing Problem Specific Plan: Monitor Clinically, Repeat Labs Problem Text: stop Vanco completed 10 days rocephin changed to cefepime 06/13 day #10 of IV antibiotics Sputum cultures/gram stain significant for yeast. Multifocal consolidations on CTA. con't to report sob Repeat cultures obtained. 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 Dr Eason consulted, pigtail removed Pathology unremarkable. Fluid analysis indicated transudative process. CT chest - mass - biopsy 06/14, path neg for cancer (3) Hypotension Status: Chronic Problem Specific Plan: Monitor Clinically Problem Text: Lower extremity pressures noted to be significantly higher than her LUE. subclavian steal h/o Given her lack of symptoms with very low pressures measured from her upper extremity, tend to believe her lower extremity being more appropriate, patient HTN on LE. f/u LE pressure midodrine d/ by cardiology (4) Diabetes Status: Chronic Problem Specific Plan: Repeat Labs Problem Text: insulin as per protocol f/u fs (5) Hypercholesteremia Status: Chronic Problem Text: Crestor (6) Anemia Status: Chronic Problem Text: Secondary to ESRD. (7) Anxiety Status: Chronic Problem Text: Atarax (8) CHF (congestive heart failure) Status: Acute Problem Text: acute Systolic and diastolic failure. cardiology consulted HD daily weight fluid restrict 1.5L, I and O Isordil and hydralazine dose increase by cardio (9) COPD (chronic obstructive pulmonary disease) Status: Chronic Problem Text: Spiriva, pulmicort, duonebs scheduled and prn (10) Hyperparathyroidism Status: Chronic Problem Text: c/w current med (11) Mitral valve disease Status: Chronic (12) CAD (coronary artery disease) Onset Date: 01/18/2014 Status: Chronic Problem Text: c/w current med f/u bp, Isordil and hydralazine added by cardiology statin, asa (13) ESRD (end stage renal disease) Onset Date: 01/26/2014 Status: Chronic Problem Specific Plan: Consult Specialist Problem Text: f/u renal rec HD (14) Lung mass Status: Acute Problem Text: f/u Dr Pollard's rec, biopsy neg to cancer (15) Ventricular tachycardia Status: Acute Problem Text: episode 06/12 tele given amiodarone x1, f/u cardio rec as per Dr Carter 05/17 acute CHF EF 35% AICD adjusted emergent HD 06/12 optimize chf as above (16) HTN (hypertension) Status: Chronic Problem Text: LE BP elevated, isosordil, hydralazine increased f/u monitor Plan/VTE VTE Prophylaxis Ordered?: Yes (heparin Sq and mechanical) Plan Diet: Continue Current Activity: Continue Current Therapy: PT Diagnostics: Repeat Labs in AM, Obtain Cultures Anticipated Discharge: Home, Home With Services Disposition PT, clinical improvement and final antibiotics reg, multiple severe cardio/ pulmonary disease poor prognosis, full code VS, I&O, 24H, [place] Vital Signs/I&O Vital Signs Date Time Temp Pulse Resp B/P Pulse Ox O2 Delivery O2 Flow Rate FiO2 06/15/16 12:22 136/65 06/15/16 11:00 Nasal Cannula 2.0 06/15/16 10:00 84 24 95 06/15/16 08:00 97.5 I&O- Last 24 Hours up to 6 AM 06/15/16 06:00 Intake Total 295 ml Output Total 10 ml Balance 285 ml Laboratory Data 24H LABS Laboratory Tests 2 06/14/16 21:17: Bedside Glucose (Misc Panel) 158H 06/14/16 23:14: Bedside Glucose (Misc Panel) 158H 06/15/16 05:00: Blood Urea Nitrogen 25#H, Creatinine 4.25H, Sodium Level 137, Potassium Level 4.1, Chloride Level 100, Carbon Dioxide Level 28, Calcium Level 7.1L, Aspartate Amino Transf (AST/SGOT) 34, Alanine Aminotransferase (ALT/SGPT) 36, Alkaline Phosphatase 169H, Total Bilirubin 0.3, Total Protein 4.9L, Albumin 1.8L, Albumin /Globulin Ratio 0.58L, Anion Gap 9, C-Reactive Protein, Quantitative 6.66H, Glomerular Filtration Rate 11.0L, Magnesium Level 2.1, Random Vancomycin Level 28.9 06/15/16 12:04: Bedside Glucose (Misc Panel) 195H CBC/BMP Laboratory Tests 06/15/16 05:00 Calcium Level 7.1 L, Aspartate Amino Transf (AST/SGOT) 34, Alanine Aminotransferase (ALT/SGPT) 36, Alkaline Phosphatase 169 H, Total Bilirubin 0.3 , Total Protein 4.9 L, Albumin 1.8 L, Red Blood Count 2.83 L, Mean Corpuscular Volume 102.5 H, Mean Corpuscular Hemoglobin 29.1, Mean Corpuscular Hemoglobin Concent 28.4 L, Red Cell Distribution Width 19.1 H Microbiology Microbiology 06/11/16 Blood Culture - Preliminary, Resulted No Growth after 72 hours. All specime... 06/11/16 Blood Culture - Preliminary, Resulted No Growth after 72 hours. All specime... 06/06/16 Blood Culture - Final, Complete NO GROWTH AFTER 5 DAYS 06/06/16 Blood Culture - Final, Complete NO GROWTH AFTER 5 DAYS 06/07/16 Acid Fast Stain - Final, Resulted 06/07/16 Mycobacterial Culture, Resulted Pending 06/07/16 Fungal Smear - Final, Resulted 06/07/16 Fungal Culture, Resulted Pending 06/07/16 Gram Stain - Final, Complete 06/07/16 Anaerobic Culture - Final, Complete 06/07/16 Body Fluid Culture - Final, Complete 06/07/16 Gram Stain - Final, Complete 06/07/16 Sputum Culture - Final, Complete Yeast Like Organism 06/06/16 Respiratory Virus Panel (PCR) (KEY) - Final, Complete DELIA FELIX MD Jun 15, 2016 17:12
[2016-06-15] MEDS: CEFEPIME HCL 0.5 GM in D5W 50 ML IV SCH (17:35)
[2016-06-15] MEDS: SODIUM CHLORIDE 0.9% INJ 10 ML SYR IV PRN (18:16)
--- NOTE | 2016-06-15 19:29 | IPN ---
DATE: 06/15/2016 CARDIOLOGY PROGRESS NOTE SUBJECTIVE: The patient has been transferred from the intensive care unit to the progressive care unit and has been ambulating short distances, feeling her respiration has significantly improved. Has remained free of any chest discomfort, palpitations, or dizziness. OBJECTIVE: Bright, pleasant, elderly lady of medium body build, sitting comfortably in the bedside chair. Heart rate 84 beats per minute and regular, blood pressure 140/60 (calf), respiratory rate 18 per minute, oxygen saturation 95% on supplemental oxygen by nasal prongs at 2 liters. Remains afebrile. Weight today is slightly up from yesterday. Did receive dialysis subsequent to this weight today. No central cyanosis and normal oral moisture. Trachea midline. Neck veins still appear approximately 5 cm above the sternal angle. Venous access catheter, right subclavian region. Increased anteroposterior chest diameter with ongoing bibasilar inspiratory rales, but these are less. Continues to have fairly good air entry with slight end-expiratory wheezes. Still has slight sacral and lower extremity pitting edema. INFORMATION SYSTEMS PLANNER: Remains in sinus rhythm with occasional isolated premature ventricular contractions (PVCs) but no more complex ventricular arrhythmia. Posterior-anterior (PA) left lateral chest x-ray: Today's study appears similar to yesterday. She has not received dialysis yesterday but did undergo this without problem earlier today. I still believe that she is somewhat congested. LABORATORY DATA: Hemoglobin down to 8.2 with normal white blood cell count and platelet count. Electrolytes were in balance, BUN 27, creatinine 4.3 prior to dialysis this morning. Fasting glucose 178. Magnesium was 2.1. C-reactive protein is only 6.7, down from 12.5. Albumin remains low at 1.8. Liver function studies otherwise are virtually normal. IMPRESSION/PLAN: 1. Heart failure (systolic and diastolic dysfunction/acute on chronic): Clearly much improved but still felt to be somewhat congested. Her weight today remains in excess of her admission weight of 06/06/2016. Has tolerated increasing doses of isosorbide dinitrate and hydralazine. Fluid management per Dr. Gonzales, nephrology. I would hope that they will continue to be able to generate a negative balance, such that her weight at least is down to her admission weight. 2. 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 I was considering the possibility of introducing low-dose selective beta ofelia, but her intrinsic lung disease is somewhat of a challenge, so this will be deferred. 3. Abnormal EKG: No followup study today. Remains free of symptomatic myocardial ischemia. 4. Hypertensive heart disease (benign with heart failure): Current blood pressure remains fine with combination vasodilator therapy and dialysis. 5. Mitral and aortic valve disorder (nonrheumatic): Auscultatory findings were unchanged. Leukocytosis has resolved and C-reactive protein continues to drop. Though her blood cultures are negative, remains on cefepime IV with recent lung biopsy showing foci of acute inflammation with microabscesses and neutrophil debris. I have requested Dr. Lau to monitor her from the cardiac standpoint over the weekend.
[2016-06-15] MEDS: ROSUVASTATIN 10 MG TAB (CRESTOR) PO SCH (20:31)
--- NOTE | 2016-06-15 21:01 | IPN ---
DATE: 06/15/2016 Mrs. Shabazz is seen this morning on her bedside in intensive care unit. She is feeling much better today and is currently sitting in the chair. Her dyspnea has improved significantly and leg edema has resolved. She denies any chest pain or hemoptysis. She has no nausea, vomiting or diarrhea. PHYSICAL EXAMINATION Temperature 97.5 degrees Fahrenheit, heart rate 80 per minute and respiratory rate 20 per minute. Blood pressure is 136/65 mmHg, checked in the leg. Oxygen saturation is 95% on 2 liters oxygen. Head is atraumatic. Neck is supple without thyroid enlargement or jugular venous distention (JVD). Eyes, ears, nose and throat are unremarkable. Heart sounds are irregular in rhythm. Systolic murmur grade 2/6 is present. Lungs have moderate bilateral air entry with scattered rhonchi but no wheezing. Abdomen is soft and nontender. There is no palpable organomegaly, and bowel sounds are normal. Extremities have no cyanosis or clubbing. Skin has no rash or ulcers. Neurologically, she is awake, alert and oriented times three. Today's laboratories show WBC count 9.1, hemoglobin 8.2 and hematocrit 29.0. Platelets 170. Sodium 137 and potassium 4.1. BUN 25 and creatinine 4.25. PROBLEMS: 1. Pneumonia. She is currently being treated with antibiotics. Biopsy of lung mass has already come back negative for malignancy. The patient will continue with antibiotics and bronchodilators. 2. End-stage renal disease. The patient is being dialyzed this afternoon. She will go to dialysis room. Her volume status is well-compensated, and electrolytes are within normal range. She receives 300 mcg of Aranesp for her anemia. 3. Hypertension. Blood pressure control is optimal. Her blood pressures need to be checked in the leg due to a fistula in her right arm and arterial disease in the left arm. 4. Congestive heart failure. Volume status is very well compensated now. We will remove only 1 liter of fluid today during dialysis. 5. Anemia. Her anemia is worsening, most likely related to pneumonia and being in hospital with laboratories and blood draws. We will give her 300 mcg of Aranesp and continue to monitor closely. She does not seem to have any acute blood loss.
--- NOTE | 2016-06-15 23:16 | IPN ---
DATE: 06/15/2016 Mrs. Harika arredondo is breathing well and today she is able to walk up and down the [place]. She underwent a biopsy yesterday and I have reviewed the slides with Dr. Zapata and there is no evidence of malignancy. Reviewing the CT guided biopsy scans, it looks as though the needle was placed right in the middle of the mass. This is probably going to represent an inflammation and a pneumonic consolidation secondary to a pneumonia. Her vital signs show a T-max of 97.8 with a heart rate that ranges between 80 and 86 in a sinus rhythm, respiratory rate of 20 to 24 without the use of accessory muscles who is 94 to 93% saturated on 2 liters nasal cannula and whose blood pressure is ranging between 126/60 to 138/58. Her intake and output over the 24 hours has been recorded as 225 in. She has 215 out. She is going to undergo dialysis again noted. There was no dialysis yesterday. She weighs 53.4 kg today compared to 53 kg yesterday. On physical examination she has crackles and rales in the right lower lobe and in the left lower lobes, some of which clear with coughing but they most are present after coughing. Percussion note is full to the diaphragm. Cardiac exam is without murmurs, clicks, gallops or rubs. I cannot feel her point of maximal impulse (PMI). S1 and S2 are normal. Abdomen is soft and nontender. Bowel sounds are positive. There is no hepatomegaly. No costovertebral angle (CVA) tenderness. Extremities show no pretibial edema. No calf tenderness. No differential swelling of the upper extremities. Skin is warm, dry and perfused without cyanosis or mottling including that of the nail beds and the knees. Neck is supple. There is no jugular venous distention. No subcutaneous emphysema. Trachea is midline. Mouth shows her mucous membranes to be pink and moist. Lips and commissures without lesions. There is some residual thrush in the posterior pharynx. Eyes show her pupils to be equal, reactive. Extraocular muscles intact. Sclera anicteric. Neuro shows II through XII intact. Gross motor and gross sensation intact. Gait is not tested. Psychiatric shows her to be awake, alert and oriented times three with appropriate mood, affect and conversational. Her white count today is 9.1 with a hemoglobin and hematocrit of 8.2 and 29.0, unchanged from yesterday with a platelet count of 170. Chemistries today show normal electrolytes with BUN and creatinine of 25 and 4.25. She is going for dialysis today. Calcium is 7.1 with magnesium of 2.1, glucose of 178. Her random vancomycin today is 28.9. Her chest x-ray today again shows the lung fully expanded to the chest wall, however, she is beginning to reaccumulate fluid in the right hemithorax which is more than it was yesterday. I suspect if aggressive dialysis is not going to take of this fluid, I am going to have to place a PleurX catheter eventually when it accumulates so that I have a target. I am reticent to put the PleurX catheter in at this point in time as she is recovering from her pneumonias. Her pleural fluid was noted to be exudative. IMPRESSION: 1. Right-sided pleural effusion, transudative. 2. Right lower lobe pneumonia. 3. Probable left lower lobe pneumonia. 4. Right upper lobe lung mass. Biopsy negative for malignancy. Probably remnants of the right lower lobe pneumonia. 5. Thoracic aortic aneurysm measuring 3.5 cm. 6. Diabetes. 7. Chronic obstructive pulmonary disease (COPD). 8. Renal failure requiring dialysis. 9. Chronic hypotension in the upper extremities. 10. Probable left subclavian stenosis. 11. Chronic anemia. 12. Congestive heart failure (CHF). 13. Hyperlipidemia. 14. Ventricular tachycardia secondary to congestive heart failure. PLAN AND DISCUSSION: For the time being, we will just continue to watch Ms. Shabazz. Again, hopefully with aggressive dialysis the pleural fluid can be controlled. If it continues to accumulate, I will repeat a CT scan to evaluate the fluid distribution and place a PleurX catheter.
[2016-06-16] MEDS: NYSTATIN 500,000 U/5 ML SUSP UDC SS SCH ×4 (00:06→17:49)
[2016-06-16] MEDS: IPRATROPIUM 0.5MG/ALBUTEROL 2.5MG INH SOL UD 3ML (DUONEB)(J7620) NEB SCH ×4 (01:07→20:27)
[2016-06-16 04:55] VITALS: BP 144/67
[2016-06-16 05:17] LABS: MEAN CORPUSCULAR HEMOGLOBIN 30.5 pg (27.0-33.0); MEAN CORPUSCULAR HGB CONC 29.8 g/dl (32.0-36.5); MEAN CORPUSCULAR VOLUME 102.3 fl (80.0-96.0); RED CELL DISTRIBUTION WIDTH 19.8 % (11.5-14.5); WHITE BLOOD COUNT 9.1 K/mm3 (4.0-10.0)
[2016-06-16 05:28] LABS: ALBUMIN 1.9 GM/DL (3.2-5.2); ALBUMIN/GLOBULIN RATIO 0.49 (1.00-1.93); BILIRUBIN,TOTAL 0.5 MG/DL (0.2-1.0); CALCIUM LEVEL 7.8 MG/DL (8.8-10.2); CREATININE FOR GFR 2.41 MG/DL (0.55-1.02); GLOMERULAR FILTRATION RATE 21.1 (>39); MAGNESIUM LEVEL 2.1 MG/DL (1.8-2.4); POTASSIUM SERUM 4.1 MEQ/L (3.5-5.1); TOTAL PROTEIN 5.8 GM/DL (6.4-8.2)
[2016-06-16] MEDS: ISOSORBIDE DIN. (ISORDIL) 30 MG TAB PO SCH ×3 (06:04→17:49)
[2016-06-16] MEDS: **hydrALAZINE HCL** 25 MG TAB PO SCH ×3 (06:04→17:49)
[2016-06-16] MEDS: BUDESONIDE 0.5 MG/2 ML INHALATION SUSPENSION INH SCH ×2 (07:54→20:27)
[2016-06-16] MEDS: TIOTROPIUM INHALER/CAPSULE (SPIRIVA) INH SCH (07:54)
[2016-06-16 08:00] VITALS: BP 184/87
[2016-06-16] MEDS: HEPARIN SOD (PORCINE) 5000 UNITS/ML VIAL SQ SCH ×2 (08:44→20:57)
[2016-06-16] MEDS: FAMOTIDINE 20 MG TAB PO SCH (08:45)
[2016-06-16] MEDS: PANTOPRAZOLE 40MG TAB (PROTONIX) PO SCH (08:45)
[2016-06-16] MEDS: DOCUSATE SODIUM 100 MG CAP PO SCH (08:45)
[2016-06-16] MEDS: GABAPENTIN 300 MG CAP PO SCH ×2 (08:45→20:57)
[2016-06-16] MEDS: FLUTICASONE PROP 0.05% NASAL SPRAY 16 GM (FLONASE) SCH (08:45)
[2016-06-16] MEDS: ASPIRIN 81 MG ENTERIC TAB PO SCH (08:45)
[2016-06-16] MEDS: HumaLOG INSULIN (NovoLOG) PER UNIT SC SCH ×4 (08:45→20:21)
[2016-06-16] MEDS: MOM 30ML SUSPENSION UDC PO SCH (08:46)
[2016-06-16] MEDS: PERCOCET 5MG/325MG TAB PO PRN (08:47)
[2016-06-16 09:42] VITALS: BP 164/68
--- NOTE | 2016-06-16 09:56 | REP ---
CHEST, TWO VIEWS: Two views of the chest are performed. Comparison 06/15/2016. Bilateral infiltrates appear unchanged. Right pleural fluid appears unchanged. The cardiomediastinal silhouette is unchanged. Right central venous catheter and left pacemaker are again noted. IMPRESSION: Stable exam. Signed by Jesus Johnson MD 06/16/2016 07:58 P
--- NOTE | 2016-06-16 11:17 | IPN ---
DATE OF SERVICE: 06/16/[address] Carter. Mrs. Shabazz tells me that she is feeling better. She had dialysis yesterday and this morning was able to ambulate on progressive care unit (PCU) and supposedly did not get overly short of breath. She denies any chest discomfort. On telemetry monitoring, there have not been any arrhythmias. She maintained sinus mechanism. She has no specific complaints today. Blood pressure 164/68, heart rate is in principally 80s. She is afebrile. Saturation is high at 100% on 2 liters of oxygen by nasal cannula. Fluid balance yesterday was most likely negative on half liter, mostly due to dialysis. Weight is documented at 50.2 kg, which is actually 6 kg down compared to 06/11/2016. Her jugular venous pressure (JVP) is still high but not more than 3 or 4 cm in sitting position. Lungs: Reveal crackles over bases, more right than left. I do not appreciate any wheezing. Heart examination reveals regular rhythm. No gallop, rub, or murmur. Abdomen: Soft, nontender. Extremities: Have no edema. Laboratory-[place]: Basic metabolic panel: Potassium 3.9, BUN 22, creatinine 3.2, GFR 15, glucose 112. CBC: Hemoglobin 9.1, hematocrit 30, platelet count 176. ASSESSMENT AND PLAN: Mrs. Shabazz is a 70-year-old female who has end-stage renal disease and is on dialysis. She presented with what was felt to be multilobar pneumonia, which probably is the case, but there was also superimposed congestive heart failure. She developed sustained ventricular tachycardia that probably was due to volume overloaded state, as is stated. At this point, she is being managed medically. Gradually, dialysis has been removing excess fluids successfully, and she is feeling better. As far as VT is concerned, she did get only a single dose of amiodarone. She is not on any beta blockers. According to Dr. Carter principal concern is underlying lung disease. As I am not hearing any wheezing, I am going to start her at least on a small dose of Coreg. As far as of congestive heart failure is concerned, she is principally managed by dialysis. She was started on hydralazine and isosorbide because she has reported allergies to angiotensin-converting enzyme (JOANN) inhibitor that was causing hyperkalemia. I am going to add Coreg as above. Otherwise, her management will be unchanged. MTDD
--- NOTE | 2016-06-16 11:32 | IPN ---
DATE OF SERVICE: 06/16/2016 Mrs. Shabazz again is sitting up in the chair comfortably. She is not short of breath, and she has been able to walk in her room. I have encouraged her to go out to the [place] and walk today with the nursing staff. She was dialyzed yesterday but is not going to be dialyzed today. Her vital signs show a maximum temperature (Tmax) of 97.5 with a heart rate that ranges between 86 and 93 in a sinus rhythm, respiratory rate of 20 to 22 without the use of accessory muscles, who is 94% to 100% saturated on room air. Blood pressure is ranging between 144/67 to 184/87. Her intake and output over the 24 hours has been recorded as 460 in and 1000 mL out for a negativity of 550 mL. Weight today is 50.2 kg compared to 53.4 kg yesterday. 1000 mL was taken off with hemodialysis. On physical examination, I hear again expiratory wheezes on both sides. She has scattered rhonchi and inspiratory rales additionally. Percussion notes are full to the diaphragm. Cardiac examination is without murmurs, clicks, gallops, or rubs. I cannot feel her point of maximal impulse (PMI). S1 and S2 are normal. Abdomen is soft and nontender. Bowel sounds are positive. There is no hepatomegaly. No costovertebral angle (CVA) tenderness. Extremities show no pretibial edema. No calf tenderness. No differential swelling of the upper extremities. Skin is warm, dry, and perfused without cyanosis or mottling, including that of the nail beds and the knees. Neck is supple. There is no jugular venous distention. No subcutaneous emphysema. Trachea is midline. Mouth shows her mucous membranes to be pink and moist. Lips and commissures without lesions. There is no thrush. There was some thrush yesterday, but that has now completely cleared in the posterior pharynx. Eyes show her pupils to be equal and reactive. Extraocular muscles intact. Sclerae anicteric. Neurologic shows II-XII intact, along with gross motor and gross sensation intact. Gait is not tested. Psychiatric shows her to be awake, alert, and oriented times three with appropriate mood and affect and conversational. Her white count today is 9.1 with a hemoglobin and hematocrit of 9.1 and 30,4, respectively, platelet count of 176. Electrolytes are normal with a BUN and creatinine of 11 and 2.41 after dialysis yesterday. Glucose is 126 with a calcium of 7.8 and a corresponding albumin of 1.9. AST and ALT are normal. Her random vancomycin level yesterday was 28.9. Her chest x-ray today shows some accumulation of pleural fluid in the right costophrenic angle. On the chest x-ray, it looks to be unchanged. She still has infiltrative patterns in both sides, more on the right than the left. I can see her heart border at her diaphragm on the left. Posteriorly, she also has the same infiltrative process. IMPRESSION: 1. Right-sided pleural effusion, transudative. Stable. 2. Right lower lobe pneumonia. 3. Left lower lobe pneumonia. 4. Right upper lobe lung mass. Biopsy negative for malignancy. Remnants of right lower lobe pneumonia. 5. Thoracic aortic aneurysm measuring 3.5 cm. 6. Diabetes. 7. Chronic obstructive pulmonary disease (COPD). 8. Renal failure requiring dialysis. 9. Chronic hypotension in the upper extremities. 10. Probable left subclavian stenosis. 11. Chronic anemia. 12. Congestive heart failure. 13. Hyperlipidemia. 14. Ventricular tachycardia secondary to congestive heart failure. PLAN AND DISCUSSION: I will continue to follow her chest x-rays. I am gratified that the effusion looks to be stable, although I have a sinking feeling that it will increase over time. As noted in prior notes, my plan of attack would be to place a PleurX catheter if it accumulates significantly.
[2016-06-16 12:00] VITALS: BP 162/82
[2016-06-16] MEDS: CARVedilol 3.125 MG TAB PO SCH ×2 (12:03→20:57)
[2016-06-16] MEDS: CEFEPIME HCL 0.5 GM in D5W 50 ML IV SCH (14:03)
[2016-06-16 16:00] VITALS: BP 137/64
--- NOTE | 2016-06-16 16:43 | IPNPDOC ---
Subjective Date Seen The patient was seen on 06/16/16. Subjective Chief Complaint/HPI The patient is a 70-year-old female admitted with a reason for visit of Shortness Of Breath. Events since last encounter No acute events overnight. reported improved respiration. Denied cp, palpitation , n/v/abd pain Objective Physical Examination General Exam: Positive: Alert, Cooperative, Mild Distress Eye Exam: Positive: Conjunctiva & lids normal, EOMI, PERRLA, Negative: Sclera icteric ENT Exam: Positive: Atraumatic Neck Exam: Positive: Supple Chest Exam: Positive: Diminished (diminished breath sounds left), Other ( crackles R>L) Heart Exam: Positive: Murmurs, Rate Normal Telemetry: Positive: Other Telemetry: (vt overnight) Abdomen Exam: Positive: Normal bowel sounds, Soft, Negative: Tenderness Extremity Exam: Positive: Edema Psych Exam: Positive: Oriented x 3 Assessment /Plan Problems (1) Pneumonia Status: Acute Response to Treatment: Progressing Problem Specific Plan: Monitor Clinically, Repeat Labs Problem Text: stop Vanco completed 10 days rocephin changed to cefepime 06/13 day #11 of IV antibiotics Sputum cultures/gram stain significant for yeast. Multifocal consolidations on CTA. con't to report sob Repeat cultures obtained. 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 Dr Eason consulted, pigtail removed Pathology unremarkable. Fluid analysis indicated transudative process. CT chest - mass - biopsy 06/14, path neg for cancer serial cxr, if worsen as pre Dr Pollard potential Pleurx cath (3) Hypotension Status: Chronic Problem Specific Plan: Monitor Clinically Problem Text: Lower extremity pressures noted to be significantly higher than her LUE. subclavian steal h/o Given her lack of symptoms with very low pressures measured from her upper extremity, tend to believe her lower extremity being more appropriate, patient HTN on LE. f/u LE pressure midodrine d/ by cardiology (4) Diabetes Status: Chronic Problem Specific Plan: Repeat Labs Problem Text: insulin as per protocol f/u fs (5) Hypercholesteremia Status: Chronic Problem Text: Crestor (6) Anemia Status: Chronic Problem Text: Secondary to ESRD. (7) Anxiety Status: Chronic Problem Text: Atarax (8) CHF (congestive heart failure) Status: Acute Problem Text: acute Systolic and diastolic failure. cardiology consulted HD daily weight fluid restrict 1.5L, I and O Isordil and hydralazine dose increase by cardio, and coreg added (9) COPD (chronic obstructive pulmonary disease) Status: Chronic Problem Text: Spiriva, pulmicort, duonebs scheduled and prn (10) Hyperparathyroidism Status: Chronic Problem Text: c/w current med (11) Mitral valve disease Status: Chronic (12) CAD (coronary artery disease) Onset Date: 01/18/2014 Status: Chronic Problem Text: c/w current med f/u bp, Isordil and hydralazine and coreg added by cardiology statin, asa (13) ESRD (end stage renal disease) Onset Date: 01/26/2014 Status: Chronic Problem Specific Plan: Consult Specialist Problem Text: f/u renal rec HD (14) Lung mass Status: Acute Problem Text: f/u Dr Pollard's rec, biopsy neg to cancer (15) Ventricular tachycardia Status: Acute Problem Text: episode 06/12 tele given amiodarone x1, f/u cardio rec as per Dr Carter 05/17 acute CHF EF 35% AICD adjusted emergent HD 06/12 optimize chf as above (16) HTN (hypertension) Status: Chronic Problem Text: LE BP elevated, isosordil, hydralazine increased f/u monitor, coreg added Plan/VTE VTE Prophylaxis Ordered?: Yes (heparin Sq and mechanical) Plan Diet: Continue Current Activity: Continue Current Therapy: PT Diagnostics: Repeat Labs in AM, Obtain Cultures Anticipated Discharge: Home, Home With Services Disposition PT, IV antibiotics, clinical improvement, likely DC Saturday VS, I&O, 24H, [facility] Vital Signs/I&O Vital Signs Date Time Temp Pulse Resp B/P Pulse Ox O2 Delivery O2 Flow Rate FiO2 06/16/16 16:00 96.3 82 24 137/64 96 Nasal Cannula 2.0 I&O- Last 24 Hours up to 6 AM 06/16/16 06:00 Intake Total 390 ml Output Total 1005 ml Balance -615 ml Laboratory Data 24H LABS Laboratory Tests 2 06/15/16 17:03: Bedside Glucose (Misc Panel) 89 06/15/16 19:58: Bedside Glucose (Misc Panel) 138H 06/16/16 04:49: Blood Urea Nitrogen 11#, Creatinine 2.41H, Sodium Level 139, Potassium Level 4.1 , Chloride Level 102, Carbon Dioxide Level 33H, Calcium Level 7.8L, Aspartate Amino Transf (AST/SGOT) 30, Alanine Aminotransferase (ALT/SGPT) 35, Alkaline Phosphatase 180H, Total Bilirubin 0.5#, Total Protein 5.8L, Albumin 1.9L, Albumin/Globulin Ratio 0.49L, Anion Gap 4L, C-Reactive Protein, Quantitative 5.09H, Glomerular Filtration Rate 21.1L, Magnesium Level 2.1 06/16/16 11:53: Bedside Glucose (Misc Panel) 185H CBC/BMP Laboratory Tests 06/16/16 04:49 Calcium Level 7.8 L, Aspartate Amino Transf (AST/SGOT) 30, Alanine Aminotransferase (ALT/SGPT) 35, Alkaline Phosphatase 180 H, Total Bilirubin 0.5 #, Total Protein 5.8 L, Albumin 1.9 L, Red Blood Count 2.97 L, Mean Corpuscular Volume 102.3 H, Mean Corpuscular Hemoglobin 30.5, Mean Corpuscular Hemoglobin Concent 29.8 L, Red Cell Distribution Width 19.8 H Microbiology Microbiology 06/11/16 Blood Culture - Final, Complete NO GROWTH AFTER 5 DAYS 06/11/16 Blood Culture - Final, Complete NO GROWTH AFTER 5 DAYS 06/06/16 Blood Culture - Final, Complete NO GROWTH AFTER 5 DAYS 06/06/16 Blood Culture - Final, Complete NO GROWTH AFTER 5 DAYS 06/07/16 Acid Fast Stain - Final, Resulted 06/07/16 Mycobacterial Culture, Resulted Pending 06/07/16 Fungal Smear - Final, Resulted 06/07/16 Fungal Culture, Resulted Pending 06/07/16 Gram Stain - Final, Complete 06/07/16 Anaerobic Culture - Final, Complete 06/07/16 Body Fluid Culture - Final, Complete 06/15/16 MRSA Screen, Received Pending 06/07/16 Gram Stain - Final, Complete 06/07/16 Sputum Culture - Final, Complete Yeast Like Organism 06/06/16 Respiratory Virus Panel (PCR) (KEY) - Final, Complete DELIA FELIX MD Jun 16, 2016 16:43
--- NOTE | 2016-06-16 19:27 | IPN ---
DATE: 06/16/2016 SUBJECTIVE: The patient was seen and examined at the bedside today in the morning. She was actually sitting on the sofa. Her shortness of breath is significantly better. The patient got hemodialysis done yesterday. She tolerated the hemodialysis procedure well. She does not have any active concerns at this time. REVIEW OF SYSTEMS: The patient denies any fevers, chills, rigors, headaches, nausea, vomiting, chest pain. She does report some baseline shortness of breath but it is significantly improved. She denies any pain abdomen, constipation, or diarrhea, nausea or vomiting. Rest of review of systems is negative. OBJECTIVE: VITAL SIGNS: Temperature is 96.3 degrees Fahrenheit, blood pressure is 137/64, pulse is 82, respiratory rate of 20, saturating 96% on nasal cannula at two liters per minute. INTAKE AND OUTPUT: The patient got hemodialysis done yesterday. Ultrafiltration was one liter with hemodialysis. Weight in the bed scale is 50.2 kg today. PHYSICAL EXAMINATION: GENERAL: The patient is awake, alert, and oriented times three sitting on the sofa, in no apparent distress. HEAD/NECK: Extraocular muscles intact. Pupils equal, round, and reactive to light. Mucous membranes are moist. Neck is supple. Jugular venous distention (JVD) is slightly elevated. CARDIOVASCULAR: S1, S2. Irregular heart rate. No murmur, rub, or gallop. RESPIRATORY: The patient has mild expiratory rhonchi at the left side. Chest is clear to auscultation on the right side. There are mildly decreased breath sounds at the bases. ABDOMEN: Soft, positive bowel sounds. Nontender. No ascites. No organomegaly. EXTREMITIES: No clubbing or cyanosis. Pulses are 2+. No edema of the bilateral lower extremities. CENTRAL NERVOUS SYSTEM (EQUIPMENT SPECIALIST): No focal neurological deficit. Power is 5/5 in all extremities. SKIN: No rashes or ulcers. PSYCHIATRIC: Normal mood and affect. LABORATORY DATA: CBC showed a WBC of 9.1, hemoglobin 9.1, platelets 176. BMP done today showed sodium 139, potassium 4.1, chloride 102, bicarbonate 33, BUN is 11, creatinine 2.4, calcium 7.8, albumin 1.9. MICROBIOLOGY: MRSA nasal screening done yesterday is still pending. IMAGING: A chest x-ray done today morning showed unchanged bilateral infiltrates and mild right-sided pleural effusion. CURRENT MEDICATIONS: The patient's medications were all reviewed by me. She is currently is on Maxipime 0.5 mg intravenous (IV) every 24 hours, and she has been started on Coreg 3.125 mg by mouth twice a day. There is no other change in the medication today as compared with yesterday. ASSESSMENT: A 70-year-old female with past medical history of end-stage renal disease on hemodialysis, admitted this time because of multifocal pneumonia and large right-sided pleural effusion. PLAN: 1. End-stage renal disease on hemodialysis. The patient's regular hemodialysis days are Saturday, Saturday, Saturday. She was dialyzed yesterday. Next hemodialysis session will be on Saturday, June 18, 2016. 2. Multifocal pneumonia. The patient is currently on cefepime and lung biopsy is negative for malignancy at this time. 3. Large size right-sided effusion. The patient is status post drainage of the right-sided effusion. If the effusion recurs, the patient might need Pleur-evac catheter for intermittent removal of the pleural fluid. 4. Hypertension. The patient's blood pressure was slightly above the goal. She has been started on Coreg 3.125 mg by mouth twice a day. Continue current dose of hydralazine 25 mg by mouth three times a day, isosorbide 30 mg by mouth three times a day. The patient is allergic to ANGIOTENSION-CONVERTING ENZYME (JOANN) INHIBITORS. 5. Anemia in end-stage renal disease. The patient's hemoglobin is 9.1, which is suboptimal. Continue current dose of Aranesp 300 mcg IV with hemodialysis. 6. Congestive heart failure. When patient arrived initially, she was hypotensive. After removal of the fluid from the right pleural cavity, she is actually hypertensive now. Appreciate cardiology input. She has been started on isosorbide, hydralazine, and Coreg by cardiology. Continue to monitor blood pressure on the current regimen.
[2016-06-16 19:42] VITALS: BP 127/61
[2016-06-16] MEDS: ROSUVASTATIN 10 MG TAB (CRESTOR) PO SCH (20:57)
[2016-06-17 00:11] VITALS: BP 138/65
[2016-06-17] MEDS: NYSTATIN 500,000 U/5 ML SUSP UDC SS SCH ×4 (00:16→17:03)
[2016-06-17] MEDS: IPRATROPIUM 0.5MG/ALBUTEROL 2.5MG INH SOL UD 3ML (DUONEB)(J7620) NEB SCH ×4 (02:15→20:08)
[2016-06-17 03:44] VITALS: BP 120/59
[2016-06-17 05:33] LABS: MEAN CORPUSCULAR HEMOGLOBIN 29.9 pg (27.0-33.0); MEAN CORPUSCULAR HGB CONC 29.6 g/dl (32.0-36.5); MEAN CORPUSCULAR VOLUME 101.1 fl (80.0-96.0); RED CELL DISTRIBUTION WIDTH 19.2 % (11.5-14.5); WHITE BLOOD COUNT 9.2 K/mm3 (4.0-10.0)
[2016-06-17 05:55] LABS: ALBUMIN 1.8 GM/DL (3.2-5.2); ALBUMIN/GLOBULIN RATIO 0.47 (1.00-1.93); BILIRUBIN,TOTAL 0.5 MG/DL (0.2-1.0); CALCIUM LEVEL 7.7 MG/DL (8.8-10.2); CREATININE FOR GFR 3.54 MG/DL (0.55-1.02); GLOMERULAR FILTRATION RATE 13.6 (>39); MAGNESIUM LEVEL 2.2 MG/DL (1.8-2.4); POTASSIUM SERUM 4.4 MEQ/L (3.5-5.1); TOTAL PROTEIN 5.6 GM/DL (6.4-8.2)
[2016-06-17] MEDS: ISOSORBIDE DIN. (ISORDIL) 30 MG TAB PO SCH ×3 (06:02→17:04)
[2016-06-17] MEDS: **hydrALAZINE HCL** 25 MG TAB PO SCH ×3 (06:03→17:04)
[2016-06-17] MEDS: FAMOTIDINE 20 MG TAB PO SCH (07:50)
[2016-06-17] MEDS: HEPARIN SOD (PORCINE) 5000 UNITS/ML VIAL SQ SCH ×2 (07:50→21:51)
[2016-06-17] MEDS: ASPIRIN 81 MG ENTERIC TAB PO SCH (07:50)
[2016-06-17] MEDS: DOCUSATE SODIUM 100 MG CAP PO SCH (07:50)
[2016-06-17] MEDS: PANTOPRAZOLE 40MG TAB (PROTONIX) PO SCH (07:50)
[2016-06-17] MEDS: GABAPENTIN 300 MG CAP PO SCH ×2 (07:50→21:52)
[2016-06-17] MEDS: MOM 30ML SUSPENSION UDC PO SCH (07:51)
[2016-06-17] MEDS: HumaLOG INSULIN (NovoLOG) PER UNIT SC SCH ×4 (07:51→21:52)
[2016-06-17] MEDS: CARVedilol 3.125 MG TAB PO SCH ×2 (07:51→21:51)
[2016-06-17] MEDS: FLUTICASONE PROP 0.05% NASAL SPRAY 16 GM (FLONASE) SCH (07:52)
[2016-06-17 08:00] VITALS: BP 167/78
[2016-06-17] MEDS: BUDESONIDE 0.5 MG/2 ML INHALATION SUSPENSION INH SCH ×2 (09:00→20:08)
[2016-06-17] MEDS: TIOTROPIUM INHALER/CAPSULE (SPIRIVA) INH SCH (09:11)
--- NOTE | 2016-06-17 10:11 | REP ---
CHEST, TWO VIEWS: Two views of the chest are performed and compared to prior study of 06/16/2016. Bilateral infiltrates are unchanged. Right pleural effusion is unchanged. Cardiomediastinal silhouette is unchanged. There is a right central venous catheter and left pacemaker again noted. IMPRESSION: Stable exam. Signed by Jesus Johnson MD 06/17/2016 01:56 P
[2016-06-17 12:00] VITALS: BP 125/52
--- NOTE | 2016-06-17 12:54 | IPN ---
DATE OF SERVICE: 06/17/2016 Mrs. Shabazz has just gotten back from a walk, and she is quite out of breath. She is pursed-lip breathing. I hear both wheezes and rhonchi in both lungs. Nonetheless, she was able to walk 50 feet. Her vital signs show a maximum temperature (Tmax) of 96.8 with a heart rate that ranges between 78 and 82 in a sinus rhythm, with a respiratory rate of 18-24 without the use of accessory muscles, who is 95% to 91% saturated on 2 liters nasal cannula, and whose blood pressure is ranging between 167/78 to 120/59. Her intake and output over the 24 hours has been recorded as 1120 in and nothing out for a positivity of 1120 mL. She weighs 51.2 kg today compared to 50.2 kg yesterday. On physical examination, her lungs show expiratory wheezing and expiratory rhonchi and rales, along with inspiratory rhonchi and rales. Not all of these clear with coughing. Percussion note is full to the diaphragm. Cardiac examination shows accentuated murmurs holosystolic at the left lower sternal border, probably secondary to physical exertion and cardiac output. S1 and S2 are normal. Abdomen is soft and nontender. Bowel sounds are positive. There is no hepatomegaly. No costovertebral angle (CVA) tenderness. Extremities show 1+ pretibial edema, which is different from yesterday. There is no calf tenderness. No differential swelling of the upper extremities. Her right-sided bruit has a palpable thrill and is patent. Her skin is warm, dry, and perfused without cyanosis or mottling, including that of the nail beds and the knees. Neck is supple. There is no jugular venous distention. No subcutaneous emphysema. Mouth shows her mucous membranes to be pink and moist. Lips and commissures without lesions. There is still some residual thrush. Eyes show her pupils to be equal and reactive. Extraocular muscles intact. Sclerae anicteric. Neurologic shows II-XII intact, along with gross motor and gross sensation intact. Gait is intact. Psychiatric shows her to be awake, alert, and oriented times three with appropriate mood and affect and conversational. Her chest x-ray today does not show much of a change in the fluid meniscus on the PA film. The lateral film is also fairly stable. She still has the infiltrative processes. I can talk myself into thinking that the pleural fluid may be a little bit more, but the inspiration is also less. Her white count today is 9.2, with a hemoglobin and hematocrit of 9.2 and 30.9, respectively, platelet count of 173 and stable. Electrolytes are normal with a BUN and creatinine of 18 and 3.54, with a calcium of 7.7, and a magnesium of 2.2, with a corresponding albumin of 1.8. There is no new microbiology on her. IMPRESSION: 1. Right-sided pleural effusion, transudative. Stable. 2. Right lower lobe pneumonia. 3. Left lower lobe pneumonia. 4. Right upper lobe lung mass. Biopsy negative for malignancy. Remnants of a right lower lobe pneumonia. 5. Thoracic aortic aneurysm measuring 3.5 cm. 6. Diabetes. 7. Chronic obstructive pulmonary disease (COPD). 8. Renal failure requiring dialysis. 9. Chronic hypotension in the upper extremities. 10. Probable left subclavian stenosis. 11. Chronic anemia. 12. Congestive heart failure. 13. Hyperlipidemia. 14. Ventricular tachycardia secondary to congestive heart failure. PLAN AND DISCUSSION: I will continue to follow her chest x-rays. I suspect what will happen is that she will come back to see me in the office in about 10 days after discharge. I do think that she needs dialysis rather soon because she is wheezing and has return of her pretibial edema. She is at least 1500 mL positive since her last dialysis with a weight gain of 1 kg.
--- NOTE | 2016-06-17 13:42 | IPN ---
DATE OF SERVICE: 06/17/2016 Mrs. Shabazz tells me that she is feeling fine, but I observe her just coming from the restroom, which is walking just a few feet, and she gets extremely short of breath. Denies any chest discomfort. Last night, she had a brief run of nonsustained VT. Vital signs: Blood pressure 134/68. Heart rate is in 70s. She is afebrile. Saturation is 100% on 2 liters of oxygen by nasal cannula. She is alert and oriented and appropriate. Her jugular venous pressure (JVP) is up. Lungs reveal bilateral crackles and also occasional wheeze. Heart examination: Regular rhythm. No gallop. There is a murmur of MR and also aortic murmur very faint. Abdomen: Soft, nontender. Extremities: Have 1+ edema. Neurologically, besides generalized weakness, she is intact. Weight was documented 51.2 kg. Laboratory-v[place]: Hemoglobin 9.2, hematocrit 30.9, and platelet count is 73. WBC count is 9.2. Basic metabolic panel: Potassium 4.4, BUN 18, creatinine 3.5, and glucose 121. ASSESSMENT AND PLAN: Mrs. Shabazz is a 70-year-old lady with end-stage renal disease and cardiomyopathy. She was admitted with worsening respiratory failure felt to be due to combination of multifocal pneumonia and likely principally volume overloaded state. She has been treated essentially by trying to remove more volume during dialysis sessions. As a complicated factor, she had a run of sustained ventricular tachycardia while she was in intensive care unit that was self-terminating. She did receive only single dose of intravenous (IV) amiodarone, and it was felt that it was due to volume-overloaded state. I started her on minimal dose of a beta ofelia yesterday. It looks like she is tolerating it well, but I am going to wait 1 more day before advancing the dose further. If she should have yet another episode of nonsustained VT, then we will advance it earlier. Otherwise, the remaining medications remain unchanged. She is not on angiotensin-converting enzyme (JOANN) inhibitor because she carries a history of allergy, the nature of which is not clear to me. Supposedly, hyperkalemia. She has been on combination of hydralazine and isosorbide. She has dialysis tomorrow, which I think is necessary, as she is again clearly volume overloaded. Dr. Bright/Dr. Carter taking over her care tomorrow morning.
--- NOTE | 2016-06-17 14:16 | IPNPDOC ---
Subjective Date Seen The patient was seen on 06/17/16. Subjective Chief Complaint/HPI The patient is a 70-year-old female admitted with a reason for visit of Shortness Of Breath. Events since last encounter no acute events overnight. reported slightly worsening LE edema. Denied cp/abd pain/pal/n/v/f/c. respiration stable Objective Physical Examination General Exam: Positive: Alert, Cooperative, Mild Distress Eye Exam: Positive: Conjunctiva & lids normal, EOMI, PERRLA, Negative: Sclera icteric ENT Exam: Positive: Atraumatic Neck Exam: Positive: Supple Chest Exam: Positive: Diminished (diminished breath sounds left), Other ( crackles R>L resolving) Heart Exam: Positive: Murmurs, Rate Normal Telemetry: Positive: Other Telemetry: (vt overnight) Abdomen Exam: Positive: Normal bowel sounds, Soft, Negative: Tenderness Extremity Exam: Positive: Edema Psych Exam: Positive: Oriented x 3 Assessment /Plan Problems (1) Pneumonia Status: Acute Response to Treatment: Progressing Problem Specific Plan: Monitor Clinically, Repeat Labs Problem Text: stop Vanco completed 10 days rocephin changed to cefepime 06/13 day #12 of IV antibiotics Sputum cultures/gram stain significant for yeast. Multifocal consolidations on CTA. con't to report sob Repeat cultures obtained. f/u CRP ID consulted , likely switch to oral this weekend (2) Pleural effusion Status: Acute Discussed With: Transport Conductor Problem Specific Plan: Consult Specialist, Monitor Clinically Problem Text: Large right pleural effusion on CTA s/p pigtail catheter. Dr Eason consulted, pigtail removed Pathology unremarkable. Fluid analysis indicated transudative process. CT chest - mass - biopsy 06/14, path neg for cancer serial cxr, if worsen as pre Dr Pollard potential Pleurx cath (3) Hypotension Status: Chronic Problem Specific Plan: Monitor Clinically Problem Text: Lower extremity pressures noted to be significantly higher than her LUE. subclavian steal h/o Given her lack of symptoms with very low pressures measured from her upper extremity, tend to believe her lower extremity being more appropriate, patient HTN on LE. f/u LE pressure midodrine d/ by cardiology (4) Diabetes Status: Chronic Problem Specific Plan: Repeat Labs Problem Text: insulin as per protocol f/u fs (5) Hypercholesteremia Status: Chronic Problem Text: Crestor (6) Anemia Status: Chronic Problem Text: Secondary to ESRD. (7) Anxiety Status: Chronic Problem Text: Atarax (8) CHF (congestive heart failure) Status: Acute Problem Text: acute Systolic and diastolic failure. cardiology consulted HD daily weight fluid restrict 1.5L, I and O Isordil and hydralazine dose increase by cardio, and coreg added (9) COPD (chronic obstructive pulmonary disease) Status: Chronic Problem Text: Spiriva, pulmicort, duonebs scheduled and prn (10) Hyperparathyroidism Status: Chronic Problem Text: c/w current med (11) Mitral valve disease Status: Chronic (12) CAD (coronary artery disease) Onset Date: 01/18/2014 Status: Chronic Problem Text: c/w current med f/u bp, Isordil and hydralazine and coreg added by cardiology statin, asa (13) ESRD (end stage renal disease) Onset Date: 01/26/2014 Status: Chronic Problem Specific Plan: Consult Specialist Problem Text: f/u renal rec HD (14) Lung mass Status: Acute Problem Text: f/u Dr Pollard's rec, biopsy neg to cancer (15) Ventricular tachycardia Status: Acute Problem Text: episode 06/12 tele given amiodarone x1, f/u cardio rec as per Dr Carter 05/17 acute CHF EF 35% AICD adjusted emergent HD 06/12 optimize chf as above (16) HTN (hypertension) Status: Chronic Problem Text: LE BP elevated, isosordil, hydralazine increased f/u monitor, coreg added Plan/VTE VTE Prophylaxis Ordered?: Yes (heparin Sq and mechanical) Plan Diet: Continue Current Activity: Continue Current Therapy: PT Diagnostics: Repeat Labs in AM, Obtain Cultures Anticipated Discharge: Home, Home With Services Disposition likely DC Saturday. VS, I&O, 24H, Fishbone Vital Signs/I&O Vital Signs Date Time Temp Pulse Resp B/P Pulse Ox O2 Delivery O2 Flow Rate FiO2 06/17/16 13:04 20 06/17/16 12:33 134/68 06/17/16 12:00 96.4 75 100 Nasal Cannula 2.0 I&O- Last 24 Hours up to 6 AM 06/17/16 06:00 Intake Total 1120 ml Output Total 0 ml Balance 1120 ml Laboratory Data 24H LABS Laboratory Tests 2 06/16/16 17:13: Bedside Glucose (Misc Panel) 177H 06/16/16 20:19: Bedside Glucose (Misc Panel) 82L 06/17/16 05:19: Blood Urea Nitrogen 18#, Creatinine 3.54H, Sodium Level 138, Potassium Level 4.4 , Chloride Level 101, Carbon Dioxide Level 29, Calcium Level 7.7L, Aspartate Amino Transf (AST/SGOT) 26, Alanine Aminotransferase (ALT/SGPT) 33, Alkaline Phosphatase 172H, Total Bilirubin 0.5, Total Protein 5.6L, Albumin 1.8L, Albumin /Globulin Ratio 0.47L, Anion Gap 8, C-Reactive Protein, Quantitative 3.81H, Glomerular Filtration Rate 13.6L, Magnesium Level 2.2 06/17/16 11:24: Bedside Glucose (Misc Panel) 142H CBC/BMP Laboratory Tests 06/17/16 05:19 Calcium Level 7.7 L, Aspartate Amino Transf (AST/SGOT) 26, Alanine Aminotransferase (ALT/SGPT) 33, Alkaline Phosphatase 172 H, Total Bilirubin 0.5 , Total Protein 5.6 L, Albumin 1.8 L, Red Blood Count 3.06 L, Mean Corpuscular Volume 101.1 H, Mean Corpuscular Hemoglobin 29.9, Mean Corpuscular Hemoglobin Concent 29.6 L, Red Cell Distribution Width 19.2 H Microbiology Microbiology 06/11/16 Blood Culture - Final, Complete NO GROWTH AFTER 5 DAYS 06/11/16 Blood Culture - Final, Complete NO GROWTH AFTER 5 DAYS 06/07/16 Acid Fast Stain - Final, Resulted 06/07/16 Mycobacterial Culture, Resulted Pending 06/07/16 Fungal Smear - Final, Resulted 06/07/16 Fungal Culture, Resulted Pending 06/07/16 Gram Stain - Final, Complete 06/07/16 Anaerobic Culture - Final, Complete 06/07/16 Body Fluid Culture - Final, Complete 06/15/16 MRSA Screen - Final, Complete 06/07/16 Gram Stain - Final, Complete 06/07/16 Sputum Culture - Final, Complete Yeast Like Organism DELIA FELIX MD Jun 17, 2016 14:15
[2016-06-17 16:00] VITALS: BP 129/60
[2016-06-17] MEDS: CEFEPIME HCL 0.5 GM in D5W 50 ML IV SCH (16:00)
[2016-06-17 20:00] VITALS: BP 132/60
[2016-06-17] MEDS: ROSUVASTATIN 10 MG TAB (CRESTOR) PO SCH (21:51)
[2016-06-18] VITALS: BP 122/59
[2016-06-18] MEDS: NYSTATIN 500,000 U/5 ML SUSP UDC SS SCH ×4 (00:28→18:12)
[2016-06-18] MEDS: IPRATROPIUM 0.5MG/ALBUTEROL 2.5MG INH SOL UD 3ML (DUONEB)(J7620) NEB SCH ×4 (02:50→20:17)
[2016-06-18 03:52] VITALS: BP 145/71
[2016-06-18 06:01] LABS: MEAN CORPUSCULAR HEMOGLOBIN 29.9 pg (27.0-33.0); MEAN CORPUSCULAR HGB CONC 29.1 g/dl (32.0-36.5); MEAN CORPUSCULAR VOLUME 102.9 fl (80.0-96.0); RED CELL DISTRIBUTION WIDTH 19.5 % (11.5-14.5); WHITE BLOOD COUNT 9.9 K/mm3 (4.0-10.0)
[2016-06-18] MEDS: **hydrALAZINE HCL** 25 MG TAB PO SCH ×3 (06:09→18:14)
[2016-06-18] MEDS: ISOSORBIDE DIN. (ISORDIL) 30 MG TAB PO SCH ×3 (06:09→18:14)
[2016-06-18 06:25] LABS: ALBUMIN 1.9 GM/DL (3.2-5.2); ALBUMIN/GLOBULIN RATIO 0.5 (1.00-1.93); BILIRUBIN,TOTAL 0.5 MG/DL (0.2-1.0); CREATININE FOR GFR 4.67 MG/DL (0.55-1.02); GLOMERULAR FILTRATION RATE 9.9 (>39); MAGNESIUM LEVEL 2.3 MG/DL (1.8-2.4); TOTAL PROTEIN 5.7 GM/DL (6.4-8.2)
[2016-06-18 07:30] VITALS: BP 161/74
[2016-06-18] MEDS: BUDESONIDE 0.5 MG/2 ML INHALATION SUSPENSION INH SCH ×2 (07:32→20:17)
[2016-06-18] MEDS: TIOTROPIUM INHALER/CAPSULE (SPIRIVA) INH SCH (07:32)
[2016-06-18] MEDS: HumaLOG INSULIN (NovoLOG) PER UNIT SC SCH ×4 (08:02→20:58)
[2016-06-18] MEDS: FLUTICASONE PROP 0.05% NASAL SPRAY 16 GM (FLONASE) SCH (08:05)
[2016-06-18] MEDS: HEPARIN SOD (PORCINE) 5000 UNITS/ML VIAL SQ SCH ×2 (09:00→21:04)
[2016-06-18] MEDS: METOPROLOL SUCC *XL* 25MG TAB (TopROL *XL*) PO SCH (09:00)
[2016-06-18] MEDS: MOM 30ML SUSPENSION UDC PO SCH (09:00)
[2016-06-18] MEDS ORDERED: HEPARIN 1,000 UNITS/ML 10ML VIAL (FOR RADIOLOGY& DIALYSIS ONLY) IV ONE (10:00)
[2016-06-18] MEDS ORDERED: HYDR25TA PO (10:14)
[2016-06-18] MEDS ORDERED: CARV3.12 PO (10:14)
[2016-06-18] MEDS ORDERED: ISOS30TAB PO (10:14)
[2016-06-18] MEDS: IPRATROPIUM 0.5MG/ALBUTEROL 2.5MG INH SOL UD 3ML (DUONEB)(J7620) NEB PRN (10:43)
[2016-06-18] MEDS: hydrOXYzine 25 MG TAB PO PRN ×2 (10:46→21:07)
--- NOTE | 2016-06-18 11:01 | IPNPDOC ---
Text Note Date of Service The patient was seen on 06/18/16. NOTE Cardiology Progress Note Subjective: Patient is a 70-year-old female seen for cardiology follow-up. Patient reports today that she is still having some shortness of breath and lower extremity swelling. She denies any chest pain or pressure. She did not have any questions or concerns today but did say that she wants to be able to go home. Patient's chart was reviewed, no cardiac events overnight. Objective: Vital signs: Temperature 95.6, pulse 83, respiratory rate 20, blood pressure 161 /74, pulse ox 96% on 2 L nasal cannula Gen.: Patient awake, alert and oriented, verbal and able to answer questions appropriately. Patient does not appear to be in any acute distress Neck: Unable to appreciate any JVD secondary to respiratory accessory muscle use Heart: Regular rate and rhythm, normal S1-S2. No murmurs, rubs, clicks or gallops Lungs: Increased work of breathing with accessory muscle use, Clear to auscultation bilaterally. No wheezes, rales or rhonchi Extremities: Mild bilateral lower extremity pitting edema to below knee Laboratory data: CBC: White blood cells 9.9, hemoglobin and hematocrit 9.8/33.6, platelets 193 Chemistry: Sodium 136, potassium 5.0, chloride 99, Carbon dioxide 28, BUN 27, creatinine 4.67, glucose 169, calcium 8.0, magnesium 2.3 Liver profile: AST 22, ALT 30, alk phosphatase 185, total protein 5.7, albumin 1.9, total bilirubin 0.5 C-reactive protein 3.25 Hemoglobin A1c 6.8 Imaging: Chest x-ray from 06/17/16: Unchanged bilateral infiltrates, right pleural effusion unchanged Assessment / Plan: #1: Heart failure (systolic and diastolic dysfunction/acute on chronic): Patient continues to complain of shortness of breath, she is now below her admission weight. 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 Patient with complaint today of continued shortness of breath. Patient was started on Coreg 3.125 mg by mouth twice a day over the weekend. Due to patient's underlying COPD Coreg will be discontinued and patient will be switched to amiodarone 400 mg by mouth daily #3: Abnormal EKG: Patient not complaining of any chest pain #4: Hypertensive heart disease: Stable, continue vasodilator therapy and dialysis My preceptor for this patient encounter was physically present in the building during the encounter and was fully available. As needed, all aspects of the patient interview, examination, medical decision making process, and medical care plan development were reviewed and approved by the preceptor. Preceptor is aware and concurs with the plan as stated in the body of this note and will attest to such by his/her cosignature 06/18/2016: Patient reviewd and examined by Dr. Bright too. Agree with Hx, P/E , and A/P unless otherwise noted. Will add low dose beta-ofelia for non- ischemic cardiomyopathy with CHF. Enrique Bright MD, [facility] VS,[facility] VS, [facility] Laboratory Tests 06/18/16 05:43 Calcium Level 8.0 L, Aspartate Amino Transf (AST/SGOT) 22, Alanine Aminotransferase (ALT/SGPT) 30, Alkaline Phosphatase 185 H, Total Bilirubin 0.5 , Total Protein 5.7 L, Albumin 1.9 L, Red Blood Count 3.27 L, Mean Corpuscular Volume 102.9 H, Mean Corpuscular Hemoglobin 29.9, Mean Corpuscular Hemoglobin Concent 29.1 L, Red Cell Distribution Width 19.5 H Vital Signs Date Time Temp Pulse Resp B/P Pulse Ox O2 Delivery O2 Flow Rate FiO2 06/18/16 08:00 Nasal Cannula 2.0 06/18/16 07:30 95.6 83 22 161/74 96 I&O- Last 24 Hours up to 6 AM 06/18/16 06:00 Intake Total 720 ml Output Total 125 ml Balance 595 ml SHADY GUZMÁN DO Jun 18, 2016 11:01 Enrique Bright Jun 18, 2016 13:45
[2016-06-18 12:30] VITALS: BP 188/88
[2016-06-18] MEDS: GABAPENTIN 300 MG CAP PO SCH ×2 (12:48→21:04)
[2016-06-18] MEDS: AMIODARONE 200 MG TAB (PACERONE) PO SCH (12:49)
[2016-06-18] MEDS: DOCUSATE SODIUM 100 MG CAP PO SCH (12:49)
[2016-06-18] MEDS: ASPIRIN 81 MG ENTERIC TAB PO SCH (12:49)
[2016-06-18] MEDS: FAMOTIDINE 20 MG TAB PO SCH (12:50)
[2016-06-18] MEDS: PANTOPRAZOLE 40MG TAB (PROTONIX) PO SCH (12:52)
[2016-06-18] MEDS: CEFEPIME HCL 0.5 GM in D5W 50 ML IV SCH (15:43)
[2016-06-18 16:00] VITALS: BP 136/64
[2016-06-18] MEDS ORDERED: AMIO20TA PO (17:49)
[2016-06-18] MEDS ORDERED: METO25TA74 PO (17:58)
--- NOTE | 2016-06-18 18:24 | DSES ---
DATE OF ADMISSION: 06/06/2016 DATE OF DISCHARGE: Likely 06/19/2016 PRIMARY CARE PROVIDER: Evelin Ribeiro MD at [facility]. FIRE HAZARD INSPECTOR: Dr. Gonzales. THORACIC SURGEON: Dr. Pollard. FLARE BREAKER: Dr. Carter. PROCEDURES PERFORMED: Pigtail catheter and lung biopsy. FINAL DIAGNOSES: 1. Healthcare-associated bacterial pneumonia. 2. Pleural effusion. 3. Hypotension. 4. Acute systolic and diastolic congestive heart failure. 5. Type 2 diabetes. 6. Dyslipidemia. 7. Anemia. 8. Ventricular tachycardia. 9. Chronic obstructive pulmonary disease (COPD). 10. Hyperparathyroidism. 11. Mitral valva disease. 12. Coronary artery disease. 13. Endstage renal disease. 14. Lung mass. 15. Hypertension. HISTORY OF PRESENT ILLNESS: This is a 70-year-old female patient who presented to the emergency room complaining of shortness of breath for the past three days which has been getting progressively worse as well as increasing swelling in her feet. The patient was dialyzed in the morning of admission by Dr. Lopez as outpatient, tolerating dialysis well but continued to complain of cough and brown sputum for the past three days. Denies any sick contact. Denies any fevers but positive chills. Denies any chest pain or other symptoms. The patient was admitted under hospitalist service. She was found to have a low blood pressure in the emergency room with a systolic blood pressure of 50s. The patient stated that normally her systolic blood pressure is in the 80s. However, she was completely asymptomatic with hypotension, conversing, asking for food. Denies any chest pain. Denies any dizziness or lightheadedness. Started on IV fluids in the emergency room. She was given 250 mL bolus and started on normal saline at 70 mL per hour. HOSPITAL COURSE: The patient was admitted to the hospital and found to have pneumonia. She was started on IV antibiotics. Pleural effusion was found. Subsequently, pigtail catheter was placed. Dr. Pollard was consulted. Fluid status was monitored. Nephrology was consulted for continuation of hemodialysis. The patient was initially placed on midodrine due to hypotension and antibiotics were continue. Cultures were sent. Later it was found out that the patient had underlying subclavian steal and only lower extremity blood pressure is reliable. Subsequently, midodrine was discontinued. The patient's antibiotic was escalated during the hospital course. Chest tube was taken out once the outpatient decreased by Dr. Pollard. Subsequently, also discovered that patient had a lung mass which was biopsied which was negative for any cancer. The patient's respiratory status improved with treatment but hospital course was also complicated by episode of ventricular tachycardia. Dr. Carter, the explosive technician, believed it might be secondary to fluid overload and increased afterload due to midodrine. The patient was started on blood pressure medication and amiodarone. Blood pressure was monitored. Emergent hemodialysis was done to remove additional fluids. The patient's condition progressively improved. Fluid restriction was observed. The patient is currently breathing comfortably in no acute distress. Physical therapy was evaluated and passed. Arrangements are made for the patient to be discharged from the hospital. VITAL SIGNS: Temperature 96, pulse 95, respirations 24, blood pressure 188/88, pulse oximetry 90% on two liters nasal cannula. LABORATORY DATA: WBC 9.9, hemoglobin and hematocrit 9.8/33.6, platelets 193. Chemistry: Sodium 136, potassium 5, chloride 99, bicarbonate 28, BUN 27, creatinine 5.67, A1c 6.8. DISCHARGE MEDICATIONS: - amiodarone 400 mg by mouth daily - hydralazine 25 mg by mouth three times a day - isosorbide dinitrate 30 mg by mouth three times a day - metoprolol succinate 25 mg by mouth daily The patient's continued home medications are: - DuoNebs inhalation four times a day as needed - aspirin 81 mg by mouth daily - budesonide 0.5 mg inhalation twice a day - Benadryl 25 mg by mouth daily - Colace 100 mg by mouth daily - vitamin D 50,000 units by mouth monthly - Pepcid 50 mg by mouth daily - Uloric 40 mg by mouth daily - Flonase intranasal spray daily - gabapentin 300 mg by mouth twice a day - glipizide 2.5 mg by mouth daily - hydroxyzine 25 mg by mouth twice a day as needed - Claritin 10 mg by mouth daily - Tiera-Nallely one tablet by mouth at bedtime - Crestor 20 mg by mouth at bedtime - multivitamin one tablet by mouth daily - Spiriva inhalation once daily DISCHARGE INSTRUCTIONS: The patient is instructed to followup with industrial electrical technician in seven days and primary care provider in seven days. Followup with Dr. Pollard in 10 days and repeat x-ray prior to seeing Dr. Pollard. The patient is instructed to return to the hospital if symptoms worsen. Patient with multiple comorbidities, poor fdc prognosis. ADDENDUM: The patient is likely to be discharged 06/19/2016; discharge delayed for hemodialysis.
[2016-06-18 20:00] VITALS: BP 134/68
[2016-06-18] MEDS: ROSUVASTATIN 10 MG TAB (CRESTOR) PO SCH (21:04)
[2016-06-19] VITALS: BP 147/66
[2016-06-19] MEDS: NYSTATIN 500,000 U/5 ML SUSP UDC SS SCH ×3 (00:12→12:53)
[2016-06-19] MEDS: IPRATROPIUM 0.5MG/ALBUTEROL 2.5MG INH SOL UD 3ML (DUONEB)(J7620) NEB SCH ×2 (01:15→07:13)
[2016-06-19 04:00] VITALS: BP 132/61
--- NOTE | 2016-06-19 06:06 | IPN ---
DATE OF VISIT: 06/17/2016 SUBJECTIVE: The patient was seen and examined at the bedside this morning. She feels much better. She does not have any active complaints at this time. REVIEW OF SYSTEMS: The patient denies any fevers, chills, rigors, headache, nausea, vomiting, chest pain. She does report mild shortness of breath but it is significantly better as compared with her shortness of breath on admission. The rest of the review of systems is negative. OBJECTIVE: VITAL SIGNS: Temperature is 96.3 degrees Fahrenheit, blood pressure 129/60, pulse 77, respiratory rate 18, saturating 97% on nasal cannula. Intake and output: There is no urine output recorded. Weight in the bed scale is 51.2 kg. PHYSICAL EXAMINATION: GENERAL: The patient is awake, alert and oriented times three, sitting on the sofa in no apparent distress. HEAD/NECK: Extraocular muscles intact. Pupils equal, round, reactive to light. Moist mucous membranes. Neck is supple. There is no jugular venous distention (JVD). CARDIOVASCULAR: S1, S2, irregular heart rate, no murmurs, rubs, gallops. RESPIRATORY: Mild expiratory rhonchi on the left side of the lung and she has decreased breath sounds at the right base with some mild crepitations on deep inspiration at the right base as well. ABDOMEN: Soft, positive bowel sounds, nontender. No ascites, no organomegaly. EXTREMITIES: No clubbing or cyanosis. Pulses are 2+. There is no edema of the bilateral lower extremities. CENTRAL NERVOUS SYSTEM ([employer]): No focal neurological deficit. Power is 5/5 in all extremities. LAB REVIEW: CBC shows WBC at 9.2, hemoglobin 9.2, platelets 173. BMP showed sodium 138, potassium 4.4, chloride 101, bicarbonate 29, BUN 18, creatinine is 3.5. IMAGING: A chest x-ray done today in the morning showed stable right pleural effusion. CURRENT MEDICATIONS: The patient's current medication were all reviewed by me. There is no change in the medications today as compared with yesterday. ASSESSMENT: 70-year-old female with past medical history of end-stage renal disease on hemodialysis admitted this time because of right large sided pleural effusion, multifocal pneumonia, and congestive heart failure. PLAN: 1. End-stage renal disease on hemodialysis. The patient's regular hemodialysis days are Saturday, Saturday, Saturday. There is no urgent need to do hemodialysis today. We should dialyze the patient first shift tomorrow morning and we shall try to do an ultrafiltration with hemodialysis of at least three liters as tolerated by her blood pressure. 2. Multifocal pneumonia. The patient is currently on Cefepime, the duration of antibiotics is as per infectious disease. 3. Large right sided effusion, status post a pleural tap. The patient's effusion is stable at this time. Serial chest x-rays are being done. The rest of the management is as per cardiothoracic surgery recommendations. 4. Congestive heart failure. The patient's hydralazine and isosorbide is being managed by cardiology. I see the patient has been started on carvedilol 3.125 mg by mouth twice a day as well because the patient was having nonsustained ventricular tachycardia (V-tach) as well. Her pulse rate is stable at this time. If tolerated, we might need to increase the carvedilol dose as recommended by cardiology. 5. Anemia and end-stage renal disease. The patient's hemoglobin is 9.2 which is suboptimal. The patient will receive a dose of Aranesp 300 mcg intravenously with hemodialysis weekly. 6. Fluid overload. The patient is slightly decompensated at this time but she does not need any urgent dialysis. Dialysis will be done tomorrow morning and further ultrafiltration will be done.
[2016-06-19] MEDS: ISOSORBIDE DIN. (ISORDIL) 30 MG TAB PO SCH ×2 (06:32→12:53)
[2016-06-19] MEDS: **hydrALAZINE HCL** 25 MG TAB PO SCH ×2 (06:33→12:54)
[2016-06-19 06:51] LABS: MEAN CORPUSCULAR HEMOGLOBIN 30.2 pg (27.0-33.0); MEAN CORPUSCULAR HGB CONC 29.4 g/dl (32.0-36.5); MEAN CORPUSCULAR VOLUME 102.7 fl (80.0-96.0); RED CELL DISTRIBUTION WIDTH 19.8 % (11.5-14.5); WHITE BLOOD COUNT 13.3 K/mm3 (4.0-10.0)
[2016-06-19] MEDS: BUDESONIDE 0.5 MG/2 ML INHALATION SUSPENSION INH SCH (07:13)
[2016-06-19] MEDS: TIOTROPIUM INHALER/CAPSULE (SPIRIVA) INH SCH (07:13)
[2016-06-19 07:30] VITALS: BP 120/55
[2016-06-19 07:50] LABS: ALBUMIN 2.1 GM/DL (3.2-5.2); ALBUMIN/GLOBULIN RATIO 0.55 (1.00-1.93); BILIRUBIN,TOTAL 0.6 MG/DL (0.2-1.0); CALCIUM LEVEL 7.9 MG/DL (8.8-10.2); CREATININE FOR GFR 3.32 MG/DL (0.55-1.02); GLOMERULAR FILTRATION RATE 14.6 (>39); MAGNESIUM LEVEL 2.1 MG/DL (1.8-2.4); POTASSIUM SERUM 4.5 MEQ/L (3.5-5.1); TOTAL PROTEIN 5.9 GM/DL (6.4-8.2)
--- NOTE | 2016-06-19 08:20 | IPN ---
DATE: 06/18/2016 SUBJECTIVE: Patient was seen and examined at the bedside today in the morning during hemodialysis procedure, she was tolerating the hemodialysis procedure but she was complaining of shortness of breath. REVIEW OF SYSTEMS: Patient denies any fever, chills, rigors, headache, nausea, vomiting or chest pain. She does report shortness of breath and respiratory distress while she is on hemodialysis. She denies any pain in abdomen, constipation or diarrhea. Rest of review of system is negative. OBJECTIVE: Vital signs: Temperature is 95.6 degrees Fahrenheit, blood pressure is 161/74, pulse is 83, respiratory rate of 22, saturating 96% on nasal cannula at 2 liters. Intake and output: Urine output recorded at 125 mL yesterday. Weight on the bed scale is 49.3 kg. PHYSICAL EXAMINATION: General: Patient is awake, alert, oriented times three in mild respiratory distress, getting hemodialysis done. Head and neck exam: Extraocular muscles intact. Pupils equally round and reactive to light. Neck is supple. There is mildly elevated jugular venous distention (JVD). Cardiovascular: S1, S2. Regular rate. No murmur, rub or gallop. Respiratory: Decreased breath sounds at the right base. Decreased vocal resonance in the right base and mild expiratory rhonchi on the left side of the lung. Abdomen: Soft, positive bowel sounds, nontender, no ascites, no organomegaly. Extremities: No clubbing or cyanosis. Pulses are 2+. She has trace edema of the bilateral lower extremities. Central nervous system: No focal neurological deficit. Power is 5/5 in all extremities. Skin: No rashes or ulcers. Psych: Patient is slightly agitated. LAB REVIEW: CBC showed WBC 9.9, hemoglobin 9.8, platelets are 193. BMP showed sodium 136, potassium 5, chloride 99, bicarbonate 28, BUN 27, creatinine 4.6. Hemoglobin A1c 6.8, calcium is 8. Albumin is 1.9. CURRENT MEDICATIONS: Patient's medications are all reviewed by me. Her Coreg has been stopped. She is currently on amiodarone 400 mg by mouth daily. There is no change in the medications today as compared with yesterday. ASSESSMENT: 70-year-old female with past medical history of end stage renal disease on hemodialysis admitted this time because of shortness of breath secondary to multifocal pneumonia, enlarged right sided pleural effusion. PLAN: 1. End stage renal disease on hemodialysis. Today is patient's regular day of dialysis as per Saturday, Saturday, Saturday schedule. We shall try to do an ultrafiltration of 2.5 to 3 liters as tolerated by her blood pressure. 2. Multifocal pneumonia. Patient is currently on cefepime. Continue the current dose of antibiotics. 3. Right sided pleural effusion. Patient got the right sided pleural catheter. Effusion was drained. Catheter was removed. She is getting serial x-rays right now and CT surgery is following the patient. 4. Hypertension. Patient's blood pressure is acceptable at this time. Her Coreg has been stopped. She continues to be on hydralazine 25 mg by mouth three times daily and isosorbide 30 mg by mouth three times daily. Continue the current dose for now. 5. Congestive heart failure. Patient's CHF is being managed by cardiology at this time. Hemodialysis and ultrafiltration would also help improve the CHF symptoms. Continue hydralazine and isosorbide. Coreg was stopped by cardiology and she has been started on amiodarone for episodes of SVT. 6. Anemia and end stage renal disease. Patient's hemoglobin is 9.8. She will get a dose of Aranesp 300 mcg IV hemodialysis once a week.
--- NOTE | 2016-06-19 08:39 | IPN ---
DATE: 06/18/2016 Ms. Shabazz is unusually anxious today. She states she had a very bad day in dialysis and they could not get the fluid off; however, she is recorded as having 2000 mL removed. She states that she is anxious because she has to stay here and she has been here for so long. I suspect it is a manifestation of her getting better. She is short of breath at rest and with pursed lip breathing. Her vital signs today show a T-max of 97.0 with a heart rate that ranges between 83 and 71 in a sinus rhythm, a respiratory rate of 20 to 24 without the use of accessory muscles, but who is pursed lip breathing. She is 96% saturated on 2 liters nasal cannula and her blood pressure is ranging between 188/90 to 145/71. Her intake and output the past 24 hours has been recorded as 720 in and 125 out for a positivity of nearly 600 mL. She weighs 49.3 kg today compared to 51.2 kg yesterday. Weight was recorded prior to dialysis. On physical examination, her lungs show almost nearly normal vesicular sounds with a few scattered rhonchi. Percussion notes are full to the diaphragm. This is different from this morning's examination where she was reported to have inspiratory and expiratory rhonchi and certainly different from my examination yesterday. Cardiac Exam: Shows a holosystolic murmur at the left lower sternal border. I cannot feel her PMI. S1, S2 are normal. Abdomen: Soft. Nontender. Bowel sounds are positive. There is no hepatomegaly. No costovertebral angle (CVA) tenderness. Extremities: Show no pretibial edema this afternoon. There is no calf tenderness. This is different from this morning where she was reported to have 2+ pretibial edema and certainly different from yesterday when I found her to have 2+ pretibial edema. There is no differential swelling of the upper extremities. Skin: Warm, dry and perfused. Without cyanosis or mottling, including that of the nail beds and the knees. Neck: Supple. There is no jugular venous distention. No subcutaneous emphysema. Trachea is midline. Mouth: Shows her mucous membranes to be pink and moist. Lips and commissures are without lesions. Her thrush is now resolved. Eyes: Show her pupils to be equal and reactive. Extraocular movements intact. Sclerae nonicteric. Neurologic: Shows II-XII intact along with gross motor and gross sensation intact. Gait is not tested. Psychiatric shows her to be awake, alert, and oriented times three with appropriate mood and affect and conversational. Her white count today is 9.9 with hemoglobin and hematocrit of 9.8 and 33.6, improved from yesterday of 9.9 and 30.9. This was taken before dialysis. Platelet count is 193 and stable. Chemistries show normal electrolytes with BUN and creatinine of 27 and 4.67 prior to dialysis. Calcium 8.0. Albumin 1.9. She remains on cefepime as an antibiotic. Her chest x-ray today is still pending. IMPRESSION: 1. Right sided pleural effusion, transudative, stable. 2. Right lower lobe pneumonia. 3. Left lower lobe pneumonia. 4. Right upper lobe lung mass, probably remnant pneumonia, nonmalignant. 5. Thoracic aortic aneurysm measuring 3.5 cm. 6. Diabetes. 7. Chronic obstructive pulmonary disease (COPD). 8. Renal failure requiring dialysis. 9. Chronic hypotension in the upper extremities. 10. Probable left subclavian stenosis. 11. Chronic anemia. 12. Congestive heart failure. 13. Hyperlipidemia. 14. Ventricular tachycardia secondary to congestive heart failure. PLAN AND DISCUSSION: Other than her anxiety, Mrs. Shabazz is actually doing rather well. Her pursed lip breathing is not changed. I was amenable to her going home today, however, there is evidently a rule that patient's cannot go home the same day of dialysis. I am very happy to see that her physical examination has even changed from this morning to this afternoon with regard to her lung volumes. I will obtain a chest x-ray on her tomorrow.
[2016-06-19] MEDS: FAMOTIDINE 20 MG TAB PO SCH (08:58)
[2016-06-19] MEDS: HEPARIN SOD (PORCINE) 5000 UNITS/ML VIAL SQ SCH (08:58)
[2016-06-19] MEDS: AMIODARONE 200 MG TAB (PACERONE) PO SCH (08:58)
[2016-06-19] MEDS: DOCUSATE SODIUM 100 MG CAP PO SCH (08:58)
[2016-06-19] MEDS: HumaLOG INSULIN (NovoLOG) PER UNIT SC SCH ×2 (08:58→12:00)
[2016-06-19] MEDS: ASPIRIN 81 MG ENTERIC TAB PO SCH (08:58)
[2016-06-19] MEDS: GABAPENTIN 300 MG CAP PO SCH (08:58)
[2016-06-19] MEDS: MOM 30ML SUSPENSION UDC PO SCH (08:59)
[2016-06-19] MEDS: PANTOPRAZOLE 40MG TAB (PROTONIX) PO SCH (08:59)
[2016-06-19] MEDS: METOPROLOL SUCC *XL* 25MG TAB (TopROL *XL*) PO SCH (08:59)
[2016-06-19] MEDS: FLUTICASONE PROP 0.05% NASAL SPRAY 16 GM (FLONASE) SCH (09:00)
--- NOTE | 2016-06-19 09:17 | REP ---
TWO VIEW CHEST: Two views of the chest are performed. COMPARISON: 06/17/2016 as well as other prior exams. There is improvement of the left lung base atelectasis/infiltrate. Other bilateral infiltrates are unchanged. Right pleural effusion is unchanged. Cardiomediastinal silhouette is unchanged. Right central venous catheter and left pacemaker are again noted. IMPRESSION: Improvement in left basilar infiltrate/atelectasis. Otherwise no change. Signed by Jesus Johnson MD 06/19/2016 08:05 P
[2016-06-19] MEDS ORDERED: DOXY-278 PO (11:07)
--- NOTE | 2016-06-19 11:34 | IPN ---
DATE: 06/18/2016 INFECTIOUS DISEASE PROGRESS NOTE: Mrs. Shabazz does not seem to be doing very well this afternoon. She complains of being hot and cold. She is more short of breath today than in previous days. She has lower extremity swelling. She denies any chest pain or pressure. Her cough is mostly dry or productive of whitish phlegm. She has had no fever in the past week. No nausea, vomiting or diarrhea. On physical exam, very diminished air entry with exterior wheezes bilaterally. Heart: Normal S1, S2 with no murmurs. Abdomen is soft, nontender. No visceromegaly. Extremities: Mild bilateral lower extremity edema below the knee. LABORATORY DATA: White count is 9.9. Hemoglobin 9.8, hematocrit 33.6, platelets 193. Hgba1c is 1 6.8. Sodium 136, potassium 5, chloride 99, bicarbonate 28, BUN 27, creatinine 4.7, calcium 88. BNP during this hospitalization was more than 5000. CRP 3.25, which is down from 12.5 on 06/13/2016. IMPRESSION: 1. Severe congestive heart failure with worsening respiratory status today in spite of having been dialyzed and some fluid was taken out. 2. Healthcare-associated pneumonia treated with IV vancomycin and cefepime, previous see ceftriaxone. Vancomycin has finished 10-day course. Currently on cefepime and could be discontinued tomorrow as well. PLAN: I suspect most of her respiratory deterioration his chronic obstructive pulmonary disease (COPD) and congestive heart failure and not infectious at this time. She has been afebrile for a week and antibiotics could be discontinued. I am somewhat concerned that she will not do very well home as she still has significant respiratory compromise. Discontinue cefepime. She does not need any further antibiotics for home. 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 According to family, she is on an antibiotic for the past 4 months very frequently ever couple weeks.
[2016-06-19 12:54] VITALS: BP 156/74
--- NOTE | 2016-06-19 14:01 | IPNPDOC ---
Text Note Date of Service The patient was seen on 06/19/16. NOTE Patient has been evaluated on 06/19/16 with no acute changes overnight. Pt will be d/c today. Please see dictation summary by Dr. Missy Dinero 06/18/16. VS,Fishbone, I+O VS, Fishbone, I+O Laboratory Tests 06/19/16 06:31 Calcium Level 7.9 L, Aspartate Amino Transf (AST/SGOT) 21, Alanine Aminotransferase (ALT/SGPT) 25, Alkaline Phosphatase 184 H, Total Bilirubin 0.6 , Total Protein 5.9 L, Albumin 2.1 L, Red Blood Count 3.23 L, Mean Corpuscular Volume 102.7 H, Mean Corpuscular Hemoglobin 30.2, Mean Corpuscular Hemoglobin Concent 29.4 L, Red Cell Distribution Width 19.8 H Vital Signs Date Time Temp Pulse Resp B/P Pulse Ox O2 Delivery O2 Flow Rate FiO2 06/19/16 12:54 156/74 06/19/16 09:04 Nasal Cannula 2.0 06/19/16 08:59 74 06/19/16 07:30 95.6 22 92 I&O- Last 24 Hours up to 6 AM 06/19/16 05:59 Intake Total 700 ml Output Total 2000 ml Balance -1300 ml ERIC ACOSTA MD Jun 19, 2016 14:01
--- NOTE | 2016-06-20 09:09 | IPN ---
DATE: 06/19/2016 SUBJECTIVE: Patient was seen and examined at the bedside today in the morning. She feels much better. Her shortness of breath is improving. She was dialyzed yesterday. 2 liter of ultrafiltration was done. REVIEW OF SYSTEMS: Patient denies any fevers, chills, rigors, headache, nausea, vomiting, chest pain. She does have baseline shortness of breath and she requires oxygen at home. She denies any pain in abdomen, constipation or diarrhea. OBJECTIVE: Vital signs: Temperature is 95.6 degrees Fahrenheit, blood pressure is 120/55, pulse is 74, respiratory rate of 22, saturating 92% on nasal cannula at 2 liters per minute. Intake and output: Patient got hemodialysis done yesterday. Ultrafiltration was 2 liters. Weight on the bed scale is 49.5 kg. PHYSICAL EXAMINATION: General: Patient is awake, alert, oriented times three sitting on the sofa, no apparent distress. Head and neck exam: Extraocular muscles intact. Pupils equally round and reactive to light. Neck is supple. There is mildly elevated jugular venous distention (JVD). Cardiovascular: S1,S2. Regular rate. No murmur, rub or gallop. Respiratory: Decreased breath sounds right base and decreased vocal resonance in the right base as well. Mild expiratory rhonchi on the left side of the lung. Abdomen: Soft, positive bowel sounds, nontender, no ascites. No organomegaly. Extremities: No clubbing or cyanosis. Pulses are 2+. She has trace edema of the bilateral lower extremities. Central nervous system: No focal neurological deficit. Power is 5/5 in all extremities. Psych: Normal mood and affect. LAB REVIEW: CBC showed WBC of 13.3, hemoglobin 9.8, platelets 223. BMP showed sodium 138, potassium 4.5, chloride 100, bicarbonate 30, BUN 18, creatinine 3.3. Calcium is 7.9. Albumin is 2.1. IMAGING: Chest x-ray done today showed improvement in the left basilar infiltrate and stable right sided pleural effusion. CURRENT MEDICATIONS: Patient's medications were all reviewed by me. There is no change in her medications today as compared with yesterday. ASSESSMENT: 70-year-old female with past medical history of end stage renal disease on hemodialysis admitted this time because of shortness of breath secondary to multifocal pneumonia and large right sided pleural effusion. PLAN: 1. End stage renal disease on hemodialysis. Patient's regular days of dialysis are Saturday, Saturday, Saturday. She was dialyzed yesterday. Next hemodialysis will be tomorrow. 2. Multifocal pneumonia. Patient was treated with IV cefepime. She has a slight bump in the white cell count today. However, her symptoms are significantly better. She can be discharged on oral antibiotics. 3. Right sided pleural effusion. Patient's right effusion was drained. Serial x-rays done daily show stable right sided effusion. No need of pleural catheter at this time. Volume status will be optimized with hemodialysis as outpatient. 4. Blood pressure is acceptable at this time. Continue the antihypertensive regimen. 5. Congestive heart failure. Appreciate cardiology recommendations. Patient is currently on hydralazine, isosorbide and amiodarone. 6. Discharge planning. It is okay to discharge the patient from nephrology stand point. She can be dialyzed as outpatient tomorrow morning.
== END 2016-06-19 13:28 | disposition home health service (06) | DRG 193 ==
LOC: M ED 11:19 → M ICU 14:12 → M ED INP 14:13 → M ICU 18:54 → M PCU 06-15 10:55
PROVIDERS: ADMIT Internal Medicine; ATTEND Hospitalist
PROC: 5A1D60Z (ICD-10-PCS; 2016-06-07)
PROC: 0W993ZX Drainage of Right Pleural Cavity, Percutaneous Approach, Diagnostic (ICD-10-PCS; 2016-06-07)
PROC: 0W9930Z Drainage of Right Pleural Cavity with Drainage Device, Percutaneous Approach (ICD-10-PCS; 2016-06-07)
PROC: 05HM33Z Insertion of Infusion Device into Right Internal Jugular Vein, Percutaneous Approach (ICD-10-PCS; principal; 2016-06-12)
PROC: 0BBC3ZX Excision of Right Upper Lung Lobe, Percutaneous Approach, Diagnostic (ICD-10-PCS; 2016-06-14)
DX: J18.9 Pneumonia, unspecified organism (principal); N18.6 End stage renal disease; I50.43 Acute on chronic combined systolic (congestive) and diastolic (congestive) heart failure; J90 Pleural effusion, not elsewhere classified; N25.81 Secondary hyperparathyroidism of renal origin; B37.0 Candidal stomatitis; I13.2 Hypertensive heart and chronic kidney disease with heart failure and with stage 5 chronic kidney disease, or end stage renal disease; G45.8 Other transient cerebral ischemic attacks and related syndromes; I47.2 Ventricular tachycardia; J44.1 Chronic obstructive pulmonary disease with (acute) exacerbation; E11.9 Type 2 diabetes mellitus without complications; I95.3 Hypotension of hemodialysis; R01.1 Cardiac murmur, unspecified; I71.2 Thoracic aortic aneurysm, without rupture; I34.0 Nonrheumatic mitral (valve) insufficiency; I25.10 Atherosclerotic heart disease of native coronary artery without angina pectoris; R91.8 Other nonspecific abnormal finding of lung field; I95.89 Other hypotension; I27.2 Other secondary pulmonary hypertension; F41.9 Anxiety disorder, unspecified; D63.1 Anemia in chronic kidney disease; I35.2 Nonrheumatic aortic (valve) stenosis with insufficiency; Z99.2 Dependence on renal dialysis; Z99.81 Dependence on supplemental oxygen; Z88.0 Allergy status to penicillin; Z88.2 Allergy status to sulfonamides; Z88.8 Allergy status to other drugs, medicaments and biological substances; Z87.891 Personal history of nicotine dependence; Z79.84 Long term (current) use of oral hypoglycemic drugs; Z79.82 Long term (current) use of aspirin; Z79.899 Other long term (current) drug therapy; Z95.810 Presence of automatic (implantable) cardiac defibrillator; Z91.11 Patient's noncompliance with dietary regimen

== ENCOUNTER → 2016-07-02 | Outpatient (CLI) | payer MEDICARE ==
[~2016-07-02] MED LIST changes: +AMIO20TA PO; +COLA100C PO; +DOXY-278 PO; +FLON50SP; +HYDR25TA PO; +ISOS30TAB PO
--- NOTE | 2016-07-02 10:18 | REP ---
Clinical: Pleural effusion and pneumonia. Technique: PA and lateral. Comparison: 06/19/2016. Findings: Diffuse chronic interstitial changes are noted with superimposed moderate right pleural effusion and bibasilar as well as right perihilar infiltrates. Effusion appears to be slightly increased when compared to 06/19/2016. No pneumothorax. Mediastinum and cardiac silhouette are stable. Skeletal structures demonstrate osteopenia and degenerative changes. Impression: Multi focal infiltrates and moderate right pleural effusion which is slightly increased when compared to 06/19/2016. Signed by Eugene Merrill MD 07/02/2016 10:10 A
== END ==
LOC: M SMT 09:35
PROVIDERS: ATTEND Thoracic Surgery (Cardiothoracic Vascular Surgery)
DX: J90 Pleural effusion, not elsewhere classified (principal); J18.9 Pneumonia, unspecified organism

== ENCOUNTER 2016-07-16 10:36 | Emergency (ER) | payer MEDICARE ==
[~2016-07-16] VITALS: Ht 152.4 cm; Wt 48.1 kg
[~2016-07-16 10:36] MED LIST changes: -AMIO200T37 PO; -HYDR-4266 PO; -KEFL500C7 PO
[2016-07-16 11:12] LABS: BASO # 0.1 K/mm3 (0.0-0.2); BASO % 0.8 % (0.0-1.0); EOS # 0.6 K/mm3 (0.0-0.50); EOS % 5.7 % (0.0-3.0); LARGE UNSTAINED CELL # 0.3 K/mm3 (0.0-0.4); LARGE UNSTAINED CELL % 2.8 % (0.0-4.0); LYMPH # 2.3 K/mm3 (1.5-4.5); LYMPH % 20.3 % (24.0-44.0); MEAN CORPUSCULAR HEMOGLOBIN 28.9 pg (27.0-33.0); MEAN CORPUSCULAR HGB CONC 29.9 g/dl (32.0-36.5); MEAN CORPUSCULAR VOLUME 96.7 fl (80.0-96.0); MONO % 10.3 % (0.0-5.0); NEUTROPHILS % 60.1 % (36.0-66.0); PLATELET COUNT, AUTOMATED 359 k/mm3 (150-450); RED CELL DISTRIBUTION WIDTH 16.7 % (11.5-14.5); WHITE BLOOD COUNT 9.9 K/mm3 (4.0-10.0)
[2016-07-16] MEDS ORDERED: ISOVUE-370 76% 100ML VIAL (Q9967) As Ordered ONE (11:16)
[2016-07-16 11:20] LABS: INR 1.18
[2016-07-16 11:40] LABS: ALBUMIN 2.3 GM/DL (3.2-5.2); ALBUMIN/GLOBULIN RATIO 0.39 (1.00-1.93); BILIRUBIN,DIRECT 0.1 MG/DL (0.0-0.2); BILIRUBIN,TOTAL 0.4 MG/DL (0.2-1.0); CALCIUM LEVEL 8.3 MG/DL (8.8-10.2); CREATININE FOR GFR 2.27 MG/DL (0.55-1.02); GLOMERULAR FILTRATION RATE 22.7 (>39); POTASSIUM SERUM 3.5 MEQ/L (3.5-5.1); TOTAL PROTEIN 8.2 GM/DL (6.4-8.2)
--- NOTE | 2016-07-16 11:46 | REP ---
PORTABLE CHEST: AP portable view of the chest is performed and compared to a prior study of the same day. Right pleural effusion and adjacent right base atelectasis/infiltrate is unchanged. Focal nodular right upper lobe opacity is also stable. Increased interstitial markings bilaterally are also unchanged. The heart appears enlarged. There is calcification and tortuosity of the thoracic aorta. Left single lead pacemaker is again noted. IMPRESSION: Stable exam with no change since the prior study. Signed by Jesus Johnson MD 07/16/2016 03:54 P
--- NOTE | 2016-07-16 12:23 | REP ---
CT abdomen pelvis as a continuation of the CT of the chest utilizing the same IV contrast bolus: There is aneurysmal dilatation of the distal thoracic aorta at the diaphragmatic hiatus at measuring 4.1 cm short axis diameter, similar to 2013. No dissection of the distal thoracic aorta or abdominal aorta is identified. There is extensive calcified atheromatous plaque. There is mild and aneurysmal dilatation of the infrarenal abdominal aorta measuring up to 3.1 cm short axis diameter. No dissection of the abdominal aorta. Extensive calcified atheroma is noted. There is a right pleural effusion. The pleural drainage catheter noted on 06/09/2069 is no longer present and the right pleural effusion has increased in size from 06/09/2016. The hepatic parenchyma, pancreas and spleen are unremarkable. Surgical clips in the gallbladder fossa. The adrenals are unremarkable. There is bilateral renal cortical atrophy. There is a 3.7 cm exophytic cyst at the lower pole of the left kidney. This is unchanged from 07/16/2016. There are a few small cortical cysts in the right kidney. There is no hydronephrosis. There is no bowel distension or obstruction. There is abundant fecal residue throughout the colon compatible with constipation. Pelvis: The uterus and adnexa are unremarkable. There is no ascites. There are occasional colonic diverticula without evidence of diverticulitis. Impression: Aneurysmal dilatation of the distal thoracic aorta and of the infrarenal abdominal aorta. No aortic dissection is identified. 3.7 cm exophytic cyst at the lower pole left kidney. Bilateral renal cortical atrophy. No hydronephrosis. No bowel distension or obstruction. Abundant fecal residue throughout the colon compatible with constipation. Signed by Jesus Tijerina MD 07/16/2016 12:15 P
--- NOTE | 2016-07-16 12:33 | REP ---
CT ANGIOGRAM OF THE CHEST: TECHNIQUE: Axial contrast enhanced images from the thoracic inlet to the upper abdomen using 100 mL Isovue 370 intravenous contrast material with multiplanar reformations. COMPARISON: 06/06/[address] evidence of pulmonary embolism. There is aneurysmal dilatation of the descending thoracic aorta with moderate atherosclerotic calcification and mural thrombus. There is no dissection or rupture of the aneurysm. Maximum diameter is approximately 5 cm, which is unchanged. The heart is upper limits of normal in size. There is moderate right pleural effusion, which has diminished since the prior study of 06/06/2016. Bilateral lower lung infiltrate/atelectasis also appears improved bilaterally. There are mildly prominent mediastinal and hilar lymph nodes. Which appear essentially unchanged. There is no pericardial effusion. There are degenerative changes of the spine. IMPRESSION: No CT evidence of pulmonary embolism. Improved moderate right effusion. Improved bilateral atelectasis/infiltrate. Signed by Jesus Johnson MD 07/16/2016 03:54 P
[2016-07-16] MEDS ORDERED: HYDR-4266 PO ×2 (13:59→14:27)
[2016-07-16] MEDS ORDERED: ISOS30TAB PO ×2 (13:59→14:31)
[2016-07-16] MEDS ORDERED: AMIO20TA PO (13:59)
[2016-07-16] MEDS ORDERED: HYDR25T PO (13:59)
[2016-07-16] MEDS ORDERED: METO25TA74 PO ×2 (13:59→14:30)
[2016-07-16] MEDS ORDERED: AMIO200T37 PO (14:26)
[2016-07-16] MEDS ORDERED: KEFL500C7 PO (15:28)
[2016-07-16 15:33] VITALS: BP 164/68
[2016-07-16] MEDS ORDERED: CEPHALEXIN 250 MG CAP PO ONE (15:45)
--- NOTE | 2016-07-19 18:23 | ECGEPIP ---
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
== END 2016-07-16 15:55 | disposition home or self-care (01) ==
LOC: M ED 12:41
DX: N39.0 Urinary tract infection, site not specified (principal); N28.1 Cyst of kidney, acquired; R10.13 Epigastric pain; J18.9 Pneumonia, unspecified organism; J91.8 Pleural effusion in other conditions classified elsewhere; I51.9 Heart disease, unspecified; J44.9 Chronic obstructive pulmonary disease, unspecified; Z90.49 Acquired absence of other specified parts of digestive tract
CPT/HCPCS: 36415; 71010; 71020; 71275; 74177; 80048; 80076; 81001; 82550; 82553; 83605; 83690; 84484; 85025; 85610; 85730; 87088; 87186; 93005; 93041; 99285; Q9967

== ENCOUNTER → 2016-07-16 | Outpatient (CLI) | payer MEDICARE ==
[~2016-07-16] MED LIST changes: +AMIO200T37 PO; -COLA100C PO; +COLA100C3 PO; +GABA-282 PO; -GABA300C3 PO; +HYDR-4266 PO; +KEFL500C7 PO
--- NOTE | 2016-07-16 10:10 | REP ---
CHEST, TWO VIEWS: Two views of the chest are performed. Comparison 07/02/2016. Prominent interstitial markings diffusely bilaterally are unchanged as well as right pleural effusion as well as mild focal right upper lobe opacity and right basilar opacity. Heart and mediastinum are unchanged. Left single lead pacemaker is noted. There are degenerative changes of the spine. IMPRESSION: Stable exam. Signed by Jesus Johnson MD 07/16/2016 03:53 P
== END ==
LOC: M SMT 09:23
PROVIDERS: ATTEND Thoracic Surgery (Cardiothoracic Vascular Surgery)
DX: J18.9 Pneumonia, unspecified organism (principal); J91.8 Pleural effusion in other conditions classified elsewhere

== ENCOUNTER → 2016-08-16 | Outpatient (CLI) | payer MEDICARE ==
[~2016-08-16] MED LIST changes: +AMIO200T37 PO; +HYDR-4266 PO; +KEFL500C7 PO; +PERC5TAB6 PO
--- NOTE | 2016-08-16 12:45 | REP ---
CHEST, TWO VIEWS: HISTORY: Pleural effusion. COMPARISON: 07/16/2016 A diffuse increased in interstitial markings is present in the lungs unchanged compared to the previous study. Parenchymal density is present in the right lower lobe consistent with atelectasis or infiltrate that is decreased compared to the previous study. A small right pleural effusion is present decreased compared to the previous study. The cardiac silhouette is enlarged. The pulmonary vasculature is normal in appearance. The bony structure is intact. A cardiac pacemaker is present. IMPRESSION: 1. Right lower lobe atelectasis or infiltrate decreased compared to the previous study. 2. Small right pleural effusion decreased compared to the previous study. Signed by Quan Lepe MD 08/16/2016 12:56 P
== END ==
LOC: M SMT 11:44
PROVIDERS: ATTEND Thoracic Surgery (Cardiothoracic Vascular Surgery)
DX: J90 Pleural effusion, not elsewhere classified (principal); J98.11 Atelectasis

== ENCOUNTER 2016-08-21 03:54 | Emergency (ER) | payer MEDICARE ==
[~2016-08-21] VITALS: Ht 149.9 cm; Wt 47.2 kg
[~2016-08-21 03:54] MED LIST changes: -PERC5TAB6 PO
[2016-08-21] MEDS ORDERED: RENV2TAB PO (04:07)
[2016-08-21] MEDS: MORPHINE 4 MG/ML 1ML SYRINGE IV PRN ×2 (05:15→06:17)
[2016-08-21] MEDS ORDERED: ONDANSETRON 4MG/2ML VIAL (J2405) IV ONE (05:15)
[2016-08-21 05:27] LABS: BASO # 0.1 K/mm3 (0.0-0.2); BASO % 1.7 % (0.0-1.0); EOS # 1.2 K/mm3 (0.0-0.50); EOS % 13.7 % (0.0-3.0); LARGE UNSTAINED CELL # 0.2 K/mm3 (0.0-0.4); LARGE UNSTAINED CELL % 2.8 % (0.0-4.0); LYMPH # 1.4 K/mm3 (1.5-4.5); LYMPH % 13.3 % (24.0-44.0); MEAN CORPUSCULAR HGB CONC 30.6 g/dl (32.0-36.5); MEAN CORPUSCULAR VOLUME 94.5 fl (80.0-96.0); MONO # 1.1 K/mm3 (0.0-0.8); MONO % 12.5 % (0.0-5.0); NEUTROPHILS # 4.8 K/mm3 (1.8-7.7); PLATELET COUNT, AUTOMATED 242 k/mm3 (150-450); RED CELL DISTRIBUTION WIDTH 17.6 % (11.5-14.5); WHITE BLOOD COUNT 8.5 K/mm3 (4.0-10.0)
[2016-08-21] MEDS ORDERED: ISOVUE-370 76% 100ML VIAL (Q9967) As Ordered ONE (05:29)
[2016-08-21 05:43] LABS: CALCIUM LEVEL 8.1 MG/DL (8.8-10.2); CREATININE FOR GFR 3.47 MG/DL (0.55-1.02); GLOMERULAR FILTRATION RATE 13.9 (>39); POTASSIUM SERUM 3.7 MEQ/L (3.5-5.1)
--- NOTE | 2016-08-21 06:50 | REPUSA ---
CLINICAL HISTORY: Pain, exclude PE. TECHNIQUE: Multiple incremental axial, coronal and oblique images are obtained from the thoracic inle t to the upper abdomen. Intravenous contrast material was administered as per pulmonary embolism prot ocol. COMMENTS: Comparison to the prior exam on 07/16/2016. Unchanged aneurysmal aortic arch measuring 3.4 cm in its largest transverse dimension. Unchanged thoracic aortic aneurysm measuring 5.4 cm in its largest transverse dimension. Unchanged atherosclerotic calcified plaques. Unchanged small right pleural effusion. Unchanged moderate centrilobular emphysema. Unchanged 2.9x3.3 cm spiculated consolidation in the posterior aspect of the posterior segment of the right upper lobe suspicious for neoplastic pathology. Unchanged bilateral basilar atelectatic airspace disease of the lower lobes. Unchanged pacemaker wires. Unchanged moderate cardiomegaly. Unchanged heavily calcified mitral valve. Unchanged small sliding hiatal hernia. There is excellent opacification of pulmonary arterial system without evidence for pulmonary embolism . Images of the upper abdomen demonstrate no evidence of adrenal mass. The bony structures are free of lytic or blastic lesions. Multilevel degenerative changes are seen in volving the visualized thoracolumbar spine. Scattered calcifications are seen involving the aorta and major branches compatible with atherosclero sis. Unchanged metallic clips from prior cholecystectomy. IMPRESSION: No evidence for pulmonary embolism. Unchanged aneurysmal aortic arch. Unchanged thoracic aortic aneurysm. The largest transverse dimension measures 5.4 cm. This may need a surgical consultation if clinically warranted Unchanged mild right pleural effusion. Unchanged spiculated consolidation in the right upper lobe. This is suspicious for neoplastic patholo gy. Unchanged emphysema and pulmonary hypertension. Unchanged cardiomegaly. Thank you for your kind referral of this patient.
[2016-08-21] MEDS ORDERED: methylPREDNISolone INJ 125 MG/2 ML VIAL (J2930) IV ONE (07:00)
[2016-08-21] MEDS ORDERED: PRED20TA PO (07:03)
[2016-08-21] MEDS ORDERED: PERC5TAB6 PO (07:04)
[2016-08-21] MEDS ORDERED: predniSONE 20 MG TAB PO ONE (07:45)
[2016-08-21 07:49] VITALS: BP 124/56
--- NOTE | 2016-08-21 12:51 | ED PDOC ---
Post-Departure Follow-Up radiology rpeort faxed to Dr. zuluaga and Nela Sanchez MD August 21, 2016 12:51
--- NOTE | 2016-08-21 15:08 | ECGEPIP ---
Stationary ECG Study 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
== END 2016-08-21 07:51 | disposition home or self-care (01) ==
LOC: M ED 05:55
DX: R07.89 Other chest pain (principal); I51.7 Cardiomegaly; J43.9 Emphysema, unspecified; I27.89 Other specified pulmonary heart diseases; N18.9 Chronic kidney disease, unspecified; Z99.2 Dependence on renal dialysis; Z79.899 Other long term (current) drug therapy; Z88.0 Allergy status to penicillin; Z88.2 Allergy status to sulfonamides; Z88.8 Allergy status to other drugs, medicaments and biological substances; Z87.891 Personal history of nicotine dependence
CPT/HCPCS: 36415; 71275; 80048; 82550; 82553; 84484; 85025; 93005; 93041; 94760; 96375; 99285; J2405; Q9967

== ENCOUNTER 2016-09-02 10:00 | Inpatient (IN) | payer MEDICARE ==
[~2016-09-02] VITALS: Ht 144.8 cm; Wt 49.0 kg
[2016-09-02] MEDS: TIOTROPIUM INHALER/CAPSULE (SPIRIVA) INH SCH (09:00)
[2016-09-02] MEDS: **hydrALAZINE HCL** 25 MG TAB PO SCH ×3 (09:00→21:48)
[2016-09-02] MEDS: METOPROLOL SUCC *XL* 25MG TAB (TopROL *XL*) PO SCH (09:00)
[2016-09-02] MEDS: AMIODARONE 200 MG TAB (PACERONE) PO SCH (09:00)
[~2016-09-02 10:00] MED LIST changes: -ACET-654 PO; +ACET1TAB17 PO; +AMIO200T PO; -AMIO20TA PO; +AZIT-12 PO; -AZIT250T3 PO; -COLA100C3 PO; +COLA100C5 PO; -FOLI1TAB2 PO; +FOLI1TAB4 PO; -FURO1TAB15 PO; +FURO80TA2 PO; +HYDR-3363 PO; +HYDR-3910 PO; -HYDR-4266 PO; -HYDR25T PO; +KEFL500C17 PO; -KEFL500C7 PO; +LEVA1TAB PO; -LEVA250T PO; +METO1TAB32 PO; -METO25TA74 PO; -NYST100024 TOP; +NYST1POW9 TOP; -PEPC10TA PO; +PEPC10TA6 PO; +PERC5TAB12 PO; +VITA1CAP40 PO; -VITA50003 PO
[2016-09-02] MEDS ORDERED: MORPHINE 2 MG/ML 1ML SYRINGE IV PRN (11:00)
--- NOTE | 2016-09-02 11:38 | REP ---
Clinical: Trauma. Fall. Technique: PA and lateral. Comparison: 10/16/2016. Findings: Stable cardiomegaly is appreciated along with chronic interstitial changes and small right pleural effusion. Bibasilar atelectasis cannot be excluded. Left lateral nondisplaced fifth rib fracture is appreciated and other more subtle rib fractures cannot be excluded. No pneumothorax. Impression: 1. Left lateral nondisplaced 5th rib fracture. 2. Small right pleural effusion similar to prior examination with suspected basilar atelectasis. Signed by Eugene Merrill MD 09/02/2016 11:29 A
[2016-09-02] MEDS ORDERED: hydrOXYzine 25 MG TAB PO PRN (11:45)
[2016-09-02] MEDS ORDERED: FLUTICASONE PROP 0.05% NASAL SPRAY 16 GM (FLONASE) PRN (11:45)
--- NOTE | 2016-09-02 11:53 | HPEPDOC ---
General Date of Admission Other Providers PCP - Evelin Ribeiro MD at [facility] Chief Complaint The patient is a 70-year-old female admitted with a reason for visit of Weakness. Source: Patient Exam Limitations: No limitations Timing/Duration: 24 hours Severity: Moderate Associated Symptoms: Chest Pain, Mechanical fall History of Present Illness 70 yo female with extensive medical history presented to [facility] for lower left posterolateral chest pain s/p mechanical fall. Patient states she was trying to step on some ants, lost her balance, and fell sustaining trauma to her chest. She denies any loss of consciousness, dizziness of shortness of breath. Transferred to [facility] for pain control and dialysis. Home Medications Scheduled (Tiera-Nallely) 1 Tab Tab, 1 TAB PO QHS, (Reported) (Tab-A-Nallely) 1 Tab Tab, 1 TAB PO DAILY, (Reported) TAKES AT NOON Amiodarone HCl (Amiodarone HCl) 200 Mg Tab, 400 MG PO DAILY, (Reported) Aspirin (Aspirin EC) 81 Mg Tabec, 81 MG PO DAILY, (Reported) Docusate Sodium (Colace) 100 Mg Cap, 100 MG PO 2XW, (Reported) Ergocalciferol (Vitamin D) 50,000 Unit Cap, 50,000 UNIT PO MTHLY, (Reported) 1st OF EACH MONTH IN MORNING Famotidine (Pepcid) 20 Mg Tab, 20 MG PO DAILY, (Reported) Febuxostat (Uloric) 40 Mg Tab, 40 MG PO DAILY, (Reported) Gabapentin (Gabapentin) 300 Mg Cap, 300 MG PO BID, (Reported) Hydralazine HCl (Hydralazine HCl) 25 Mg Tab, 25 MG PO TID, (Reported) Isosorbide Dinitrate (Isosorbide Dinitrate) 30 Mg Tab, 30 MG PO BID, (Reported) Loratadine (Claritin) 10 Mg Tab, 10 MG PO DAILY, (Reported) Metoprolol Succinate (Metoprolol Succinate ER) 25 Mg Tab, 25 MG PO DAILY, ( Reported) Rosuvastatin Calcium (Crestor) 20 Mg Tab, 20 MG PO QHS, (Reported) Sevelamer Carbonate (Renvela) 800 Mg Tab, 800 MG PO BIDWM, (Reported) TAKES WITH BREAKFAST AND DINNER Tiotropium [place] Monohydrate (Spiriva Handihaler) 18 Mcg Cap, 18 MCG INH DAILY , (Reported) patient doesnt take everyday as prescribed Scheduled PRN (Flonase Allergy Relief Ch) 50 Mcg/Act Spr, 2 SPRAYS NA DAILY PRN for allergies , (Reported) Albuterol/Ipratropium (Ipratropium [place]/Albut 0.5-2.5 (3) mg/3Ml) 1 Jason Jason, 1 JASON IN QIDP PRN for RESPIRATORY DISTRESS, (Reported) Hydroxyzine HCl (Hydroxyzine HCl) 25 Mg Tab, 25 MG PO BID PRN for ANXIETY/ ITCHING, (Reported) Allergies Coded Allergies: Ramipril (Verified Allergy, Severe, Angioedema, 06/18/16) Penicillins (Verified Allergy, Intermediate, RASH, 05/11/16) Sulfa Drugs (Verified Allergy, Intermediate, RASH, 05/11/16) Contrast Media (Unverified Allergy, Unknown, 04/16/14) Social History * Smoker: former Smoker Review of Symptoms Constitutional: Denies: Chills, Fever, Malaise, Night Sweats, Weakness, Fatigue , Weight Loss, Lethargy, Other Eyes: Denies: Pain, Vision change, Conjunctivae inflammation, Eyelid inflammation, Redness, Other ENT: Denies: Head Aches, Ear Pain, Dysphagia, Sinus Congestion, Post Nasal Drip , Sore Throat, Epistaxis, Other Symptoms Skin: Denies: Rash, Lesions, Jaundice, Bruising, Itching, Dry, Breakdown, Nail Changes, Other Pulmonary: Reports: Pleuritic Chest Pain, Denies: Dyspnea, Cough, Other Symptoms Cardiovascular: Denies: Chest Pain, Palpitations, Orthopnea, Paroxysmal Noc. Dyspnea, Edema, Lt Headedness, Other Symptoms Gastrointestinal: Denies: Nausea, Vomiting, Abdominal Pain, Diarrhea, Constipation, Melena, Hematochezia, Other Symptoms Genitourinary: Denies: Dysuria, Frequency, Incontinence, Hematuria, Retention, Other Symptoms Physical Examination General Exam: Positive: Alert, Cooperative, No Acute Distress Eye Exam: Positive: PERRLA, Conjunctiva & lids normal ENT Exam: Positive: Atraumatic Neck Exam: Positive: Supple Chest Exam: Positive: Clear to auscultation Heart Exam: Positive: Rate Normal, Normal S1 Telemetry: Positive: No significant arrhythmia Abdomen Exam: Positive: Normal bowel sounds, Soft, Negative: Tenderness Psych Exam: Positive: Oriented x 3 Vital Signs Vital Signs Date Time Temp Pulse Resp B/P (MAP) Pulse Ox O2 Delivery O2 Flow Rate FiO2 09/02/16 10:51 09/02/16 10:51 Nasal Cannula 2.0 09/02/16 10:21 99.1 50 18 93 Problems (1) Ribs, multiple fractures Status: Acute Discussed With: Patient Problem Specific Plan: Monitor Clinically Problem Text: Left 5-7 rib fractures - S/P mechanical fall continue with pain control consider pain management consultation if needed (2) COPD (chronic obstructive pulmonary disease) Status: Chronic Response to Treatment: Stable Discussed With: Patient Problem Specific Plan: Monitor Clinically Problem Text: baseline 2L supplemental O2 at home respiratory regimen spiriva (3) Aortic aneurysm, descending Status: Chronic Discussed With: Patient Problem Specific Plan: Repeat Tests Problem Text: 5.4 cm descending thoracic aortic aneursym as noted on ct chest. (4) CAD (coronary artery disease) Onset Date: 01/18/2014 Status: Chronic Response to Treatment: Stable Discussed With: Patient Problem Text: Continue asa, crestor, isordil, hydralazine, metoprolol (5) Diabetes Status: Chronic Discussed With: Patient Problem Text: Not treated with medication as per home med rec. Carb consistent diet. No ACEI with co-morbid HTN due to adverse effect - hyperkalemia as per documentation. (6) CHF (congestive heart failure) Status: Chronic Response to Treatment: Compensated Discussed With: Patient Problem Specific Plan: Monitor Clinically Problem Text: systolic failure - ischemic cardiomyopathy s/p AICD (7) HTN (hypertension) Status: Chronic Discussed With: Patient Problem Specific Plan: Monitor Clinically Problem Text: Receving metoprolol, hydralazine, isordil Not on ACEI secondary to allergic reaction - hyperkalemia. (8) Lung mass Status: Chronic Discussed With: Patient Problem Specific Plan: Monitor Clinically Problem Text: Known 1.4cm non-calcified right upper lobe lung nodule. (9) ESRD (end stage renal disease) Onset Date: 01/26/2014 Status: Chronic Discussed With: Patient Problem Specific Plan: Consult Specialist Problem Text: Continue with HD M/W/F. Nephrology consultation appreciated. (10) Mitral valve disease Status: Chronic (11) Hyperparathyroidism Status: Chronic (12) Anemia Status: Chronic Discussed With: Patient Problem Specific Plan: Repeat Labs (13) Hypercholesteremia Status: Chronic Problem Text: crestor (14) Pleural effusion Status: Chronic Discussed With: Patient Problem Specific Plan: Monitor Clinically Problem Text: improved as per imaging Plan / VTE VTE Prophylaxis Ordered?: Yes (mechanical) Plan Plan Analgesics for pain control, IV for BTP. If uncontrolled, pain management consultation. Nephrology for dialysis - M/W/F. PT/OT/PFS. Receiving amiodarone...unclear reason, possibly history of VT on previous admission? Diet: Continue Current Therapy: PT, OT Medications: Increase Pain Meds Respiratory: Wean Oxygen Diagnostics: Repeat Labs in AM, Ultrasound GLADIS ALONSO MD September 02, 2016 11:12
[2016-09-02] MEDS ORDERED: (RENVELA) SEVELAMER **CARBONate** 800 MG TAB PO SCH (12:30)
[2016-09-02 12:58] VITALS: BP 168/84
[2016-09-02] MEDS: LORATADINE 10 MG TAB PO SCH (13:53)
[2016-09-02] MEDS: ASPIRIN 81 MG ENTERIC TAB PO SCH (13:53)
[2016-09-02] MEDS: DOCUSATE SODIUM 100 MG CAP PO SCH (13:53)
[2016-09-02] MEDS: GABAPENTIN 300 MG CAP PO SCH ×2 (13:53→21:48)
[2016-09-02] MEDS: FEBUXOSTAT 40 MG TABLET (ULORIC) PO SCH (13:53)
[2016-09-02] MEDS: FAMOTIDINE 20 MG TAB PO SCH (13:53)
[2016-09-02] MEDS: ISOSORBIDE DIN. (ISORDIL) 30 MG TAB PO SCH ×2 (13:53→21:48)
[2016-09-02] MEDS: PERCOCET 5MG/325MG TAB PO PRN ×2 (13:54→20:02)
[2016-09-02 15:00] LABS: BASO # 0.1 K/mm3 (0.0-0.2); BASO % 0.5 % (0.0-1.0); EOS # 0.7 K/mm3 (0.0-0.50); EOS % 6.1 % (0.0-3.0); LARGE UNSTAINED CELL # 0.2 K/mm3 (0.0-0.4); LARGE UNSTAINED CELL % 1.9 % (0.0-4.0); LYMPH # 1.1 K/mm3 (1.5-4.5); LYMPH % 7.1 % (24.0-44.0); MEAN CORPUSCULAR HEMOGLOBIN 29.5 pg (27.0-33.0); MEAN CORPUSCULAR VOLUME 95.2 fl (80.0-96.0); MONO % 8.3 % (0.0-5.0); NEUTROPHILS # 9.1 K/mm3 (1.8-7.7); NEUTROPHILS % 76.2 % (36.0-66.0); PLATELET COUNT, AUTOMATED 247 k/mm3 (150-450); RED CELL DISTRIBUTION WIDTH 17.9 % (11.5-14.5)
[2016-09-02 15:32] LABS: ALBUMIN 2.4 GM/DL (3.2-5.2); ALBUMIN/GLOBULIN RATIO 0.62 (1.00-1.93); BILIRUBIN,TOTAL 0.4 MG/DL (0.2-1.0); CREATININE FOR GFR 5.5 MG/DL (0.55-1.02); GLOMERULAR FILTRATION RATE 8.2 (>39); POTASSIUM SERUM 3.9 MEQ/L (3.5-5.1); TOTAL PROTEIN 6.3 GM/DL (6.4-8.2)
[2016-09-02] MEDS: (RENVELA) SEVELAMER **CARBONate** 800 MG TAB PO SCH (17:31)
--- NOTE | 2016-09-02 18:37 | CR ---
DATE OF CONSULTATION: 09/02/2016 REQUESTING PHYSICIAN: Dr. Quan Cotto CONSULTING PHYSICIAN: Dr. Lopez REASON FOR CONSULTATION: Management of end-stage renal disease and hemodialysis. CHIEF COMPLAINT: Patient was transferred from [facility] because of mechanical fall and multiple rib fractures and high level of care because of dependence of renal dialysis. HISTORY OF PRESENT ILLNESS: Temitope Shabazz is a 70-year-old female with past medical history of end-stage renal disease on hemodialysis every Saturday, Saturday and Saturday. Last hemodialysis was as per her regular schedule on Saturday. Multiple other comorbidities, as mentioned below. She is known to nephrology service from previous hospitalizations and from outpatient dialysis center. Patient had a mechanical fall yesterday. As reported by patient, she was trying to kill an ant in her bathroom when she fell and hit the side of her chest on the bathtub. She was taken to emergency room at [facility], where initial evaluation, including the x-rays, showed she had fractured ribs. Patient needed to be admitted to the hospital, but because of her dependence on renal dialysis, patient was transferred to [facility] for higher level of care. Nephrology service was called today for help in the management of end-stage renal disease and hemodialysis. Patient was seen by me at bedside in the emergency room. She is otherwise hemodynamically stable at this time. She is awake and alert, in mild painful distress. PAST MEDICAL HISTORY: Patient has a past medical history of: 1. End-stage renal disease on hemodialysis. 2. Chronic obstructive pulmonary disease (COPD). 3. Coronary artery disease. 4. Diabetes mellitus type 2. 5. Congestive heart failure. 6. Hypertension. 7. Secondary hyperparathyroidism. 9. History of chronic pleural effusions. 10. Anxiety disorder. 11. Anemia secondary to end-stage renal disease. 12. Mitral valve disease. PAST SURGICAL HISTORY: 1. History of cardiac catheterization. 2. Status post atrioventricular (AV) fistula placement in the right forearm. 3. Status post tubal ligation. 4. Status post cholecystectomy. 5. Status post bilateral cataract surgeries. ALLERGIES: Patient is allergic to IV CONTRAST MEDIA, PENICILLINS, RAMIPRIL, SULFA DRUGS. FAMILY HISTORY: No significant family history of end-stage renal disease requiring hemodialysis. SOCIAL HISTORY: Patient is a former smoker. She quit smoking in 2012. She denies any recreational drug use or alcohol abuse. REVIEW OF SYSTEMS: CONSTITUTIONAL: Patient denies any fever, chills, rigors or weight loss. EYES: Patient denies any blurry vision or double vision. She has history of cataract surgeries. EAR, NOSE AND THROAT: She denies any dysphagia or odynophagia, ear pain or ear discharge. CARDIOVASCULAR: Patient denies any palpitations or lower extremity edema. She does have chest pain because of recent fall. RESPIRATORY: Patient reports history of chronic obstructive pulmonary disease (COPD). She also reports history of pleural effusions in the past and now she is short of breath because of severe pain on the left side. GASTROINTESTINAL (GI): She denies any nausea or vomiting, abdominal pain or constipation. GENITOURINARY: Patient denies dysuria or hematuria. MUSCULOSKELETAL: She denies any muscle aches and pains. SKIN: She denies any rashes or ulcers. CENTRAL NERVOUS SYSTEM: She denies any history of seizures or stroke or weakness. PSYCHOLOGICAL: Patient denies any depression at this time. ENDOCRINE: Patient has a history of diabetes and secondary hyperparathyroidism. HEMATOLOGICAL/ONCOLOGIC: Patient reports history of anemia secondary to end-stage renal disease. All other review of systems are negative. PHYSICAL EXAMINATION: GENERAL: Patient is awake, alert, oriented times three, laying in bed. No apparent distress at this time. VITAL SIGNS: Temperature 99 degrees Fahrenheit, blood pressure 168/84, pulse 53, respiratory rate 18, saturating 96% on room air. INTAKE AND OUTPUT: There is no urine output recorded at this time. Weight in the bed scale is 49 kg. HEAD AND NECK EXAMINATION: Extraocular muscles intact. Pupils equally round and reactive to light. Mucous membranes are moist. Neck is supple. There is no jugular venous distention (JVD). CARDIOVASCULAR: S1, S2. Regular rate. No murmurs, rubs or gallops. RESPIRATORY: Mildly decreased breath sounds at the bases, otherwise, no rales or rhonchi. Patient has tenderness on the left side of rib cage. ABDOMEN: Soft. Positive bowel sounds. Nontender. No ascites. No organomegaly. EXTREMITIES: No clubbing or cyanosis. Pulses are 2+. CENTRAL NERVOUS SYSTEM: No focal neurological deficits. Power is 5/5 in all extremities. PSYCHIATRIC: Normal mood and affect. LYMPH NODES: No significant cervical, axillary or inguinal lymphadenopathy. ATRIOVENTRICULAR (AV) ACCESS: Patient has a right forearm AV fistula with positive thrill and bruit. LABORATORY REVIEW: CBC showed a WBC 12, hemoglobin 9.8, platelets 247. BMP showed sodium 133, potassium 3.9, chloride 97, bicarbonate 28, BUN 39, creatinine 5.5, calcium 8. Albumin 2.4. IMAGING: A chest x-ray done in the emergency room today shows a left lateral nondisplaced fifth rib fracture with a small right pleural effusion similar to the prior exam, with suspected bibasilar atelectasis. CURRENT INPATIENT MEDICATIONS: Patient's inpatient medications include: - amiodarone 400 mg by mouth daily - aspirin 81 mg by mouth daily - Colace 100 mg by mouth Saturday and Saturday - Pepcid 20 mg by mouth daily - Uloric 40 mg by mouth daily - gabapentin 300 mg by mouth twice a day - hydralazine 25 mg by mouth three times a day - hydroxyzine 25 mg by mouth twice a day as needed for itching - isosorbide 30 mg by mouth twice a day - loratadine 10 mg by mouth daily - metoprolol 25 mg by mouth daily - morphine 2 mg IV every 4 hours as needed for pain - Percocet one table every 4 hours as needed for moderate pain - Crestor 20 mg at bedtime - Renvela 800 mg by mouth twice a day - tiotropium one inhalation daily ASSESSMENT: A 70-year-old female with past medical history of end-stage renal disease on hemodialysis every Saturday, Saturday and Saturday, history of chronic obstructive pulmonary disease (COPD), diabetes and congestive heart failure admitted this time because of fall and left fifth rib fracture. PLAN: 1. End-stage renal disease on hemodialysis. Patient was dialyzed on Saturday. There is no urgent need of hemodialysis today. Patient will be dialyzed according to her regular schedule, tomorrow. 2. Left-sided fifth rib fracture. X-rays showing fifth rib fracture. Previous imaging from the other hospital is showing fifth through seventh rib fracture; however, patient needs pain management at this time. She is on IV morphine and oral Percocet. The rest of the management is as per primary team. 3. Hypertension. Patient's blood pressure is slightly elevated at this time; however, that might be secondary to pain as well. Continue current dose of hydralazine 25 mg by mouth three times a day, isosorbide 30 mg by mouth twice a day, metoprolol 25 mg by mouth daily. 4. 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 Continue current dose of Uloric 40 mg by mouth daily. 5. Chronic kidney disease/mineral bone disease. Continue current dose of Renvela 800 mg by mouth twice a day. 6. Small right pleural effusion. Patient's volume status will be optimized with hemodialysis and ultrafiltration. No need of ascitic tap at this time. 7. Chronic systolic and diastolic congestive heart failure. Volume status is optimized. Patient will get further ultrafiltration with hemodialysis tomorrow morning. Thank you for involving us with the care of this patient. We shall be happy to follow the patient along with you tomorrow morning.
[2016-09-02 21:00] VITALS: BP 149/67
[2016-09-02] MEDS ORDERED: ONDANSETRON 4MG/2ML VIAL (J2405) IV ONE (21:30)
[2016-09-02] MEDS ORDERED: ONDANSETRON 4MG/2ML VIAL (J2405) IV PRN (21:30)
[2016-09-02] MEDS: ROSUVASTATIN 10 MG TAB (CRESTOR) PO SCH (21:47)
--- NOTE | 2016-09-02 22:10 | REPUSA ---
Clinical statement: nausea, vomiting. Comparison: None. Findings: A nonobstructive bowel gas pattern is noted. Moderate amount of stool fills the colon. Ther e is no free air. There are no abnormal masses or calcifications. The osseous structures and soft tis sues are unremarkable. Impression: Mild constipation.
[2016-09-02 22:50] VITALS: BP 150/67
[2016-09-02] MEDS ORDERED: BISACODYL 10 MG SUPP PR ONE (23:15)
[2016-09-03] VITALS (11 sets, daily range): BP systolic 102–175; BP diastolic 56–72
[2016-09-03] MEDS: PERCOCET 5MG/325MG TAB PO PRN ×2 (00:04→07:51)
[2016-09-03 05:52] LABS: MEAN CORPUSCULAR HEMOGLOBIN 29.5 pg (27.0-33.0); MEAN CORPUSCULAR HGB CONC 30.6 g/dl (32.0-36.5); MEAN CORPUSCULAR VOLUME 96.2 fl (80.0-96.0); RED CELL DISTRIBUTION WIDTH 17.8 % (11.5-14.5); WHITE BLOOD COUNT 13.8 K/mm3 (4.0-10.0)
[2016-09-03 05:57] LABS: CREATININE FOR GFR 5.87 MG/DL (0.55-1.02); GLOMERULAR FILTRATION RATE 7.6 (>39); POTASSIUM SERUM 4.6 MEQ/L (3.5-5.1)
[2016-09-03] MEDS: **hydrALAZINE HCL** 25 MG TAB PO SCH ×3 (06:55→21:00)
[2016-09-03] MEDS: METOPROLOL SUCC *XL* 25MG TAB (TopROL *XL*) PO SCH (06:57)
[2016-09-03] MEDS: ISOSORBIDE DIN. (ISORDIL) 30 MG TAB PO SCH ×2 (06:57→21:00)
[2016-09-03] MEDS: FEBUXOSTAT 40 MG TABLET (ULORIC) PO SCH (07:48)
[2016-09-03] MEDS: LORATADINE 10 MG TAB PO SCH (07:48)
[2016-09-03] MEDS: FAMOTIDINE 20 MG TAB PO SCH (07:49)
[2016-09-03] MEDS: (RENVELA) SEVELAMER **CARBONate** 800 MG TAB PO SCH ×2 (07:49→18:00)
[2016-09-03] MEDS: GABAPENTIN 300 MG CAP PO SCH ×3 (07:49→22:17)
[2016-09-03] MEDS: ASPIRIN 81 MG ENTERIC TAB PO SCH (07:49)
[2016-09-03] MEDS ORDERED: BISACODYL 10 MG SUPP PR SCH (09:00)
[2016-09-03] MEDS: AMIODARONE 200 MG TAB (PACERONE) PO SCH (09:00)
[2016-09-03] MEDS: TIOTROPIUM INHALER/CAPSULE (SPIRIVA) INH SCH (09:30)
[2016-09-03] MEDS ORDERED: DOCUSATE SODIUM 100 MG CAP PO PRN (09:45)
--- NOTE | 2016-09-03 10:47 | IPNPDOC ---
Subjective Date Seen The patient was seen on 09/03/16. Subjective Chief Complaint/HPI The patient is a 70-year-old female admitted with a reason for visit of Multiple Ribs Fracture. General: Denies: ROS Unobtainable, Chills, Night Sweats, Fatigue, Malaise, Normal Appetite, Other Symptoms Constitutional: Denies: Chills, Fever, Malaise, Night Sweats, Weakness, Fatigue , Weight Loss, Lethargy, Other Eyes: Denies: Pain, Vision change, Conjunctivae inflammation, Eyelid inflammation, Redness, Other ENT: Denies: Head Aches, Ear Pain, Dysphagia, Sinus Congestion, Post Nasal Drip , Sore Throat, Epistaxis, Other Symptoms Skin: Denies: Rash, Lesions, Jaundice, Bruising, Itching, Dry, Breakdown, Nail Changes, Other Pulmonary: Reports: Pleuritic Chest Pain, Other Symptoms (left lateral chest pain - ribs 5-7), Denies: Dyspnea, Cough Cardiovascular: Denies: Chest Pain, Palpitations, Orthopnea, Paroxysmal Noc. Dyspnea, Edema, Lt Headedness, Other Symptoms Gastrointestinal: Denies: Nausea, Vomiting, Abdominal Pain, Diarrhea, Constipation, Melena, Hematochezia, Other Symptoms Genitourinary: Denies: Dysuria, Frequency, Incontinence, Hematuria, Retention, Other Symptoms Objective Physical Examination General Exam: Positive: Alert, Cooperative, No Acute Distress, Other (cachectic ) Eye Exam: Positive: PERRLA, Conjunctiva & lids normal ENT Exam: Positive: Atraumatic Chest Exam: Positive: Clear to auscultation, Diminished Heart Exam: Positive: Rate Normal, Normal S1 Abdomen Exam: Positive: Normal bowel sounds, Soft, Negative: Tenderness Psych Exam: Positive: Oriented x 3 Assessment /Plan Problems (1) Ribs, multiple fractures Status: Acute Discussed With: Patient Problem Specific Plan: Monitor Clinically Problem Text: Left 5-7 rib fractures - S/P mechanical fall continue with pain control consider pain management consultation if needed (2) COPD (chronic obstructive pulmonary disease) Status: Chronic Response to Treatment: Stable Discussed With: Patient Problem Specific Plan: Monitor Clinically Problem Text: baseline 2L supplemental O2 at home respiratory regimen spiriva (3) Aortic aneurysm, descending Status: Chronic Discussed With: Patient Problem Specific Plan: Repeat Tests Problem Text: 5.4 cm descending thoracic aortic aneursym as noted on ct chest. (4) CAD (coronary artery disease) Onset Date: 01/18/2014 Status: Chronic Response to Treatment: Stable Discussed With: Patient Problem Text: Continue asa, crestor, isordil, hydralazine, metoprolol (5) Diabetes Status: Chronic Discussed With: Patient Problem Text: Not treated with medication as per home med rec. Carb consistent diet. No ACEI with co-morbid HTN due to adverse effect - hyperkalemia as per documentation. (6) CHF (congestive heart failure) Status: Chronic Response to Treatment: Compensated Discussed With: Patient Problem Specific Plan: Monitor Clinically Problem Text: systolic failure - ischemic cardiomyopathy s/p AICD (7) HTN (hypertension) Status: Chronic Discussed With: Patient Problem Specific Plan: Monitor Clinically Problem Text: Receving metoprolol, hydralazine, isordil Not on ACEI secondary to allergic reaction - hyperkalemia. Mostly bradycardic, hold parameters for metoprolol. (8) Lung mass Status: Chronic Discussed With: Patient Problem Specific Plan: Monitor Clinically Problem Text: Known 1.4cm non-calcified right upper lobe lung nodule. (9) ESRD (end stage renal disease) Onset Date: 01/26/2014 Status: Chronic Discussed With: Patient Problem Specific Plan: Consult Specialist Problem Text: Continue with HD M/W/F. Nephrology consultation appreciated. (10) Mitral valve disease Status: Chronic (11) Hyperparathyroidism Status: Chronic (12) Anemia Status: Chronic Discussed With: Patient Problem Specific Plan: Repeat Labs (13) Hypercholesteremia Status: Chronic Problem Text: crestor (14) Pleural effusion Status: Chronic Discussed With: Patient Problem Specific Plan: Monitor Clinically Problem Text: improved as per imaging (15) Gout Status: Chronic Problem Specific Plan: Monitor Clinically Problem Text: Continue Uloric. Plan/VTE VTE Prophylaxis Ordered?: Yes (mechanical) Plan Diet: Continue Current Therapy: PT, OT Pt and Family Services: Home Care Medications: Increase Pain Meds Respiratory: Wean Oxygen Diagnostics: Repeat Labs in AM, Ultrasound HD planned for today. Pain control for rib fractures. PT/OT eval/treat. PFS for possible home care. Not entirely clear indication for amiodarone, no history of afib, previous admission appears she had episodes of vtach. On hold as she has been persistently bradycardic this admission. VS, I&O, 24H, Fishbone Vital Signs/I&O Vital Signs Date Time Temp Pulse Resp B/P (MAP) Pulse Ox O2 Delivery O2 Flow Rate FiO2 09/03/16 09:00 Nasal Cannula 2.0 09/03/16 08:22 20 09/03/16 06:57 56 120/57 09/03/16 06:00 99.0 91 I&O- Last 24 Hours up to 6 AM 09/03/16 05:59 Intake Total 840 ml Output Total 150 ml Balance 690 ml Laboratory Data 24H LABS Laboratory Tests 2 09/02/16 14:54: White Blood Count 12.0H, Red Blood Count 3.31L, Hemoglobin 9.8L, Hematocrit 31.6L, Mean Corpuscular Volume 95.2, Mean Corpuscular Hemoglobin 29.5, Mean Corpuscular Hemoglobin Concent 31.0L, Red Cell Distribution Width 17.9H, Platelet Count 247, Neutrophils (%) (Auto) 76.2H, Lymphocytes (%) (Auto) 7.1L, Monocytes (%) (Auto) 8.3H, Eosinophils (%) (Auto) 6.1H, Basophils (%) (Auto) 0.5 , Neutrophils # (Auto) 9.1H, Lymphocytes # (Auto) 1.1L, Monocytes # (Auto) 1.0H , Eosinophils # (Auto) 0.7H, Basophils # (Auto) 0.1, Large Unclassified Cells % 1.9, Large Unclassified Cells # 0.2, Anion Gap 8, Glomerular Filtration Rate 8.2L, Blood Urea Nitrogen 39H, Creatinine 5.50H, Sodium Level 133L, Potassium Level 3.9, Chloride Level 97L, Carbon Dioxide Level 28, Calcium Level 8.0L, Aspartate Amino Transf (AST/SGOT) 16, Alanine Aminotransferase (ALT/SGPT) 16, Alkaline Phosphatase 103, Total Bilirubin 0.4, Total Protein 6.3L, Albumin 2.4L , Albumin/Globulin Ratio 0.62L 09/03/16 05:32: Anion Gap 9, Glomerular Filtration Rate 7.6L, Blood Urea Nitrogen 47H, Creatinine 5.87H, Sodium Level 132L, Potassium Level 4.6, Chloride Level 94L, Carbon Dioxide Level 29, Calcium Level 8.0L CBC/BMP Laboratory Tests 09/02/16 14:54 Red Blood Count 3.31 L, Mean Corpuscular Volume 95.2, Mean Corpuscular Hemoglobin 29.5, Mean Corpuscular Hemoglobin Concent 31.0 L, Red Cell Distribution Width 17.9 H, Neutrophils (%) (Auto) 76.2 H, Lymphocytes (%) (Auto ) 7.1 L, Monocytes (%) (Auto) 8.3 H, Eosinophils (%) (Auto) 6.1 H, Basophils (% ) (Auto) 0.5, Neutrophils # (Auto) 9.1 H, Lymphocytes # (Auto) 1.1 L, Monocytes # (Auto) 1.0 H, Eosinophils # (Auto) 0.7 H, Basophils # (Auto) 0.1, Calcium Level 8.0 L, Aspartate Amino Transf (AST/SGOT) 16, Alanine Aminotransferase (ALT /SGPT) 16, Alkaline Phosphatase 103, Total Bilirubin 0.4, Total Protein 6.3 L, Albumin 2.4 L 09/03/16 05:32 Red Blood Count 3.58 L, Mean Corpuscular Volume 96.2 H, Mean Corpuscular Hemoglobin 29.5, Mean Corpuscular Hemoglobin Concent 30.6 L, Red Cell Distribution Width 17.8 H, Calcium Level 8.0 L GLADIS ALONSO MD September 03, 2016 10:46
[2016-09-03] MEDS ORDERED: HEPARIN 1,000 UNITS/ML 10ML VIAL (FOR RADIOLOGY& DIALYSIS ONLY) IV ONE (12:30)
[2016-09-03 14:25] LABS: ABG BASE EXCESS 2.6 (-2.0-2.0); ABG HCO3 29.3 MEQ/L (22.0-26.0); ABG PARTIAL PRESSURE CO2 55.9 mmHg (35.0-45.0); ABG STANDARD HCO3 25.6 MEQ/L (22.0-26.0); ABG pH (ARTERIAL) 7.337 UNITS (7.350-7.450)
--- NOTE | 2016-09-03 14:33 | REP ---
Clinical: Shortness of breath. Comparison: 09/02/2016. Findings: Moderate right pleural effusion with underlying atelectasis is increased from prior examination. Left lower lobe atelectasis noted and mild interstitial edema cannot be excluded as well. Previously identified left lateral rib fracture is poorly visualized on current examination. No obvious pneumothorax. Mediastinum and cardiac silhouette are stable. Impression: 1. Moderate right pleural effusion with underlying atelectasis increased from prior examination. 2. Left lower lobe atelectasis and mild interstitial edema cannot be excluded. Signed by Eugene Merrill MD 09/03/2016 02:25 P
[2016-09-03 18:26] LABS: BASO % 0.2 % (0.0-1.0); EOS # 0.2 K/mm3 (0.0-0.50); EOS % 1.2 % (0.0-3.0); LARGE UNSTAINED CELL # 0.2 K/mm3 (0.0-0.4); LARGE UNSTAINED CELL % 1.2 % (0.0-4.0); LYMPH # 0.9 K/mm3 (1.5-4.5); LYMPH % 4.5 % (24.0-44.0); MEAN CORPUSCULAR HEMOGLOBIN 29.5 pg (27.0-33.0); MEAN CORPUSCULAR HGB CONC 30.3 g/dl (32.0-36.5); MEAN CORPUSCULAR VOLUME 97.4 fl (80.0-96.0); MONO # 0.9 K/mm3 (0.0-0.8); MONO % 4.4 % (0.0-5.0); NEUTROPHILS # 17.9 K/mm3 (1.8-7.7); NEUTROPHILS % 88.5 % (36.0-66.0); PLATELET COUNT, AUTOMATED 289 k/mm3 (150-450); RED CELL DISTRIBUTION WIDTH 17.5 % (11.5-14.5); WHITE BLOOD COUNT 20.2 K/mm3 (4.0-10.0)
[2016-09-03] MEDS ORDERED: MORPHINE 2 MG/ML 1ML SYRINGE IV PRN (18:30)
--- NOTE | 2016-09-03 18:32 | REP ---
Clinical: Respiratory distress. Comparison: 09/02/2016. Findings: Mediastinum and cardiac silhouette are stable. Lung saucedo demonstrate diffuse chronic interstitial changes. Superimposed moderate right pleural effusion and right lower lobe infiltrate/atelectasis suggested. No pneumothorax. Skeletal structures intact. Impression: Moderate right pleural effusion and right lower lobe atelectasis/infiltrate suggested. Signed by Eugene Merrill MD 09/03/2016 06:24 P
[2016-09-03] MEDS ORDERED: ACETAMINOPHEN TAB 650MG DOSE (2X325MG) PO PRN (18:45)
[2016-09-03 18:53] LABS: ALBUMIN/GLOBULIN RATIO 0.64 (1.00-1.93); BILIRUBIN,TOTAL 0.7 MG/DL (0.2-1.0); CALCIUM LEVEL 8.8 MG/DL (8.8-10.2); CREATININE FOR GFR 3.49 MG/DL (0.55-1.02); GLOMERULAR FILTRATION RATE 13.8 (>39); POTASSIUM SERUM 4.1 MEQ/L (3.5-5.1); TOTAL PROTEIN 7.7 GM/DL (6.4-8.2)
[2016-09-03] MEDS ORDERED: EPIDURAL/PCA KEYS XX PRN (20:00)
[2016-09-03] MEDS ORDERED: WALLBOXKEY XX PRN (20:00)
[2016-09-03] MEDS ORDERED: ONDANSETRON 4MG/2ML VIAL (J2405) IV PRN (20:00)
[2016-09-03] MEDS ORDERED: METOCLOPRAMIDE INJ 10MG/2ML VIAL (J2765) IV PRN (20:00)
[2016-09-03] MEDS ORDERED: NALOXONE INJ 0.4 MG/1 ML VIAL (J2310) IV PRN (20:00)
[2016-09-03] MEDS ORDERED: diphenhydrAMINE INJ 50MG/ML VIAL (J1200) IV PRN (20:00)
[2016-09-03] MEDS ORDERED: FENTANYL 2MCG/ML BUPIVACAINE 0.0625% NACL 250ML IV BAG As Ordered ONE (20:19)
--- NOTE | 2016-09-03 20:19 | IPN ---
DATE: 09/03/2016 Ms. Shabazz is seen this morning and again later this afternoon on her bedside. She has known history of end-stage renal disease, advanced lung disease, congestive heart failure, recurrent right pleural effusion, and generalized weakness. She was admitted due to fall at home when she suffered left-sided rib fractures. She is due for hemodialysis today. She has difficulty in coughing up and remains short of breath. This afternoon she is being dialyzed and we are trying to remove fluid, however it is not helping much with her hypoxemia and she remains quite short of breath. She is now on a nonrebreather mask. On physical examination, temperature 101.5 degrees Fahrenheit, heart rate 68 per minute, and respiratory rate 28 per minute. Blood pressure 102/62 mmHg and oxygen saturation 92% on nonrebreather mask with 100% oxygen. Head is atraumatic. Neck veins are difficult to be assessed. Oral mucosa is somewhat dry. Heart sounds are regular and somewhat distant. Lungs have bilateral rhonchi and diminished breath sounds on the right side. Abdomen soft and nontender and bowel sounds are normal. Extremities have no cyanosis or clubbing at present. Today's labs show WBC count 20.2, hemoglobin 12.0, and hematocrit 39.7. Platelets 289. Sodium 133 and potassium 4.1. BUN 24 and creatinine 3.49. CPK is 608, troponin 0.06, total protein 7.7, and albumin 3.0. PROBLEMS: 1. Worsening hypoxemia, most likely this is multifactorial related to her chronic obstructive pulmonary disease (COPD), right-sided pleural effusion, left-sided rib fractures, and bilateral atelectasis causing hypoxemia. She is on high-flow nonrebreather mask. I recommend draining her right pleural effusion if at all possible and consider aggressive respiratory treatment in order to prevent further atelectasis. We have tried to remove as much fluid as she could tolerate with dialysis, however hypotension prohibits too aggressive fluid removal. Today we removed about 1.7 liters which did not, in fact, help with her hypoxemia. 2. End-stage renal disease. Patient is dialyzed today. She did not tolerate dialysis very well due to worsening hypoxemia. 3. Leukocytosis and possible pneumonia. Patient has been started on Zosyn which is appropriate. At this point her respiratory problems are the main issue. Overall prognosis remains guarded.
[2016-09-03] MEDS ORDERED: SODIUM CHLORIDE 0.9% 1000 ML IV ONE (20:45)
[2016-09-03] MEDS ORDERED: NS 250 ML IV ONE (20:45)
[2016-09-03] MEDS: ROSUVASTATIN 10 MG TAB (CRESTOR) PO SCH ×2 (21:00→22:17)
[2016-09-03 21:03] LABS: ABG BASE EXCESS 3.3 (-2.0-2.0); ABG PARTIAL PRESSURE CO2 49.4 mmHg (35.0-45.0); ABG PARTIAL PRESSURE O2 104.1 mmHg (75.0-100.0); ABG STANDARD HCO3 27.4 MEQ/L (22.0-26.0); ABG TOTAL CO2 30.5 MEQ/L (23.0-31.0); ABG pH (ARTERIAL) 7.386 UNITS (7.350-7.450)
[2016-09-03] MEDS ORDERED: GLUCAGON FOR INJ 1 MG VIAL (J1610) SC PRN (22:00)
[2016-09-03] MEDS ORDERED: GLUCOSE 4 GM CHEW TABLET PO PRN (22:00)
[2016-09-03] MEDS ORDERED: DEXTROSE 50% 50 ML SYRINGE IV PRN (22:00)
[2016-09-03] MEDS: PIPERACILLIN/TAZOBACTAM SOD 2.25 GM in D5W MINI-BAG PLUS 50 ML IV SCH (22:16)
[2016-09-03] MEDS: FENTANYL/BUPIVACAINE/NACL BAG 250 ML EPIDURAL SCH (22:52)
[2016-09-03] MEDS: LIDOCAINE 5% (LIDODERM) PATCH TD SCH (23:29)
[2016-09-04] VITALS (13 sets, daily range): BP systolic 103–166; BP diastolic 49–72
[2016-09-04] MEDS: PIPERACILLIN/TAZOBACTAM SOD 2.25 GM in D5W MINI-BAG PLUS 50 ML IV SCH ×3 (04:42→20:56)
[2016-09-04 05:30] LABS: CREATININE FOR GFR 3.96 MG/DL (0.55-1.02); GLOMERULAR FILTRATION RATE 11.9 (>39); POTASSIUM SERUM 4.3 MEQ/L (3.5-5.1)
[2016-09-04 05:35] LABS: MEAN CORPUSCULAR HEMOGLOBIN 29.7 pg (27.0-33.0); MEAN CORPUSCULAR HGB CONC 30.5 g/dl (32.0-36.5); MEAN CORPUSCULAR VOLUME 97.3 fl (80.0-96.0); RED CELL DISTRIBUTION WIDTH 17.7 % (11.5-14.5); WHITE BLOOD COUNT 26.5 K/mm3 (4.0-10.0)
[2016-09-04] MEDS: TIOTROPIUM INHALER/CAPSULE (SPIRIVA) INH SCH (08:03)
[2016-09-04] MEDS: GABAPENTIN 300 MG CAP PO SCH ×2 (08:28→21:42)
[2016-09-04] MEDS: AMIODARONE 200 MG TAB (PACERONE) PO SCH (08:28)
[2016-09-04] MEDS: FEBUXOSTAT 40 MG TABLET (ULORIC) PO SCH (08:29)
[2016-09-04] MEDS: ISOSORBIDE DIN. (ISORDIL) 30 MG TAB PO SCH ×2 (08:29→21:44)
[2016-09-04] MEDS: ASPIRIN 81 MG ENTERIC TAB PO SCH (08:29)
[2016-09-04] MEDS: **hydrALAZINE HCL** 25 MG TAB PO SCH ×3 (08:29→21:43)
[2016-09-04] MEDS: (RENVELA) SEVELAMER **CARBONate** 800 MG TAB PO SCH ×2 (08:29→18:23)
[2016-09-04] MEDS: FAMOTIDINE 20 MG TAB PO SCH (08:29)
[2016-09-04] MEDS: LORATADINE 10 MG TAB PO SCH (08:29)
[2016-09-04] MEDS: METOPROLOL SUCC *XL* 25MG TAB (TopROL *XL*) PO SCH (08:30)
[2016-09-04] MEDS: **NOTE PATIENT COMMENT** MISC XX SCH (08:30)
[2016-09-04] MEDS ORDERED: BISACODYL 10 MG SUPP PR PRN (10:00)
[2016-09-04] MEDS ORDERED: NORCO, ANEXSIA 5/325MG TABLET (HYDROcodone/ACETAMINOPHEN) PO PRN (10:00)
[2016-09-04] MEDS ORDERED: LEVALBUTEROL 1.25 MG/0.5 ML CONCENTRATE NEB NEB PRN (10:00)
--- NOTE | 2016-09-04 10:15 | CR ---
DATE OF CONSULTATION: 09/03/2016 I was asked to see Mrs. Shabazz last night after she was transferred here from the [place] [facility] and then finally placed in the intensive care unit (ICU) for difficulty breathing with multiple rib fractures. The patient is a 70-year-old white female, who was in the shower and tried to step on an ant and slipped and hitting her left side. She complains of excruciating pain. Last night when I saw her, she was in excruciating pain from her left side, such that she would hardly move. She was placed on oral analgesics at [place] and intravenous (IV) analgesics here. It is clear that her pain was not being controlled; and I, therefore, asked anesthesia to place an epidural pain control catheter. Today, she is now sitting up in a chair. She still has some chest discomfort, but she is not the excruciating pain that she had last night. She is able to carry on a conversation. The basis of her treatment for a rib fracture is essentially pain control and chest expansion therapy. In addition to asking anesthesia to place the epidural, I have ordered lung expansion therapy with both incentive spirometry and positive expiratory pressure (PEP) therapy. She should be ambulated as much as possible. I have expected the epidural will stay in a full 5 days. I will be out of town for the next 4 days, to return on Saturday morning. There are no surgical issues involved other than pain control. She does have a stable right-side pleural effusion, which has been stable the last 4 months.
[2016-09-04] MEDS: MOM 30ML SUSPENSION UDC PO SCH (10:34)
[2016-09-04] MEDS: LEVALBUTEROL 1.25 MG/0.5 ML CONCENTRATE NEB NEB SCH ×3 (10:38→19:43)
[2016-09-04] MEDS: PANTOPRAZOLE 40MG TAB (PROTONIX) PO SCH (10:43)
[2016-09-04] MEDS: KETOROLAC 30 MG/ML VIAL (J1885) IV SCH ×2 (10:44→11:36)
[2016-09-04] MEDS: HEPARIN SOD (PORCINE) 5000 UNITS/ML VIAL SC SCH ×2 (10:45→21:42)
--- NOTE | 2016-09-04 16:58 | IPNPDOC ---
Subjective Date Seen The patient was seen on 09/04/16. Subjective Chief Complaint/HPI The patient is a 70-year-old female admitted with a reason for visit of Multiple Ribs Fracture. Events since last encounter Sitting at bedside- speaking without difficulty but quietly, tolerating diet, pain controlled when she is still, worse with movement, not short of breath Constitutional: Denies: Chills, Fever Pulmonary: Denies: Dyspnea, Cough Cardiovascular: Reports: Chest Pain, Denies: Palpitations Gastrointestinal: Reports: Abdominal Pain, Denies: Nausea, Vomiting Objective Physical Examination General Exam: Positive: Alert, No Acute Distress, Other (cachectic) Eye Exam: Negative: Sclera icteric ENT Exam: Positive: Atraumatic Chest Exam: Positive: Clear to auscultation, Diminished Heart Exam: Positive: Rate Normal, Normal S1 Abdomen Exam: Positive: Normal bowel sounds, Soft, Negative: Tenderness Psych Exam: Positive: Oriented x 3 Assessment /Plan Problems (1) Ribs, multiple fractures Status: Acute Discussed With: Patient Problem Specific Plan: Monitor Clinically Problem Text: Left 5-7 rib fractures - S/P mechanical fall has epidural for pain control- working (2) COPD (chronic obstructive pulmonary disease) Status: Chronic Response to Treatment: Stable Discussed With: Patient Problem Specific Plan: Monitor Clinically Problem Text: baseline 2L supplemental O2 at home respiratory regimen spiriva close to baseline- improved from yesterday (3) Aortic aneurysm, descending Status: Chronic Discussed With: Patient Problem Specific Plan: Repeat Tests Problem Text: 5.4 cm descending thoracic aortic aneursym as noted on ct chest. Will obtain US for further evaluation. (4) CAD (coronary artery disease) Onset Date: 01/18/2014 Status: Chronic Response to Treatment: Stable Discussed With: Patient Problem Text: Continue asa, crestor, isordil, hydralazine, metoprolol (5) Diabetes Status: Chronic Discussed With: Patient Problem Text: Not treated with medication as per home med rec. Carb consistent diet. No ACEI with co-morbid HTN due to adverse effect - hyperkalemia as per documentation. (6) CHF (congestive heart failure) Status: Chronic Response to Treatment: Compensated Discussed With: Patient Problem Specific Plan: Monitor Clinically Problem Text: systolic failure - ischemic cardiomyopathy s/p AICD (7) HTN (hypertension) Status: Chronic Discussed With: Patient Problem Specific Plan: Monitor Clinically Problem Text: Receving metoprolol, hydralazine, isordil Not on ACEI secondary to allergic reaction - hyperkalemia. Mostly bradycardic, hold parameters for metoprolol. (8) Lung mass Status: Chronic Discussed With: Patient Problem Specific Plan: Monitor Clinically Problem Text: Known 1.4cm non-calcified right upper lobe lung nodule. (9) ESRD (end stage renal disease) Onset Date: 01/26/2014 Status: Chronic Discussed With: Patient Problem Specific Plan: Consult Specialist Problem Text: Continue with HD M/W/F. I d/w Dr. Gonzales in person. (10) Mitral valve disease Status: Chronic (11) Hyperparathyroidism Status: Chronic (12) Anemia Status: Chronic Discussed With: Patient Problem Specific Plan: Repeat Labs (13) Hypercholesteremia Status: Chronic Problem Text: crestor (14) Pleural effusion Status: Chronic Discussed With: Patient Problem Specific Plan: Monitor Clinically Problem Text: I d/w Dr. Pollard on 09/04/16- no role for draining right sided effusion (15) Gout Status: Chronic Problem Specific Plan: Monitor Clinically Problem Text: Continue Uloric. Plan/VTE VTE Prophylaxis Ordered?: Yes (mechanical) Plan Diet: Continue Current Therapy: PT, OT Pt and Family Services: Home Care Medications: Increase Pain Meds Respiratory: Wean Oxygen Diagnostics: Repeat Labs in AM, Ultrasound VS, I&O, 24H, [facility] Vital Signs/I&O Vital Signs Date Time Temp Pulse Resp B/P (MAP) Pulse Ox O2 Delivery O2 Flow Rate FiO2 09/04/16 16:40 59 09/04/16 16:12 122/49 09/04/16 16:00 99.6 20 95 Nasal Cannula 4.0 09/04/16 10:00 35 I&O- Last 24 Hours up to 6 AM 09/04/16 06:00 Intake Total 621 ml Output Total 1700 ml Balance -1079 ml Laboratory Data 24H LABS Laboratory Tests 2 09/03/16 18:10: White Blood Count 20.2H, Red Blood Count 4.07, Hemoglobin 12.0, Hematocrit 39.7 , Mean Corpuscular Volume 97.4H, Mean Corpuscular Hemoglobin 29.5, Mean Corpuscular Hemoglobin Concent 30.3L, Red Cell Distribution Width 17.5H, Platelet Count 289, Neutrophils (%) (Auto) 88.5H, Lymphocytes (%) (Auto) 4.5L, Monocytes (%) (Auto) 4.4, Eosinophils (%) (Auto) 1.2, Basophils (%) (Auto) 0.2, Neutrophils # (Auto) 17.9H, Lymphocytes # (Auto) 0.9L, Monocytes # (Auto) 0.9H, Eosinophils # (Auto) 0.2, Basophils # (Auto) 0.0, Large Unclassified Cells % 1.2 , Large Unclassified Cells # 0.2, Anion Gap 11, Glomerular Filtration Rate 13.8L , Blood Urea Nitrogen 24H, Creatinine 3.49H, Sodium Level 133L, Potassium Level 4.1, Chloride Level 94L, Carbon Dioxide Level 28, Calcium Level 8.8, Aspartate Amino Transf (AST/SGOT) 76H, Alanine Aminotransferase (ALT/SGPT) 34, Total Creatine Kinase 608H, Alkaline Phosphatase 145H, Total Bilirubin 0.7#, Total Protein 7.7#, Albumin 3.0#L, Creatine Kinase MB 22.6H, Creatine Kinase MB Relative Index 3.71, Troponin I 0.06#, Albumin/Globulin Ratio 0.64L 09/03/16 20:37: Bedside Glucose (Misc Panel) 83 09/03/16 21:01: Blood Gas Bicarbonate Standard 27.4H, Arterial Blood pH 7.386, Arterial Blood Partial Pressure CO2 49.4H, Arterial Blood Partial Pressure O2 104.1H, Arterial Blood Total CO2 30.5, Arterial Blood HCO3 29.0H, Arterial Blood Base Excess 3.3H , Arterial Blood Oxygen Saturation 97.9 09/04/16 04:57: Anion Gap 12, Glomerular Filtration Rate 11.9L, Blood Urea Nitrogen 30H, Creatinine 3.96H, Sodium Level 137, Potassium Level 4.3, Chloride Level 99, Carbon Dioxide Level 26, Calcium Level 8.0L CBC/BMP Laboratory Tests 09/03/16 18:10 Red Blood Count 4.07, Mean Corpuscular Volume 97.4 H, Mean Corpuscular Hemoglobin 29.5, Mean Corpuscular Hemoglobin Concent 30.3 L, Red Cell Distribution Width 17.5 H, Neutrophils (%) (Auto) 88.5 H, Lymphocytes (%) (Auto ) 4.5 L, Monocytes (%) (Auto) 4.4, Eosinophils (%) (Auto) 1.2, Basophils (%) ( Auto) 0.2, Neutrophils # (Auto) 17.9 H, Lymphocytes # (Auto) 0.9 L, Monocytes # (Auto) 0.9 H, Eosinophils # (Auto) 0.2, Basophils # (Auto) 0.0, Calcium Level 8.8, Aspartate Amino Transf (AST/SGOT) 76 H, Alanine Aminotransferase (ALT/SGPT ) 34, Total Creatine Kinase 608 H, Alkaline Phosphatase 145 H, Total Bilirubin 0.7 #, Total Protein 7.7 #, Albumin 3.0 #L 09/04/16 04:57 Calcium Level 8.0 L 09/04/16 05:26 Red Blood Count 3.74 L, Mean Corpuscular Volume 97.3 H, Mean Corpuscular Hemoglobin 29.7, Mean Corpuscular Hemoglobin Concent 30.5 L, Red Cell Distribution Width 17.7 H Microbiology Microbiology 09/03/16 Blood Culture, Received Pending 09/03/16 Blood Culture, Received Pending STEVEN CHE MD September 04, 2016 16:58
--- NOTE | 2016-09-04 20:42 | IPN ---
DATE: 09/04/2016 Mrs. Shabazz is seen this morning on her bedside. She remains very frail and weak. She is sitting in the chair. She has an epidural in place for pain control due to her left-sided rib fracture. She was quite hypoxic yesterday and required Venturi mask for oxygen supplementation. However, today she is using oxygen via nasal cannula. She denies any nausea or vomiting. PHYSICAL EXAMINATION: Temperature 99.9 degrees Fahrenheit, heart rate 60 per minute and respiratory rate 24 per minute. Blood pressure 118/49 mmHg and oxygen saturation 94% on 2 liters oxygen. Head is atraumatic. Neck veins are not abnormally distended. Oral mucosa is somewhat dry. Pupils equal and reactive to light and sclera is anicteric. Heart: Sounds are regular. Lungs with moderate bilateral air entry. Epidural catheter is present in her back. Abdomen: Soft and nontender and bowel sounds are normal. Extremities have no cyanosis or clubbing. Neurologically she is awake, alert and oriented x3. Today's labs show WBC count 26.5, hemoglobin 11.1 and hematocrit 36.4. Platelets 216. Sodium 137 and potassium 4.3. BUN 30 and creatinine 3.96. Glucose 91 and calcium 8.0. PROBLEMS: 1. End-stage renal disease. The patient was dialyzed yesterday. We will plan to dialyze her again tomorrow. Her electrolytes are within normal range. At present there is no indication for urgent dialysis today. 2. Hypoxemia. Mostly related to bilateral atelectasis, pleural effusion and rib fracture. Her volume status is reasonably well-compensated. She seems to be doing better today with pain control via epidural. I suggest aggressive bronchodilator therapy and antibiotics for atelectasis and encourage her to clear her airways. 3. Hyponatremia. Sodium level has improved to normal range. No intervention is indicated. 4. Anemia. Her anemia is mild and does not need any intervention.
[2016-09-04] MEDS: ROSUVASTATIN 10 MG TAB (CRESTOR) PO SCH (21:42)
[2016-09-04] MEDS: LIDOCAINE 5% (LIDODERM) PATCH TD SCH (21:43)
[2016-09-04] MEDS: FENTANYL/BUPIVACAINE/NACL BAG 250 ML EPIDURAL SCH (21:45)
[2016-09-05] VITALS (8 sets, daily range): BP systolic 102–113; BP diastolic 46–53; O2SAT 96
[2016-09-05] MEDS: LEVALBUTEROL 1.25 MG/0.5 ML CONCENTRATE NEB NEB SCH ×2 (01:15→07:10)
[2016-09-05] MEDS: PIPERACILLIN/TAZOBACTAM SOD 2.25 GM in D5W MINI-BAG PLUS 50 ML IV SCH ×2 (03:35→12:53)
[2016-09-05 04:58] LABS: BASO # 0.1 K/mm3 (0.0-0.2); BASO % 0.2 % (0.0-1.0); EOS # 0.2 K/mm3 (0.0-0.50); EOS % 0.5 % (0.0-3.0); LARGE UNSTAINED CELL # 0.6 K/mm3 (0.0-0.4); LARGE UNSTAINED CELL % 1.9 % (0.0-4.0); LYMPH # 0.6 K/mm3 (1.5-4.5); LYMPH % 1.7 % (24.0-44.0); MEAN CORPUSCULAR HEMOGLOBIN 29.6 pg (27.0-33.0); MEAN CORPUSCULAR VOLUME 98.6 fl (80.0-96.0); MONO % 6.3 % (0.0-5.0); NEUTROPHILS # 28.5 K/mm3 (1.8-7.7); NEUTROPHILS % 89.3 % (36.0-66.0); PLATELET COUNT, AUTOMATED 242 k/mm3 (150-450); RED CELL DISTRIBUTION WIDTH 17.4 % (11.5-14.5); WHITE BLOOD COUNT 31.9 K/mm3 (4.0-10.0)
[2016-09-05 05:13] LABS: CALCIUM LEVEL 7.9 MG/DL (8.8-10.2); CREATININE FOR GFR 5.33 MG/DL (0.55-1.02); GLOMERULAR FILTRATION RATE 8.5 (>39); POTASSIUM SERUM 4.8 MEQ/L (3.5-5.1)
[2016-09-05] MEDS: TIOTROPIUM INHALER/CAPSULE (SPIRIVA) INH SCH (07:10)
--- NOTE | 2016-09-05 08:24 | REP ---
Clinical: rib fracture. Comparison: 09/02/2016. Technique: PA and lateral. Findings: The mediastinum and cardiac silhouette are stable. Cardiomegaly and tortuous aorta. The lung saucedo demonstrate chronic changes with moderate right pleural effusion and right lower lobe and retrocardiac infiltrates. Rib fractures poorly identified. Impression: Increased moderate right pleural effusion with lower lobe infiltrates. Signed by Eugene Merrill MD 09/05/2016 08:15 A
[2016-09-05] MEDS: METOPROLOL SUCC *XL* 25MG TAB (TopROL *XL*) PO SCH (08:43)
[2016-09-05] MEDS: AMIODARONE 200 MG TAB (PACERONE) PO SCH (08:43)
[2016-09-05] MEDS: MOM 30ML SUSPENSION UDC PO SCH (09:00)
[2016-09-05] MEDS: **NOTE PATIENT COMMENT** MISC XX SCH (09:00)
[2016-09-05] MEDS: **hydrALAZINE HCL** 25 MG TAB PO SCH (09:01)
[2016-09-05] MEDS: LORATADINE 10 MG TAB PO SCH (09:01)
[2016-09-05] MEDS: (RENVELA) SEVELAMER **CARBONate** 800 MG TAB PO SCH (09:01)
[2016-09-05] MEDS: ASPIRIN 81 MG ENTERIC TAB PO SCH (09:02)
[2016-09-05] MEDS: DOCUSATE SODIUM 100 MG CAP PO SCH (09:02)
[2016-09-05] MEDS: ISOSORBIDE DIN. (ISORDIL) 30 MG TAB PO SCH (09:02)
[2016-09-05] MEDS: GABAPENTIN 300 MG CAP PO SCH ×2 (09:02→19:40)
[2016-09-05] MEDS: FEBUXOSTAT 40 MG TABLET (ULORIC) PO SCH (09:03)
[2016-09-05] MEDS: FAMOTIDINE 20 MG TAB PO SCH (09:03)
[2016-09-05] MEDS: PANTOPRAZOLE 40MG TAB (PROTONIX) PO SCH (09:03)
[2016-09-05] MEDS: HEPARIN SOD (PORCINE) 5000 UNITS/ML VIAL SC SCH (09:04)
[2016-09-05 09:41] LABS: ABG BASE EXCESS -1.2 (-2.0-2.0); ABG HCO3 23.4 MEQ/L (22.0-26.0); ABG PARTIAL PRESSURE CO2 38.4 mmHg (35.0-45.0); ABG STANDARD HCO3 23.2 MEQ/L (22.0-26.0); ABG TOTAL CO2 24.5 MEQ/L (23.0-31.0); ABG pH (ARTERIAL) 7.402 UNITS (7.350-7.450)
[2016-09-05] MEDS ORDERED: HEPARIN 1,000 UNITS/ML 10ML VIAL (FOR RADIOLOGY& DIALYSIS ONLY) IV ONE (11:30)
--- NOTE | 2016-09-05 13:26 | IPN ---
DATE OF VISIT: 09/05/2016 Ms Shabazz is seen on her bedside in intensive care unit. Nursing reports that since last night she has been confused and disoriented. She was able to recognize me and said my name correctly. Patient continues to repeat the same sentence and is trying to pick things out of air. On physical exam, temperature 98.4 degrees Fahrenheit, heart rate 58 per minute and respiratory rate 20 per minute. Blood pressure 103/46 mmHg and oxygen saturation 97% on 2 liters of oxygen. Head is atraumatic. Pupils are equal and reactive to light and sclera is anicteric. Neck is supple and without jugular venous distention (JVD) or thyroid enlargement. Oral mucosa is dry. Heart sounds are regular and lungs with moderate bilateral air entry. She has an epidural catheter in place on the left back. Extremities have no cyanosis or clubbing. Abdomen soft and nontender. Neurologically, she is awake, somewhat confused and hallucinating. Today's labs show WBC count 31.9, hemoglobin 9.6 and hematocrit 32.0. Blood gas today showed a pH of 7.40, pCO2 38.4 and pO2 46.0 and this was probably a mixed venous blood gas. Her oxygen saturation has been 97-98%. Her chemistry showed a sodium level 130, potassium 4.8, BUN 50 and creatinine 5.33. Glucose 167 and calcium 7.9. PROBLEMS: 1. Altered mentation. This is most likely related to acute illness. Medications could be a factor. She also has mild hyponatremia, which is probably not the cause of her altered mentation. I do not feel that patient is uremic as she has not missed any dialysis. 2. End-stage renal disease. Patient is going to be dialyzed this afternoon. We will dialyze her for 3 hours and try to remove only 1 liter of fluid as her volume status seems reasonably well-compensated. 3. Hypoxemia. Multifactorial hypoxemia caused by chronic obstructive pulmonary disease (COPD), right pleural effusion, rib fracture and end-stage renal disease. At this point, hypoxemia is much improved. We will try to remove about 1 liter of fluid today with hemodialysis. 4. Leukocytosis. I am concerned about possibility of pneumonia. Patient is currently not on high-dose steroids. She remains on Zosyn. 5. Hypertension. Blood pressure is very well controlled. In fact, her blood pressure has to be checked in the leg due to peripheral artery disease. I am going to stop her hydralazine and will hold her beta-ofelia for blood pressure less than 110 mmHg.
--- NOTE | 2016-09-05 14:13 | IPNPDOC ---
Subjective Date Seen The patient was seen on 09/05/16. Subjective Chief Complaint/HPI The patient is a 70-year-old female admitted with a reason for visit of Multiple Ribs Fracture. Events since last encounter Patient has been uncomfortable and shaky, sleepy but easily aroused from sleep. Rib/back pain. Not short of breath. Pulmonary: Denies: Dyspnea, Cough Cardiovascular: Denies: Chest Pain, Palpitations Gastrointestinal: Denies: Nausea, Vomiting, Abdominal Pain Objective Physical Examination General Exam: Positive: Alert, Mild Distress, Other (cachectic) Eye Exam: Negative: Sclera icteric ENT Exam: Positive: Atraumatic, Mucous membr. moist/pink (tacky) Chest Exam: Positive: Clear to auscultation, Diminished Heart Exam: Positive: Rate Normal, Normal S1 Abdomen Exam: Positive: Normal bowel sounds, Soft, Negative: Tenderness Psych Exam: Positive: Oriented x 3 Assessment /Plan Problems (1) Ribs, multiple fractures Status: Acute Discussed With: Patient Problem Specific Plan: Monitor Clinically Problem Text: Left 5-7 rib fractures - S/P mechanical fall has epidural for pain control- intermittently working (2) COPD (chronic obstructive pulmonary disease) Status: Chronic Response to Treatment: Stable Discussed With: Patient Problem Specific Plan: Monitor Clinically Problem Text: baseline 2L supplemental O2 at home respiratory regimen spiriva Speaking in a low voice, but clear and understandable (3) Aortic aneurysm, descending Status: Chronic Discussed With: Patient Problem Specific Plan: Repeat Tests Problem Text: 5.4 cm descending thoracic aortic aneursym as noted on ct chest. (4) CAD (coronary artery disease) Onset Date: 01/18/2014 Status: Chronic Response to Treatment: Stable Discussed With: Patient Problem Text: Continue asa, crestor, isordil, hydralazine, metoprolol (5) Diabetes Status: Chronic Discussed With: Patient Problem Text: Not treated with medication as per home med rec. Carb consistent diet. No ACEI with co-morbid HTN due to adverse effect - hyperkalemia as per documentation. (6) CHF (congestive heart failure) Status: Chronic Response to Treatment: Compensated Discussed With: Patient Problem Specific Plan: Monitor Clinically Problem Text: systolic failure - ischemic cardiomyopathy s/p AICD (7) HTN (hypertension) Status: Chronic Discussed With: Patient Problem Specific Plan: Monitor Clinically Problem Text: Receving metoprolol, hydralazine, isordil Not on ACEI secondary to allergic reaction - hyperkalemia. Mostly bradycardic, hold parameters for metoprolol. (8) Lung mass Status: Chronic Discussed With: Patient Problem Specific Plan: Monitor Clinically Problem Text: Known 1.4cm non-calcified right upper lobe lung nodule. (9) ESRD (end stage renal disease) Onset Date: 01/26/2014 Status: Chronic Discussed With: Patient Problem Specific Plan: Consult Specialist Problem Text: Continue with HD M/W/F. Patient has expressed a wish to pursue comfort care in presence of staff and family. The patient states that she has sufferred with dialysis many years, and does not wish to suffer any more. She refuses dialysis today. MOLST form is completed. 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 I discussed with Dr. Gonzales as he has a broader base of experience with this patient. (10) Mitral valve disease Status: Chronic (11) Hyperparathyroidism Status: Chronic (12) Anemia Status: Chronic Discussed With: Patient Problem Specific Plan: Repeat Labs (13) Hypercholesteremia Status: Chronic Problem Text: crestor (14) Pleural effusion Status: Chronic Discussed With: Patient Problem Specific Plan: Monitor Clinically Problem Text: I d/w Dr. Pollard on 09/04/16- no role for draining right sided effusion (15) Gout Status: Chronic Problem Specific Plan: Monitor Clinically Problem Text: Continue Uloric. Plan/VTE VTE Prophylaxis Ordered?: Yes (mechanical) Plan Diet: Continue Current Therapy: PT, OT Pt and Family Services: Home Care Medications: Increase Pain Meds Respiratory: Wean Oxygen Diagnostics: Repeat Labs in AM, Ultrasound VS, I&O, 24H, [facility] Vital Signs/I&O Vital Signs Date Time Temp Pulse Resp B/P (MAP) Pulse Ox O2 Delivery O2 Flow Rate FiO2 09/05/16 09:02 103/46 09/05/16 08:43 57 09/05/16 08:00 98.4 20 97 Nasal Cannula 2.0 09/04/16 10:00 35 I&O- Last 24 Hours up to 6 AM 09/05/16 05:59 Intake Total 705 ml Output Total 0 ml Balance 705 ml Laboratory Data 24H LABS Laboratory Tests 2 09/05/16 04:33: White Blood Count 31.9*H, Red Blood Count 3.25L, Hemoglobin 9.6L, Hematocrit 32.0L, Mean Corpuscular Volume 98.6H, Mean Corpuscular Hemoglobin 29.6, Mean Corpuscular Hemoglobin Concent 30.0L, Red Cell Distribution Width 17.4H, Platelet Count 242, Neutrophils (%) (Auto) 89.3H, Lymphocytes (%) (Auto) 1.7L, Monocytes (%) (Auto) 6.3H, Eosinophils (%) (Auto) 0.5, Basophils (%) (Auto) 0.2 , Neutrophils # (Auto) 28.5H, Lymphocytes # (Auto) 0.6L, Monocytes # (Auto) 2.0H , Eosinophils # (Auto) 0.2, Basophils # (Auto) 0.1, Large Unclassified Cells % 1.9, Large Unclassified Cells # 0.6H, Anion Gap 12, Glomerular Filtration Rate 8.5L, Blood Urea Nitrogen 50#H, Creatinine 5.33H, Sodium Level 130#L, Potassium Level 4.8, Chloride Level 97L, Carbon Dioxide Level 21, Calcium Level 7.9L 09/05/16 09:23: Blood Gas Bicarbonate Standard 23.2, Arterial Blood pH 7.402, Arterial Blood Partial Pressure CO2 38.4, Arterial Blood Partial Pressure O2 46.0*L, Arterial Blood Total CO2 24.5, Arterial Blood HCO3 23.4, Arterial Blood Base Excess -1.2 , Arterial Blood Oxygen Saturation 80.7L CBC/BMP Laboratory Tests 09/05/16 04:33 Red Blood Count 3.25 L, Mean Corpuscular Volume 98.6 H, Mean Corpuscular Hemoglobin 29.6, Mean Corpuscular Hemoglobin Concent 30.0 L, Red Cell Distribution Width 17.4 H, Neutrophils (%) (Auto) 89.3 H, Lymphocytes (%) (Auto ) 1.7 L, Monocytes (%) (Auto) 6.3 H, Eosinophils (%) (Auto) 0.5, Basophils (%) ( Auto) 0.2, Neutrophils # (Auto) 28.5 H, Lymphocytes # (Auto) 0.6 L, Monocytes # (Auto) 2.0 H, Eosinophils # (Auto) 0.2, Basophils # (Auto) 0.1, Calcium Level 7.9 L Microbiology Microbiology 09/03/16 Blood Culture - Preliminary, Resulted No growth after 24 hours . All specim... 09/03/16 Blood Culture - Preliminary, Resulted No growth after 24 hours . All specim... STEVEN CHE MD September 05, 2016 14:13
[2016-09-05] MEDS ORDERED: SCOPOLAMINE 1.5 MG TRANSDERMAL TD PRN (14:15)
[2016-09-05] MEDS: MORPHINE 2 MG/ML 1ML SYRINGE IV PRN ×2 (14:16→15:34)
[2016-09-05] MEDS: FENTANYL/BUPIVACAINE/NACL BAG 250 ML EPIDURAL SCH (19:44)
[2016-09-05] MEDS: LIDOCAINE 5% (LIDODERM) PATCH TD SCH (19:53)
--- NOTE | 2016-09-07 20:52 | ED PDOC ---
Provider Note Floor RN informed me of Ms. Shabazz's at 10:10PM on 09/05/2016. JUANITO CAMPBELL September 07, 2016 20:52
--- NOTE | 2016-11-06 13:18 | DSES ---
DATE OF ADMISSION: 09/02/2016 DATE OF DISCHARGE: 09/05/2016 SPECIALISTS INVOLVED IN HER CARE: Dr. Gonzales. Dr. Pollard. Dr. Lopez. There were no complications of her stay. There were no procedures performed during her stay. DISCHARGE DIAGNOSIS: 1. Multiple rib fractures status post mechanical fall. 2. Chronic obstructive pulmonary disease (COPD). 3. Descending aortic aneurysm. 4. Coronary artery disease. 5. Diabetes. 6. Congestive heart failure with systolic dysfunction secondary to ischemic cardiomyopathy status post automated implantable cardioverted defibrillator (AICD). 7. Hypertension. 8. Bradycardia. 9. 1.4 cm noncalcified right upper lobe lung nodule. 10. End stage renal disease on hemodialysis. 11. Mitral valve disease. 12. Hyperparathyroidism. 13. Anemia. 14. Hypercholesterolemia. 15. Pleural effusion. 16. Gout. SUMMARY OF HOSPITALIZATION: This is a 70-year-old who presented to [facility] with chest pain status post mechanical fall. She was a dialysis patient and was transferred to [facility] for pain control and dialysis. She was seen in consultation by Dr. Pollard for management of rib fractures and Dr. Lopez and Dr. Gonzales for dialysis. She was on hospitalist service. She had an epidural for pain control which was useful. During the course of her stay, she elected to not pursue any further dialysis. This has been a topic that she had been considering for some time and this fall seemed to move her to action. She was made comfort care and succumbed to her illness.
== END 2016-09-05 21:30 | disposition expired | DRG 683 ==
LOC: M ED 11:18 → M ED INP 11:19 → M MSPAV 12:55 → M ICU 09-03 17:51 → M MS5PR 09-05 17:21
PROVIDERS: ADMIT Internal Medicine; ATTEND Internal Medicine
DX: N18.6 End stage renal disease (principal); I50.42 Chronic combined systolic (congestive) and diastolic (congestive) heart failure; J90 Pleural effusion, not elsewhere classified; S22.42XA Multiple fractures of ribs, left side, initial encounter for closed fracture; N25.81 Secondary hyperparathyroidism of renal origin; I13.2 Hypertensive heart and chronic kidney disease with heart failure and with stage 5 chronic kidney disease, or end stage renal disease; J44.9 Chronic obstructive pulmonary disease, unspecified; Z99.81 Dependence on supplemental oxygen; I25.10 Atherosclerotic heart disease of native coronary artery without angina pectoris; E11.9 Type 2 diabetes mellitus without complications; R91.1 Solitary pulmonary nodule; E78.00 Pure hypercholesterolemia, unspecified; R09.02 Hypoxemia; R41.82 Altered mental status, unspecified; N08 Glomerular disorders in diseases classified elsewhere; M1A.30X0 Chronic gout due to renal impairment, unspecified site, without tophus (tophi); D63.1 Anemia in chronic kidney disease; I71.2 Thoracic aortic aneurysm, without rupture; Z79.82 Long term (current) use of aspirin; Z88.0 Allergy status to penicillin; Z88.2 Allergy status to sulfonamides; Z88.8 Allergy status to other drugs, medicaments and biological substances; Z91.041 Radiographic dye allergy status; Z87.891 Personal history of nicotine dependence; W01.198A Fall on same level from slipping, tripping and stumbling with subsequent striking against other object, initial encounter; Y92.012 Bathroom of single-family (private) house as the place of occurrence of the external cause; Y93.89 Activity, other specified; Y99.9 Unspecified external cause status; Z99.2 Dependence on renal dialysis; Z98.51 Tubal ligation status; Z90.49 Acquired absence of other specified parts of digestive tract; Z95.828 Presence of other vascular implants and grafts